=== PATIENT | female | born 1950 | race American Indian/Alaskan Native ===

== ENCOUNTER 2018-07-10 13:58 | Emergency (ER) | payer MEDICARE ==
[2018-07-10 14:24] VITALS: BP 185/97
[2018-07-10] MEDS ORDERED: COLCHICINE PO ONE ×3 (15:10→17:30)
[2018-07-10] MEDS ORDERED: NORCO 7.5/325 PO ONE (15:10)
[2018-07-10] MEDS ORDERED: MOTRIN PO ONE (15:10)
--- NOTE | 2018-07-10 15:21 | Emergency Department Report ---
ED Extremity Problem HPI - General Chief complaint: Extremity Injury, Lower Stated complaint: LEFT FOOT PAIN Source: patient Mode of arrival: Wheelchair Limitations: No Limitations - History of Present Illness Initial comments: Patient is a 68-year-old female who has a past history end- stage renal disease and hypertension who is presenting with left foot pain. Patient states the pain is 8 out of 10 in severity as aching and throbbing. Patient was diagnosed with gout last week and was started on allopurinol but was told not to take it until the flareup improved which it is not. Patient denies any fevers chills nausea vomiting diarrhea at this time. Associated Symptoms: denies: shortness of breath, fever, myalgias - Related Data Home Medications Medication Instructions Recorded Confirmed Last Taken Carvedilol [Coreg] 6.25 mg PO BID 05/27/15 02/22/17 1 Day Ago ~02/21/17 NIFEdipine XL [Procardia Xl] 60 mg PO Q12HR 05/27/15 02/22/17 1 Day Ago ~02/21/17 Insulin Detemir [Levemir Flextouch] 15 unit SQ QHS PRN 09/14/16 02/22/17 1 Day Ago ~02/21/17 Insulin Lispro [HumaLOG VIAL] 0 units SQ AC PRN 09/14/16 02/22/17 1 Day Ago ~02/21/17 cloNIDine [Catapres] 0.2 mg PO QHS 09/14/16 02/22/17 1 Day Ago ~02/21/17 Previous Rx's Medication Instructions Recorded Last Taken Type Ferrous Sulfate [Feosol 325 MG tab] 325 mg PO BID #60 tablet 05/30/15 1 Day Ago Rx ~02/21/17 Ondansetron [Zofran TAB] 4 mg PO Q8HR PRN #20 tablet 09/18/16 1 Day Ago Rx ~02/21/17 oxyCODONE /ACETAMINOPHEN [Percocet 1 tab PO Q4HR PRN #20 tab 09/18/16 1 Day Ago Rx 5/325 mg] ~02/21/17 diphenhydrAMINE [Benadryl CAP] 25 mg PO Q8H PRN #10 capsule 02/22/17 Unknown Rx Ibuprofen [Motrin] 600 mg PO Q8H PRN #20 tablet 10/04/18 Unknown Rx oxyCODONE /ACETAMINOPHEN [Percocet 1 tab PO Q6HR PRN #15 tablet 07/10/18 Unknown Rx 5/325] Allergies Allergy/AdvReac Type Severity Reaction Status Date / Time digoxin Allergy Hives Verified 11/23/15 11:21 lisinopril Allergy Swelling Verified 11/23/15 11:21 nitroglycerin AdvReac Rash, Verified 11/23/15 11:21 HEADACHES shellfish derived AdvReac Swelling Verified 11/23/15 11:21 ED Review of Systems ROS: Stated complaint: LEFT FOOT PAIN Other details as noted in HPI Comment: All other systems reviewed and negative ED Past Medical Hx - Past Medical History Previous Medical History?: Yes Hx Hypertension: Yes (FOR 10+ YRS, DR. 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) Hx Sickle Cell Disease: No Hx Arthritis: Yes (Gout) Hx Seizures: No Hx Asthma: Yes ( A CHILD) Hx HIV: No Additional medical history: Dilated cardiomyopathy / PERITONEAL DYALISIS - Surgical History Past Surgical History?: Yes Hx Pacemaker: No Hx Appendectomy: Yes (IN 1984) Additional Surgical History: tonsil removed - Social History Smoking Status: Never Smoker Substance Use Type: None - Medications Home Medications: Home Medications Medication Instructions Recorded Confirmed Last Taken Type Carvedilol [Coreg] 6.25 mg PO BID 05/27/15 02/22/17 1 Day Ago History ~02/21/17 NIFEdipine XL [Procardia Xl] 60 mg PO Q12HR 05/27/15 02/22/17 1 Day Ago History ~02/21/17 Ferrous Sulfate [Feosol 325 MG tab] 325 mg PO BID #60 tablet 05/30/15 02/22/17 1 Day Ago Rx ~02/21/17 Insulin Detemir [Levemir Flextouch] 15 unit SQ QHS PRN 09/14/16 02/22/17 1 Day Ago History ~02/21/17 Insulin Lispro [HumaLOG VIAL] 0 units SQ AC PRN 09/14/16 02/22/17 1 Day Ago History ~02/21/17 cloNIDine [Catapres] 0.2 mg PO QHS 09/14/16 02/22/17 1 Day Ago History ~02/21/17 Ondansetron [Zofran TAB] 4 mg PO Q8HR PRN #20 tablet 09/18/16 02/22/17 1 Day Ago Rx ~02/21/17 oxyCODONE /ACETAMINOPHEN [Percocet 1 tab PO Q4HR PRN #20 tab 09/18/16 02/22/17 1 Day Ago Rx 5/325 mg] ~02/21/17 diphenhydrAMINE [Benadryl CAP] 25 mg PO Q8H PRN #10 capsule 02/22/17 Unknown Rx Ibuprofen [Motrin] 600 mg PO Q8H PRN #20 tablet 07/10/18 Unknown Rx oxyCODONE /ACETAMINOPHEN [Percocet 1 tab PO Q6HR PRN #15 tablet 07/10/18 Unknown Rx 5/325] ED Physical Exam - General Limitations: No Limitations General appearance: alert, in no apparent distress - Head Head exam: Present: atraumatic, normocephalic - Eye Eye exam: Present: normal appearance - ENT ENT exam: Present: mucous membranes moist - Neck Neck exam: Present: normal inspection - Respiratory Respiratory exam: Present: normal lung sounds bilaterally. Absent: respiratory distress, wheezes, rales, rhonchi - Cardiovascular Cardiovascular Exam: Present: regular rate, normal rhythm. Absent: systolic murmur, diastolic murmur, rubs, gallop - GI/Abdominal GI/Abdominal exam: Present: soft, normal bowel sounds - Extremities Exam Extremities exam: Present: normal inspection, tenderness (patient has tenderness mild erythema and mild warmth to the dorsal left foot extending to the ankle) - Back Exam Back exam: Present: normal inspection - Neurological Exam Neurological exam: Present: alert, oriented X3 - Psychiatric Psychiatric exam: Present: normal affect, normal mood - Skin Skin exam: Present: warm, dry, intact, normal color. Absent: rash ED Course Vital Signs 07/10/18 07/10/18 14:17 14:23 Temperature 98.4 F Pulse Rate 103 H Respiratory 18 Rate Blood Pressure 190/92 Blood Pressure 185/97 [Right] O2 Sat by Pulse 98 Oximetry ED Medical Decision Making - Medical Decision Making She was started on colchicine and given meds for symptomatically relief and the patient will be discharged home. Critical care attestation.: If time is entered above; I have spent that time in minutes in the direct care of this critically ill patient, excluding procedure time. ED Disposition Clinical Impression: Gout attack Disposition: DC- TO HOME OR SELFCARE Is pt being admited?: No Does the pt Need Aspirin: No Condition: Stable Instructions: Acute Gouty Arthritis (ED) Referrals: PRIMARY CARE, [Primary Care Provider] - 3-5 Days Time of Disposition: 15:21
== END 2018-07-10 16:50 | disposition home or self-care (01) ==
LOC: ED 13:58
DX: M10.072 Idiopathic gout, left ankle and foot (principal); I13.2 Hypertensive heart and chronic kidney disease with heart failure and with stage 5 chronic kidney disease, or end stage renal disease; E11.22 Type 2 diabetes mellitus with diabetic chronic kidney disease; N18.6 End stage renal disease; I50.9 Heart failure, unspecified; M19.90 Unspecified osteoarthritis, unspecified site; Z79.4 Long term (current) use of insulin; Z88.8 Allergy status to other drugs, medicaments and biological substances; Z91.013 Allergy to seafood
CPT/HCPCS: 99282

== ENCOUNTER 2020-07-31 10:00 | Inpatient (IN) | payer MEDICARE, OTHER ==
--- NOTE | 2020-07-31 10:07 | Event Note ---
ED Screening Note Date of service: 07/31/20 Time: 10:05 ED Screening Note: The patient was evaluated in the emergency department for symptoms described in the history of present illness. He/she was evaluated in the context of the global COVID-19 pandemic, which necessitated consideration that the patient might be at risk for infection with the virus that causes COVID-19. Institutional protocols and algorithms that pertain to the evaluation of patients at risk for COVID-19 are in a state of rapid change based on information released by regulatory bodies including the CDC and federal and state organizations. These policies and algorithms were followed during the patient's care in the emergency department. Please note that these policies, procedures and recommendations changed on a rapid basis. 70-year-old -Martiniquais female with a present history of end-stage renal disease on dialysis, diabetes presents to the emergency room for shortness of breath and generalized itching and generalized feeling like glasses all over her. And reports that her fingertips feel like they are swollen and will have glue-like substance coming from the tips that would sometimes be red. Is brought in by her . This initial assessment/diagnostic orders/clinical plan/treatment(s) is/are subject to change based on patients health status, clinical progression and re- assessment by fellow clinical providers in the ED. Further treatment and workup at subsequent clinical providers discretion. Patient/guardian urged not to elope from the ED as their condition may be serious if not clinically assessed and managed. Initial orders include: Main CBC, CMP, urinalysis, fosters, magnesium, chest x-ray.
[2020-07-31 10:36] LABS: Bacteria,Urine 1+ /HPF (Negative); Bilirubin,Urine NEG (Negative); Blood,Urine NEG (Negative); Color,Urine Yellow (Yellow); Mucus,Urine FEW /HPF; Urobilinogen,Urine < 2.0 mg/dL (<2.0)
[2020-07-31 10:53] LABS: Basophils # (Auto) 0.2 K/mm3 (0.0-0.1); Basophils % (Auto) 1.9 % (0.0-1.8); Eosinophils # (Auto) 0.8 K/mm3 (0.0-0.4); Eosinophils % (Auto) 9.2 % (0.0-4.3); Hemoglobin 6.2 gm/dl (10.1-14.3); Lymphocytes # (Auto) 1.1 K/mm3 (1.2-5.4); Lymphocytes % (Auto) 11.9 % (13.4-35.0); Mean Corpuscular HGB Conc 32 % (30-34); Mean Corpuscular Volume 96 fl (79-97); Monocytes # (Auto) 0.8 K/mm3 (0.0-0.8); Monocytes % (Auto) 8.8 % (0.0-7.3); Platelet Count 322 K/mm3 (140-440); Red Blood Count 2.03 M/mm3 (3.65-5.03); Red Cell Distribution Width 19.9 % (13.2-15.2)
--- NOTE | 2020-07-31 10:54 | XRay Report ---
CHEST PA AND LATERAL VIEWS INDICATION: MAIN. COMPARISON: 02/21/2017 FINDINGS: Support devices: None Heart: Normal and unchanged Lungs/Pleura: No acute pulmonary or pleural findings. IMPRESSION: 1. No significant abnormality. Signer Name: Steven Medina MD Signed: 07/31/2020 10:50 AM Workstation Name: [id number]
[2020-07-31 10:55] LABS: Hematocrit 19.5 % (30.3-42.9)
[2020-07-31] MEDS ORDERED: SODIUM CHLORIDE 0.9% 500 ML 500 ML IV ONE (11:04)
--- NOTE | 2020-07-31 11:04 | Emergency Department Report ---
ED Shortness of Breath HPI - General Chief Complaint: Dyspnea/Respdistress Stated Complaint: JOCELINE/PAIN/SKIN PROBLEMS Time Seen by Provider: 07/31/20 11:00 Source: patient Mode of arrival: Ambulatory Limitations: No Limitations - History of Present Illness Initial Comments: This is a very pleasant 70-year-old female on PD. She states that she did not finish a complete treatment yesterday because she was hurting all over. She does not complain of abdominal pain now. She denies fever or chills. She states she has been short of breath for some time. Patient does appear to have a number of somatic delusions to include "blood coming out of my fingertips". "Foam coming out of my hands" and "pus coming out everywhere I have hair". Patient is however oriented, awake and alert. She is not in respiratory distress. She is not otherwise agitated or apparently delusional. She tells me she lives at home with her . She denies being on any medications which might be associated with any of the above symptoms. She states that she has had the symptoms for some time. She states she is in regular follow-up with [facility] nephrology. She tells me that she has not been in the hospital since her last admission here when she had pneum operitoneum related to air getting in via her PD catheter. Patient states she has never been a smoker nor does her . Per last nephrology note summary: Mrs. Catherine is a 66yo with ESRD on CCPD who presented to the ED with shoulder/neck pain followed by facial/neck swelling. She denies SOB, fever, sore throat, difficulty swallowing. She denies change in food/eating habits. S ymptoms continued to worsen which prompted her visit to the ED. Pain and swelling have both resolved according to patient. Past History Past Medical History: COPD, hypertension, renal failure, other (Dilated Cardiomyopathy). denies: diabetes Past Surgical History: appendectomy, Other (Peritoneal Dialysis Catherer) Social history: denies: smoking, alcohol abuse Family history: cancer (Father of Lung CA), hypertension (Mother has HTN) Medications and Allergies Allergies Allergy/AdvReac Type Severity Reaction Status Date / Time digoxin Allergy Hives Verified 11/23/15 11:21 lisinopril Allergy Swelling Verified 11/23/15 11:21 nitroglycerin AdvReac Rash, Verified 11/23/15 11:21 HEADACHES shellfish derived AdvReac Swelling Verified 11/23/15 11:21 Home Medications Medication Instructions Recorded Confirmed Last Taken Type Carvedilol [Coreg] 6.25 mg PO BID 05/27/15 02/22/17 1 Day Ago History NIFEdipine XL [Procardia Xl] 60 mg PO Q12HR 05/27/15 02/22/17 1 Day Ago History Ferrous Sulfate [Feosol 325 MG tab] 325 mg PO BID #60 tablet 05/30/15 02/22/17 1 Day Ago Rx Insulin Detemir [Levemir Flextouch] 15 unit SQ QHS PRN 09/14/16 02/22/17 1 Day Ago History Insulin Lispro [HumaLOG VIAL] 0 units SQ AC PRN 09/14/16 02/22/17 1 Day Ago History cloNIDine [Catapres] 0.2 mg PO QHS 09/14/16 02/22/17 1 Day Ago History Ondansetron [Zofran TAB] 4 mg PO Q8HR PRN #20 tablet 09/18/16 02/22/17 1 Day Ago Rx oxyCODONE /ACETAMINOPHEN [Percocet 1 tab PO Q4HR PRN #20 tab 09/18/1602/04 1 Day Ago Rx 5/325 mg] diphenhydrAMINE [Benadryl CAP] 25 mg PO Q8H PRN #10 capsule 02/22/17 Unknown Rx Active Meds: Active Medications Carvedilol (Coreg) 6.25 mg PO BID [facility] Last Admin: 02/22/17 11:21 Dose: 6.25 mg Clonidine HCl (Catapres) 0.2 mg PO QHS [facility] Diphenhydramine HCl (Benadryl) 25 mg PO Q8H PRN PRN Reason: Itching Last Admin: 02/22/17 11:22 Dose: 25 mg Ferrous Sulfate (Feosol) 325 mg PO BID [facility] Last Admin: 02/22/17 11:21 Dose: 325 mg Heparin Sodium (Porcine) (Heparin) 5,000 unit SUB-Q Q8HR [facility] Last Admin: 02/22/17 05:45 Dose: 5,000 unit Insulin Aspart (Novolog) 5 units SUB-Q AC [facility] Last Admin: 02/22/17 11:29 Dose: Not Given Insulin Detemir (Levemir) 15 units SUB-Q QHS [facility] Insulin Human Regular (Novolin R) 0 units SUB-Q ACHS [facility] PRN Reason: Protocol Morphine Sulfate (Morphine) 1 mg IV Q4H PRN PRN Reason: Pain , Severe (7-10) Last Admin: 02/22/17 11:24 Dose: 1 mg Nifedipine (Procardia Xl) 60 mg PO Q12HR [facility] Ondansetron HCl (Zofran) 4 mg PO Q8HR PRN PRN Reason: Nausea Oxycodone/Acetaminophen (Percocet 5/325) 1 tab PO Q4HR PRN PRN Reason: Pain Last Admin: 02/22/17 12:42 Dose: 1 tab Peritoneal Dialysis Solution (Dianeal Low Calcium W/2.5% Dextrose) 2,000 ml IP Q4H [facility] Last Admin: 02/22/17 12:26 Dose: 2,000 ml Complaint: shortness of breath -: Gradual, days(s) Known History Of: COPD, other Associated Symptoms: denies other symptoms Treatments Prior to Arrival: none - Related Data Home Oxygen Therapy: No Home Medications Medication Instructions Recorded Confirmed Last Taken NIFEdipine XL [Procardia Xl] 60 mg PO Q12HR 05/27/15 02/22/17 07/30/20 carvediloL [Coreg] 6.25 mg PO BID 05/27/15 02/22/17 07/30/20 Insulin Detemir (Nf) [Levemir 15 unit SQ QHS PRN 09/14/16 02/22/17 07/31/19 Flextouch (Nf)] Insulin Lispro [HumaLOG VIAL] 0 units SQ AC PRN 09/14/16 02/22/17 07/31/19 cloNIDine [Catapres] 0.2 mg PO QHS 09/14/16 02/22/17 07/30/20 Cholecalciferol (Vitamin D3) 3,000 unit PO DAILY 07/31/20 07/31/20 07/30/20 [Vitamin D3 3,000 unit] Cinacalcet HCl [Sensipar] 60 mg PO DAILY 07/31/20 07/31/20 Unknown Gentamicin 0.1% Top Oint(Nf) 1 applic TP TID 07/31/20 07/31/20 Unknown [Gentamicin 0.1% Top Oint (Nf)] Previous Rx's Medication Instructions Recorded Last Taken Type Ibuprofen [Motrin] 600 mg PO Q8H PRN #20 tablet 07/10/18 Unknown Rx Allergies Allergy/AdvReac Type Severity Reaction Status Date / Time digoxin Allergy Hives Verified 11/23/15 11:21 lisinopril Allergy Swelling Verified 11/23/15 11:21 nitroglycerin AdvReac Rash, Verified 11/23/15 11:21 HEADACHES shellfish derived AdvReac Swelling Verified 11/23/15 11:21 ED Review of Systems ROS: Stated complaint: JOCELINE/PAIN/SKIN PROBLEMS Other details as noted in HPI Constitutional: denies: chills, fever Eyes: denies: eye pain, eye discharge, vision change ENT: denies: ear pain, throat pain Respiratory: shortness of breath, SOB with exertion. denies: cough (Only occasional with no acute change), wheezing Cardiovascular: denies: chest pain, palpitations Endocrine: no symptoms reported Gastrointestinal: denies: abdominal pain, nausea, diarrhea Genitourinary: denies: urgency, dysuria, discharge Musculoskeletal: denies: back pain, joint swelling, arthralgia Skin: as per HPI (Quite a variety of symptoms likely somatic in nature.) Neurological: denies: headache, weakness, paresthesias Psychiatric: denies: anxiety, depression Hematological/Lymphatic: denies: easy bleeding, easy bruising ED Past Medical Hx - Past Medical History Previous Medical History?: Yes Hx Hypertension: Yes (FOR 10+ YRS, DR. 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) Hx Sickle Cell Disease: No Hx Arthritis: Yes (Gout) Hx Seizures: No Hx Asthma: Yes ( A CHILD) Hx HIV: No Additional medical history: Dilated cardiomyopathy / PERITONEAL DYALISIS - Surgical History Past Surgical History?: Yes Hx Pacemaker: No Hx Appendectomy: Yes ([place] 1984) Additional Surgical History: tonsil removed - Social History Smoking Status: Never Smoker Substance Use Type: None - Medications Home Medications: Home Medications Medication Instructions Recorded Confirmed Last Taken Type NIFEdipine XL [Procardia Xl] 60 mg PO Q12HR 05/27/15 02/22/17 07/30/20 History carvediloL [Coreg] 6.25 mg PO BID 05/27/15 02/22/17 07/30/20 History Insulin Detemir (Nf) [Levemir 15 unit SQ QHS PRN 09/14/16 02/22/17 07/31/19 History Flextouch (Nf)] Insulin Lispro [HumaLOG VIAL] 0 units SQ AC PRN 09/14/16 02/22/17 07/31/19 History cloNIDine [Catapres] 0.2 mg PO QHS 09/14/16 02/22/17 07/30/20 History Ibuprofen [Motrin] 600 mg PO Q8H PRN #20 tablet 07/10/18 Unknown Rx Cholecalciferol (Vitamin D3) 3,000 unit PO DAILY 07/31/20 07/31/20 07/30/20 History [Vitamin D3 3,000 unit] Cinacalcet HCl [Sensipar] 60 mg PO DAILY 07/31/20 07/31/20 Unknown History Gentamicin 0.1% Top Oint(Nf) 1 applic TP TID 07/31/20 07/31/20 Unknown History [Gentamicin 0.1% Top Oint (Nf)] ED Physical Exam - General Limitations: Physical Limitation General appearance: alert, in no apparent distress, other (Pale) - Head Head exam: Present: atraumatic, normocephalic - Eye Eye exam: Present: normal appearance. Absent: scleral icterus - ENT ENT exam: Present: mucous membranes moist - Neck Neck exam: Present: normal inspection. Absent: tenderness, meningismus - Respiratory Respiratory exam: Present: normal lung sounds bilaterally. Absent: respiratory distress - Cardiovascular Cardiovascular Exam: Present: regular rate, normal rhythm. Absent: systolic murmur, diastolic murmur, rubs, gallop - GI/Abdominal GI/Abdominal exam: Present: soft, normal bowel sounds, other (PD catheter dressed in situ. No obvious abnormal findings). Absent: distended, tenderness, guarding, rebound - Extremities Exam Extremities exam: Present: pedal edema (Mild pedal edema) - Back Exam Back exam: Present: normal inspection - Neurological Exam Neurological exam: Present: alert, oriented X3, CN II-XII intact. Absent: motor sensory deficit - Psychiatric Psychiatric exam: Present: normal affect, normal mood - Skin Skin exam: Present: warm, dry, intact, other (Patient skin is pale. She does have a number of pigmented areas to include the bottom of her feet. They appear to be quite chronic in nature.). Absent: rash ED Course Vital Signs 07/31/20 07/31/20 07/31/20 10:03 11:05 11:15 Temperature 97.7 F Pulse Rate 93 H 87 96 H Respiratory 13 16 Rate Blood Pressure 161/74 143/66 O2 Sat by Pulse 16 L 96 99 Oximetry 07/31/20 07/31/20 11:31 12:01 Temperature Pulse Rate 85 Respiratory 20 20 Rate Blood Pressure 147/71 O2 Sat by Pulse 98 98 Oximetry - Reevaluation(s) Reevaluation #1: Patient will require transfusion and admission to the hospital. Her chemistries are yet pending. 07/31/20 11:20 Reevaluation #2: Discussed with hospitalist. Will be admitted by Dr. Simon. Consult to nephrology. No acute renal issue found this time that requires emergency consultation. Unit of blood ordered. Hospitalist for further evaluation. 07/31/20 11:28 ED Medical Decision Making - Lab Data Result diagrams: 07/31/20 10:30 07/31/20 10:30 Laboratory Results - last 24 hr 07/31/20 07/31/20 07/31/20 10:21 10:30 10:30 WBC 9.1 RBC 2.03 L Hgb 6.2 L Hct 19.5 L* MCV 96 MCH 31 MCHC 32 RDW 19.9 H Plt Count 322 Lymph % (Auto) 11.9 L [place] % (Auto) 8.8 H Eos % (Auto) 9.2 H Baso % (Auto) 1.9 H Lymph # (Auto) 1.1 L [place] # (Auto) 0.8 Eos # (Auto) 0.8 H Baso # (Auto) 0.2 H Seg Neutrophils % 68.2 Seg Neutrophils # 6.2 Sodium 142 Potassium 5.0 Chloride 97.7 L Carbon Dioxide 25 Anion Gap 24 BUN 64 H Creatinine 13.8 H Estimated GFR 3 BUN/Creatinine Ratio 5 Glucose 98 POC Glucose 99 Calcium 10.3 H Phosphorus Magnesium Total Bilirubin 0.30 AST 9 ALT 6 L Alkaline Phosphatase 138 H Total Protein 7.6 Albumin 3.8 L Albumin/Globulin Ratio 1.0 Urine Color Urine Turbidity Urine pH Ur Specific [place] Urine Protein Urine Glucose (UA) Urine Ketones Urine Blood Urine Nitrite Urine Bilirubin Urine Urobilinogen Ur Leukocyte Esterase Urine WBC (Auto) Urine RBC (Auto) U Epithel Cells (Auto) Urine Bacteria (Auto) Urine Mucus 07/31/20 07/31/20 10:30 Unknown WBC RBC Hgb Hct MCV MCH MCHC RDW Plt Count Lymph % (Auto) [place] % (Auto) Eos % (Auto) Baso % (Auto) Lymph # (Auto) [place] # (Auto) Eos # (Auto) Baso # (Auto) Seg Neutrophils % Seg Neutrophils # Sodium Potassium Chloride Carbon Dioxide Anion Gap BUN Creatinine Estimated GFR BUN/Creatinine Ratio Glucose POC Glucose Calcium Phosphorus 7.60 H Magnesium 2.00 Total Bilirubin AST ALT Alkaline Phosphatase Total Protein Albumin Albumin/Globulin Ratio Urine Color Yellow Urine Turbidity Clear Urine pH 7.0 Ur Specific [place] 1.012 Urine Protein 100 mg/dl Urine Glucose (UA) Neg Urine Ketones Neg Urine Blood Neg Urine Nitrite Neg Urine Bilirubin Neg Urine Urobilinogen < 2.0 Ur Leukocyte Esterase Tr Urine WBC (Auto) 2.0 Urine RBC (Auto) 1.0 U Epithel Cells (Auto) 5.0 Urine Bacteria (Auto) 1+ Urine Mucus Few - EKG Data -: EKG Interpreted by Me EKG shows normal: sinus rhythm, axis, intervals, QRS complexes, ST-T waves Rate: normal - EKG Data Interpretation: no acute changes, nonspecific ST-T wave davey, other (P pulmonale noted) - Radiology Data Radiology results: image reviewed (Consistent with chronic lung, no acute finding) Critical care attestation.: If time is entered above; I have spent that time in minutes in the direct care of this critically ill patient, excluding procedure time. ED Disposition Clinical Impression: Symptomatic anemia, End-stage renal disease on peritoneal dialysis, Hypophosphatemia, Hallucinosis, Hyperphosphatemia, Dyspnea Disposition: OP ADMIT IP TO THIS HOSP Is pt being admited?: Yes Does the pt Need Aspirin: Yes Condition: Stable Time of Disposition: 11:29
[2020-07-31 11:10] LABS: Albumin 3.8 g/dL (3.9-5); Calcium 10.3 mg/dL (8.4-10.2)
[2020-07-31] MEDS ORDERED: ASPIRIN 81 MG TAB CHEW PO ONE (11:29)
[2020-07-31 11:41] LABS: INR 0.76 (0.87-1.13)
[2020-07-31 11:42] LABS: Partial Thromboplastin Time 26.4 Sec. (24.2-36.6)
[2020-07-31 12:01] LABS: Creatine Kinase MB 2.1 ng/mL (0.0-4.0)
[2020-07-31 12:14] LABS: Chol/HDL Ratio 3.6 %
[2020-07-31] MEDS ORDERED: ASPIRIN 81 MG TAB CHEW ONE (12:21)
[2020-07-31] MEDS ORDERED: ACETAMINOPHEN 325 MG TAB PO PRN ×2 (12:53→12:57)
[2020-07-31] MEDS ORDERED: ONDANSETRON 4 MG/2 ML INJ IV PRN ×2 (12:53→12:57)
[2020-07-31] MEDS ORDERED: INSULIN DETEMIR 15 UNIT SQ PRN (12:56)
[2020-07-31] MEDS ORDERED: DEXTROSE 50% IN WATER (25GM) 50 ML SYRINGE IV PRN (12:58)
[2020-07-31] MEDS ORDERED: NON-FORMULARY EACH (Cinacalcet Hcl [Sensipar] 60 MG) PO SCH (13:00)
--- NOTE | 2020-07-31 13:03 | History and Physical Report ---
History of Present Illness Date of examination: 07/31/20 Date of admission: 07/31/20 11:56 Chief complaint: sob fatigue anemia History of present illness: Patient is a 70-year-old female with a history of end-stage renal disease, COPD presents with shortness of breath dyspnea on exertion orthopnea which she described as trouble breathing when she lies down. Patient denies any chest pain denies nausea vomiting denies any sick contacts denies any recent travel. Patient states she has been doing fairly well until this time medically patient however will quickly return the history to some what appears to be visual hallucinations which she states blood and pus coming from her fingertips in her feet. There are obviously no lesions there that are consistent with this. Patient showed me on her phone picture of stretch mosley and then says this is pus running out of her skin when clearly that stretch mosley. Patient states she has itching on the bottom her feet. I did call her and he states that this was unusual behavior for the patient however he did not have much to add as far as her history. Was very difficult to get any information from him even if he knew what was going on. Apparently may be a ex-. Otherwise patient is comfortable no new concerns. She is not any pain denies pain no fever chills. The rest of her history and conversation is appropriate. Upon work-up patient found to be anemic with hematocrit of 15 and hemoglobin of 6. Patient was admitted for anemia transfusion end-stage renal disease she sees Dr. Khai johnson for nephrology. Past History Past Medical History: anemia, COPD, dialysis, ESRD, hypertension. denies: acute [place], atrial fib, arrhythmia, arthritis, cancer, diabetes, DVT, GERD, heart failure, hepatitis, HIV/AIDS, hyperthyroidism, hyperlipidemia, liver disease, pulmonary embolism, stroke, other Past Surgical History: Other (PD) Social history: , lives with family, full code. denies: smoking, alcohol abuse, prescription drug abuse Family history: hypertension Medications and Allergies Allergies Allergy/AdvReac Type Severity Reaction Status Date / Time digoxin Allergy Hives Verified 11/23/15 11:21 lisinopril Allergy Swelling Verified 11/23/15 11:21 nitroglycerin AdvReac Rash, Verified 11/23/15 11:21 HEADACHES shellfish derived AdvReac Swelling Verified 11/23/15 11:21 Home Medications Medication Instructions Recorded Confirmed Last Taken Type NIFEdipine XL [Procardia Xl] 60 mg PO Q12HR 05/27/15 07/31/20 07/30/20 History carvediloL [Coreg] 6.25 mg PO BID 05/27/15 07/31/20 07/30/20 History Insulin Detemir (Nf) [Levemir 15 unit SQ QHS PRN 09/14/16 07/31/20 07/31/19 History Flextouch (Nf)] Insulin Lispro [HumaLOG VIAL] 0 units SQ AC PRN 09/14/16 07/31/20 07/31/19 History cloNIDine [Catapres] 0.2 mg PO QHS 09/14/16 07/31/20 07/30/20 History Ibuprofen [Motrin] 600 mg PO Q8H PRN #20 tablet 07/10/18 07/31/20 Unknown Rx Cholecalciferol (Vitamin D3) 3,000 unit PO DAILY 07/31/20 07/31/20 07/30/20 History [Vitamin D3 3,000 unit] Cinacalcet HCl [Sensipar] 60 mg PO DAILY 07/31/20 07/31/20 Unknown History Gentamicin 0.1% Top Oint(Nf) 1 applic TP TID 07/31/20 07/31/20 Unknown History [Gentamicin 0.1% Top Oint (Nf)] Active Meds: Active Medications Acetaminophen (Tylenol) 650 mg PO Q4H PRN PRN Reason: Pain MILD(1-3)/Fever >100.5/POOLE Acetaminophen (Tylenol) 650 mg PO Q4H PRN PRN Reason: Pain MILD(1-3)/Fever >100.5/POOLE Carvedilol (Coreg) 6.25 mg PO BID [facility] Clonidine HCl (Catapres) 0.2 mg PO QHS [facility] Dextrose (D50w (25gm) Syringe) 50 ml IV Q30MIN PRN; Protocol PRN Reason: Hypoglycemia Insulin Human Lispro (Humalog) 0 unit SUB-Q Q6H [facility]; Protocol Miscellaneous Medication (Cinacalcet Hcl [Sensipar]) 60 mg PO DAILY [facility] Miscellaneous Medication (Cholecalciferol (Vitamin D3) [Vitamin D3 3,000 Unit]) 3,000 unit PO DAILY [facility] Miscellaneous Medication (Insulin Detemir (Nf)) 15 unit SQ QHS PRN PRN Reason: HIGH GLUCOSE Nifedipine (Procardia Xl) 60 mg PO Q12HR [facility] Ondansetron HCl (Zofran) 4 mg IV Q8H PRN PRN Reason: Nausea And Vomiting Ondansetron HCl (Zofran) 4 mg IV Q8H PRN PRN Reason: Nausea And Vomiting Oxycodone/Acetaminophen (Percocet 5/325) 1 tab PO Q6H PRN PRN Reason: Pain, Moderate (4-6) Sodium Chloride (Sodium Chloride Flush Syringe 10 Ml) 10 ml IV BID [facility] Sodium Chloride (Sodium Chloride Flush Syringe 10 Ml) 10 ml IV PRN PRN PRN Reason: LINE FLUSH Sodium Chloride (Sodium Chloride Flush Syringe 10 Ml) 10 ml IV BID [facility] Sodium Chloride (Sodium Chloride Flush Syringe 10 Ml) 10 ml IV PRN PRN PRN Reason: LINE FLUSH Review of Systems Constitutional: weakness, malaise, no weight loss, no weight gain, no fever, no chills, no sweats, no night sweats, no anorexia, no lethargy, no chronic headaches, no poor appetite, no daytime sleepiness, no chronic pain Ears, nose, mouth and throat: no deferred, no ear pain, no ear discharge, no tinnitis, no nasal congestion, no nasal discharge, no dental pain, no dysphagia, no post-nasal drip, no headache, no vertigo, no neck lump Cardiovascular: shortness of breath, dyspnea on exertion, paroxysmal nocturnal dyspnea, no chest pain, no orthopnea, no palpitations, no rapid/irregular heart beat, no edema, no syncope, no lightheadedness, no claudication, no phlebitis, no high blood pressure, no leg edema, no decreased exercise tolerance Respiratory: shortness of breath, dyspnea on exertion, no cough, no cough with sputum, no excessive sputum, no hemoptysis, no congestion, no wheezing, no pleurisy, no pain, no pain on inspiration, no respiratory infections Gastrointestinal: nausea, no abdominal pain, no vomiting, no diarrhea, no constipation, no change in bowel habits, no hematemesis, no coffee ground emesis, no melena, no hematochezia, no heartburn, no lactose intolerance Musculoskeletal: no neck stiffness, no neck pain, no shooting arm pain, no arm numbness/tingling, no low back pain, no shooting leg pain, no leg numbness/tingling, no redness of joints, no hot joints, no morning stiffness, no muscle cramps, no limitation of motion, no fractures Neurological: no transient paralysis, no paralysis, no numbness, no syncope, no tremors, no vertigo, no migraines, no convulsions, no change in mentation, no memory loss, no motor disturbance, no double vision, no hearing difficulties, no paralysis Psychiatric: anxiety, memory loss, sleep disturbances, no change in sleep habits, no insomnia, no hypersomnia, no change in libido, no suicidal ideation, no paranoia, no depression, no hopelessness, no sadness/tearfullness Endocrine: no cold intolerance, no excessive thirst, no nocturia, no weight change, no proptosis, no low blood sugars, no recent glucocorticoid use, no other Hematologic/Lymphatic: no thrombophilia Exam - Constitutional Vitals: Temp Pulse Resp BP Pulse Ox 97.7 F 85 20 147/71 98 07/31/20 10:03 07/31/20 11:31 07/31/20 12:01 07/31/20 11:31 07/31/20 12:01 General appearance: Present: no acute distress, well-nourished - EENT Eyes: Present: PERRL ENT: hearing intact, clear oral mucosa - Neck Neck: Present: supple, normal ROM - Respiratory Respiratory effort: normal Respiratory: bilateral: CTA - Cardiovascular Heart Sounds: Present: S1 & S2. Absent: rub, click - Extremities Extremities: pulses symmetrical, No edema Peripheral Pulses: within normal limits - Abdominal General gastrointestinal: Present: soft, non-tender, non-distended, normal bowel sounds Female genitourinary: Present: normal - Integumentary Integumentary: Present: clear, warm, dry - Musculoskeletal Musculoskeletal: gait normal, strength equal bilaterally - Psychiatric Psychiatric: appropriate mood/affect, intact judgment & insight - Neurologic Neurologic: CNII-XII intact, moves all extremities HEART Score - HEART Score Troponin: Troponin T 0.050 ng/mL (0.00-0.029) H 07/31/20 11:20 Results - Labs CBC & Chem 7: 07/31/20 10:30 07/31/20 10:30 Labs: Laboratory Last Values WBC 9.1 K/mm3 (4.5-11.0) 07/31/20 10: RBC 2.03 M/mm3 (3.65-5.03) L 07/31/20 10:30 Hgb 6.2 gm/dl (10.1-14.3) L 07/31/20 10: Hct 19.5 % (30.3-42.9) L* 07/31/20 10: MCV 96 fl (79-97) 07/31/20 10: MCH 31 pg (28-32) 07/31/20 10: MCHC 32 % (30-34) 07/31/20 10: RDW 19.9 % (13.2-15.2) H 07/31/20 10: Plt Count 322 K/mm3 (140-440) 07/31/20 10:30 Lymph % (Auto) 11.9 % (13.4-35.0) L 07/31/20 10:30 [place] % (Auto) 8.8 % (0.0-7.3) H 07/31/20 10:30 Eos % (Auto) 9.2 % (0.0-4.3) H 07/31/20 10:30 Baso % (Auto) 1.9 % (0.0-1.8) H 07/31/20 10:30 Lymph # (Auto) 1.1 K/mm3 (1.2-5.4) L 07/31/20 10: [place] # (Auto) 0.8 K/mm3 (0.0-0.8) 07/31/20 10:30 Eos # (Auto) 0.8 K/mm3 (0.0-0.4) H 07/31/20 10:30 Baso # (Auto) 0.2 K/mm3 (0.0-0.1) H 07/31/20 10: Seg Neutrophils % 68.2 % (40.0-70.0) 07/31/20 10: Seg Neutrophils # 6.2 K/mm3 (1.8-7.7) 07/31/20 10: PT 10.7 Sec. (12.2-14.9) L 07/31/20 11:20 INR 0.76 (0.87-1.13) L 07/31/20 11:20 APTT 26.4 Sec. (24.2-36.6) 07/31/20 11:20 Sodium 142 mmol/L (137-145) 07/31/20 10:30 Potassium 5.0 mmol/L (3.6-5.0) 07/31/20 10:30 Chloride 97.7 mmol/L (98-107) L 07/31/20 10:30 Carbon Dioxide 25 mmol/L (22-30) 07/31/20 10:30 Anion Gap 24 mmol/L 07/31/20 10:30 BUN 64 mg/dL (7-17) H 07/31/20 10:30 Creatinine 13.8 mg/dL (0.6-1.2) H 07/31/20 10:30 Estimated GFR 3 ml/min 07/31/20 10:30 BUN/Creatinine Ratio 5 % 07/31/20 10:30 Glucose 98 mg/dL (65-100) 07/31/20 10:30 POC Glucose 99 mg/dL (70-105) 07/31/20 10:21 Calcium 10.3 mg/dL (8.4-10.2) H 07/31/20 10:30 Phosphorus 7.60 mg/dL (2.5-4.5) H 07/31/20 10:30 Magnesium 2.00 mg/dL (1.7-2.3) 07/31/20 10:30 Total Bilirubin 0.30 mg/dL (0.1-1.2) 07/31/20 10:30 AST 9 units/L (5-40) 07/31/20 10:30 ALT 6 units/L (7-56) L 07/31/20 10:30 Alkaline Phosphatase 138 units/L (35-129) H 07/31/20 10:30 Total Creatine Kinase 65 units/L (30-135) 07/31/20 11:20 CK-MB (CK-2) 2.1 ng/mL (0.0-4.0) 07/31/20 11:20 CK-MB (CK-2) Rel Index 3.2 (0-4) 07/31/20 11:20 Troponin T 0.050 ng/mL (0.00-0.029) H 07/31/20 11:20 NT-Pro-B Natriuret Pep 8264 pg/mL (0-900) H 07/31/20 11:20 Total Protein 7.6 g/dL (6.3-8.2) 07/31/20 10: Albumin 3.8 g/dL (3.9-5) L 07/31/20 10: Albumin/Globulin Ratio 1.0 % 07/31/20 10:30 Triglycerides 134 mg/dL (2-149) 07/31/20 11:20 Cholesterol 119 mg/dL (50-199) 07/31/20 11:20 LDL Cholesterol Direct 61 mg/dL (50-130) 07/31/20 11:20 HDL Cholesterol 33 mg/dL (40-59) L 07/31/20 11:20 Cholesterol/HDL Ratio 3.60 % 07/31/20 11:20 Urine Color Yellow (Yellow) 07/31/20 Unknown Urine Turbidity Clear (Clear) 07/31/20 Unknown Urine pH 7.0 (5.0-7.0) 07/31/20 Unknown Ur Specific [place] 1.012 (1.003-1.030) 07/31/20 Unknown Urine Protein 100 mg/dl mg/dL (Negative) 07/31/20 Unknown Urine Glucose (UA) Neg mg/dL (Negative) 07/31/20 Unknown Urine Ketones Neg mg/dL (Negative) 07/31/20 Unknown Urine Blood Neg (Negative) 07/31/20 Unknown Urine Nitrite Neg (Negative) 07/31/20 Unknown Urine Bilirubin Neg (Negative) 07/31/20 Unknown Urine Urobilinogen < 2.0 mg/dL (<2.0) 07/31/20 Unknown Ur Leukocyte Esterase Tr (Negative) 07/31/20 Unknown Urine WBC (Auto) 2.0 /HPF (0.0-6.0) 07/31/20 Unknown Urine RBC (Auto) 1.0 /HPF (0.0-6.0) 07/31/20 Unknown U Epithel Cells (Auto) 5.0 /HPF (0-13.0) 07/31/20 Unknown Urine Bacteria (Auto) 1+ /HPF (Negative) 07/31/20 Unknown Urine Mucus Few /HPF 07/31/20 Unknown Blood Type B POSITIVE 07/31/20 11:50 Antibody Screen Negative 07/31/20 11:50 Crossmatch See Detail 07/31/20 11:50 - Imaging and Cardiology EKG: report reviewed, image reviewed Chest x-ray: report reviewed, image reviewed Hernández/IV: IV Catheter Type [Left INT / Saline Lock Antecubital] Assessment and Plan Advance Directives: Yes VTE prophylaxis?: Chemical Plan of care discussed with patient/family: Yes - Patient Problems (1) Dyspnea Current Visit: Yes Status: Acute Qualifiers: Dyspnea type: shortness of breath Qualified Code(s): R06.02 - Shortness of breath; R06.00 - Dyspnea, unspecified; R06.01 - Orthopnea Plan to address problem: Shortness of breath appears to be secondary to anemia. Radiograph normal. Exam on physical exam on lungs no crackles no wheezing. (2) End-stage renal disease on peritoneal dialysis Current Visit: Yes Status: Acute Plan to address problem: Missed hemodialysis most likely etiology for shortness of breath. Clinically I do not hear any evidence of volume overload. Seems to be more symptomatic anemia. Consult renal Dr. Coy. (3) Hallucinosis Current Visit: Yes Status: Acute Plan to address problem: I am not sure about hallucinations. Patient's is extremely well observant. Communicating well. Concerns are just bizarre as mentioned previously in HPI. Not appear to be metabolic in any way. Because her additional conversation she is alert with great cognition. So does not a cognitive encephalopathic problem. More mental health. Patient is observation this could clearly be followed up as outpatient. Patient does not have any suicide ideas any risk not depressed. States she has been to a gift shop assistant before and was told what it was and she does not remember. She does continue to follow dermatology. (4) Hyperphosphatemia Current Visit: Yes Status: Acute Plan to address problem: Could be etiology of itching. Will follow electrolytes. (5) Symptomatic anemia Current Visit: Yes Status: Acute Plan to address problem: Transfuse 1 unit packed red blood cells in anticipation for discharge.
[2020-07-31] MEDS ORDERED: INSULIN GLARGINE 100 UNITS/ML SUB-Q PRN (13:11)
[2020-07-31] MEDS ORDERED: SODIUM CHLORIDE 0.9% 500 ML 500 ML ONE (13:38)
[2020-07-31] MEDS: INSULIN LISPRO 100 UNIT/ML VIAL 3 mL SUB-Q SCH ×2 (14:37→23:23)
[2020-07-31] MEDS ORDERED: carvediloL 6.25 MG TAB ONE (14:38)
[2020-07-31] MEDS: carvediloL 6.25 MG TAB PO SCH ×2 (14:39→21:57)
[2020-07-31] MEDS ORDERED: diphenhydrAMINE 50 MG/ML VIAL IV ONE (14:41)
[2020-07-31] MEDS ORDERED: diphenhydrAMINE 50 MG/ML VIAL ONE (14:41)
--- NOTE | 2020-07-31 18:21 | Consultation ---
History of Present Illness - Reason for Consult Consult date: 07/31/20 end stage renal disease - History of Present Illness This is a 70-year-old woman with end-stage renal disease on peritoneal dialysis who per chart review presented for shortness of breath and paroxysmal nocturnal dyspnea but upon my interview with her stated that she presented with concerns of blood and pus oozing from her skin from head to toe. Workup in the emergency department was notable for hemoglobin less than 7 and she was subsequently admitted for symptomatic anemia. She denies hematemesis, melena and hematochezia but believes she has noted blood oozing from all over her skin. She is on a cycler for her peritoneal dialysis and dialyzes for 8 hours. She undergoes 4 cycles and uses 2.5% bags. Her fill volume is 2 L. She has last fill - 1.5 L Past History Past Medical History: anemia, COPD, dialysis, ESRD, hypertension. denies: acute [place], atrial fib, arrhythmia, arthritis, cancer, diabetes, DVT, GERD, heart failure, hepatitis, HIV/AIDS, hyperthyroidism, hyperlipidemia, liver disease, pulmonary embolism, stroke, other Past Surgical History: Other (PD) Social history: , lives with family, full code. denies: smoking, alcohol abuse, prescription drug abuse Family history: hypertension Medications and Allergies Allergies Allergy/AdvReac Type Severity Reaction Status Date / Time digoxin Allergy Hives Verified 11/23/15 11:21 lisinopril Allergy Swelling Verified 11/23/15 11:21 nitroglycerin AdvReac Rash, Verified 11/23/15 11:21 HEADACHES shellfish derived AdvReac Swelling Verified 11/23/15 11:21 Home Medications Medication Instructions Recorded Confirmed Last Taken Type NIFEdipine XL [Procardia Xl] 60 mg PO Q12HR 05/27/15 07/31/20 07/30/20 History carvediloL [Coreg] 6.25 mg PO BID 05/27/15 07/31/20 07/30/20 History Insulin Detemir (Nf) [Levemir 15 unit SQ QHS PRN 09/14/16 07/31/20 07/31/19 History Flextouch (Nf)] Insulin Lispro [HumaLOG VIAL] 0 units SQ AC PRN 09/14/16 07/31/20 07/31/19 History cloNIDine [Catapres] 0.2 mg PO QHS 09/14/16 07/31/20 07/30/20 History Ibuprofen [Motrin] 600 mg PO Q8H PRN #20 tablet 07/10/18 07/31/20 Unknown Rx Cholecalciferol (Vitamin D3) 3,000 unit PO DAILY 07/31/20 07/31/20 07/30/20 History [Vitamin D3 3,000 unit] Cinacalcet HCl [Sensipar] 60 mg PO DAILY 07/31/20 07/31/20 Unknown History Gentamicin 0.1% Top Oint(Nf) 1 applic TP TID 07/31/20 07/31/20 Unknown History [Gentamicin 0.1% Top Oint (Nf)] Active Meds: Active Medications Acetaminophen (Tylenol) 650 mg PO Q4H PRN PRN Reason: Pain MILD(1-3)/Fever >100.5/POOLE Carvedilol (Coreg) 6.25 mg PO BID [facility] Last Admin: 07/31/20 14:39 Dose: 6.25 mg Documented by: Cholecalciferol (Vitamin D3) 3,000 unit PO DAILY [facility] Cinacalcet (Sensipar) 60 mg PO QDAY [facility] Clonidine HCl (Catapres) 0.2 mg PO QHS [facility] Dextrose (D50w (25gm) Syringe) 50 ml IV Q30MIN PRN; Protocol PRN Reason: Hypoglycemia Insulin Glargine (Lantus) 22 units SUB-Q QHS PRN PRN Reason: HYPERGLYCEMIC Insulin Human Lispro (Humalog) 0 unit SUB-Q Q6H [facility]; Protocol Last Admin: 07/31/20 14:37 Dose: Not Given Documented by: Nifedipine (Procardia Xl) 60 mg PO Q12HR [facility] Ondansetron HCl (Zofran) 4 mg IV Q8H PRN PRN Reason: Nausea And Vomiting Oxycodone/Acetaminophen (Percocet 5/325) 1 tab PO Q6H PRN PRN Reason: Pain, Moderate (4-6) Sodium Chloride (Sodium Chloride Flush Syringe 10 Ml) 10 ml IV BID [facility] Sodium Chloride (Sodium Chloride Flush Syringe 10 Ml) 10 ml IV PRN PRN PRN Reason: LINE FLUSH Review of Systems Constitutional: other (no fever or chills) Eyes: bilateral: other (no itching or discharge) Ears, nose, mouth and throat: other (no pain or congestion) Cardiovascular: orthopnea, shortness of breath, paroxysmal nocturnal dyspnea, other (no leg edema) Respiratory: shortness of breath (cough), other (no nausea or vomiting) Gastrointestinal: other Genitourinary Female: other (no pelvic or flank pain) Musculoskeletal: other (no numbness or tingling) Integumentary: other (states she has oozing of blood and pus from all over her skin) Neurological: confusion, other Psychiatric: hallucinations, confusion Endocrine: other (no polydipsia or polyphagia) Allergic/Immunologic: other (no urticaria or wheezing) Exam - Vital Signs Vital signs: Vital Signs Temp Pulse BP Pulse Ox 97.7 F 93 H 161/74 16 L 07/31/20 10:03 07/31/20 10:03 07/31/20 10:03 07/31/20 10:03 Results - Lab Results 07/31/20 10:30 07/31/20 10:30 Most recent lab results Calcium 10.3 mg/dL (8.4-10.2) H 07/31/20 10:30 Phosphorus 7.60 mg/dL (2.5-4.5) H 07/31/20 10:30 Magnesium 2.00 mg/dL (1.7-2.3) 07/31/20 10:30 Assessment and Plan assessment * End-stage renal disease on peritoneal dialysis * Anemia. No obvious bleed on exam but hemoglobin is less than 7 * Shortness of breath, CXR negative for consolidation. Likely secondary to symptomatic anemia. No signs of fluid overload. * Essential hypertension * Hypercalcemia, mild - on 2.5 ca solution * Hyperphosphatemia * Confusion/hallucinations * hyperparathyroidism recommendations * Patient would like to continue using her cycler while inpatient. Can continue her home prescription inpatient once acute processes are ruled out. This includes 8.5 hours on cycler, 4 exchanges, 2.5% bags, 2 L fill volumes and a 1.5 L last fill * Although no focal deficits are present, recommend checking CT head to rule out temporal stroke * Recommend psych consult * Hold Epogen until acute process concerning CT head is ruled out * Transfuse for hemoglobin less than 7 * Hold home PhosLo binders * Start Renvela * Continue home antihypertensives * Renally dose medications * ESRD diet
[2020-07-31] MEDS: cloNIDine 0.2 MG TAB PO SCH (21:58)
[2020-07-31] MEDS: NIFEdipine XL 60 MG TAB PO SCH (21:58)
[2020-07-31] MEDS ORDERED: diphenhydrAMINE 25 MG CAP PO ONE (23:37)
[2020-08-01] MEDS: INSULIN LISPRO 100 UNIT/ML VIAL 3 mL SUB-Q SCH ×4 (03:03→21:35)
--- NOTE | 2020-08-01 07:43 | Progress Note ---
Assessment and Plan - Patient Problems (1) Dyspnea Current Visit: Yes Status: Acute Qualifiers: Dyspnea type: shortness of breath Qualified Code(s): R06.02 - Shortness of breath; R06.00 - Dyspnea, unspecified; R06.01 - Orthopnea (2) End-stage renal disease on peritoneal dialysis Current Visit: Yes Status: Acute (3) Hallucinosis Current Visit: Yes Status: Acute (4) Hyperphosphatemia Current Visit: Yes Status: Acute (5) Symptomatic anemia Current Visit: Yes Status: Acute Subjective Date of service: 08/01/20 Principal diagnosis: Symptomatic anemia Interval history: Status post transfusion patient alert oriented x3. Still has hallucinations. Appears more psychiatric because patients cognition is excellent. Rule out acute process CT scan head mental health pending. Most likely can be done as outpatient after repeat H&H. Objective - Constitutional Vitals: Vital Signs - 12hr 07/31/20 07/31/20 07/31/20 21:53 21:57 21:58 Temperature 98.3 F Pulse Rate 99 H 99 H 99 H Respiratory 20 Rate Blood Pressure 154/68 154/68 154/68 O2 Sat by Pulse 94 Oximetry 08/01/20 08/01/20 01:39 05:59 Temperature 97.0 F L Pulse Rate 82 Respiratory 20 16 Rate Blood Pressure 124/65 O2 Sat by Pulse 96 Oximetry - Labs CBC & Chem 7: 07/31/20 10:30 07/31/20 10:30 Labs: Abnormal lab results 07/31/20 07/31/20 07/31/20 Range/Units 10:30 10:30 10:30 RBC 2.03 L (3.65-5.03) M/mm3 Hgb 6.2 L (10.1-14.3) gm/dl Hct 19.5 L* (30.3-42.9) % RDW 19.9 H (13.2-15.2) % Lymph % (Auto) 11.9 L (13.4-35.0) % [place] % (Auto) 8.8 H (0.0-7.3) % Eos % (Auto) 9.2 H (0.0-4.3) % Baso % (Auto) 1.9 H (0.0-1.8) % Lymph # (Auto) 1.1 L (1.2-5.4) K/mm3 Eos # (Auto) 0.8 H (0.0-0.4) K/mm3 Baso # (Auto) 0.2 H (0.0-0.1) K/mm3 PT (12.2-14.9) Sec. INR (0.87-1.13) Chloride 97.7 L (98-107) mmol/L BUN 64 H (7-17) mg/dL Creatinine 13.8 H (0.6-1.2) mg/dL POC Glucose (70-105) mg/dL Calcium 10.3 H (8.4-10.2) mg/dL Phosphorus 7.60 H (2.5-4.5) mg/dL ALT 6 L (7-56) units/L Alkaline Phosphatase 138 H (35-129) units/L Troponin T (0.00-0.029) ng/mL NT-Pro-B Natriuret Pep (0-900) pg/mL Albumin 3.8 L (3.9-5) g/dL HDL Cholesterol (40-59) mg/dL Crossmatch 07/31/20 07/31/20 07/31/20 Range/Units 11:20 11:20 11:50 RBC (3.65-5.03) M/mm3 Hgb (10.1-14.3) gm/dl Hct (30.3-42.9) % RDW (13.2-15.2) % Lymph % (Auto) (13.4-35.0) % [place] % (Auto) (0.0-7.3) % Eos % (Auto) (0.0-4.3) % Baso % (Auto) (0.0-1.8) % Lymph # (Auto) (1.2-5.4) K/mm3 Eos # (Auto) (0.0-0.4) K/mm3 Baso # (Auto) (0.0-0.1) K/mm3 PT 10.7 L (12.2-14.9) Sec. INR 0.76 L (0.87-1.13) Chloride (98-107) mmol/L BUN (7-17) mg/dL Creatinine (0.6-1.2) mg/dL POC Glucose (70-105) mg/dL Calcium (8.4-10.2) mg/dL Phosphorus (2.5-4.5) mg/dL ALT (7-56) units/L Alkaline Phosphatase (35-129) units/L Troponin T 0.050 H (0.00-0.029) ng/mL NT-Pro-B Natriuret Pep 8264 H (0-900) pg/mL Albumin (3.9-5) g/dL HDL Cholesterol 33 L (40-59) mg/dL Crossmatch See Detail 07/31/20 Range/Units 22:56 RBC (3.65-5.03) M/mm3 Hgb (10.1-14.3) gm/dl Hct (30.3-42.9) % RDW (13.2-15.2) % Lymph % (Auto) (13.4-35.0) % [place] % (Auto) (0.0-7.3) % Eos % (Auto) (0.0-4.3) % Baso % (Auto) (0.0-1.8) % Lymph # (Auto) (1.2-5.4) K/mm3 Eos # (Auto) (0.0-0.4) K/mm3 Baso # (Auto) (0.0-0.1) K/mm3 PT (12.2-14.9) Sec. INR (0.87-1.13) Chloride (98-107) mmol/L BUN (7-17) mg/dL Creatinine (0.6-1.2) mg/dL POC Glucose 110 H (70-105) mg/dL Calcium (8.4-10.2) mg/dL Phosphorus (2.5-4.5) mg/dL ALT (7-56) units/L Alkaline Phosphatase (35-129) units/L Troponin T (0.00-0.029) ng/mL NT-Pro-B Natriuret Pep (0-900) pg/mL Albumin (3.9-5) g/dL HDL Cholesterol (40-59) mg/dL Crossmatch HEART Score - HEART Score Troponin: Troponin T 0.050 ng/mL (0.00-0.029) H 07/31/20 11:20
[2020-08-01 09:04] LABS: Basophils # (Auto) 0.1 K/mm3 (0.0-0.1); Basophils % (Auto) 1.3 % (0.0-1.8); Eosinophils # (Auto) 0.8 K/mm3 (0.0-0.4); Eosinophils % (Auto) 8.4 % (0.0-4.3); Hemoglobin 6.9 gm/dl (10.1-14.3); Lymphocytes % (Auto) 10.4 % (13.4-35.0); Mean Corpuscular HGB Conc 33 % (30-34); Mean Corpuscular Volume 95 fl (79-97); Monocytes # (Auto) 0.8 K/mm3 (0.0-0.8); Monocytes % (Auto) 8.1 % (0.0-7.3); Platelet Count 243 K/mm3 (140-440); Red Blood Count 2.22 M/mm3 (3.65-5.03); Red Cell Distribution Width 17.4 % (13.2-15.2)
[2020-08-01 09:33] LABS: Calcium 9.4 mg/dL (8.4-10.2)
--- NOTE | 2020-08-01 09:39 | Progress Note ---
Subjective Principal diagnosis: Symptomatic anemia Interval history: Patient was seen today for follow-up of multiple renal related issues No complaints of any chest pain pressure or shortness of breath her peritoneal dialysis has been going well Interdisciplinary notes that also reviewed she feels much better, patient has also seen Dr. Samuels in the pastAnd is willing to follow-up with her as well Her shortness of breath is in complete remission Events of 24 hours vitals labs intake output medications were reviewed Past medical history: Reviewed Family history: Reviewed Social history: Reviewed Allergies: Reviewed Physical examination: Vitals: Reviewed HEENT: No pallor or icterus oral mucosa moist Neck: Supple no JVD no thyromegaly Chest: Bilateral clear to auscultation anteriorly Heart: Regular rate and rhythm S1-S2 heard no S3-S4 Abdomen: Soft nontender no voluntary guarding rigidity rebound Extremity: Dry skin less than 1+ peripheral edema Psychiatric: No evidence of agitation and aggression noted Dermatology: No petechial rashes Labs and x-rays: Reviewed from today Assessment and plan ESRD currently on peritoneal dialysis, continue the cycler for now, she is currently followed at [facility] Anemia in end-stage renal disease, current hemoglobin 6.2 during this admission needs further workup and evaluation and follow-up with the hematology primary care physician as well as store host Mild hyperkalemia to monitor and follow Shortness of breath: Multifactorial chest x-ray did not show any evidence of congestive heart failure likely this could be resulting from anemia, would also recommend an echocardiogram Bone mineral disorder and secondary hyperparathyroidism we will continue to monitor and follow next Hypertension and volume will monitor and follow We'll continue to follow and make recommendation for renal standpoint Patient was adequately counseled and educated regarding all the renal related issues Laboratory studies, have been explained to the patient All questions were answered and simple [place] We'll continue to follow and make recommendation for renal standpoint Objective - Vital Signs Vital signs: Vital Signs - 12hr 07/31/20 07/31/20 07/31/20 21:53 21:57 21:58 Temperature 98.3 F Pulse Rate 99 H 99 H 99 H Respiratory 20 Rate Blood Pressure 154/68 154/68 154/68 O2 Sat by Pulse 94 Oximetry 08/01/20 08/01/20 01:39 05:59 Temperature 97.0 F L Pulse Rate 82 Respiratory 20 16 Rate Blood Pressure 124/65 O2 Sat by Pulse 96 Oximetry - Lab 08/01/20 07:01 08/01/20 07:01 Most recent lab results Calcium 9.4 mg/dL (8.4-10.2) 08/01/20 07:01 Phosphorus 7.60 mg/dL (2.5-4.5) H 07/31/20 10:30 Magnesium 2.00 mg/dL (1.7-2.3) 07/31/20 10:30 Medications & Allergies - Medications Allergies/Adverse Reactions: Allergies digoxin Allergy (Verified 11/23/15 11:21) Hives lisinopril Allergy (Verified 11/23/15 11:21) Swelling nitroglycerin Adverse Reaction (Verified 11/23/15 11:21) Rash, HEADACHES shellfish derived Adverse Reaction (Verified 11/23/15 11:21) Swelling Home Medications: Home Medications Medication Instructions Recorded Confirmed Last Taken Type RX: NIFEdipine XL [Procardia Xl] 60 mg PO Q12HR 05/27/15 07/31/20 07/30/20 History RX: carvediloL [Coreg] 6.25 mg PO BID 05/27/15 07/31/20 07/30/20 History RX: Insulin Detemir (Nf) [Levemir 15 unit SQ QHS PRN 09/14/16 07/31/20 07/31/19 History Flextouch (Nf)] RX: Insulin Lispro [HumaLOG VIAL] 0 units SQ AC PRN 09/14/16 07/31/20 07/31/19 History RX: cloNIDine [Catapres] 0.2 mg PO QHS 09/14/16 07/31/20 07/30/20 History RX: Ibuprofen [Motrin 600 MG tab] 600 mg PO Q8H PRN #20 tablet 07/10/18 07/31/20 Unknown Rx RX: Cholecalciferol (Vitamin D3) 3,000 unit PO DAILY 07/31/20 07/31/20 07/30/20 History [Vitamin D3 3,000 unit] RX: Cinacalcet HCl [Sensipar] 60 mg PO DAILY 07/31/20 07/31/20 Unknown History RX: Gentamicin 0.1% Top Oint(Nf) 1 applic TP TID 07/31/20 07/31/20 Unknown History [Gentamicin 0.1% Top Oint (Nf)] RX: Acetaminophen [Acetaminophen 650 mg PO Q4H PRN tablet 08/01/20 Unknown Rx TAB] RX: Cholecalciferol Vit D3 3,000 unit PO DAILY tablet 08/01/20 Unknown Rx [Vitamin D3 1,000 UNIT TAB] RX: Cinacalcet [Sensipar] 60 mg PO QDAY tablet 08/01/20 Unknown Rx RX: Insulin Glargine [Lantus VIAL] 22 units SUB-Q QHS PRN units 08/01/20 Unknown Rx RX: Insulin Lispro [Humalog] 0 unit SUB-Q Q6H vial 08/01/20 Unknown Rx RX: Sodium Chloride 0.9% Int 10 ml IV PRN PRN syringe 08/01/20 Unknown Rx [Sodium Chloride Flush Syringe 10 ml] RX: risperiDONE [RisperDAL] 0.25 mg PO BID #60 tab 08/01/20 Unknown Rx RX: risperiDONE [RisperDAL] 0.25 mg PO BID #60 tablet 08/01/20 Unknown Rx Active Medications: Generic Name Dose Route Start Last Admin Trade Name Freq PRN Reason Stop Dose Admin Acetaminophen 650 mg 07/31/20 12:57 Tylenol PO Q4H PRN Pain MILD(1-3)/Fever >100.5/POOLE Carvedilol 6.25 mg 07/31/20 13:00 07/31/20 21:57 Coreg PO 6.25 mg BID [facility] Administration Cholecalciferol 3,000 unit 08/01/20 10:00 Vitamin D3 PO DAILY [facility] Cinacalcet 60 mg 08/01/20 10:00 Sensipar PO QDAY [facility] Clonidine HCl 0.2 mg 07/31/20 22:00 07/31/20 21:58 Catapres PO 0.2 mg QHS [facility] Administration Dextrose 50 ml 07/31/20 12:58 D50w (25gm) Syringe IV Q30MIN PRN Hypoglycemia Protocol Insulin Glargine 22 units 07/31/20 13:11 Lantus SUB-Q QHS PRN HYPERGLYCEMIC Insulin Human Lispro 0 unit 07/31/20 13:00 08/01/20 07:26 Humalog SUB-Q Not Given Q6H [facility] Protocol Nifedipine 60 mg 07/31/20 22:00 07/31/20 21:58 Procardia Xl PO 60 mg Q12HR [facility] Administration Ondansetron HCl 4 mg 07/31/20 12:57 Zofran IV Q8H PRN Nausea And Vomiting Oxycodone/Acetaminophen 1 tab 07/31/20 12:53 Percocet 5/325 PO Q6H PRN Pain, Moderate (4-6) Sodium Chloride 10 ml 07/31/20 22:00 07/31/20 21:58 Sodium Chloride Flush Syringe 10 Ml IV 10 ml BID [facility] Administration Sodium Chloride 10 ml 07/31/20 12:57 Sodium Chloride Flush Syringe 10 Ml IV PRN PRN LINE FLUSH
[2020-08-01] MEDS ORDERED: CHOLECALCIFEROL 3000 UNIT PO SCH (10:00)
[2020-08-01] MEDS ORDERED: CINACALCET 30 MG TAB PO SCH (10:00)
[2020-08-01] MEDS ORDERED: CHOLECALCIFEROL (VIT D3) 1000 UNIT (25 mcg) TAB PO SCH (10:00)
[2020-08-01] MEDS: carvediloL 6.25 MG TAB PO SCH ×2 (10:11→21:39)
[2020-08-01] MEDS: NIFEdipine XL 60 MG TAB PO SCH ×2 (10:11→21:46)
[2020-08-01] MEDS: oxyCODONE /ACETAMINOPHEN 5-325MG TAB PO PRN ×2 (11:25→21:48)
--- NOTE | 2020-08-01 12:11 | Consultation ---
History of Present Illness - Reason for Consult Consult date: 08/01/20 Reason for consult: Hallucinations - History of Present Psychiatric Illness Viviana Catherine is a 70y/o female patient who presented to the ER for shortness of breath, itching and feeling like glass was over her. The patient is a dialysis patient. During my interview with the patient she is sitting on side of the bed. She is a/o x 3. She is calm and cooperative. She is pleasant and conversational. When asking the patient did she understand why psychiatry was consulted. She replied "no, I've never had any problems like that a day in my life." I informed the patient that it was stated that she was hallucinating. The patient states "who said that. I think people need to listen more around here." The patient states, "they are only saying that because I told them that my skin is itching real bad and it feels like stuff is coming out of my skin." She pulls out her phone to show me pictures she's taken of her feet and her skin. It appears to be severely dry and scaly skin the patient is referring to. She denies SI/HI, stating, "no, no I love me. Not gone hurt nobody else either." The patient also denies a past history of suicidal attempt. She states "I've never did anything like that in my life." She denies any fear or feelings of endangerment. She also denies any illicit drug use, alcohol or nicotine. The patient says,"I've never did drugs or even smoked a cigarette a day in my life. I don't even drink coffee." She denies any past psychiatric history; ever seeing a psychiatrist or being on any psychiatric medications. Called number listed [phone] to obtain collateral and history. Did not receive an answer. PAST PSYCHIATRIC HISTORY: Diagnoses: Denies Suicide attempts or Self-harm behavior: Denies Prior psychiatric hospitalizations: Denies Substance Abuse history: Denies Previous psychiatric medications tried: Denies Outpatient treatment: Denies PAST MEDICAL HISTORY: Renal failure, dialysis Family Psychiatric History: None reported or documented SOCIAL HISTORY Marital Status: Living Arrangements: with spouse Employment Status: Disabled Access to guns/weapons: Denies Education: History of Abuse: None reported Legal History: None reported REVIEW OF SYSTEMS Constitutional: Negative for weight loss ENT: Negative for stridor Respiratory: Negative for cough or hemoptysis All other systems reviewed and are negative MENTAL STATUS EXAMINATION General Appearance: Dressed appropriately Behavior: good eye contact, calm and cooperative, pleasant Cooperation: Participating/engaged Psychomotor Behavior: Psychomotor normal Mood: "good if I could get rid of this itching" Affect and affective range: congruent with mood Thought Process: goal oriented Thought Content: within reality Speech: Normal rate, volume and rhythm Suicidal Ideation: denies SI Homicidal Ideation: Denies HI Hallucinations: Denies Delusions: Yes, somatic Impulse Control: unimpaired Insight and Judgment: Limited insight and judgment Memory: Normal Attention: Normal Orientation: Alert, oriented Assessment and Plan Delusional Disorder TREATMENT Start Risperidone 0.25mg po BID Sitter: Defer to primary Medical: Per priamary Disposition: Do not recommend acute inpatient psychiatric treatment at this time. Although, the patient does have some somatic delusions, they do not appear to affect the patient's medical care, activities of daily living, or pose a thr eat to her safety or the safety of others in any way. The investment accountant to give the patient resources for outpatient psychiatry and cognitive behavior therapy The patient to follow up with outpatient psychiatry in 7 to 14 days upon discharge Will sign off. Thank you for this consult. Medications and Allergies Allergies Allergy/AdvReac Type Severity Reaction Status Date / Time digoxin Allergy Hives Verified 11/23/15 11:21 lisinopril Allergy Swelling Verified 11/23/15 11:21 nitroglycerin AdvReac Rash, Verified 11/23/15 11:21 HEADACHES shellfish derived AdvReac Swelling Verified 11/23/15 11:21 Home Medications Medication Instructions Recorded Confirmed Last Taken Type NIFEdipine XL [Procardia Xl] 60 mg PO Q12HR 05/27/15 07/31/20 07/30/20 History carvediloL [Coreg] 6.25 mg PO BID 05/27/15 07/31/20 07/30/20 History Insulin Detemir (Nf) [Levemir 15 unit SQ QHS PRN 09/14/16 07/31/20 07/31/19 History Flextouch (Nf)] Insulin Lispro [HumaLOG VIAL] 0 units SQ AC PRN 09/14/16 07/31/20 07/31/19 History cloNIDine [Catapres] 0.2 mg PO QHS 09/14/16 07/31/20 07/30/20 History Ibuprofen [Motrin] 600 mg PO Q8H PRN #20 tablet 07/10/18 07/31/20 Unknown Rx Cholecalciferol (Vitamin D3) 3,000 unit PO DAILY 07/31/20 07/31/20 07/30/20 History [Vitamin D3 3,000 unit] Cinacalcet HCl [Sensipar] 60 mg PO DAILY 07/31/20 07/31/20 Unknown History Gentamicin 0.1% Top Oint(Nf) 1 applic TP TID 07/31/20 07/31/20 Unknown History [Gentamicin 0.1% Top Oint (Nf)] risperiDONE [RisperDAL] 0.25 mg PO BID #60 tab 08/01/20 Unknown Rx Active Meds: Active Medications Acetaminophen (Tylenol) 650 mg PO Q4H PRN PRN Reason: Pain MILD(1-3)/Fever >100.5/POOLE Carvedilol (Coreg) 6.25 mg PO BID [facility] Last Admin: 08/01/20 10:11 Dose: 6.25 mg Documented by: Cholecalciferol (Vitamin D3) 3,000 unit PO DAILY [facility] Last Admin: 08/01/20 10:11 Dose: 3,000 unit Documented by: Cinacalcet (Sensipar) 60 mg PO QDAY [facility] Last Admin: 08/01/20 10:11 Dose: 60 mg Documented by: Clonidine HCl (Catapres) 0.2 mg PO QHS [facility] Last Admin: 07/31/20 21:58 Dose: 0.2 mg Documented by: Dextrose (D50w (25gm) Syringe) 50 ml IV Q30MIN PRN; Protocol PRN Reason: Hypoglycemia Insulin Glargine (Lantus) 22 units SUB-Q QHS PRN PRN Reason: HYPERGLYCEMIC Insulin Human Lispro (Humalog) 0 unit SUB-Q Q6H [facility]; Protocol Last Admin: 08/01/20 07:26 Dose: Not Given Documented by: Nifedipine (Procardia Xl) 60 mg PO Q12HR [facility] Last Admin: 08/01/20 10:11 Dose: 60 mg Documented by: Ondansetron HCl (Zofran) 4 mg IV Q8H PRN PRN Reason: Nausea And Vomiting Oxycodone/Acetaminophen (Percocet 5/325) 1 tab PO Q6H PRN PRN Reason: Pain, Moderate (4-6) Last Admin: 08/01/20 11:25 Dose: 1 tab Documented by: Sodium Chloride (Sodium Chloride Flush Syringe 10 Ml) 10 ml IV BID [facility] Last Admin: 08/01/20 10:12 Dose: 10 ml Documented by: Sodium Chloride (Sodium Chloride Flush Syringe 10 Ml) 10 ml IV PRN PRN PRN Reason: LINE FLUSH Mental Status Exam - Vital signs Last Vital Signs Temp 97.0 F L 08/01/20 05:59 Pulse 82 08/01/20 05:59 Resp 16 08/01/20 05:59 BP 124/65 08/01/20 05:59 Pulse Ox 96 08/01/20 10:00 Results Result Diagrams: 08/01/20 07:01 08/01/20 07:01 Abnormal lab results 07/31/20 07/31/20 07/31/20 Range/Units 11:20 11:50 22:56 RBC (3.65-5.03) M/mm3 Hgb (10.1-14.3) gm/dl Hct (30.3-42.9) % RDW (13.2-15.2) % Lymph % (Auto) (13.4-35.0) % [place] % (Auto) (0.0-7.3) % Eos % (Auto) (0.0-4.3) % Lymph # (Auto) (1.2-5.4) K/mm3 Eos # (Auto) (0.0-0.4) K/mm3 Seg Neutrophils % (40.0-70.0) % Potassium (3.6-5.0) mmol/L Chloride (98-107) mmol/L BUN (7-17) mg/dL Creatinine (0.6-1.2) mg/dL POC Glucose 110 H (70-105) mg/dL HDL Cholesterol 33 L (40-59) mg/dL Crossmatch See Detail 08/01/20 08/01/20 Range/Units 07:01 07:01 RBC 2.22 L (3.65-5.03) M/mm3 Hgb 6.9 L (10.1-14.3) gm/dl Hct 21.0 L (30.3-42.9) % RDW 17.4 H (13.2-15.2) % Lymph % (Auto) 10.4 L (13.4-35.0) % [place] % (Auto) 8.1 H (0.0-7.3) % Eos % (Auto) 8.4 H (0.0-4.3) % Lymph # (Auto) 1.0 L (1.2-5.4) K/mm3 Eos # (Auto) 0.8 H (0.0-0.4) K/mm3 Seg Neutrophils % 71.8 H (40.0-70.0) % Potassium 5.1 H (3.6-5.0) mmol/L Chloride 97.4 L (98-107) mmol/L BUN 73 H (7-17) mg/dL Creatinine 15.7 H (0.6-1.2) mg/dL POC Glucose (70-105) mg/dL HDL Cholesterol (40-59) mg/dL Crossmatch All other labs normal.
[2020-08-01] MEDS: risperiDONE 0.25 MG TAB PO SCH ×3 (13:16→21:39)
[2020-08-01 15:08] VITALS: BP 165/88
[2020-08-01] MEDS ORDERED: SODIUM CHLORIDE 0.9% 500 ML 500 ML IV NR (15:18)
--- NOTE | 2020-08-01 15:25 | Discharge Summary ---
Providers - Providers Date of Admission: 07/31/20 11:56 Date of discharge: 08/01/20 Attending physician: DESTINY ANDERS 07/31/20 12:59 Consult to Physician [CONS] Routine Comment: Consulting Provider: OTIS YEUNG Physician Instructions: Reason For Exam: esrd 08/01/20 07:36 Consult to Mental Health [CONS] Routine Reason For Exam: hallucinations 08/01/20 11:13 Consult to Wound/ET Nurse [CONS] Routine Reason For Exam: wound eval Primary care physician: DIABETES MANAGER Hospitalization Condition: Stable Hospital course: Patient presented with symptomatic anemia. Patient with history of end-stage renal disease treated with peritoneal dialysis. Patient did not finish last dialysis and presented with some malaise. Work-up in ED patient found to be anemic. Patient did have some somatic hallucinations. That seem to be consistent with possible metabolic etiology such as hypophosphatemia and uremia. Mental health consult was obtained. Patient was started on risperidone twice daily and to follow-up with psychiatry in 7 to 14 days. Disposition: TO HOME OR SELFCARE - Discharge Diagnoses (1) Dyspnea Status: Acute Qualifiers: Dyspnea type: shortness of breath Qualified Code(s): R06.02 - Shortness of breath; R06.00 - Dyspnea, unspecified; R06.01 - Orthopnea Comment: Dyspnea resolved upon hospitalization. Patient up talking at her baseline. (2) End-stage renal disease on peritoneal dialysis Status: Acute Comment: Renal consult was obtained patient maintain her home pe ritoneal dialysis regime. (3) Hallucinosis Status: Acute Comment: Disposition: Do not recommend acute inpatient psychiatric treatment at this time. Although, the patient does have some somatic delusions, they do not appear to affect the patient's medical care, activities of daily living, or pose a threat to her safety or the safety of others in any way. The social science analyst to give the patient resources for outpatient psychiatry and cognitive behavior therapy The patient to follow up with outpatient psychiatry in 7 to 14 days upon d ischarge . (4) Hyperphosphatemia Status: Acute Comment: Renvela started. PhosLo discontinued. (5) Symptomatic anemia Status: Acute Comment: Resolved with transfusion. Patient given additional unit transfusion because hemoglobin was 6. Core Measure Documentation - Palliative Care Palliative Care/ Comfort Measures: Not Applicable - Core Measures Any of the following diagnoses?: none Exam - Constitutional Vitals: Temp Pulse Resp BP Pulse Ox 98.4 F 80 16 165/88 100 08/01/20 12:02 08/01/20 12:02 08/01/20 12:02 08/01/20 12:02 08/01/20 12:02 General appearance: Present: no acute distress, well-nourished - EENT Eyes: Present: PERRL ENT: hearing intact, clear oral mucosa - Neck Neck: Present: supple, normal ROM - Respiratory Respiratory effort: normal Respiratory: bilateral: CTA - Cardiovascular Heart Sounds: Present: S1 & S2. Absent: rub, click - Extremities Extremities: pulses symmetrical, No edema Peripheral Pulses: within normal limits - Abdominal General gastrointestinal: Present: soft, non-tender, non-distended, normal bowel sounds Female genitourinary: Present: normal - Integumentary Integumentary: Present: clear, warm, dry - Musculoskeletal Musculoskeletal: gait normal, strength equal bilaterally - Psychiatric Psychiatric: appropriate mood/affect, intact judgment & insight - Neurologic Neurologic: CNII-XII intact, moves all extremities Plan Activity: no restrictions, fall precautions Weight Bearing Status: Full Weight Bearing Diet: renal Follow up with: PRIMARY CARE, [Primary Care Provider] - 3-5 Days Prescriptions: risperiDONE [RisperDAL] 0.25 mg PO BID #60 tab risperiDONE [RisperDAL] 0.25 mg PO BID #60 tablet
[2020-08-01] MEDS: cloNIDine 0.2 MG TAB PO SCH (21:40)
--- NOTE | 2020-08-02 21:06 | Progress Note ---
Subjective Principal diagnosis: Symptomatic anemia Interval history: Patient was seen today for follow-up of multiple renal related issues, around 9:30 in the morning, She is willing to make an appointment for follow-up with staff nuclear medicine technologist She is also going to see her dialysis nurse post discharge for a quick follow-up did not had any issues with her dialysis today Events of 24 hours vitals labs intake output medications were reviewed Past medical history: Reviewed Family history: Reviewed Social history: Reviewed Allergies: Reviewed Physical examination: Vitals: Reviewed HEENT: No pallor or icterus oral mucosa moist Neck: Supple no JVD no thyromegaly Chest: Bilateral clear to auscultation anteriorly Heart: Regular rate and rhythm S1-S2 heard no S3-S4 Abdomen: Soft nontender no voluntary guarding rigidity rebound Extremity: Dry skin less than 1+ peripheral edema Psychiatric: No evidence of agitation and aggression noted Dermatology: No petechial rashes Labs and x-rays: Reviewed from today Assessment and plan ESRD currently on peritoneal dialysis, continue the cycler for now, she is currently followed at [facility], She is going to go for follow-up Anemia in end-stage renal disease, current hemoglobin 6.2 during this admission he was advised to make an appointment for follow-up with hematology as well as, GI and primary physician Mild hyperkalemia to monitor and follow Shortness of breath: Multifactorial chest x-ray did not show any evidence of congestive heart failure likely this could be resulting from anemia, would also recommend an echocardiogram Bone mineral disorder and secondary hyperparathyroidism we will continue to monitor and follow next Hypertension and volume will monitor and follow She is being discharged today and will follow up at the dialysis facility We'll continue to follow and make recommendation for renal standpoint Objective - Lab 08/01/20 07:01 08/01/20 07:01 Most recent lab results Calcium 9.4 mg/dL (8.4-10.2) 08/01/20 07:01 Phosphorus 7.60 mg/dL (2.5-4.5) H 07/31/20 10:30 Magnesium 2.00 mg/dL (1.7-2.3) 07/31/20 10:30 Medications & Allergies - Medications Allergies/Adverse Reactions: Allergies digoxin Allergy (Verified 11/23/15 11:21) Hives lisinopril Allergy (Verified 11/23/15 11:21) Swelling nitroglycerin Adverse Reaction (Verified 11/23/15 11:21) Rash, HEADACHES shellfish derived Adverse Reaction (Verified 11/23/15 11:21) Swelling Home Medications: Home Medications Medication Instructions Recorded Confirmed Last Taken Type NIFEdipine XL [Procardia Xl] 60 mg PO Q12HR 05/27/15 07/31/20 07/30/20 History carvediloL [Coreg] 6.25 mg PO BID 05/27/15 07/31/20 07/30/20 History Insulin Detemir (Nf) [Levemir 15 unit SQ QHS PRN 09/14/16 07/31/20 07/31/19 History Flextouch (Nf)] Insulin Lispro [HumaLOG VIAL] 0 units SQ AC PRN 09/14/16 07/31/20 07/31/19 History cloNIDine [Catapres] 0.2 mg PO QHS 09/14/16 07/31/20 07/30/20 History Ibuprofen [Motrin 600 MG tab] 600 mg PO Q8H PRN #20 tablet 07/10/18 07/31/20 Unknown Rx Cholecalciferol (Vitamin D3) 3,000 unit PO DAILY 07/31/20 07/31/20 07/30/20 History [Vitamin D3 3,000 unit] Cinacalcet HCl [Sensipar] 60 mg PO DAILY 07/31/20 07/31/20 Unknown History Gentamicin 0.1% Top Oint(Nf) 1 applic TP TID 07/31/20 07/31/20 Unknown History [Gentamicin 0.1% Top Oint (Nf)] Acetaminophen [Acetaminophen TAB] 650 mg PO Q4H PRN tablet 08/01/20 Unknown Rx Cholecalciferol Vit D3 [Vitamin D3 3,000 unit PO DAILY tablet 08/01/20 Unknown Rx 1,000 UNIT TAB] Cinacalcet [Sensipar] 60 mg PO QDAY tablet 08/01/20 Unknown Rx Insulin Glargine [Lantus VIAL] 22 units SUB-Q QHS PRN units 08/01/20 Unknown Rx Insulin Lispro [Humalog] 0 unit SUB-Q Q6H vial 08/01/20 Unknown Rx Sodium Chloride 0.9% Int [Sodium 10 ml IV PRN PRN syringe 08/01/20 Unknown Rx Chloride Flush Syringe 10 ml] risperiDONE [RisperDAL] 0.25 mg PO BID #60 tab 08/01/20 Unknown Rx risperiDONE [RisperDAL] 0.25 mg PO BID #60 tablet 08/01/20 Unknown Rx
== END 2020-08-02 10:45 | disposition home or self-care (01) | DRG 291 ==
LOC: ED 10:00 → 3A 11:56
PROVIDERS: ADMIT Internal Medicine; ATTEND Internal Medicine
PROC: 30233N1 Transfusion of Nonautologous Red Blood Cells into Peripheral Vein, Percutaneous Approach (ICD-10-PCS; principal; 2020-07-31)
DX: I13.2 Hypertensive heart and chronic kidney disease with heart failure and with stage 5 chronic kidney disease, or end stage renal disease (principal); N18.6 End stage renal disease; R44.2 Other hallucinations; B20 Human immunodeficiency virus [HIV] disease; I42.0 Dilated cardiomyopathy; D63.1 Anemia in chronic kidney disease; E11.22 Type 2 diabetes mellitus with diabetic chronic kidney disease; I50.9 Heart failure, unspecified; M19.90 Unspecified osteoarthritis, unspecified site; M10.9 Gout, unspecified; E21.3 Hyperparathyroidism, unspecified; E87.5 Hyperkalemia; Z99.2 Dependence on renal dialysis; Z88.8 Allergy status to other drugs, medicaments and biological substances; Z91.013 Allergy to seafood; Z79.4 Long term (current) use of insulin; Z82.49 Family history of ischemic heart disease and other diseases of the circulatory system
CPT/HCPCS: 36415; 71046; 80048; 80053; 80061; 81001; 82550; 82553; 82962; 83735; 83880; 84100; 84484; 85025; 85610; 85730; 86850; 86900; 86901; 86920; 90471; 93005; G0378; J1200; J7040; P9016

== ENCOUNTER 2021-02-13 07:25 | Emergency (ER) | payer MEDICARE, OTHER ==
[2021-02-13 09:44] LABS: Basophils # (Auto) 0.1 K/mm3 (0.0-0.1); Basophils % (Auto) 0.5 % (0.0-1.8); Eosinophils # (Auto) 0.1 K/mm3 (0.0-0.4); Eosinophils % (Auto) 0.7 % (0.0-4.3); Hematocrit 37.3 % (30.3-42.9); Hemoglobin 11.7 gm/dl (10.1-14.3); Lymphocytes # (Auto) 0.7 K/mm3 (1.2-5.4); Lymphocytes % (Auto) 5.7 % (13.4-35.0); Mean Corpuscular HGB Conc 31 % (30-34); Mean Corpuscular Volume 95 fl (79-97); Monocytes # (Auto) 0.8 K/mm3 (0.0-0.8); Monocytes % (Auto) 6.7 % (0.0-7.3); Platelet Count 317 K/mm3 (140-440); Red Blood Count 3.92 M/mm3 (3.65-5.03)
[2021-02-13 10:01] LABS: Calcium 8.9 mg/dL (8.4-10.2)
--- NOTE | 2021-02-13 10:12 | Event Note ---
ED Screening Note Date of service: 02/13/21 Time: 10:11 ED Screening Note: Pt presents to ED with c/o abd pain, vomiting, and diarrhea since saturday; Bloody mucous stools today; fever of 101 yesterday PMHX include ESRD on peritoneal dialysis, HTN, and DM, This initial assessment/diagnostic orders/clinical plan/treatment(s) is/are subject to change based on patients health status, clinical progression and re- assessment by fellow clinical providers in the ED. Further treatment and workup at subsequent clinical providers discretion. Patient/guardian urged not to elope from the ED as their condition may be serious if not clinically assessed and managed. Initial orders include: Abd pain order set including CT abd pelvis
[2021-02-13] MEDS ORDERED: HYDROcodone/ACETAMINOPHEN 5-325 MG TAB PO ONE (11:56)
--- NOTE | 2021-02-13 12:34 | Emergency Department Report ---
HPI - General Chief Complaint: Nausea/Vomiting/Diarrhea Time Seen by Provider: 02/13/21 11:32 - HPI HPI: This is a 70-year-old -[place] female who presents to the emergency department with complaint of a 2-day history of some nausea with vomiting and generalized abdominal discomfort. She says it feels like a gas pain. This started after the patient ate [place] food with her daughter. She has a past medical history of nightly peritoneal dialysis, CHF, diabetes, hypertension, dilated cardiomyopathy. She denies any fever, diarrhea, dysuria, vaginal bleeding or discharge. The patient does say that she has some episodes of diarrhea and believes that she saw a small amount of blood in her stool that was red. She says "I think it is from hemorrhoids." She tried some Pepcid and Pepto-Bismol for her symptoms with transient relief. Her primary care physician is Dr. Dougherty and her landscape architecture teacher is Dr. Powell. No recent travel or sick co ntacts at home. No known aggravating or alleviating factors. ED Past Medical Hx - Past Medical History Previous Medical History?: Yes Hx Hypertension: Yes (FOR 10+ YRS, DR. JOHNSON- PCP) Hx Congestive Heart Failure: Yes (IN 2006) Hx Diabetes: Yes Hx Liver Disease: No Hx Renal Disease: Yes ([facility] STAGE 5, DR. POWELL- [employer]MENT) Hx Sickle Cell Disease: No Hx Arthritis: Yes (Gout) Hx Seizures: No Hx Asthma: Yes ( A CHILD) Hx HIV: No Additional medical history: Dilated cardiomyopathy / PERITONEAL DYALISIS - Surgical History Past Surgical History?: Yes Hx Pacemaker: No Hx Appendectomy: Yes (IN 1984) Additional Surgical History: tonsil removed - Social History Smoking Status: Never Smoker - Medications Home Medications: Home Medications Medication Instructions Recorded Confirmed Last Taken Type NIFEdipine XL [Procardia Xl] 60 mg PO Q12HR 05/27/15 07/31/20 07/30/20 History carvediloL [Coreg] 6.25 mg PO BID 05/27/15 07/31/20 07/30/20 History Insulin Detemir (Nf) [Levemir 15 unit SQ QHS PRN 09/14/16 07/31/20 07/31/19 History Flextouch (Nf)] Insulin Lispro [HumaLOG VIAL] 0 units SQ AC PRN 09/14/16 07/31/20 07/31/19 History cloNIDine [Catapres] 0.2 mg PO QHS 09/14/16 07/31/20 07/30/20 History Ibuprofen [Motrin 600 MG tab] 600 mg PO Q8H PRN #20 tablet 07/10/18 07/31/20 Unknown Rx Cholecalciferol (Vitamin D3) 3,000 unit PO DAILY 07/31/20 07/31/20 07/30/20 History [Vitamin D3 3,000 unit] Cinacalcet HCl [Sensipar] 60 mg PO DAILY 07/31/20 07/31/20 Unknown History Gentamicin 0.1% Top Oint(Nf) 1 applic TP TID 07/31/20 07/31/20 Unknown History [Gentamicin 0.1% Top Oint (Nf)] Acetaminophen [Acetaminophen TAB] 650 mg PO Q4H PRN tablet 08/01/20 Unknown Rx Cholecalciferol Vit D3 [Vitamin D3 3,000 unit PO DAILY tablet 08/01/20 Unknown Rx 1,000 UNIT TAB] Cinacalcet [Sensipar] 60 mg PO QDAY tablet 08/01/20 Unknown Rx Insulin Glargine [Lantus VIAL] 22 units SUB-Q QHS PRN units 08/01/20 Unknown Rx Insulin Lispro [Humalog] 0 unit SUB-Q Q6H vial 08/01/20 Unknown Rx Sodium Chloride 0.9% Int [Sodium 10 ml IV PRN PRN syringe 08/01/20 Unknown Rx Chloride Flush Syringe 10 ml] risperiDONE [RisperDAL] 0.25 mg PO BID #60 tab 08/01/20 Unknown Rx risperiDONE [RisperDAL] 0.25 mg PO BID #60 tablet 08/01/20 Unknown Rx ED Review of Systems ROS: Stated complaint: POSSIBLE FOOD POSIONING Other details as noted in HPI Comment: All other systems reviewed and negative Constitutional: denies: chills, fever Eyes: denies: eye pain, vision change ENT: denies: ear pain, throat pain Respiratory: denies: cough, shortness of breath Cardiovascular: denies: chest pain, palpitations Gastrointestinal: abdominal pain, nausea, vomiting, diarrhea Genitourinary: denies: dysuria, discharge Musculoskeletal: denies: back pain, arthralgia Skin: denies: rash, lesions Neurological: denies: headache, weakness Physical Exam - Physical Exam Vital Signs: Vital Signs 02/13/21 02/13/21 08:01 12:08 Temperature 99.1 F Pulse Rate 103 H Respiratory 16 18 Rate Blood Pressure 192/115 [Right] O2 Sat by Pulse 96 Oximetry Physical Exam: GENERAL: The patient is well-developed well-nourished. HENT: Normocephalic. Atraumatic. Patient has moist mucous membranes. EYES: Extraocular motions are intact. NECK: Supple. Trachea is midline. CHEST/LUNGS: Clear to auscultation. There is no respiratory distress noted. HEART/CARDIOVASCULAR: Regular. There is no tachycardia. There is no murmur. ABDOMEN: Abdomen is soft. Mild generalized abdominal tenderness to palpation. No guarding. No peritoneal signs with heel strike. Patient has normal bowel sounds. There is no abdominal distention. SKIN: Skin is warm and dry. NEURO: The patient is awake, alert, and oriented. The patient is cooperative. The patient has no focal neurologic deficits. Normal speech. MUSCULOSKELETAL: There is no tenderness or deformity. There is no limitation range of motion. BACK: No CVA tenderness to palpation. ED Course Vital Signs 02/13/21 02/13/21 08:01 12:08 Temperature 99.1 F Pulse Rate 103 H Respiratory 16 18 Rate Blood Pressure 192/115 [Right] O2 Sat by Pulse 96 Oximetry ED Medical Decision Making - Lab Data Result diagrams: 02/13/21 09:29 02/13/21 09:29 Lab Results 02/13/21 02/13/21 02/13/21 Range/Units 09:29 09:29 10:10 WBC 11.9 H (4.5-11.0) K/mm3 RBC 3.92 (3.65-5.03) M/mm3 Hgb 11.7 (10.1-14.3) gm/dl Hct 37.3 (30.3-42.9) % MCV 95 (79-97) fl MCH 30 (28-32) pg MCHC 31 (30-34) % RDW 18.0 H (13.2-15.2) % Plt Count 317 (140-440) K/mm3 Lymph % (Auto) 5.7 L (13.4-35.0) % [place] % (Auto) 6.7 (0.0-7.3) % Eos % (Auto) 0.7 (0.0-4.3) % Baso % (Auto) 0.5 (0.0-1.8) % Lymph # (Auto) 0.7 L (1.2-5.4) K/mm3 [place] # (Auto) 0.8 (0.0-0.8) K/mm3 Eos # (Auto) 0.1 (0.0-0.4) K/mm3 Baso # (Auto) 0.1 (0.0-0.1) K/mm3 Seg Neutrophils % 86.4 H (40.0-70.0) % Seg Neutrophils # 10.2 H (1.8-7.7) K/mm3 Sodium 142 (137-145) mmol/L Potassium 4.2 (3.6-5.0) mmol/L Chloride 90.2 L (98-107) mmol/L Carbon Dioxide 36 H (22-30) mmol/L Anion Gap 20 mmol/L BUN 52 H (7-17) mg/dL Creatinine 10.9 H (0.6-1.2) mg/dL Estimated GFR 4 ml/min BUN/Creatinine Ratio 5 % Glucose 94 (65-100) mg/dL Calcium 8.9 (8.4-10.2) mg/dL Magnesium 1.70 (1.7-2.3) mg/dL Total Bilirubin 0.50 (0.1-1.2) mg/dL AST 10 (5-40) units/L ALT 7 (7-56) units/L Alkaline Phosphatase 174 H (35-129) units/L Total Protein 8.6 H (6.3-8.2) g/dL Albumin 4.0 (3.9-5) g/dL Albumin/Globulin Ratio 0.9 % Lipase 22 (13-60) units/L - Radiology Data Radiology results: report reviewed CT ABDOMEN AND PELVIS WITHOUT CONTRAST INDICATION / CLINICAL INFORMATION: Abd pain. TECHNIQUE: Axial CT images were obtained through the abdomen and pelvis without IV contrast. All CT scans at this location are performed using CT dose reduction for ALARA by means of automated exposure control. COMPARISON: CT of the chest from 02/21/2017. FINDINGS: LOWER CHEST: Subpleural reticular scarring or early fibrosis. No acute findings. LIVER: No significant abnormality GALLBLADDER/BILIARY TREE: No significant abnormality PANCREAS: No significant abnormality SPLEEN: No significant abnormality ADRENALS: No significant abnormality KIDNEYS / URETER: Both kidneys are atrophic. There are bilateral renal cysts, to include peripherally calcified lower pole right renal cyst. This is unchanged in size from 2017 CT, measuring 1.7 cm. No urolithiasis or hydronephrosis. URINARY BLADDER: Bladder is decompressed, limiting further evaluation. REPRODUCTIVE ORGANS: No significant abnormality STOMACH / SMALL BOWEL: Stomach and small bowel are normal in caliber. No evidence of bowel inflammation. COLON: Postoperative changes of partial right hemicolectomy. Scattered colonic diverticula without CT evidence diverticulitis. LYMPH NODES: No significant adenopathy. VASCULATURE: Moderate atherosclerotic calcification without acute abnormality. OTHER: Peritoneal dialysis catheter with trace free fluid in the pelvis. No intraperitoneal free air. No organized collection is identified. SKELETAL SYSTEM: Mild diffuse bony sclerosis, most likely related to renal osteodystrophy. There is asymmetric resorption and pseudoenlargement of the right greater than left SI joints, most compatible with secondary hyperparathyroidism in the setting of renal osteodystrophy. IMPRESSION: 1. No acute abnormality of the abdomen or pelvis. 2. Bony resorption of the SI joints, greater on the right, most consistent with renal osteodystrophy/secondary hyperparathyroidism. 3. Other stable chronic and postoperative findings as above. - Medical Decision Making This patient presents with a 2-day history of abdominal pain that she says feels like gas pains, as well as some nausea with one episode of vomiting. The patient thinks it may be related to eating [place] food Saturday afternoon. There is some very mild generalized abdominal tenderness to palpation. However the abdomen is soft, nondistended and nontoxic in appearance. Labs have been mostly unremarkable including CBC, metabolic panel, lipase, except for renal insufficiency consistent with her end-stage renal disease on nightly peritoneal dialysis. The peritoneal dialysis catheter is seen and does not appear to have any signs of infection without any surrounding erythema or purulent discharge. CT scan of the abdomen and pelvis without contrast does not show any acute process in the abdomen or pelvis. Patient was given a dose of pain medication and upon reevaluation says that she is feeling greatly improved. There has been no vomiting while in the emergency department and the patient was able to pass an oral challenge. Patient has some hypertension, but otherwise her vital signs have been reassuring including being afebrile. She has good outpatient follow-up with primary care and nephrology. She has been instructed to continue with her nightly peritoneal dialysis. She will return to the emergency department with any worsening of her symptoms or with any acute distress. Critical Care Time: No Critical care attestation.: If time is entered above; I have spent that time in minutes in the direct care of this critically ill patient, excluding procedure time. ED Disposition Clinical Impression: End-stage renal disease on peritoneal dialysis Abdominal pain Qualifiers: Abdominal location: generalized Qualified Code(s): R10.84 - Generalized abdominal pain Nausea & vomiting Qualifiers: Vomiting type: unspecified Vomiting Intractability: non-intractable Qualified Code(s): R11.2 - Nausea with vomiting, unspecified Hypertension Qualifiers: Hypertension type: renovascular hypertension Qualified Code(s): I15.0 - Renovascular hypertension Disposition: TO HOME OR SELFCARE Is pt being admited?: No Condition: Stable Instructions: Abdominal Pain, Adult, Nausea and Vomiting, Adult, Hypertension, Adult, Hypertension (ED) Additional Instructions: Please follow-up with your primary care physician in the next few days. Continue with your peritoneal dialysis. Take all medications as prescribed. Try to stay away from foods that are high in salt and caffeinated products. Keep a blood pressure log. Return to the emergency department with any worsening of your symptoms, new or concerning symptoms not addressed during this current emergency department visi t, or with any acute distress. Referrals: KATEY JOHNSON MD [Primary Care Provider] - 2-3 Days MARICHUY POWELL MD [Staff Physician] - 2-3 Days Time of Disposition: 13:38
--- NOTE | 2021-02-13 13:28 | Cat Scan Report ---
CT ABDOMEN AND PELVIS WITHOUT CONTRAST INDICATION / CLINICAL INFORMATION: Abd pain. TECHNIQUE: Axial CT images were obtained through the abdomen and pelvis without IV contrast. All CT scans at this location are performed using CT dose reduction for ALARA by means of automated exposure control. COMPARISON: CT of the chest from 02/21/2017. FINDINGS: LOWER CHEST: Subpleural reticular scarring or early fibrosis. No acute findings. LIVER: No significant abnormality GALLBLADDER/BILIARY TREE: No significant abnormality PANCREAS: No significant abnormality SPLEEN: No significant abnormality ADRENALS: No significant abnormality KIDNEYS / URETER: Both kidneys are atrophic. There are bilateral renal cysts, to include peripherally calcified lower pole right renal cyst. This is unchanged in size from 2017 CT, measuring 1.7 cm. No urolithiasis or hydronephrosis. URINARY BLADDER: Bladder is decompressed, limiting further evaluation. REPRODUCTIVE ORGANS: No significant abnormality STOMACH / SMALL BOWEL: Stomach and small bowel are normal in caliber. No evidence of bowel inflammati on. COLON: Postoperative changes of partial right hemicolectomy. Scattered colonic diverticula without CT evidence diverticulitis. LYMPH NODES: No significant adenopathy. VASCULATURE: Moderate atherosclerotic calcification without acute abnormality. OTHER: Peritoneal dialysis catheter with trace free fluid in the pelvis. No intraperitoneal free air. No organized collection is identified. SKELETAL SYSTEM: Mild diffuse bony sclerosis, most likely related to renal osteodystrophy. There is a symmetric resorption and pseudoenlargement of the right greater than left SI joints, most compatible with secondary hyperparathyroidism in the setting of renal osteodystrophy. IMPRESSION: 1. No acute abnormality of the abdomen or pelvis. 2. Bony resorption of the SI joints, greater on the right, most consistent with renal osteodystrophy/ secondary hyperparathyroidism. 3. Other stable chronic and postoperative findings as above. Signer Name: Axel Liz MD Signed: 02/13/2021 1:24 PM Workstation Name: [id number]
[2021-02-13 13:40] VITALS: BP 180/100
== END 2021-02-13 14:00 | disposition home or self-care (01) ==
LOC: ED 07:25
DX: E11.22 Type 2 diabetes mellitus with diabetic chronic kidney disease (principal); I13.2 Hypertensive heart and chronic kidney disease with heart failure and with stage 5 chronic kidney disease, or end stage renal disease; N18.6 End stage renal disease; I50.9 Heart failure, unspecified; R10.84 Generalized abdominal pain; R11.2 Nausea with vomiting, unspecified; M19.91 Primary osteoarthritis, unspecified site; J45.909 Unspecified asthma, uncomplicated; Z98.890 Other specified postprocedural states; Z79.1 Long term (current) use of non-steroidal anti-inflammatories (NSAID); Z79.4 Long term (current) use of insulin; Z79.899 Other long term (current) drug therapy; Z99.2 Dependence on renal dialysis; Z91.013 Allergy to seafood; Z88.8 Allergy status to other drugs, medicaments and biological substances
CPT/HCPCS: 36415; 74176; 80053; 83690; 83735; 85025

== ENCOUNTER 2021-02-14 18:11 | Inpatient (IN) | payer MEDICARE, OTHER ==
--- NOTE | 2021-02-14 18:30 | Event Note ---
ED Screening Note Date of service: 02/14/21 Time: 18:28 ED Screening Note: 70-year-old female patient with history of congestive heart failure, end-stage renal disease (on peritoneal dialysis), and atrial fibrillation (not currently anticoagulated) presents to the emergency department with complaints of chest pain starting today. Patient was evaluated in the emergency department yesterday for abdominal pain. Work-up was unremarkable and she was discharged home. The abdominal pain has persisted however the chest pain started today, prompting her to return to the emergency department. Patient was diagnosed with atrial fibrillation several years ago but she is not currently on anticoagu lation. Tachycardic in triage. General: Awake, appropriately interactive. Appears uncomfortable. Neck: Supple. Full range of motion intact. Cardiovascular: Normal peripheral perfusion. Pulmonary: No respiratory distress. Patient is speaking normally without use of accessory muscles. Skin: No apparent rashes or lesions. Neurological: No facial asymmetry. Speech is clear. Follows commands. Patient is alert and oriented. Musculoskeletal: Moves all four extremities spontaneously with normal range of motion. Psych: Cooperative. Appropriate mood and affect. I have greeted and performed a focused rapid initial assessment of this patient. A comprehensive ED assessment and evaluation of the patient, analysis of all test results, and completion of the medical decision-making process will be conducted by additional ED providers. This initial assessment/diagnostic orders/clinical plan/treatment(s) is/are subject to change based on patients health status, clinical progression and re-assessment. Further treatment and workup at subsequent clinical provider's discretion. Patient/guardian urged not to elope from the ED as their condition may be serious if not clinically assessed and managed.
[2021-02-14 18:46] LABS: Basophils % (Auto) 0.5 % (0.0-1.8); Eosinophils # (Auto) 0.2 K/mm3 (0.0-0.4); Eosinophils % (Auto) 2.2 % (0.0-4.3); Hematocrit 32.9 % (30.3-42.9); Hemoglobin 10.7 gm/dl (10.1-14.3); Lymphocytes # (Auto) 0.8 K/mm3 (1.2-5.4); Lymphocytes % (Auto) 9.4 % (13.4-35.0); Mean Corpuscular HGB Conc 33 % (30-34); Mean Corpuscular Volume 94 fl (79-97); Monocytes # (Auto) 0.6 K/mm3 (0.0-0.8); Monocytes % (Auto) 6.7 % (0.0-7.3); Platelet Count 311 K/mm3 (140-440); Red Blood Count 3.48 M/mm3 (3.65-5.03); Red Cell Distribution Width 17.7 % (13.2-15.2)
--- NOTE | 2021-02-14 18:59 | XRay Report ---
CHEST PA AND LATERAL VIEWS INDICATION: chest pain. COMPARISON: 07/31/2020 FINDINGS: Support devices: None. Heart: Within normal limits. Lungs/Pleura: No acute pulmonary or pleural findings. IMPRESSION: 1. No acute findings. Signer Name: Gael Lee MD Signed: 02/14/2021 6:55 PM Workstation Name: [id number]
[2021-02-14 19:13] LABS: INR 1.05 (0.87-1.13); Partial Thromboplastin Time 27.8 Sec. (24.2-36.6)
[2021-02-14 19:24] LABS: Albumin 3.5 g/dL (3.9-5); Calcium 8.3 mg/dL (8.4-10.2)
[2021-02-14 20:05] LABS: Chol/HDL Ratio 2.68 %
[2021-02-14] MEDS ORDERED: MORPHINE 4 MG/1 ML INJ IV ONE (22:25)
--- NOTE | 2021-02-14 22:25 | Emergency Department Report ---
ED Chest Pain HPI - General Chief Complaint: Chest Pain Stated Complaint: CHEST PAIN Time Seen by Provider: 02/14/21 21:29 Source: patient Mode of arrival: Wheelchair Limitations: No Limitations - History of Present Illness Initial Comments: This is a 70-year-old -[place]aysian female who presents to the emergency department with complaint of abdominal pain and midsternal chest pain. I saw this patient here in this emergency department yesterday with the complaint of abdominal pain and nausea with one episode of vomiting that had been going on fo r 2 days since the patient ate some Swiss food on Saturday. Yesterday her labs were unremarkable except for the renal insufficiency consistent with her end-stage renal disease on peritoneal dialysis. Also, she had a negative CT scan of the abdomen and pelvis without contrast. Patient says that she had some improvement prior to discharge yesterday. However, the patient says that her abdominal pain came back earlier today and began radiating up into the chest. The patient did have her peritoneal dialysis last night but has not yet had it tonight. She follows with Dr. Fierro for nephrology. She has not taken anything for her chest pain prior to presentation. She says that it is a 7 out of 10 in intensity. No known aggravating or alleviating factors. No recent travel or sick contacts at home. On top of the end-stage renal disease, the patient also has a history of hypertension and CHF. Severity scale (0 -10): 7 - Related Data Home Medications Medication Instructions Recorded Confirmed Last Taken NIFEdipine XL [Procardia Xl] 60 mg PO Q12HR 05/27/15 07/31/20 07/30/20 carvediloL [Coreg] 6.25 mg PO BID 05/27/15 07/31/20 07/30/20 Insulin Detemir (Nf) [Levemir 15 unit SQ QHS PRN 09/14/16 07/31/20 07/31/19 Flextouch (Nf)] Insulin Lispro [HumaLOG VIAL] 0 units SQ AC PRN 09/14/16 07/31/20 07/31/19 cloNIDine [Catapres] 0.2 mg PO QHS 09/14/16 07/31/20 07/30/20 Cholecalciferol (Vitamin D3) 3,000 unit PO DAILY 07/31/20 07/31/20 07/30/20 [Vitamin D3 3,000 unit] Cinacalcet HCl [Sensipar] 60 mg PO DAILY 07/31/20 07/31/20 Unknown Gentamicin 0.1% Top Oint(Nf) 1 applic TP TID 07/31/20 07/31/20 Unknown [Gentamicin 0.1% Top Oint (Nf)] Previous Rx's Medication Instructions Recorded Last Taken Type Ibuprofen [Motrin 600 MG tab] 600 mg PO Q8H PRN #20 tablet 07/10/18 Unknown Rx Acetaminophen [Acetaminophen TAB] 650 mg PO Q4H PRN tablet 08/01/20 Unknown Rx Cholecalciferol Vit D3 [Vitamin D3 3,000 unit PO DAILY tablet 08/01/20 Unknown Rx 1,000 UNIT TAB] Cinacalcet [Sensipar] 60 mg PO QDAY tablet 08/01/20 Unknown Rx Insulin Glargine [Lantus VIAL] 22 units SUB-Q QHS PRN units 08/01/20 Unknown Rx Insulin Lispro [Humalog] 0 unit SUB-Q Q6H vial 08/01/20 Unknown Rx Sodium Chloride 0.9% Int [Sodium 10 ml IV PRN PRN syringe 08/01/20 Unknown Rx Chloride Flush Syringe 10 ml] risperiDONE [RisperDAL] 0.25 mg PO BID #60 tab 08/01/20 Unknown Rx risperiDONE [RisperDAL] 0.25 mg PO BID #60 tablet 08/01/20 Unknown Rx Allergies Allergy/AdvReac Type Severity Reaction Status Date / Time digoxin Allergy Hives Verified 02/14/21 18:22 lisinopril Allergy Swelling Verified 02/14/21 18:22 nitroglycerin AdvReac Rash, Verified 02/14/21 18:22 HEADACHES shellfish derived AdvReac Swelling Verified 02/14/21 18:22 Heart Score - HEART Score History: Slightly suspicious EKG: Normal Age: > 65 Risk factors: 1-2 risk factors Troponin: > 3x normal limit HEART Score: 5 - EKG Read Time Time EKG Completed: 18:13 EKG Read Time: 18:14 - Critical Actions Critical Actions: 4-6 pts:12-16.6% risk of adverse cardiac event. Should be admitted ED Review of Systems ROS: Stated complaint: CHEST PAIN Other details as noted in HPI Comment: All other systems reviewed and negative Constitutional: denies: chills, fever Eyes: denies: eye pain, vision change ENT: denies: ear pain, throat pain Respiratory: denies: cough, shortness of breath Cardiovascular: chest pain. denies: palpitations Gastrointestinal: abdominal pain, nausea. denies: vomiting Genitourinary: denies: dysuria, discharge Musculoskeletal: denies: back pain, arthralgia Skin: denies: rash, lesions Neurological: denies: headache, weakness ED Past Medical Hx - Past Medical History Hx Hypertension: Yes (FOR 10+ YRS, DR. JOHNSON- PCP) Hx Congestive Heart Failure: Yes (IN 2006) Hx Diabetes: Yes Hx Liver Disease: No Hx Renal Disease: Yes (CKD STAGE 5, DR. GOLDEN- [employer]) Hx Sickle Cell Disease: No Hx Arthritis: Yes (Gout) Hx Seizures: No Hx Asthma: Yes ( A CHILD) Hx HIV: No Additional medical history: Dilated cardiomyopathy / PERITONEAL DYALISIS - Surgical History Hx Pacemaker: No Hx Appendectomy: Yes (IN 1984) Additional Surgical History: tonsil removed - Social History Smoking Status: Never Smoker Substance Use Type: None - Medications Home Medications: Home Medications Medication Instructions Recorded Confirmed Last Taken Type NIFEdipine XL [Procardia Xl] 60 mg PO Q12HR 05/27/15 07/31/20 07/30/20 History carvediloL [Coreg] 6.25 mg PO BID 05/27/15 07/31/20 07/30/20 History Insulin Detemir (Nf) [Levemir 15 unit SQ QHS PRN 09/14/16 07/31/20 07/31/19 History Flextouch (Nf)] Insulin Lispro [HumaLOG VIAL] 0 units SQ AC PRN 09/14/16 07/31/20 07/31/19 History cloNIDine [Catapres] 0.2 mg PO QHS 09/14/16 07/31/20 07/30/20 History Ibuprofen [Motrin 600 MG tab] 600 mg PO Q8H PRN #20 tablet 07/10/18 07/31/20 Unknown Rx Cholecalciferol (Vitamin D3) 3,000 unit PO DAILY 07/31/20 07/31/20 07/30/20 History [Vitamin D3 3,000 unit] Cinacalcet HCl [Sensipar] 60 mg PO DAILY 07/31/20 07/31/20 Unknown History Gentamicin 0.1% Top Oint(Nf) 1 applic TP TID 07/31/20 07/31/20 Unknown History [Gentamicin 0.1% Top Oint (Nf)] Acetaminophen [Acetaminophen TAB] 650 mg PO Q4H PRN tablet 08/01/20 Unknown Rx Cholecalciferol Vit D3 [Vitamin D3 3,000 unit PO DAILY tablet 08/01/20 Unknown Rx 1,000 UNIT TAB] Cinacalcet [Sensipar] 60 mg PO QDAY tablet 08/01/20 Unknown Rx Insulin Glargine [Lantus VIAL] 22 units SUB-Q QHS PRN units 08/01/20 Unknown Rx Insulin Lispro [Humalog] 0 unit SUB-Q Q6H vial 08/01/20 Unknown Rx Sodium Chloride 0.9% Int [Sodium 10 ml IV PRN PRN syringe 08/01/20 Unknown Rx Chloride Flush Syringe 10 ml] risperiDONE [RisperDAL] 0.25 mg PO BID #60 tab 08/01/20 Unknown Rx risperiDONE [RisperDAL] 0.25 mg PO BID #60 tablet 08/01/20 Unknown Rx ED Physical Exam - General Limitations: No Limitations - Other Other exam information: GENERAL: The patient is well-developed well-nourished. HENT: Normocephalic. Atraumatic. Patient has moist mucous membranes. EYES: Extraocular motions are intact. NECK: Supple. Trachea is midline. CHEST/LUNGS: Clear to auscultation. There is no respiratory distress noted. HEART/CARDIOVASCULAR: Regular. There is mild tachycardia. There is no murmur. ABDOMEN: Abdomen is soft. Mild abdominal tenderness to palpation. No guarding. Peritoneal dialysis catheter in place. Patient has normal bowel sounds. SKIN: Skin is warm and dry. NEURO: The patient is awake, alert, and oriented. The patient is cooperative. The patient has no focal neurologic deficits. Normal speech. MUSCULOSKELETAL: There is no tenderness or deformity. There is no limitation range of motion. ED Course Vital Signs 02/14/21 02/14/21 02/14/21 18:20 21:20 21:30 Temperature 98.7 F Pulse Rate 104 H 110 H 113 H Respiratory 22 27 H 25 H Rate Blood Pressure 176/97 192/84 O2 Sat by Pulse 100 99 Oximetry 02/14/21 02/14/21 02/14/21 21:46 22:00 22:30 Temperature Pulse Rate 107 H 107 H Respiratory 19 24 Rate Blood Pressure 178/101 O2 Sat by Pulse 95 96 95 Oximetry 02/14/21 02/14/21 23:00 23:30 Temperature Pulse Rate 107 H 115 H Respiratory 25 H 27 H Rate Blood Pressure 180/86 160/80 O2 Sat by Pulse 95 90 Oximetry - Consultations Consultation #1: 02/14/21 22:[address] Silva to notify them of the patient's presentation to the emergency department and the plan for admission. The patient does not appear to require any emergent dialysis this evening so they will consult on this patient. JOSLYN score - Joslyn Score Age > 65: (1) Yes Aspirin use within the Past 7 Days: (0) No 3 or more CAD Risk Factors: (0) No 2 or more Angina events in past 24 hrs: (1) Yes Known CAD with more than 50% Stenosis: (0) No Elevated Cardiac Markers: (1) Yes ST Deviation Greater than 0.5mm: (0) No JOSLYN Score: 3 ED Medical Decision Making - Lab Data Result diagrams: 02/14/21 18:35 02/14/21 18:35 Lab Results 02/14/21 02/14/21 02/14/21 Range/Units 18:35 18:35 18:35 WBC 8.4 (4.5-11.0) K/mm3 RBC 3.48 L (3.65-5.03) M/mm3 Hgb 10.7 (10.1-14.3) gm/dl Hct 32.9 (30.3-42.9) % MCV 94 (79-97) fl MCH 31 (28-32) pg MCHC 33 (30-34) % RDW 17.7 H (13.2-15.2) % Plt Count 311 (140-440) K/mm3 Lymph % (Auto) 9.4 L (13.4-35.0) % [place] % (Auto) 6.7 (0.0-7.3) % Eos % (Auto) 2.2 (0.0-4.3) % Baso % (Auto) 0.5 (0.0-1.8) % Lymph # (Auto) 0.8 L (1.2-5.4) K/mm3 [place] # (Auto) 0.6 (0.0-0.8) K/mm3 Eos # (Auto) 0.2 (0.0-0.4) K/mm3 Baso # (Auto) 0.0 (0.0-0.1) K/mm3 Seg Neutrophils % 81.2 H (40.0-70.0) % Seg Neutrophils # 6.8 (1.8-7.7) K/mm3 PT 13.5 (12.2-14.9) Sec. INR 1.05 (0.87-1.13) APTT 27.8 (24.2-36.6) Sec. VBG pH (7.320-7.420) Sodium 141 (137-145) mmol/L Potassium 3.7 (3.6-5.0) mmol/L Chloride 87.0 L (98-107) mmol/L Carbon Dioxide 35 H (22-30) mmol/L Anion Gap 23 mmol/L BUN 54 H (7-17) mg/dL Creatinine 11.3 H (0.6-1.2) mg/dL Estimated GFR 4 ml/min BUN/Creatinine Ratio 5 % Glucose 111 H (65-100) mg/dL Lactic Acid (0.7-2.0) mmol/L Calcium 8.3 L (8.4-10.2) mg/dL Magnesium 1.40 L (1.7-2.3) mg/dL Total Bilirubin 0.40 (0.1-1.2) mg/dL AST 9 (5-40) units/L ALT 5 L (7-56) units/L Alkaline Phosphatase 148 H (35-129) units/L Troponin T 0.103 H* (0.00-0.029) ng/mL NT-Pro-B Natriuret Pep (0-900) pg/mL Total Protein 6.9 (6.3-8.2) g/dL Albumin 3.5 L (3.9-5) g/dL Albumin/Globulin Ratio 1.0 % Triglycerides 93 (2-149) mg/dL Cholesterol 121 (50-199) mg/dL LDL Cholesterol Direct 60 (50-130) mg/dL HDL Cholesterol 45 (40-59) mg/dL Cholesterol/HDL Ratio 2.68 % Lipase 26 (13-60) units/L 02/14/21 02/14/21 02/14/21 Range/Units 18:35 18:35 18:35 WBC (4.5-11.0) K/mm3 RBC (3.65-5.03) M/mm3 Hgb (10.1-14.3) gm/dl Hct (30.3-42.9) % MCV (79-97) fl MCH (28-32) pg MCHC (30-34) % RDW (13.2-15.2) % Plt Count (140-440) K/mm3 Lymph % (Auto) (13.4-35.0) % [place] % (Auto) (0.0-7.3) % Eos % (Auto) (0.0-4.3) % Baso % (Auto) (0.0-1.8) % Lymph # (Auto) (1.2-5.4) K/mm3 [place] # (Auto) (0.0-0.8) K/mm3 Eos # (Auto) (0.0-0.4) K/mm3 Baso # (Auto) (0.0-0.1) K/mm3 Seg Neutrophils % (40.0-70.0) % Seg Neutrophils # (1.8-7.7) K/mm3 PT (12.2-14.9) Sec. INR (0.87-1.13) APTT (24.2-36.6) Sec. VBG pH 7.502 H (7.320-7.420) Sodium (137-145) mmol/L Potassium (3.6-5.0) mmol/L Chloride (98-107) mmol/L Carbon Dioxide (22-30) mmol/L Anion Gap mmol/L BUN (7-17) mg/dL Creatinine (0.6-1.2) mg/dL Estimated GFR ml/min BUN/Creatinine Ratio % Glucose (65-100) mg/dL Lactic Acid 2.20 H* (0.7-2.0) mmol/L Calcium (8.4-10.2) mg/dL Magnesium (1.7-2.3) mg/dL Total Bilirubin (0.1-1.2) mg/dL AST (5-40) units/L ALT (7-56) units/L Alkaline Phosphatase (35-129) units/L Troponin T (0.00-0.029) ng/mL NT-Pro-B Natriuret Pep 5911 H (0-900) pg/mL Total Protein (6.3-8.2) g/dL Albumin (3.9-5) g/dL Albumin/Globulin Ratio % Triglycerides (2-149) mg/dL Cholesterol (50-199) mg/dL LDL Cholesterol Direct (50-130) mg/dL HDL Cholesterol (40-59) mg/dL Cholesterol/HDL Ratio % Lipase (13-60) units/L /08/27 Range/Units 20:58 WBC (4.5-11.0) K/mm3 RBC (3.65-5.03) M/mm3 Hgb (10.1-14.3) gm/dl Hct (30.3-42.9) % MCV (79-97) fl MCH (28-32) pg MCHC (30-34) % RDW (13.2-15.2) % Plt Count (140-440) K/mm3 Lymph % (Auto) (13.4-35.0) % [place] % (Auto) (0.0-7.3) % Eos % (Auto) (0.0-4.3) % Baso % (Auto) (0.0-1.8) % Lymph # (Auto) (1.2-5.4) K/mm3 [place] # (Auto) (0.0-0.8) K/mm3 Eos # (Auto) (0.0-0.4) K/mm3 Baso # (Auto) (0.0-0.1) K/mm3 Seg Neutrophils % (40.0-70.0) % Seg Neutrophils # (1.8-7.7) K/mm3 PT (12.2-14.9) Sec. INR (0.87-1.13) APTT (24.2-36.6) Sec. VBG pH (7.320-7.420) Sodium (137-145) mmol/L Potassium (3.6-5.0) mmol/L Chloride (98-107) mmol/L Carbon Dioxide (22-30) mmol/L Anion Gap mmol/L BUN (7-17) mg/dL Creatinine (0.6-1.2) mg/dL Estimated GFR ml/min BUN/Creatinine Ratio % Glucose (65-100) mg/dL Lactic Acid 2.00 (0.7-2.0) mmol/L Calcium (8.4-10.2) mg/dL Magnesium (1.7-2.3) mg/dL Total Bilirubin (0.1-1.2) mg/dL AST (5-40) units/L ALT (7-56) units/L Alkaline Phosphatase (35-129) units/L Troponin T (0.00-0.029) ng/mL NT-Pro-B Natriuret Pep (0-900) pg/mL Total Protein (6.3-8.2) g/dL Albumin (3.9-5) g/dL Albumin/Globulin Ratio % Triglycerides (2-149) mg/dL Cholesterol (50-199) mg/dL LDL Cholesterol Direct (50-130) mg/dL HDL Cholesterol (40-59) mg/dL Cholesterol/HDL Ratio % Lipase (13-60) units/L - EKG Data -: EKG Interpreted by Me EKG shows normal: sinus rhythm (PACs), axis, intervals, QRS complexes, ST-T waves Rate: normal - EKG Data When compared to previous EKG there are: no significant change Interpretation: unchanged when compared t (07/31/20) - Radiology Data Radiology results: image reviewed interpreted by me: Chest x-ray does not show any acute process. There are no pleural effusions, obvious pneumonia and there is no pneumothorax. No significant cardiomegaly. - Medical Decision Making This patient presents to the emergency department with a return or continuation of her abdominal pain, as well as the development of some midsternal chest pain since earlier in the day. EKG does not have any morphology consistent with ST elevation myocardial infarction. Chest x-ray does not show any pneumonia, pleural effusions, pneumothorax, or any other acute process. Patient's labs show renal insufficiency consistent with her end-stage renal disease on peritoneal dialysis. She also has an elevated troponin level of about 0.103. The troponin may be elevated secondary to the patient's history of end-stage renal disease. However, the patient does complain of some midsternal chest pain. For these reasons the patient will be admitted to the hospital for further evaluation and treatment and was accepted for admission by the hospitalist, Dr. Weiss. Critical Care Time: No Critical care attestation.: If time is entered above; I have spent that time in minutes in the direct care of this critically ill patient, excluding procedure time. ED Disposition Clinical Impression: Acute chest pain, End-stage renal disease on peritoneal dialysis, Elevated troponin Abdominal pain Qualifiers: Abdominal location: generalized Qualified Code(s): R10.84 - Generalized abdominal pain Hypertension Qualifiers: Hypertension type: essential hypertension Qualified Code(s): I10 - Essential (primary) hypertension Disposition: 09 OP ADMIT IP TO THIS HOSP Is pt being admited?: Yes Condition: Serious Time of Disposition: 22:26
[2021-02-14] MEDS ORDERED: NITROGLYCERIN 0.4 MG TAB SUBL SL PRN (23:52)
[2021-02-14] MEDS ORDERED: MAGNESIUM HYDROXIDE (MOM) ORAL LIQD UDC PO PRN (23:52)
[2021-02-14] MEDS ORDERED: DEXTROSE 50% IN WATER (25GM) 50 ML SYRINGE IV PRN (23:52)
[2021-02-14] MEDS ORDERED: ACETAMINOPHEN 325 MG TAB PO PRN ×2 (23:52)
[2021-02-15] MEDS ORDERED: HEPARIN 10,000 UNITS/10 ML VIAL IV PRN
[2021-02-15] MEDS ORDERED: HEPARIN 10,000 UNITS/10 ML VIAL IV ONE
--- NOTE | 2021-02-15 00:06 | History and Physical Report ---
History of Present Illness Date of examination: 02/15/21 Date of admission: 02/14/21 22:26 Chief complaint: Midsternal Chest Pain Abdominal Pain History of present illness: 70-year-old -[place] female with known history of diabetes mellitus, CHF, hypertension, end-stage renal disease on peritoneal dialysis presents to the emergency room today complaining of abdominal pain and midsternal chest pain. He presented with a similar episode about 24 to 48 hours ago in the emergency room. She had a negative CT scan of the abdomen and pelvis without contrast when evaluated yesterday but presents again today with worsening symptoms. Patient has been compliant with peritoneal dialysis but has not had it prior to reporting to the emergency room today. Patient denies any fever or chills but has had some occasional nausea and vomiting. On a scale of 10 pain was about 7/10 in severity. No known relieving or exacerbating factor. Patient denies any sick contacts and no recent travel. Denies any contact with anyone with COVID-19. Work-up in the emergency room today chest x-ray and EKG were unremarkable. Troponin was elevated at 0.103. Patient is being admitted for chest pain and abdominal pain evaluation. Past History Past Medical History: arthritis, diabetes, dialysis (Peritoneal dialysis), ESRD, heart failure, other (Asthma in childhood,Dilated cardiomyopathy) Past Surgical History: appendectomy (In 1984), Other (Tonsillectomy) Social history: no significant social history Family history: no significant family history Medications and Allergies Allergies Allergy/AdvReac Type Severity Reaction Status Date / Time digoxin Allergy Hives Verified 02/14/21 18:22 lisinopril Allergy Swelling Verified 02/14/21 18:22 nitroglycerin AdvReac Rash, Verified 02/14/21 18:22 HEADACHES shellfish derived AdvReac Swelling Verified 02/14/21 18:22 Home Medications Medication Instructions Recorded Confirmed Last Taken Type NIFEdipine XL [Procardia Xl] 60 mg PO Q12HR 05/27/15 07/31/20 07/30/20 History carvediloL [Coreg] 6.25 mg PO BID 05/27/15 07/31/20 07/30/20 History Insulin Detemir (Nf) [Levemir 15 unit SQ QHS PRN 09/14/16 07/31/20 07/31/19 History Flextouch (Nf)] Insulin Lispro [HumaLOG VIAL] 0 units SQ AC PRN 09/14/16 07/31/20 07/31/19 History cloNIDine [Catapres] 0.2 mg PO QHS 09/14/16 07/31/20 07/30/20 History Ibuprofen [Motrin 600 MG tab] 600 mg PO Q8H PRN #20 tablet 07/10/18 07/31/20 Unknown Rx Cholecalciferol (Vitamin D3) 3,000 unit PO DAILY 07/31/20 07/31/20 07/30/20 History [Vitamin D3 3,000 unit] Cinacalcet HCl [Sensipar] 60 mg PO DAILY 07/31/20 07/31/20 Unknown History Gentamicin 0.1% Top Oint(Nf) 1 applic TP TID 07/31/20 07/31/20 Unknown History [Gentamicin 0.1% Top Oint (Nf)] Acetaminophen [Acetaminophen TAB] 650 mg PO Q4H PRN tablet 08/01/20 Unknown Rx Cholecalciferol Vit D3 [Vitamin D3 3,000 unit PO DAILY tablet 08/01/20 Unknown Rx 1,000 UNIT TAB] Cinacalcet [Sensipar] 60 mg PO QDAY tablet 08/01/20 Unknown Rx Insulin Glargine [Lantus VIAL] 22 units SUB-Q QHS PRN units 08/01/20 Unknown Rx Insulin Lispro [Humalog] 0 unit SUB-Q Q6H vial 08/01/20 Unknown Rx Sodium Chloride 0.9% Int [Sodium 10 ml IV PRN PRN syringe 08/01/20 Unknown Rx Chloride Flush Syringe 10 ml] risperiDONE [RisperDAL] 0.25 mg PO BID #60 tab 08/01/20 Unknown Rx risperiDONE [RisperDAL] 0.25 mg PO BID #60 tablet 08/01/20 Unknown Rx Review of Systems Constitutional: no fever, no chills Ears, nose, mouth and throat: no nasal congestion, no sore throat Cardiovascular: chest pain, no palpitations Respiratory: no cough, no shortness of breath Gastrointestinal: abdominal pain, no nausea, no vomiting, no diarrhea Genitourinary Female: no pelvic pain, no flank pain, no dysuria, no hematuria Musculoskeletal: no neck pain, no low back pain Integumentary: no rash, no pruritis Neurological: no headaches, no confusion Psychiatric: no anxiety, no depression Endocrine: no polydipsia, no polyuria, no nocturia Exam - Constitutional Vitals: Temp Pulse Resp BP Pulse Ox 98.7 F 115 H 27 H 160/80 90 02/14/21 18:20 02/14/21 23:30 02/14/21 23:30 02/14/21 23:30 02/14/21 23:30 General appearance: Present: no acute distress, well-nourished - EENT Eyes: Present: PERRL, EOM intact. Absent: scleral icterus ENT: hearing intact, clear oral mucosa, dentition normal - Neck Neck: Present: supple, normal ROM - Respiratory Respiratory effort: normal Respiratory: bilateral: CTA - Cardiovascular Rhythm: regular Heart Sounds: Present: S1 & S2. Absent: gallop, systolic murmur, diastolic murmur, rub, click - Extremities Extremities: no ischemia, pulses intact, pulses symmetrical, No edema, normal temperature, normal color, Full ROM Peripheral Pulses: within normal limits - Abdominal General gastrointestinal: Present: soft, tender (Mild generalized tenderness.), normal bowel sounds. Absent: mass - Integumentary Integumentary: Present: clear, warm, dry. Absent: rash - Musculoskeletal Musculoskeletal: strength equal bilaterally - Psychiatric Psychiatric: appropriate mood/affect, intact judgment & insight, memory intact, cooperative - Neurologic Neurologic: CNII-XII intact, no focal deficits, moves all extremities HEART Score - HEART Score History: Slightly suspicious EKG: Normal Age: > 65 Risk factors: 1-2 risk factors Troponin: Troponin T 0.108 ng/mL (0.00-0.029) H* 02/14/21 22:45 Troponin: > 3x normal limit HEART Score: 5 - Critical Actions Critical Actions: 4-6 pts:12-16.6% risk of adverse cardiac event. Should be admitted Results - Labs CBC & Chem 7: 02/15/21 06:00 02/15/21 06:00 Labs: Abnormal lab results 02/14/21 02/14/21 02/14/21 Range/Units 18:35 18:35 18:35 RBC 3.48 L (3.65-5.03) M/mm3 RDW 17.7 H (13.2-15.2) % Lymph % (Auto) 9.4 L (13.4-35.0) % Lymph # (Auto) 0.8 L (1.2-5.4) K/mm3 Seg Neutrophils % 81.2 H (40.0-70.0) % VBG pH (7.320-7.420) Chloride 87.0 L (98-107) mmol/L Carbon Dioxide 35 H (22-30) mmol/L BUN 54 H (7-17) mg/dL Creatinine 11.3 H (0.6-1.2) mg/dL Glucose 111 H (65-100) mg/dL Lactic Acid 2.20 H* (0.7-2.0) mmol/L Calcium 8.3 L (8.4-10.2) mg/dL Magnesium 1.40 L (1.7-2.3) mg/dL ALT 5 L (7-56) units/L Alkaline Phosphatase 148 H (35-129) units/L Troponin T 0.103 H* (0.00-0.029) ng/mL NT-Pro-B Natriuret Pep (0-900) pg/mL Albumin 3.5 L (3.9-5) g/dL 02/14/21 02/14/21 02/14/21 Range/Units 18:35 18:35 22:45 RBC (3.65-5.03) M/mm3 RDW (13.2-15.2) % Lymph % (Auto) (13.4-35.0) % Lymph # (Auto) (1.2-5.4) K/mm3 Seg Neutrophils % (40.0-70.0) % VBG pH 7.502 H (7.320-7.420) Chloride (98-107) mmol/L Carbon Dioxide (22-30) mmol/L BUN (7-17) mg/dL Creatinine (0.6-1.2) mg/dL Glucose (65-100) mg/dL Lactic Acid (0.7-2.0) mmol/L Calcium (8.4-10.2) mg/dL Magnesium (1.7-2.3) mg/dL ALT (7-56) units/L Alkaline Phosphatase (35-129) units/L Troponin T 0.108 H* (0.00-0.029) ng/mL NT-Pro-B Natriuret Pep 5911 H (0-900) pg/mL Albumin (3.9-5) g/dL Assessment and Plan - Patient Problems (1) Acute chest pain Current Visit: Yes Status: Acute Plan to address problem: Patient placed on telemetry. We will check serial cardiac enzymes. Patient be placed on aspirin, sublingual nitroglycerin and IV morphine as needed for chest pain. Troponin has been elevated probably secondary to the end-stage renal disease however patient has been placed on heparin drip prior to cardiology evaluation and recommendation. (2) Abdominal pain Current Visit: Yes Status: Acute Qualifiers: Abdominal location: generalized Qualified Code(s): R10.84 - Generalized abdominal pain Plan to address problem: Etiology unclear. CT of the abdomen and pelvis has been negative. Will place on analgesic medications as needed. (3) End-stage renal disease on peritoneal dialysis Current Visit: Yes Status: Acute Plan to address problem: Patient on peritoneal dialysis. Consult placed to nephrology for evaluation. (4) Hypertension Current Visit: Yes Status: Acute Qualifiers: Hypertension type: essential hypertension Qualified Code(s): I10 - Essential (primary) hypertension Plan to address problem: We will resume routine home medications once reconciled and monitor vital signs closely. (5) DVT prophylaxis Current Visit: No Status: Acute Plan to address problem: Patient currently on anticoagulation. (6) Full code status Current Visit: Yes Status: Acute Plan to address problem: Patient is a full code.
[2021-02-15 00:54] LABS: Basophils # (Auto) 0.1 K/mm3 (0.0-0.1); Basophils % (Auto) 0.6 % (0.0-1.8); Eosinophils % (Auto) 0.1 % (0.0-4.3); Hematocrit 32.2 % (30.3-42.9); Hemoglobin 10.2 gm/dl (10.1-14.3); Lymphocytes # (Auto) 0.6 K/mm3 (1.2-5.4); Lymphocytes % (Auto) 3.4 % (13.4-35.0); Mean Corpuscular HGB Conc 32 % (30-34); Mean Corpuscular Volume 93 fl (79-97); Monocytes # (Auto) 1.3 K/mm3 (0.0-0.8); Monocytes % (Auto) 7.3 % (0.0-7.3); Platelet Count 287 K/mm3 (140-440); Red Blood Count 3.48 M/mm3 (3.65-5.03); Red Cell Distribution Width 17.7 % (13.2-15.2)
[2021-02-15 01:06] LABS: INR 1.09 (0.87-1.13); Partial Thromboplastin Time 28.1 Sec. (24.2-36.6)
[2021-02-15 01:13] LABS: Calcium 8.4 mg/dL (8.4-10.2)
[2021-02-15] MEDS: HEPARIN/ 0.45% NACL DRIP 25,000 UNIT/500 ML BAG IV SCH (01:35)
[2021-02-15 06:12] LABS: Basophils # (Auto) 0.1 K/mm3 (0.0-0.1); Basophils % (Auto) 0.3 % (0.0-1.8); Eosinophils % (Auto) 0.3 % (0.0-4.3); Hematocrit 29.6 % (30.3-42.9); Hemoglobin 9.3 gm/dl (10.1-14.3); Lymphocytes # (Auto) 0.8 K/mm3 (1.2-5.4); Lymphocytes % (Auto) 4.8 % (13.4-35.0); Mean Corpuscular HGB Conc 32 % (30-34); Mean Corpuscular Volume 93 fl (79-97); Monocytes # (Auto) 1.4 K/mm3 (0.0-0.8); Monocytes % (Auto) 8.3 % (0.0-7.3); Platelet Count 267 K/mm3 (140-440); Red Cell Distribution Width 17.2 % (13.2-15.2)
[2021-02-15 06:28] LABS: INR 1.17 (0.87-1.13)
[2021-02-15 06:32] LABS: Calcium 7.7 mg/dL (8.4-10.2)
[2021-02-15] MEDS: INSULIN LISPRO 100 UNIT/ML SUB-Q SCH ×4 (07:54→21:26)
[2021-02-15] MEDS ORDERED: INSULN SQ PRN (09:30)
[2021-02-15] MEDS ORDERED: INSULIN DETEMIR 100 UNIT/ML SQ PRN (09:30)
--- NOTE | 2021-02-15 10:41 | Consultation ---
History of Present Illness Consult date: 02/15/21 Consult reason: chest pain History of present illness: This is a 70-year old woman with a history of hypertension and end stage renal disease, on peritoneal dialysis. No prior cardiac history. In 2014, an echocardiogram showed normal left ventricular systolic function, ejection fraction 55-60%. She presents to this hospital with abdominal pain, nausea and vomiting followed with atypical chest pain. The patient denies chest pain on exertion and she has no shortness of breath. Serial troponin measurements are elevated, likely in the setting of renal disease. She has a of creatinine 12.9. Chest x-ray reports no acute abnormalities and her ECG is sinus rhythm. No acute ST or T wave changes. Patient was admitted by the hospitalist and ordered a cardiac consultation. Past History Past Medical History: arthritis, diabetes, dialysis (Peritoneal dialysis), ESRD, other (Asthma in childhood) Past Surgical History: appendectomy (In 1984), Other (Tonsillectomy) Social history: no significant social history Family history: no significant family history Medications and Allergies Allergies Allergy/AdvReac Type Severity Reaction Status Date / Time digoxin Allergy Hives Verified 02/14/21 18:22 lisinopril Allergy Swelling Verified 02/14/21 18:22 nitroglycerin AdvReac Rash, Verified 02/14/21 18:22 HEADACHES shellfish derived AdvReac Swelling Verified 02/14/21 18:22 Home Medications Medication Instructions Recorded Confirmed Last Taken Type NIFEdipine XL [Procardia Xl] 60 mg PO HS 05/27/15 07/31/20 07/30/20 History carvediloL [Coreg] 6.25 mg PO BID 05/27/15 07/31/20 07/30/20 History Insulin Detemir (Nf) [Levemir 15 unit SQ QHS PRN 09/14/16 07/31/20 07/31/19 History Flextouch (Nf)] cloNIDine [Catapres] 0.2 mg PO DAILY 09/14/16 07/31/20 07/30/20 History Gentamicin 0.1% Top Oint(Nf) 1 applic TP TID 07/31/20 07/31/20 Unknown History [Gentamicin 0.1% Top Oint (Nf)] Cholecalciferol Vit D3 [Vitamin D3 3,000 unit PO DAILY tablet 08/01/20 Unknown Rx 1,000 UNIT TAB] Cinacalcet [Sensipar] 90 mg PO QDAY 02/15/21 Unknown History Hydralazine HCl 50 mg PO TID 02/15/21 02/15/21 Unknown History Active Meds: Active Medications Acetaminophen (Acetaminophen 325 Mg Tab) 650 mg PO Q4H PRN PRN Reason: Pain MILD(1-3)/Fever >100.5/POOLE Aspirin (Aspirin Ec 325 Mg Tab) 325 mg PO QDAY [facility] Carvedilol (Carvedilol 6.25 Mg Tab) 6.25 mg PO BID [facility] Cholecalciferol (Cholecalciferol (Vit D3) 1000 Unit (25 Mcg) Tab) 3,000 unit PO DAILY [facility] Cinacalcet (Cinacalcet 30 Mg Tab) 90 mg PO QDAY [facility] Clonidine HCl (Clonidine 0.2 Mg Tab) 0.2 mg PO DAILY [facility] Dextrose (Dextrose 50% In Water (25gm) 50 Ml Syringe) 50 ml IV Q30MIN PRN; Protocol PRN Reason: Hypoglycemia Heparin Sodium (Porcine) (Heparin 10,000 Units/10 Ml Vial) 2,500 unit 40 unit/kg (2500 unit) IV Q6H PRN PRN Reason: Anti-Xa Assay < 0.1 units/ml Heparin Sodium/Sodium Chloride (Heparin/ 0.45% Nacl-25,000 Unit/500 Ml) 25,000 unit in 500 mls @ 18 mls/hr IV TITRATE [facility]; Protocol Last Titration: 02/15/21 07:07 Dose: 1,000 units/hr, 20 mls/hr Documented by: Sodium Chloride (Nacl 0.9%) 100 mls @ 999 mls/hr IV [facility] PRN PRN Reason: Hypotension Ceftriaxone Sodium (Rocephin/Ns 1 Gm/50 Ml) 1 gm in 50 mls @ 100 mls/hr IV Q12H [facility]; Protocol Insulin Human Lispro (Insulin Lispro 100 Unit/Ml) 0 unit SUB-Q ACHS [facility]; Protocol Last Admin: 02/15/21 07:54 Dose: Not Given Documented by: Magnesium Hydroxide (Magnesium Hydroxide (Mom) Oral Liqd Udc) 30 ml PO Q4H PRN PRN Reason: Constipation Miscellaneous Medication (Gentamicin 0.1% Top Oint) 1 applic TP TID [facility] Miscellaneous Medication (Hydralazine Hcl [Hydralazine Hcl]) 50 mg PO TID [facility] Miscellaneous Medication (Insulin Detemir (Nf)) 15 unit SQ QHS PRN PRN Reason: HIGH GLUCOSE Morphine Sulfate (Morphine 4 Mg/1 Ml Inj) 2 mg IV Q5MIN PRN PRN Reason: Chest Pain Nifedipine (Nifedipine Xl 60 Mg Tab) 60 mg PO HS [facility] Ondansetron HCl (Ondansetron 4 Mg/2 Ml Inj) 4 mg IV Q8H PRN PRN Reason: Nausea And Vomiting Peritoneal Dialysis Solution (Dialysate Lo Vega 1.5% Soln 2000 Ml) 2,500 ml IP Q6HR [facility] Sodium Chloride (Sodium Chloride 0.9% 10 Ml Flush Syringe) 10 ml IV BID [facility] Sodium Chloride (Sodium Chloride 0.9% 10 Ml Flush Syringe) 10 ml IV PRN PRN PRN Reason: LINE FLUSH Tramadol HCl (Tramadol 50 Mg Tab) 50 mg PO Q6H PRN PRN Reason: Pain, Moderate (4-6) Review of Systems Cardiovascular: chest pain, no palpitations, no syncope, no shortness of breath, no dyspnea on exertion Physical Examination Vital Signs Temp Pulse Resp BP Pulse Ox 98.7 F 104 H 22 176/97 100 02/14/21 18:20 02/14/21 18:20 02/14/21 18:20 02/14/21 18:20 02/14/21 18:20 General appearance: no acute distress HEENT: Positive: PERRL Neck: Positive: trachea midline Cardiac: Positive: Reg Rate and Rhythm Lungs: Positive: Normal Breath Sounds Extremities: Absent: edema Results 02/15/21 06:00 02/15/21 06:00 Cardiac Enzymes 02/14/21 Range/Units 18:35 AST 9 (5-40) units/L Coagulation 02/14/21 02/15/21 02/15/21 Range/Units 18:35 00:43 06:00 PT 13.5 13.9 14.7 (12.2-14.9) Sec. INR 1.05 1.09 1.17 H (0.87-1.13) APTT 27.8 28.1 (24.2-36.6) Sec. Lipids 02/14/21 Range/Units 18:35 Triglycerides 93 (2-149) mg/dL Cholesterol 121 (50-199) mg/dL HDL Cholesterol 45 (40-59) mg/dL Cholesterol/HDL Ratio 2.68 % CBC 02/14/21 02/15/21 02/15/21 Range/Units 18:35 00:43 00:43 WBC 8.4 17.4 H (4.5-11.0) K/mm3 RBC 3.48 L 3.48 L (3.65-5.03) M/mm3 Hgb 10.7 10.2 (10.1-14.3) gm/dl Hct 32.9 32.2 (30.3-42.9) % Plt Count 311 287 298 (140-440) K/mm3 Lymph # (Auto) 0.8 L 0.6 L (1.2-5.4) K/mm3 [place] # (Auto) 0.6 1.3 H (0.0-0.8) K/mm3 Eos # (Auto) 0.2 0.0 (0.0-0.4) K/mm3 Baso # (Auto) 0.0 0.1 (0.0-0.1) K/mm3 02/15/21 Range/Units 06:00 WBC 17.3 H (4.5-11.0) K/mm3 RBC 3.20 L (3.65-5.03) M/mm3 Hgb 9.3 L (10.1-14.3) gm/dl Hct 29.6 L (30.3-42.9) % Plt Count 267 (140-440) K/mm3 Lymph # (Auto) 0.8 L (1.2-5.4) K/mm3 [place] # (Auto) 1.4 H (0.0-0.8) K/mm3 Eos # (Auto) 0.0 (0.0-0.4) K/mm3 Baso # (Auto) 0.1 (0.0-0.1) K/mm3 Comprehensive Metabolic Panel 02/14/21 02/15/21 02/15/21 Range/Units 18:35 00:43 06:00 Sodium 141 146 H 144 (137-145) mmol/L Potassium 3.7 3.9 3.8 (3.6-5.0) mmol/L Chloride 87.0 L 88.1 L 89.8 L (98-107) mmol/L Carbon Dioxide 35 H 39 H 39 H (22-30) mmol/L BUN 54 H 54 H 59 H (7-17) mg/dL Creatinine 11.3 H 11.4 H 12.9 H (0.6-1.2) mg/dL Glucose 111 H 100 101 H (65-100) mg/dL Calcium 8.3 L 8.4 7.7 L (8.4-10.2) mg/dL AST 9 (5-40) units/L ALT 5 L (7-56) units/L Alkaline Phosphatase 148 H (35-129) units/L Total Protein 6.9 (6.3-8.2) g/dL Albumin 3.5 L (3.9-5) g/dL Assessment and Plan - Patient Problems (1) Elevated troponin Current Visit: Yes Status: Acute (2) Abdominal pain Current Visit: Yes Status: Acute Qualifiers: Qualified Code(s): R10.84 - Generalized abdominal pain (3) End-stage renal disease on peritoneal dialysis Current Visit: Yes Status: Acute (4) Hypertension Current Visit: Yes Status: Acute Qualifiers: Qualified Code(s): I10 - Essential (primary) hypertension
[2021-02-15] MEDS ORDERED: SODIUM CHLORIDE 0.9% 100 ML IV PRN (11:00)
[2021-02-15] MEDS ORDERED: cefTRIAXone/NS 1 GM/50 ML 1 GM/50 ML BAG IV SCH (11:00)
[2021-02-15] MEDS: carvediloL 6.25 MG TAB PO SCH ×2 (11:03→21:26)
[2021-02-15] MEDS: CHOLECALCIFEROL (VIT D3) 1000 UNIT (25 mcg) TAB PO SCH (11:03)
[2021-02-15] MEDS: CINACALCET 30 MG TAB PO SCH (11:03)
[2021-02-15] MEDS: ASPIRIN EC 325 MG TAB PO SCH (11:03)
[2021-02-15] MEDS: cloNIDine 0.2 MG TAB PO SCH (11:04)
[2021-02-15] MEDS: MORPHINE 4 MG/1 ML INJ IV PRN ×2 (11:05→15:38)
[2021-02-15] MEDS ORDERED: DIALYSATE LO CAL 1.5% SOLN 2000 ML IP SCH (12:00)
[2021-02-15] MEDS ORDERED: DIALYSATE LO CAL 1.5% SOLN 2000 ML IP ONE (13:00)
--- NOTE | 2021-02-15 13:08 | Progress Note ---
Assessment and Plan -- Acute chest pain, likely atypical Patient placed on telemetry. We will check serial cardiac enzymes. Patient be placed on aspirin, sublingual nitroglycerin and IV morphine as needed for chest pain. --NSTEMI type II Troponin has been elevated probably secondary to the end-stage renal disease however patient has been placed on heparin drip prior to cardiology evaluation and recommendation. -- Abdominal pain, likely from peritonitis Etiology unclear. CT of the abdomen and pelvis has been negative. Will place on analgesic medications as needed. cont iv abx for possible peritonitis will order for peritoneal fluid study -- End-stage renal disease on peritoneal dialysis Patient on peritoneal dialysis. Consult placed to nephrology for evaluation. -- Hypertension We will resume routine home medications once reconciled and monitor vital signs closely. -- DVT prophylaxis Patient currently on anticoagulation. -- Full code status Patient is a full code. Daily clinical course: 02/15/21: start on empiric abx for possible peritonitis. will follow peritoneal fluid cx report. Continue to trend troponin, continue heparin drip, follow cardiology recommendation. Subjective Date of service: 02/15/21 Interval history: Patient seen and examined. Medical records and medication list reviewed. No acute event overnight noted by the RN. Patient continued to complains of diffuse abdominal pain also noted to have elevated white count Pending peritoneal dialysis Discussed plan of care at bedside with patient. Objective - Exam Narrative Exam: GENERAL: well-developed -[place] female lying on bed appeared to be in no discomfort. HEENT: Normocephalic. Atraumatic. No conjunctival congestion or icterus. Patient has moist mucous membranes. NECK: Supple. Trachea midline. CHEST/LUNGS: Clear to auscultated bilaterally, breathing nonlabored. No wheezes crackles or rhonchi. HEART/CARDIOVASCULAR: Regular in rate and rhythm. S1 and S2 positive. ABDOMEN: Abdomen is soft but diffusely tender. Patient has normal bowel sounds. SKIN: There is no rash. Warm and dry. NEURO: No focal motor deficit. Follows command. MUSCULOSKELETAL: No joint effusion or tenderness. EXTRIMITY: No edema, no cyanosis or clubbing. PSYCH: Cooperative. - Constitutional Vitals: Vital Signs - 12hr 02/15/21 02/15/21 02/15/21 04:16 09:33 11:03 Temperature 98.9 F 99.6 F Pulse Rate 117 H 103 H 81 Respiratory 18 18 Rate Blood Pressure 165/100 181/89 161/74 Blood Pressure [Right] O2 Sat by Pulse 90 90 Oximetry 02/15/21 02/15/21 02/15/21 11:04 11:05 11:44 Temperature 98.4 F Pulse Rate 81 98 H Respiratory 17 17 Rate Blood Pressure 161/74 Blood Pressure 154/77 [Right] O2 Sat by Pulse 98 Oximetry 02/15/21 11:46 Temperature Pulse Rate Respiratory 17 Rate Blood Pressure Blood Pressure [Right] O2 Sat by Pulse 98 Oximetry - Labs CBC & Chem 7: 02/16/21 05:29 02/16/21 05:29 Labs: Abnormal lab results 02/14/21 02/14/21 02/14/21 Range/Units 18:35 18:35 18:35 WBC (4.5-11.0) K/mm3 RBC 3.48 L (3.65-5.03) M/mm3 Hgb (10.1-14.3) gm/dl Hct (30.3-42.9) % RDW 17.7 H (13.2-15.2) % Lymph % (Auto) 9.4 L (13.4-35.0) % Weston % (Auto) (0.0-7.3) % Lymph # (Auto) 0.8 L (1.2-5.4) K/mm3 [place]on # (Auto) (0.0-0.8) K/mm3 Seg Neutrophils % 81.2 H (40.0-70.0) % Seg Neutrophils # (1.8-7.7) K/mm3 INR (0.87-1.13) Heparin Anti-Xa Level (0.3-0.7) U.I./ml VBG pH (7.320-7.420) Sodium (137-145) mmol/L Chloride 87.0 L (98-107) mmol/L Carbon Dioxide 35 H (22-30) mmol/L BUN 54 H (7-17) mg/dL Creatinine 11.3 H (0.6-1.2) mg/dL Glucose 111 H (65-100) mg/dL Lactic Acid 2.20 H* (0.7-2.0) mmol/L Calcium 8.3 L (8.4-10.2) mg/dL Magnesium 1.40 L (1.7-2.3) mg/dL ALT 5 L (7-56) units/L Alkaline Phosphatase 148 H (35-129) units/L Troponin T 0.103 H* (0.00-0.029) ng/mL NT-Pro-B Natriuret Pep (0-900) pg/mL Albumin 3.5 L (3.9-5) g/dL 02/14/21 02/14/21 02/14/21 Range/Units 18:35 18:35 22:45 WBC (4.5-11.0) K/mm3 RBC (3.65-5.03) M/mm3 Hgb (10.1-14.3) gm/dl Hct (30.3-42.9) % RDW (13.2-15.2) % Lymph % (Auto) (13.4-35.0) % Weston % (Auto) (0.0-7.3) % Lymph # (Auto) (1.2-5.4) K/mm3 [place]on # (Auto) (0.0-0.8) K/mm3 Seg Neutrophils % (40.0-70.0) % Seg Neutrophils # (1.8-7.7) K/mm3 INR (0.87-1.13) Heparin Anti-Xa Level (0.3-0.7) U.I./ml VBG pH 7.502 H (7.320-7.420) Sodium (137-145) mmol/L Chloride (98-107) mmol/L Carbon Dioxide (22-30) mmol/L BUN (7-17) mg/dL Creatinine (0.6-1.2) mg/dL Glucose (65-100) mg/dL Lactic Acid (0.7-2.0) mmol/L Calcium (8.4-10.2) mg/dL Magnesium (1.7-2.3) mg/dL ALT (7-56) units/L Alkaline Phosphatase (35-129) units/L Troponin T 0.108 H* (0.00-0.029) ng/mL NT-Pro-B Natriuret Pep 5911 H (0-900) pg/mL Albumin (3.9-5) g/dL 02/15/21 02/15/21 02/15/21 Range/Units 00:43 00:43 06:00 WBC 17.4 H 17.3 H (4.5-11.0) K/mm3 RBC 3.48 L 3.20 L (3.65-5.03) M/mm3 Hgb 9.3 L (10.1-14.3) gm/dl Hct 29.6 L (30.3-42.9) % RDW 17.7 H 17.2 H (13.2-15.2) % Lymph % (Auto) 3.4 L 4.8 L (13.4-35.0) % Weston % (Auto) 8.3 H (0.0-7.3) % Lymph # (Auto) 0.6 L 0.8 L (1.2-5.4) K/mm3 [place]on # (Auto) 1.3 H 1.4 H (0.0-0.8) K/mm3 Seg Neutrophils % 88.6 H 86.3 H (40.0-70.0) % Seg Neutrophils # 15.4 H 14.9 H (1.8-7.7) K/mm3 INR (0.87-1.13) Heparin Anti-Xa Level (0.3-0.7) U.I./ml VBG pH (7.320-7.420) Sodium 146 H (137-145) mmol/L Chloride 88.1 L (98-107) mmol/L Carbon Dioxide 39 H (22-30) mmol/L BUN 54 H (7-17) mg/dL Creatinine 11.4 H (0.6-1.2) mg/dL Glucose (65-100) mg/dL Lactic Acid (0.7-2.0) mmol/L Calcium (8.4-10.2) mg/dL Magnesium (1.7-2.3) mg/dL ALT (7-56) units/L Alkaline Phosphatase (35-129) units/L Troponin T (0.00-0.029) ng/mL NT-Pro-B Natriuret Pep (0-900) pg/mL Albumin (3.9-5) g/dL 02/15/21 02/15/21 02/15/21 Range/Units 06:00 06:00 06:00 WBC (4.5-11.0) K/mm3 RBC (3.65-5.03) M/mm3 Hgb (10.1-14.3) gm/dl Hct (30.3-42.9) % RDW (13.2-15.2) % Lymph % (Auto) (13.4-35.0) % Weston % (Auto) (0.0-7.3) % Lymph # (Auto) (1.2-5.4) K/mm3 [place]on # (Auto) (0.0-0.8) K/mm3 Seg Neutrophils % (40.0-70.0) % Seg Neutrophils # (1.8-7.7) K/mm3 INR 1.17 H (0.87-1.13) Heparin Anti-Xa Level < 0.10 L (0.3-0.7) U.I./ml VBG pH (7.320-7.420) Sodium (137-145) mmol/L Chloride 89.8 L (98-107) mmol/L Carbon Dioxide 39 H (22-30) mmol/L BUN 59 H (7-17) mg/dL Creatinine 12.9 H (0.6-1.2) mg/dL Glucose 101 H (65-100) mg/dL Lactic Acid (0.7-2.0) mmol/L Calcium 7.7 L (8.4-10.2) mg/dL Magnesium (1.7-2.3) mg/dL ALT (7-56) units/L Alkaline Phosphatase (35-129) units/L Troponin T 0.102 H* (0.00-0.029) ng/mL NT-Pro-B Natriuret Pep (0-900) pg/mL Albumin (3.9-5) g/dL HEART Score - HEART Score EKG: Normal Age: > 65 Risk factors: 1-2 risk factors Troponin: Troponin T 0.102 ng/mL (0.00-0.029) H* 02/15/21 06:00 Troponin: > 3x normal limit - Critical Actions Critical Actions: 4-6 pts:12-16.6% risk of adverse cardiac event. Should be admitted
[2021-02-15] MEDS: hydrALAZINE 25 MG TAB PO SCH ×2 (13:32→21:25)
[2021-02-15] MEDS ORDERED: NON-FORMULARY EACH (Hydralazine Hcl [Hydralazine Hcl] 50 MG Tablet) PO SCH (14:00)
[2021-02-15] MEDS ORDERED: VANCOMYCIN 1,000 MG in SODIUM CHLORIDE 0.9% 500 ML 500 ML IV ONE (15:07)
--- NOTE | 2021-02-15 15:17 | Consultation ---
History of Present Illness - Reason for Consult Consult date: 02/15/21 end stage renal disease - History of Present Illness This is a 70-year-old -[place]kin[place] woman with end-stage renal disease on peritoneal dialysis, diabetes mellitus type 2, hypertension, congestive heart failure who presents with 2 day history of abdominal pain. She describes the pain as constant and present in the lower abdomen in both quadrants. She notes 7/10 intensity of pain. She notes intermittent nausea and vomiting. She denies constipation. She also notes substernal chest pain but denies diaphoresis, p resyncope and syncope. Nephrology was consulted for ESRD management. She denies history of peritonitis. Past History Past Medical History: arthritis, diabetes, dialysis (Peritoneal dialysis), ESRD, other (Asthma in childhood) Past Surgical History: appendectomy (In 1984), Other (Tonsillectomy) Social history: no significant social history Family history: no significant family history Medications and Allergies Allergies Allergy/AdvReac Type Severity Reaction Status Date / Time digoxin Allergy Hives Verified 02/14/21 18:22 lisinopril Allergy Swelling Verified 02/14/21 18:22 nitroglycerin AdvReac Rash, Verified 02/14/21 18:22 HEADACHES shellfish derived AdvReac Swelling Verified 02/14/21 18:22 Home Medications Medication Instructions Recorded Confirmed Last Taken Type NIFEdipine XL [Procardia Xl] 60 mg PO HS 05/27/15 02/15/21 07/30/20 History carvediloL [Coreg] 6.25 mg PO BID 05/27/15 02/15/21 07/30/20 History Insulin Detemir (Nf) [Levemir 15 unit SQ QHS PRN 09/14/16 02/15/21 07/31/19 History Flextouch (Nf)] cloNIDine [Catapres] 0.2 mg PO DAILY 09/14/16 02/15/21 07/30/20 History Gentamicin 0.1% Top Oint(Nf) 1 applic TP TID 07/31/20 02/15/21 Unknown History [Gentamicin 0.1% Top Oint (Nf)] Cholecalciferol Vit D3 [Vitamin D3 3,000 unit PO DAILY tablet 08/01/20 02/15/21 Unknown Rx 1,000 UNIT TAB] Cinacalcet [Sensipar] 90 mg PO QDAY 02/15/21 02/15/21 Unknown History Hydralazine HCl 50 mg PO TID 02/15/21 02/15/21 Unknown History Active Meds: Active Medications Acetaminophen (Acetaminophen 325 Mg Tab) 650 mg PO Q4H PRN PRN Reason: Pain MILD(1-3)/Fever >100.5/POOLE Aspirin (Aspirin Ec 325 Mg Tab) 325 mg PO QDAY [facility] Last Admin: 02/15/21 11:03 Dose: 325 mg Documented by: Carvedilol (Carvedilol 6.25 Mg Tab) 6.25 mg PO BID [facility] Last Admin: 02/15/21 11:03 Dose: 6.25 mg Documented by: Cholecalciferol (Cholecalciferol (Vit D3) 1000 Unit (25 Mcg) Tab) 3,000 unit PO DAILY [facility] Last Admin: 02/15/21 11:03 Dose: 3,000 unit Documented by: Cinacalcet (Cinacalcet 30 Mg Tab) 90 mg PO QDAY [facility] Last Admin: 02/15/21 11:03 Dose: 90 mg Documented by: Clonidine HCl (Clonidine 0.2 Mg Tab) 0.2 mg PO DAILY [facility] Last Admin: 02/15/21 11:04 Dose: 0.2 mg Documented by: Dextrose (Dextrose 50% In Water (25gm) 50 Ml Syringe) 50 ml IV Q30MIN PRN; Protocol PRN Reason: Hypoglycemia Heparin Sodium (Porcine) (Heparin 10,000 Units/10 Ml Vial) 2,500 unit 40 unit/kg (2500 unit) IV Q6H PRN PRN Reason: Anti-Xa Assay < 0.1 units/ml Hydralazine HCl (Hydralazine 25 Mg Tab) 50 mg PO Q8HR [facility] Last Admin: 02/15/21 13:32 Dose: 50 mg Documented by: Heparin Sodium/Sodium Chloride (Heparin/ 0.45% Nacl-25,000 Unit/500 Ml) 25,000 unit in 500 mls @ 18 mls/hr IV TITRATE [facility]; Protocol Last Titration: 02/15/21 07:07 Dose: 1,000 units/hr, 20 mls/hr Documented by: Sodium Chloride (Nacl 0.9%) 100 mls @ 999 mls/hr IV [facility] PRN PRN Reason: Hypotension Cefepime HCl (Cefepime/Ns 2 Gm/100 Ml) 2 gm in 100 mls @ 200 mls/hr IV Q24H [facility]; Protocol Vancomycin HCl 1,250 mg/ (Sodium Chloride) 525 mls @ 333 mls/hr IV ONCE ONE; Protocol Stop: 02/15/21 16:46 Insulin Human Lispro (Insulin Lispro 100 Unit/Ml) 0 unit SUB-Q ACHS [facility]; Protocol Last Admin: 02/15/21 11:42 Dose: Not Given Documented by: Magnesium Hydroxide (Magnesium Hydroxide (Mom) Oral Liqd Udc) 30 ml PO Q4H PRN PRN Reason: Constipation Miscellaneous Medication (Gentamicin 0.1% Top Oint) 1 applic TP TID [facility] Miscellaneous Medication (Insulin Detemir (Nf)) 15 unit SQ QHS PRN PRN Reason: HIGH GLUCOSE Morphine Sulfate (Morphine 4 Mg/1 Ml Inj) 2 mg IV Q5MIN PRN PRN Reason: Chest Pain Last Admin: 02/15/21 11:05 Dose: 2 mg Documented by: Nifedipine (Nifedipine Xl 60 Mg Tab) 60 mg PO HS [facility] Ondansetron HCl (Ondansetron 4 Mg/2 Ml Inj) 4 mg IV Q8H PRN PRN Reason: Nausea And Vomiting Peritoneal Dialysis Solution (Dialysate Lo Vega 1.5% Soln 2000 Ml) 2,000 ml IP Q6H [facility] Sodium Chloride (Sodium Chloride 0.9% 10 Ml Flush Syringe) 10 ml IV BID [facility] Last Admin: 02/15/21 11:03 Dose: 10 ml Documented by: Sodium Chloride (Sodium Chloride 0.9% 10 Ml Flush Syringe) 10 ml IV PRN PRN PRN Reason: LINE FLUSH Tramadol HCl (Tramadol 50 Mg Tab) 50 mg PO Q6H PRN PRN Reason: Pain, Moderate (4-6) Review of Systems Constitutional: no fever, no chills Ears, nose, mouth and throat: no nasal congestion, no nasal discharge Cardiovascular: chest pain, no syncope Respiratory: no cough, no shortness of breath Gastrointestinal: abdominal pain, nausea, vomiting Musculoskeletal: no muscle weakness, no muscle cramps Integumentary: no rash, no pruritis Neurological: no weakness, no parathesias Psychiatric: no anxiety, no paranoia Hematologic/Lymphatic: no easy bruising, no easy bleeding Allergic/Immunologic: no urticaria, no allergic rhinitis Exam - Vital Signs Vital signs: Vital Signs Temp Pulse Resp BP Pulse Ox 98.7 F 104 H 22 176/97 100 02/14/21 18:20 02/14/21 18:20 02/14/21 18:20 02/14/21 18:20 02/14/21 18:20 - Physical Exam Narrative exam: General appearance: No acute distress EENT: Anicteric sclera, hearing intact Neck: Supple Respiratory: Normal effort, CTA bilaterally Cardiovascular: RRR, no rub Extremities: No edema Abdominal: Soft, tender Integumentary: Dry, intact Musculoskeletal: No joint swelling or erythema Psychiatric: Appropriate mood/affect, judgment intact Neurologic: No focal deficits, moves all extremities PD catheter, site is clean with no erythema or purulent drainage Results - Lab Results 02/15/21 06:00 02/15/21 06:00 Most recent lab results Calcium 7.7 mg/dL (8.4-10.2) L 02/15/21 06:00 Magnesium 1.40 mg/dL (1.7-2.3) L 02/14/21 18:35 Assessment and Plan Assessment End-stage renal disease on PD Peritonitis? Anemia of ESRD Hyperparathyroidism Hyperphosphatemia Hypertension Recommendations Start manual PD, prescription ordered Start antibiotics ID consult Abdominal x-ray Continue calcitriol Continue binder Continue antihypertensives Epogen thrice weekly Renally dose medications Renal diet
[2021-02-15] MEDS ORDERED: EPOETIN ALFA-EPBX 10,000 UNIT/1 ML VIAL IV PRN (15:26)
[2021-02-15] MEDS: DIALYSATE LO CAL 1.5% SOLN 2000 ML IP SCH ×2 (15:33→23:08)
[2021-02-15] MEDS ORDERED: CEFEPIME/NS 2 GM/100 ML 2 GM/100 ML BAG IV SCH (16:00)
[2021-02-15] MEDS: ONDANSETRON 4 MG/2 ML INJ IV PRN (16:28)
--- NOTE | 2021-02-15 16:36 | XRay Report ---
ABDOMEN 2 VIEWS INDICATION / CLINICAL INFORMATION: Abdominal pain. COMPARISON: CT abdomen and pelvis without contrast from 02/13/2021. FINDINGS: TUBES / LINES: Unchanged peritoneal dialysis catheter. BOWEL GAS PATTERN: No significant abnormality. FREE AIR / EXTRALUMINAL GAS: None seen. ADDITIONAL FINDINGS: Generalized atherosclerosis along the pelvis is unchanged. CHEST: Visualized chest shows no significant abnormality. IMPRESSION: No acute abnormality of the abdomen. Signer Name: Lefty De Jesus MD Signed: 02/15/2021 4:31 PM Workstation Name: [id number]
[2021-02-15] MEDS: CALCITRIOL 0.5 MCG CAP PO SCH (17:20)
[2021-02-15] MEDS ORDERED: VANCOMYCIN 1,250 MG in SODIUM CHLORIDE 0.9% 250ML 250 ML IV ONE (18:00)
[2021-02-15] MEDS: CEFEPIME/NS 1 GM/100 ML 1 GM/100 ML BAG IV SCH (19:06)
[2021-02-15] MEDS: NIFEdipine XL 60 MG TAB PO SCH (21:25)
[2021-02-15] MEDS: CALCIUM ACETATE 667 MG CAP PO SCH (21:25)
[2021-02-15] MEDS: INSULIN GLARGINE 100 UNITS/ML SUB-Q SCH (21:26)
[2021-02-16] MEDS: HEPARIN/ 0.45% NACL DRIP 25,000 UNIT/500 ML BAG IV SCH (05:11)
[2021-02-16] MEDS: hydrALAZINE 25 MG TAB PO SCH ×3 (05:12→21:51)
[2021-02-16] MEDS: DIALYSATE LO CAL 1.5% SOLN 2000 ML IP SCH ×3 (05:16→16:10)
[2021-02-16] MEDS: MORPHINE 4 MG/1 ML INJ IV PRN ×2 (05:31→19:43)
[2021-02-16 06:31] LABS: Hematocrit 29.9 % (30.3-42.9); Hemoglobin 9.5 gm/dl (10.1-14.3); Mean Corpuscular HGB Conc 32 % (30-34); Mean Corpuscular Volume 95 fl (79-97); Platelet Count 276 K/mm3 (140-440); Red Blood Count 3.14 M/mm3 (3.65-5.03)
[2021-02-16 06:47] LABS: Calcium 7.8 mg/dL (8.4-10.2)
[2021-02-16 07:22] LABS: Total Cells Counted 100
[2021-02-16 07:24] LABS: Anisocytosis 1+; Large Platelets Few; Platelet Estimate Consistent w Auto
[2021-02-16] MEDS: INSULIN LISPRO 100 UNIT/ML SUB-Q SCH ×4 (09:14→21:51)
[2021-02-16] MEDS: ASPIRIN EC 325 MG TAB PO SCH (09:15)
[2021-02-16] MEDS: CHOLECALCIFEROL (VIT D3) 1000 UNIT (25 mcg) TAB PO SCH (09:15)
[2021-02-16] MEDS: CINACALCET 30 MG TAB PO SCH (09:15)
[2021-02-16] MEDS: CALCIUM ACETATE 667 MG CAP PO SCH ×3 (09:15→21:50)
[2021-02-16] MEDS: CALCITRIOL 0.5 MCG CAP PO SCH (09:15)
[2021-02-16] MEDS: carvediloL 6.25 MG TAB PO SCH ×2 (09:16→21:51)
[2021-02-16] MEDS: cloNIDine 0.2 MG TAB PO SCH (09:16)
--- NOTE | 2021-02-16 10:58 | Progress Note ---
Assessment and Plan Chest pain, atypical EKG showing normal sinus rhythm, normal ECG. Troponin levels were elevated at 0.1, in the setting of renal disease. Unchanged over 3 serial measurements. End-stage renal disease, on peritoneal dialysis. Nausea, vomiting, abdominal pain - chief complaint Leukocytosis Recommend: Further cardiac evaluation will depend on clinical course. We will consider a pre-discharge lexiscan thallium stress test, after patient's possible abdominal infection or sepsis is optimally treated. Subjective Date of service: 02/16/21 Interval history: Patient is resting in comfortably. No cardiac complaints reported. Objective Vital Signs Temp Pulse Resp BP BP Pulse Ox 02/16/21 09:16 111 H 128/67 02/16/21 08:04 112 H 66 L 02/16/21 08:02 98.5 F 111 H 18 128/67 59 L 02/16/21 05:12 112 H 110/62 02/16/21 04:00 98 02/16/21 03:25 99.2 F 110 H 18 110/62 67 L 02/16/21 00:30 99.8 F H 02/16/21 00:00 116 H 18 99 02/15/21 23:03 101.4 F H 120 H 16 125/58 60 L 02/15/21 21:26 105 H 165/93 02/15/21 21:25 105 H 165/93 02/15/21 19:13 98.9 F 101 H 16 165/93 71 L 02/15/21 16:08 14 02/15/21 16:00 99 H 02/15/21 15:38 16 02/15/21 15:00 97.8 F 82 17 123/73 97 02/15/21 13:32 88 145/76 02/15/21 11:46 17 98 02/15/21 11:44 98.4 F 98 H 17 154/77 98 02/15/21 11:35 16 02/15/21 11:05 17 02/15/21 11:04 81 161/74 02/15/21 11:03 81 161/74 - Physical Examination General: No Apparent Distress HEENT: Positive: PERRL Neck: Positive: trachea midline Cardiac: Positive: Reg Rate and Rhythm Lungs: Positive: Decreased Breath Sounds Extremities: Absent: edema - Labs and Meds CBC 02/16/21 Range/Units 05:29 WBC 22.9 H (4.5-11.0) K/mm3 RBC 3.14 L (3.65-5.03) M/mm3 Hgb 9.5 L (10.1-14.3) gm/dl Hct 29.9 L (30.3-42.9) % Plt Count 276 (140-440) K/mm3 Comprehensive Metabolic Panel 02/16/21 Range/Units 05:29 Sodium 142 (137-145) mmol/L Potassium 4.3 (3.6-5.0) mmol/L Chloride 87.1 L (98-107) mmol/L Carbon Dioxide 37 H (22-30) mmol/L BUN 61 H (7-17) mg/dL Creatinine 12.9 H (0.6-1.2) mg/dL Glucose 56 L (65-100) mg/dL Calcium 7.8 L (8.4-10.2) mg/dL
--- NOTE | 2021-02-16 11:51 | Electrocardiograph Report ---
[facility] Test Date: 2021-02-14 Test Time: 18:13:41 Pat Name: ADRIANA FINK Department: Room: A467 1 Gender: F Manager Search: TV : 1950 Requested By: ALBA GUPTA Order Number: [id number] Reading MD: Deanna Neri Measurements Intervals [place] Rate: 89 P: 91 MA: 120 QRS: 1 QRSD: 94 T: 35 QT: 402 QTc: 492 Interpretive Statements Sinus rhythm Atrial premature complex No previous ECG available for comparison Electronically Signed On 02-16-2021 11:51:38 EDT by Deanna Neri
[2021-02-16] MEDS ORDERED: cefTRIAXone/NS 1 GM/50 ML 1 GM/50 ML BAG IV SCH (12:00)
--- NOTE | 2021-02-16 12:02 | Electrocardiograph Report ---
[facility] Test Date: 2021-02-15 Test Time: 07:44:55 Pat Name: ADRIANA FINK Department: Room: A467 1 Gender: F Manager Financial: ASHLYN : 1950 Requested By: CARMEN JOSEPH Order Number: [id number] Reading MD: Deanna Neri Measurements Intervals [place] Rate: 99 P: 62 AK: 124 QRS: 0 QRSD: 84 T: 29 QT: 405 QTc: 519 Interpretive Statements Sinus rhythm Atrial premature complex Prolonged QT interval Compared to ECG 02/14/2021 18:13:41 Prolonged QT interval now present Electronically Signed On 02-16-2021 12:01:43 EDT by Deanna Neri
--- NOTE | 2021-02-16 12:05 | Electrocardiograph Report ---
[facility] Test Date: 2021-02-15 Test Time: 11:53:39 Pat Name: ADRIANA FINK Department: Room: A467 1 Gender: F Sas Statistical Programmer: ASHLYN : 1950 Requested By: CARMEN JOSEPH Order Number: [id number] Reading MD: Deanna Neri Measurements Intervals [place] Rate: 103 P: 50 AL: 118 QRS: 1 QRSD: 92 T: 61 QT: 395 QTc: 517 Interpretive Statements Sinus tachycardia Prolonged QT interval Compared to ECG 02/15/2021 07:44:55 Electronically Signed On 02-16-2021 12:04:51 EDT by Deanna Neri
--- NOTE | 2021-02-16 13:54 | Progress Note ---
Assessment and Plan Assessment End-stage renal disease on PD Peritonitis? Leukocytosis Anemia of ESRD Hyperparathyroidism Hyperphosphatemia Hypertension Recommendations Continue manual PD, can bring cycler from home for APD F/u PD fluid culture Continue antibiotics ID consult Bowel regimen to regulate BM Continue calcitriol Continue binder Continue antihypertensives Epogen thrice weekly Renally dose medications Renal diet Subjective Date of service: 02/16/21 Principal diagnosis: Abdominal pain Interval history: Afebrile. Pain slightly better this morning. Denies bowel movement. Undergoing manual PD. Objective - Exam Narrative Exam: General appearance: No acute distress EENT: Anicteric sclera, hearing intact Neck: Supple Respiratory: Normal effort, CTA bilaterally Cardiovascular: RRR, no rub Extremities: No edema Abdominal: Soft, tender Integumentary: Dry, intact Musculoskeletal: No joint swelling or erythema Psychiatric: Appropriate mood/affect, judgment intact Neurologic: No focal deficits, moves all extremities PD catheter, site is clean with no erythema or purulent drainage - Vital Signs Vital signs: Vital Signs - 12hr 02/16/21 02/16/21 02/16/21 03:25 04:00 05:12 Temperature 99.2 F Pulse Rate 110 H 112 H Respiratory 18 Rate Blood Pressure 110/62 110/62 O2 Sat by Pulse 67 L 98 Oximetry 02/16/21 02/16/21 02/16/21 08:02 08:04 09:16 Temperature 98.5 F Pulse Rate 111 H 112 H 111 H Respiratory 18 Rate Blood Pressure 128/67 128/67 O2 Sat by Pulse 59 L 66 L Oximetry - Lab 02/16/21 05:29 02/16/21 05:29 Most recent lab results Calcium 7.8 mg/dL (8.4-10.2) L 02/16/21 05:29 Magnesium 1.40 mg/dL (1.7-2.3) L 02/14/21 18:35 Medications & Allergies - Medications Allergies/Adverse Reactions: Allergies digoxin Allergy (Verified 02/14/21 18:22) Hives lisinopril Allergy (Verified 02/14/21 18:22) Swelling nitroglycerin Adverse Reaction (Verified 02/14/21 18:22) Rash, HEADACHES shellfish derived Adverse Reaction (Verified 02/14/21 18:22) Swelling Home Medications: Home Medications Medication Instructions Recorded Confirmed Last Taken Type NIFEdipine XL [Procardia Xl] 60 mg PO HS 05/27/15 02/15/21 07/30/20 History carvediloL [Coreg] 6.25 mg PO BID 05/27/15 02/15/21 07/30/20 History Insulin Detemir (Nf) [Levemir 15 unit SQ QHS PRN 09/14/16 02/15/21 07/31/19 History Flextouch (Nf)] cloNIDine [Catapres] 0.2 mg PO DAILY 09/14/16 02/15/21 07/30/20 History Gentamicin 0.1% Top Oint(Nf) 1 applic TP TID 07/31/20 02/15/21 Unknown History [Gentamicin 0.1% Top Oint (Nf)] Cholecalciferol Vit D3 [Vitamin D3 3,000 unit PO DAILY tablet 08/01/20 02/15/21 Unknown Rx 1,000 UNIT TAB] Cinacalcet [Sensipar] 90 mg PO QDAY 02/15/21 02/15/21 Unknown History Hydralazine HCl 50 mg PO TID 02/15/21 02/15/21 Unknown History Active Medications: Generic Name Dose Route Start Last Admin Trade Name Freq PRN Reason Stop Dose Admin Acetaminophen 650 mg 02/14/21 23:52 Acetaminophen 325 Mg Tab PO Q4H PRN Pain MILD(1-3)/Fever >100.5/POOLE Aspirin 325 mg 02/15/21 10:00 02/16/21 09:15 Aspirin Ec 325 Mg Tab PO 325 mg QDAY [facility] Administration Bisacodyl 10 mg 02/16/21 11:33 Bisacodyl 5 Mg Tab PO QDAY PRN Constipation Calcitriol 0.5 mcg 02/15/21 17:00 02/16/21 09:15 Calcitriol 0.5 Mcg Cap PO 0.5 mcg QDAY [facility] Administration Calcium Acetate 1,334 mg 02/15/21 20:00 02/16/21 09:15 Calcium Acetate 667 Mg Cap PO 1,334 mg TID [facility] Administration Carvedilol 6.25 mg 02/15/21 11:00 02/16/21 09:16 Carvedilol 6.25 Mg Tab PO 6.25 mg BID [facility] Administration Cholecalciferol 3,000 unit 02/15/21 11:00 02/16/21 09:15 Cholecalciferol (Vit D3) 1000 Unit (25 Mcg) Tab PO 3,000 unit DAILY [facility] Administration Cinacalcet 90 mg 02/15/21 11:00 02/16/21 09:15 Cinacalcet 30 Mg Tab PO 90 mg QDAY [facility] Administration Clonidine HCl 0.2 mg 02/15/21 11:00 02/16/21 09:16 Clonidine 0.2 Mg Tab PO 0.2 mg DAILY [facility] Administration Dextrose 50 ml 02/14/21 23:52 Dextrose 50% In Water (25gm) 50 Ml Syringe IV Q30MIN PRN Hypoglycemia Protocol Docusate Sodium 100 mg 02/16/21 12:00 Docusate Sodium 100 Mg Cap PO BID [facility] Heparin Sodium (Porcine) 2,500 unit 02/15/21 00:00 Heparin 10,000 Units/10 Ml Vial 40 unit/kg (2500 unit) IV Q6H PRN Anti-Xa Assay < 0.1 units/ml Hydralazine HCl 50 mg 02/15/21 14:00 02/16/21 05:12 Hydralazine 25 Mg Tab PO 50 mg Q8HR [facility] Administration Sodium Chloride 100 mls @ 999 mls/hr 02/15/21 11:00 Nacl 0.9% IV FOREST PRN Hypotension Cefepime HCl 1 gm in 100 mls @ 200 mls/hr 02/15/21 18:00 02/15/21 19:06 Cefepime/Ns 1 Gm/100 Ml IV 200 mls/hr Q24H [facility] Administration Protocol Insulin Glargine 15 units 02/15/21 22:00 02/15/21 21:26 Insulin Glargine 100 Units/Ml SUB-Q 15 units QHS [facility] Administration Insulin Human Lispro 0 unit 02/15/21 07:30 02/16/21 09:14 Insulin Lispro 100 Unit/Ml SUB-Q Not Given ACHS [facility] Protocol Magnesium Hydroxide 30 ml 02/14/21 23:52 Magnesium Hydroxide (Mom) Oral Liqd Udc PO Q4H PRN Constipation Morphine Sulfate 2 mg 02/14/21 23:52 02/16/21 05:31 Morphine 4 Mg/1 Ml Inj IV 2 mg Q5MIN PRN Administration Chest Pain Nifedipine 60 mg 02/15/21 22:00 02/15/21 21:25 Nifedipine Xl 60 Mg Tab PO 60 mg HS [facility] Administration Ondansetron HCl 4 mg 02/14/21 23:52 02/15/21 16:28 Ondansetron 4 Mg/2 Ml Inj IV 4 mg Q8H PRN Administration Nausea And Vomiting Peritoneal Dialysis Solution 2,000 ml 02/15/21 16:00 02/16/21 11:14 Dialysate Lo Vega 1.5% Soln 2000 Ml IP 2,000 ml Q6H [facility] Administration Polyethylene Glycol 17 gm 02/16/21 12:00 Polyethylene Glycol 3350 17 Gm Powder PO QDAY [facility] Sodium Chloride 10 ml 02/15/21 10:00 02/16/21 09:17 Sodium Chloride 0.9% 10 Ml Flush Syringe IV 10 ml BID [facility] Administration Sodium Chloride 10 ml 02/14/21 23:52 Sodium Chloride 0.9% 10 Ml Flush Syringe IV PRN PRN LINE FLUSH Tramadol HCl 50 mg 02/14/21 23:52 Tramadol 50 Mg Tab PO Q6H PRN Pain, Moderate (4-6)
[2021-02-16] MEDS: POLYETHYLENE GLYCOL 3350 17 GM POWDER PO SCH (13:58)
[2021-02-16] MEDS: DOCUSATE SODIUM 100 MG CAP PO SCH ×2 (13:58→21:51)
[2021-02-16] MEDS ORDERED: GENTAMICIN 0.3% OPHTH OINT 3.5 GM OD SCH (14:00)
--- NOTE | 2021-02-16 14:43 | Progress Note ---
Assessment and Plan -- Acute chest pain, likely atypical Patient placed on telemetry. Follow serial cardiac enzymes. Patient placed on aspirin, sublingual nitroglycerin and IV morphine as needed for chest pain. Medical management per cardiology --NSTEMI type II Troponin has been elevated probably secondary to the end-stage renal disease however patient had placed on heparin drip prior to cardiology evaluation and recommendation. Medical management per cardiology, follow 2D echocardiogram Stop heparin drip now -- Abdominal pain, likely from peritonitis Etiology unclear. CT of the abdomen and pelvis has been negative. Will place on analgesic medications as needed. cont iv abx for possible peritonitis Ordered for peritoneal fluid study -- End-stage renal disease on peritoneal dialysis Patient on peritoneal dialysis. Consult placed to nephrology for evaluation. -- Hypertension Continue routine home medications and monitor vital signs closely. -- DVT prophylaxis Patient currently on anticoagulation. -- Full code status Patient is a full code. Daily clinical course: 02/15/21: start on empiric abx for possible peritonitis. will follow peritoneal fluid cx report. Continue to trend troponin, continue heparin drip, follow cardiology recommendation. 02/16/21: Patient will fluid study pending, IV antibiotics changed to cefepime. ID has been consulted. Patient continued to complains of abdominal pain. Cardiology recommended medical management for elevated troponin - will DC heparin drip. Follow 2D echo result and pending peritoneal fluid study. Subjective Date of service: 02/16/21 Principal diagnosis: Abdominal pain Interval history: Patient seen and examined. Medical records and medication list reviewed. No acute event overnight noted by the RN. Patient continued to complains of diffuse abdominal pain with persistent elevated white count had peritoneal dialysis yesterday but could not complete due to abdominal pain Plan for repeat beta and dialysis today -peritoneal fluid culture study pending Discussed plan of care at bedside with patient. Objective - Exam Narrative Exam: GENERAL: well-developed -[place] female lying on bed appeared to be in no discomfort. HEENT: Normocephalic. Atraumatic. No conjunctival congestion or icterus. Patient has moist mucous membranes. NECK: Supple. Trachea midline. CHEST/LUNGS: Clear to auscultated bilaterally, breathing nonlabored. No wheezes crackles or rhonchi. HEART/CARDIOVASCULAR: Regular in rate and rhythm. S1 and S2 positive. ABDOMEN: Abdomen is soft but diffusely tender. Patient has normal bowel sounds. SKIN: There is no rash. Warm and dry. NEURO: No focal motor deficit. Follows command. MUSCULOSKELETAL: No joint effusion or tenderness. EXTRIMITY: No edema, no cyanosis or clubbing. PSYCH: Cooperative. - Constitutional Vitals: Vital Signs - 12hr 02/16/21 02/16/21 02/16/21 03:25 04:00 05:12 Temperature 99.2 F Pulse Rate 110 H 112 H Respiratory 18 Rate Blood Pressure 110/62 110/62 O2 Sat by Pulse 67 L 98 Oximetry 02/16/21 02/16/21 02/16/21 08:02 08:04 09:16 Temperature 98.5 F Pulse Rate 111 H 112 H 111 H Respiratory 18 Rate Blood Pressure 128/67 128/67 O2 Sat by Pulse 59 L 66 L Oximetry 02/16/21 14:02 Temperature Pulse Rate 78 Respiratory Rate Blood Pressure 110/75 O2 Sat by Pulse Oximetry - Labs CBC & Chem 7: 02/17/21 04:58 02/16/21 05:29 Labs: Abnormal lab results 02/15/21 02/15/21 02/15/21 Range/Units 14:00 16:25 20:43 WBC (4.5-11.0) K/mm3 RBC (3.65-5.03) M/mm3 Hgb (10.1-14.3) gm/dl Hct (30.3-42.9) % RDW (13.2-15.2) % Seg Neuts % (Manual) (40.0-70.0) % Lymphocytes % (Manual) (13.4-35.0) % Seg Neutrophils # Man (1.8-7.7) K/mm3 Lymphocytes # (Manual) (1.2-5.4) K/mm3 Basophils # (Manual) (0.0-0.1) K/mm3 Heparin Anti-Xa Level 0.14 L (0.3-0.7) U.I./ml Chloride (98-107) mmol/L Carbon Dioxide (22-30) mmol/L BUN (7-17) mg/dL Creatinine (0.6-1.2) mg/dL Glucose (65-100) mg/dL POC Glucose 167 H 116 H (70-105) mg/dL Calcium (8.4-10.2) mg/dL 02/16/21 02/16/21 02/16/21 Range/Units 05:29 05:29 11:39 WBC 22.9 H (4.5-11.0) K/mm3 RBC 3.14 L (3.65-5.03) M/mm3 Hgb 9.5 L (10.1-14.3) gm/dl Hct 29.9 L (30.3-42.9) % RDW 18.0 H (13.2-15.2) % Seg Neuts % (Manual) 94.0 H (40.0-70.0) % Lymphocytes % (Manual) 2.0 L (13.4-35.0) % Seg Neutrophils # Man 21.5 H (1.8-7.7) K/mm3 Lymphocytes # (Manual) 0.5 L (1.2-5.4) K/mm3 Basophils # (Manual) 0.2 H (0.0-0.1) K/mm3 Heparin Anti-Xa Level (0.3-0.7) U.I./ml Chloride 87.1 L (98-107) mmol/L Carbon Dioxide 37 H (22-30) mmol/L BUN 61 H (7-17) mg/dL Creatinine 12.9 H (0.6-1.2) mg/dL Glucose 56 L (65-100) mg/dL POC Glucose 124 H (70-105) mg/dL Calcium 7.8 L (8.4-10.2) mg/dL 02/16/21 Range/Units 13:32 WBC (4.5-11.0) K/mm3 RBC (3.65-5.03) M/mm3 Hgb (10.1-14.3) gm/dl Hct (30.3-42.9) % RDW (13.2-15.2) % Seg Neuts % (Manual) (40.0-70.0) % Lymphocytes % (Manual) (13.4-35.0) % Seg Neutrophils # Man (1.8-7.7) K/mm3 Lymphocytes # (Manual) (1.2-5.4) K/mm3 Basophils # (Manual) (0.0-0.1) K/mm3 Heparin Anti-Xa Level < 0.10 L (0.3-0.7) U.I./ml Chloride (98-107) mmol/L Carbon Dioxide (22-30) mmol/L BUN (7-17) mg/dL Creatinine (0.6-1.2) mg/dL Glucose (65-100) mg/dL POC Glucose (70-105) mg/dL Calcium (8.4-10.2) mg/dL HEART Score - HEART Score EKG: Normal Age: > 65 Risk factors: 1-2 risk factors Troponin: Troponin T 0.102 ng/mL (0.00-0.029) H* 02/15/21 06:00 Troponin: > 3x normal limit - Critical Actions Critical Actions: 4-6 pts:12-16.6% risk of adverse cardiac event. Should be admitted
[2021-02-16] MEDS: hydrOXYzine HCL 25 MG TAB PO PRN (14:50)
--- NOTE | 2021-02-16 15:23 | Consultation ---
History of Present Illness - Reason for Consult Consult date: 02/16/21 PD associated peritonitis Requesting physician: ASHUTOSH PFEIFFER - History of Present Illness 70-year-old female with history of diabetes mellitus, hypertension, CHF, ESRD on peritoneal dialysis, admitted on 02/14/2021 secondary to epigastric abdominal pain for 3 days. Patient initially came to the ED 2 days ago with similar complaints. Abdominal CT was negative. Abdominal pain is 7 out of 10. Patient had PD catheter placed 2 years ago, she has never had any PD catheter infection. Patient denies dialysate color changes. Additionally, patient reports nausea vomiting x3. As well as diarrhea 2-3 times a day. On arrival, temperature 98.7--> 101.4, HR 104, RR 22, O2 sat 100, BP 176/97, initial WBC 8.71-->22.9. Lactate 2.2. Troponin 0 0.103. Review of Systems: positive in bold print General: fever, chills, malaise Cutaneous: rash, pruritus Head: headaches or injury Eyes: changes in vision, eye pain, double vision Ears: ear pain, ear discharge, ringing or hearing loss Nose: nose bleeding, stuffiness Mouth & throat: bleeding gums, horseness, no dental problems, or swollen glands Neck: no pain, node enlargement/lumps, tyroid enlargement or tenderness Respiratory: SOB, cough, RODRIGUEZ, wheezing, sputum, hemoptysis, pleuritic chest pain Cardiovascular: chest pain, leg edema, cyanosis, RODRIGUEZ, orthopnea Musculoskeletal: edema, deformities, pain Gastrointestinal: nausea, vomiting, abdominal pain, constipation, melena, bright red blood in stools, fecal incontinence, jaundice Genitourinary/Reproductive: frequent urination, dysuria, hematuria, incontinence Neurogical: seizures, headaches, weakness, paresthesias, loss of speech or vision; memory loss, vertigo, tremors, numbness Psychiatric: stable mood; excessive anxiety, sadness or moodiness Past History Past Medical History: arthritis, diabetes, dialysis (Peritoneal dialysis), ESRD, other (Asthma in childhood) Past Surgical History: appendectomy (In 1984), Other (Tonsillectomy) Social history: no significant social history Family history: no significant family history Medications and Allergies Allergies Allergy/AdvReac Type Severity Reaction Status Date / Time digoxin Allergy Hives Verified 02/14/21 18:22 lisinopril Allergy Swelling Verified 02/14/21 18:22 nitroglycerin AdvReac Rash, Verified 02/14/21 18:22 HEADACHES shellfish derived AdvReac Swelling Verified 02/14/21 18:22 Home Medications Medication Instructions Recorded Confirmed Last Taken Type NIFEdipine XL [Procardia Xl] 60 mg PO HS 05/27/15 02/15/21 07/30/20 History carvediloL [Coreg] 6.25 mg PO BID 05/27/15 02/15/21 07/30/20 History Insulin Detemir (Nf) [Levemir 15 unit SQ QHS PRN 09/14/16 02/15/21 07/31/19 History Flextouch (Nf)] cloNIDine [Catapres] 0.2 mg PO DAILY 09/14/16 02/15/21 07/30/20 History Gentamicin 0.1% Top Oint(Nf) 1 applic TP TID 07/31/20 02/15/21 Unknown History [Gentamicin 0.1% Top Oint (Nf)] Cholecalciferol Vit D3 [Vitamin D3 3,000 unit PO DAILY tablet 08/01/20 02/15/21 Unknown Rx 1,000 UNIT TAB] Cinacalcet [Sensipar] 90 mg PO QDAY 02/15/21 02/15/21 Unknown History Hydralazine HCl 50 mg PO TID 02/15/21 02/15/21 Unknown History Active Meds: Active Medications Acetaminophen (Acetaminophen 325 Mg Tab) 650 mg PO Q4H PRN PRN Reason: Pain MILD(1-3)/Fever >100.5/POOLE Aspirin (Aspirin Ec 325 Mg Tab) 325 mg PO QDAY [facility] Last Admin: 02/16/21 09:15 Dose: 325 mg Documented by: Bisacodyl (Bisacodyl 5 Mg Tab) 10 mg PO QDAY PRN PRN Reason: Constipation Calcitriol (Calcitriol 0.5 Mcg Cap) 0.5 mcg PO QDAY [facility] Last Admin: 02/16/21 09:15 Dose: 0.5 mcg Documented by: Calcium Acetate (Calcium Acetate 667 Mg Cap) 1,334 mg PO TID [facility] Last Admin: 02/16/21 14:02 Dose: 1,334 mg Documented by: Carvedilol (Carvedilol 6.25 Mg Tab) 6.25 mg PO BID [facility] Last Admin: 02/16/21 09:16 Dose: 6.25 mg Documented by: Cholecalciferol (Cholecalciferol (Vit D3) 1000 Unit (25 Mcg) Tab) 3,000 unit PO DAILY [facility] Last Admin: 02/16/21 09:15 Dose: 3,000 unit Documented by: Cinacalcet (Cinacalcet 30 Mg Tab) 90 mg PO QDAY [facility] Last Admin: 02/16/21 09:15 Dose: 90 mg Documented by: Clonidine HCl (Clonidine 0.2 Mg Tab) 0.2 mg PO DAILY [facility] Last Admin: 02/16/21 09:16 Dose: 0.2 mg Documented by: Dextrose (Dextrose 50% In Water (25gm) 50 Ml Syringe) 50 ml IV Q30MIN PRN; Protocol PRN Reason: Hypoglycemia Docusate Sodium (Docusate Sodium 100 Mg Cap) 100 mg PO BID [facility] Last Admin: 02/16/21 13:58 Dose: 100 mg Documented by: Heparin Sodium (Porcine) (Heparin 10,000 Units/10 Ml Vial) 2,500 unit 40 unit/kg (2500 unit) IV Q6H PRN PRN Reason: Anti-Xa Assay < 0.1 units/ml Hydralazine HCl (Hydralazine 25 Mg Tab) 50 mg PO Q8HR [facility] Last Admin: 02/16/21 14:02 Dose: 50 mg Documented by: Hydroxyzine HCl (Hydroxyzine Hcl 25 Mg Tab) 25 mg PO Q6H PRN PRN Reason: Itching Last Admin: 02/16/21 14:50 Dose: 25 mg Documented by: Sodium Chloride (Nacl 0.9%) 100 mls @ 999 mls/hr IV FOREST PRN PRN Reason: Hypotension Cefepime HCl (Cefepime/Ns 1 Gm/100 Ml) 1 gm in 100 mls @ 200 mls/hr IV Q24H [facility]; Protocol Last Admin: 02/15/21 19:06 Dose: 200 mls/hr Documented by: Insulin Glargine (Insulin Glargine 100 Units/Ml) 15 units SUB-Q QHS [facility] Last Admin: 02/15/21 21:26 Dose: 15 units Documented by: Insulin Human Lispro (Insulin Lispro 100 Unit/Ml) 0 unit SUB-Q ACHS [facility]; Protocol Last Admin: 02/16/21 13:58 Dose: Not Given Documented by: Magnesium Hydroxide (Magnesium Hydroxide (Mom) Oral Liqd Udc) 30 ml PO Q4H PRN PRN Reason: Constipation Morphine Sulfate (Morphine 4 Mg/1 Ml Inj) 2 mg IV Q5MIN PRN PRN Reason: Chest Pain Last Admin: 02/16/21 05:31 Dose: 2 mg Documented by: Nifedipine (Nifedipine Xl 60 Mg Tab) 60 mg PO HS [facility] Last Admin: 02/15/21 21:25 Dose: 60 mg Documented by: Ondansetron HCl (Ondansetron 4 Mg/2 Ml Inj) 4 mg IV Q8H PRN PRN Reason: Nausea And Vomiting Last Admin: 02/15/21 16:28 Dose: 4 mg Documented by: Peritoneal Dialysis Solution (Dialysate Lo Vega 1.5% Soln 2000 Ml) 2,000 ml IP Q6H [facility] Last Admin: 02/16/21 11:14 Dose: 2,000 ml Documented by: Polyethylene Glycol (Polyethylene Glycol 3350 17 Gm Powder) 17 gm PO QDAY [facility] Last Admin: 02/16/21 13:58 Dose: 17 gm Documented by: Sodium Chloride (Sodium Chloride 0.9% 10 Ml Flush Syringe) 10 ml IV BID [facility] Last Admin: 02/16/21 09:17 Dose: 10 ml Documented by: Sodium Chloride (Sodium Chloride 0.9% 10 Ml Flush Syringe) 10 ml IV PRN PRN PRN Reason: LINE FLUSH Tramadol HCl (Tramadol 50 Mg Tab) 50 mg PO Q6H PRN PRN Reason: Pain, Moderate (4-6) Physical Examination - Physical Exam Narrative exam: General appearance: Alert in NAD pleasant Eyes: anicteric sclerae, moist conjunctivae; no lid-lag; PERRLA HENT: Normocephalic, Atraumatic; normal external ears, nares open, oropharynx clear Neck: supple, tracheal midline, no JVD Lungs: CTA CV: RRR no murmur Abdomen: Soft, diffuse tenderness, PD catheter exit site without erythema or drainage Extremities: no edema, no cyanosis Skin: No rash. Psych: no agitated Neuro: alert and oriented x 3. Moving all extermities - Constitutional Vitals: Vital Signs Temp Pulse Resp BP Pulse Ox 98.5 F 78 18 110/75 66 L 02/16/21 08:02 02/16/21 14:02 02/16/21 08:02 02/16/21 14:02 02/16/21 08:04 Temperature -Last 24 Hours Temperature 98.5 F Temperature 99.2 F Temperature 99.8 F Temperature 101.4 F Temperature 98.9 F Results - Labs CBC & Chem 7: 02/16/21 05:29 02/16/21 05:29 Labs: Abnormal lab results 02/15/21 02/15/21 02/16/21 Range/Units 16:25 20:43 05:29 WBC 22.9 H (4.5-11.0) K/mm3 RBC 3.14 L (3.65-5.03) M/mm3 Hgb 9.5 L (10.1-14.3) gm/dl Hct 29.9 L (30.3-42.9) % RDW 18.0 H (13.2-15.2) % Seg Neuts % (Manual) 94.0 H (40.0-70.0) % Lymphocytes % (Manual) 2.0 L (13.4-35.0) % Seg Neutrophils # Man 21.5 H (1.8-7.7) K/mm3 Lymphocytes # (Manual) 0.5 L (1.2-5.4) K/mm3 Basophils # (Manual) 0.2 H (0.0-0.1) K/mm3 Heparin Anti-Xa Level (0.3-0.7) U.I./ml Chloride (98-107) mmol/L Carbon Dioxide (22-30) mmol/L BUN (7-17) mg/dL Creatinine (0.6-1.2) mg/dL Glucose (65-100) mg/dL POC Glucose 167 H 116 H (70-105) mg/dL Calcium (8.4-10.2) mg/dL 02/16/21 02/16/21 02/16/21 Range/Units 05:29 11:39 13:32 WBC (4.5-11.0) K/mm3 RBC (3.65-5.03) M/mm3 Hgb (10.1-14.3) gm/dl Hct (30.3-42.9) % RDW (13.2-15.2) % Seg Neuts % (Manual) (40.0-70.0) % Lymphocytes % (Manual) (13.4-35.0) % Seg Neutrophils # Man (1.8-7.7) K/mm3 Lymphocytes # (Manual) (1.2-5.4) K/mm3 Basophils # (Manual) (0.0-0.1) K/mm3 Heparin Anti-Xa Level < 0.10 L (0.3-0.7) U.I./ml Chloride 87.1 L (98-107) mmol/L Carbon Dioxide 37 H (22-30) mmol/L BUN 61 H (7-17) mg/dL Creatinine 12.9 H (0.6-1.2) mg/dL Glucose 56 L (65-100) mg/dL POC Glucose 124 H (70-105) mg/dL Calcium 7.8 L (8.4-10.2) mg/dL Assessment and Plan Cultures: Blood cultures pending Assessment: 70-year-old female with history of diabetes mellitus, hypertension, CHF, ESRD on peritoneal dialysis, admitted on 02/14/2021 secondary to epigastric abdominal pain for 3 days: #SIRS rule out sepsis: present on admission with fever, tachycardia, elevated lactate; source unclear, possible PD associated peritonitis vs colitis. #ESRD on PD Recommendations: -Send stool for C. difficile -Send peritoneal fluid for cell count, differential, Gram stain and culture -Continue pulse IV vancomycin -Continue IV cefepime 1 g once a day renally adjusted -Add Flagyl IV for now -Follow-up blood cultures Will follow. Amita Warner MD Infectious Diseases Surveyor [employer] Helper [facility] M [phone] O [phone]
[2021-02-16] MEDS: metroNIDAZOLE/NS 500 MG/100 ML 500 MG/100 ML BAG IV SCH (16:10)
[2021-02-16] MEDS: ONDANSETRON 4 MG/2 ML INJ IV PRN (16:54)
[2021-02-16] MEDS: CEFEPIME/NS 1 GM/100 ML 1 GM/100 ML BAG IV SCH (17:24)
[2021-02-16] MEDS: INSULIN GLARGINE 100 UNITS/ML SUB-Q SCH (21:52)
[2021-02-16] MEDS: NIFEdipine XL 60 MG TAB PO SCH (21:52)
[2021-02-17 06:26] LABS: Hematocrit 29.1 % (30.3-42.9); Hemoglobin 8.9 gm/dl (10.1-14.3)
[2021-02-17] MEDS: DIALYSATE LO CAL 1.5% SOLN 2000 ML IP SCH ×3 (06:38→16:51)
[2021-02-17] MEDS: hydrALAZINE 25 MG TAB PO SCH ×3 (06:39→21:57)
[2021-02-17] MEDS: metroNIDAZOLE/NS 500 MG/100 ML 500 MG/100 ML BAG IV SCH ×2 (08:53)
[2021-02-17] MEDS: INSULIN LISPRO 100 UNIT/ML SUB-Q SCH ×4 (08:53→21:56)
[2021-02-17] MEDS: CALCIUM ACETATE 667 MG CAP PO SCH ×3 (08:54→17:01)
--- NOTE | 2021-02-17 08:55 | Progress Note ---
Assessment and Plan Chest pain, atypical EKG showing normal sinus rhythm, normal ECG. Troponin levels were elevated at 0.1, in the setting of renal disease. Unchanged over 3 serial measurements. Echo this presentations demonstrates normal LVEF. There is mild to moderate TR with at least moderate pulmonary HTN. End-stage renal disease, on peritoneal dialysis. Nausea, vomiting, abdominal pain - chief complaint Leukocytosis She is undergoing further evaluation for possible peritonitis. Anemia Conservative cardiac management. Subjective Date of service: 02/17/21 Principal diagnosis: Abdominal pain Interval history: Patient is resting in bed comfortable. No distress noted. She denies chest pain and denies unusual shortness of breath. She is undergoing further evaluation for possible peritonitis. Objective Vital Signs Temp Pulse Pulse Resp BP Pulse Ox 02/17/21 00:00 105 H 02/16/21 23:45 93 02/16/21 23:20 97.3 F L 103 H 16 122/74 76 L 02/16/21 21:51 102/48 02/16/21 19:46 98.5 F 94 H 16 102/48 77 L 02/16/21 16:37 97.8 F 93 H 19 112/63 74 L 02/16/21 16:00 101 H 02/16/21 14:02 78 110/75 02/16/21 12:00 101 H 17 96 02/16/21 09:16 111 H 128/67 - Physical Examination General: No Apparent Distress HEENT: Positive: PERRL Neck: Positive: trachea midline Cardiac: Positive: Reg Rate and Rhythm Lungs: Positive: Decreased Breath Sounds Neuro: Positive: Grossly Intact Extremities: Absent: edema - Labs and Meds CBC 02/17/21 Range/Units 04:58 Hgb 8.9 L (10.1-14.3) gm/dl Hct 29.1 L (30.3-42.9) % Plt Count 252 (140-440) K/mm3
[2021-02-17] MEDS: DOCUSATE SODIUM 100 MG CAP PO SCH ×2 (08:59→21:54)
[2021-02-17] MEDS: ASPIRIN EC 325 MG TAB PO SCH (08:59)
[2021-02-17] MEDS: cloNIDine 0.2 MG TAB PO SCH (08:59)
[2021-02-17] MEDS: POLYETHYLENE GLYCOL 3350 17 GM POWDER PO SCH (08:59)
[2021-02-17] MEDS: CALCITRIOL 0.5 MCG CAP PO SCH (08:59)
[2021-02-17] MEDS: CHOLECALCIFEROL (VIT D3) 1000 UNIT (25 mcg) TAB PO SCH (09:00)
[2021-02-17] MEDS: carvediloL 6.25 MG TAB PO SCH ×2 (09:00→21:57)
[2021-02-17] MEDS: CINACALCET 30 MG TAB PO SCH (09:03)
--- NOTE | 2021-02-17 12:17 | Progress Note ---
Assessment and Plan -- acute hypoxic respiratory failure Patient noted hypoxic this am with O2 sat 77% at RA repeat CXR, follow clinically she completed her COVID vaccine - so doubt COVID infection -- Acute chest pain, likely atypical Patient placed on telemetry. Follow serial cardiac enzymes. Patient placed on aspirin, sublingual nitroglycerin and IV morphine as needed for chest pain. Medical management per cardiology --NSTEMI type II Troponin has been elevated probably secondary to the end-stage renal disease however patient had placed on heparin drip prior to cardiology evaluation and recommendation. Medical management per cardiology, follow 2D echocardiogram Stop heparin drip now -- Abdominal pain, likely from peritonitis Etiology unclear. CT of the abdomen and pelvis has been negative. cont on analgesic medications as needed. cont iv abx for possible peritonitis Ordered for peritoneal fluid study -- End-stage renal disease on peritoneal dialysis Patient on peritoneal dialysis. Consult placed to nephrology for evaluation. -- Hypertension Continue routine home medications and monitor vital signs closely. -- DVT prophylaxis Patient currently on anticoagulation. -- Full code status Patient is a full code. Daily clinical course: 02/15/21: start on empiric abx for possible peritonitis. will follow peritoneal fluid cx report. Continue to trend troponin, continue heparin drip, follow cardiology recommendation. 02/16/21: Patient will fluid study pending, IV antibiotics changed to cefepime. ID has been consulted. Patient continued to complains of abdominal pain. Cardiology recommended medical management for elevated troponin - will DC heparin drip. Follow 2D echo result and pending peritoneal fluid study. 02/17: cont abx for peritonitis, patient still has diffuse abd pain. noted hypoxic this am, order repeat CXR. order nebs Subjective Date of service: 02/17/21 Principal diagnosis: Abdominal pain Interval history: Patient seen and examined. Medical records and medication list reviewed. No acute event overnight noted by the RN. Patient continued to complains of abdominal pain but states that slightly improved Patient noted to be severely hypoxic this morning O2 sat dropping to 77% on room air Discussed plan of care at bedside with patient. Objective - Exam Narrative Exam: GENERAL: well-developed -[place] female lying on bed appeared to be in no discomfort. HEENT: Normocephalic. Atraumatic. No conjunctival congestion or icterus. Patient has moist mucous membranes. NECK: Supple. Trachea midline. CHEST/LUNGS: Diminished breath sound auscultated bilaterally, patient on supplemental O2 HEART/CARDIOVASCULAR: Regular in rate and rhythm. S1 and S2 positive. ABDOMEN: Abdomen is soft but diffusely tender. Patient has normal bowel sounds. SKIN: There is no rash. Warm and dry. NEURO: No focal motor deficit. Follows command. MUSCULOSKELETAL: No joint effusion or tenderness. EXTRIMITY: No edema, no cyanosis or clubbing. PSYCH: Cooperative. - Constitutional Vitals: Vital Signs - 12hr 02/17/21 02/17/21 02/17/21 04:07 08:57 08:59 Temperature 98.2 F 98.3 F Pulse Rate 96 H 104 H 82 Respiratory 16 18 Rate Blood Pressure 119/53 135/72 135/72 O2 Sat by Pulse 77 L 95 Oximetry 02/17/21 09:00 Temperature Pulse Rate 82 Respiratory Rate Blood Pressure 135/72 O2 Sat by Pulse Oximetry - Labs CBC & Chem 7: 02/19/21 05:16 02/18/21 04:31 Labs: Abnormal lab results 02/16/21 02/16/21 02/16/21 Range/Units 13:32 16:43 20:55 Hgb (10.1-14.3) gm/dl Hct (30.3-42.9) % Heparin Anti-Xa Level < 0.10 L (0.3-0.7) U.I./ml POC Glucose 216 H 141 H (70-105) mg/dL 02/17/21 Range/Units 04:58 Hgb 8.9 L (10.1-14.3) gm/dl Hct 29.1 L (30.3-42.9) % Heparin Anti-Xa Level (0.3-0.7) U.I./ml POC Glucose (70-105) mg/dL HEART Score - HEART Score EKG: Normal Age: > 65 Risk factors: 1-2 risk factors Troponin: Troponin T 0.102 ng/mL (0.00-0.029) H* 02/15/21 06:00 Troponin: > 3x normal limit - Critical Actions Critical Actions: 4-6 pts:12-16.6% risk of adverse cardiac event. Should be admitted
[2021-02-17] MEDS ORDERED: ALBUTEROL 2.5 MG/3 ML NEBU IH PRN (12:24)
--- NOTE | 2021-02-17 13:13 | XRay Report ---
. XR chest 1V ap INDICATION / CLINICAL INFORMATION: SOB. COMPARISON: 02/14/2021 FINDINGS: SUPPORT DEVICES: None. HEART / MEDIASTINUM: Unchanged. LUNGS / PLEURA: Right costophrenic sulcal blunting. Right basilar atelectasis. No pneumothorax. ADDITIONAL FINDINGS: No significant additional findings. IMPRESSION: 1. Moderate right pleural effusion. Signer Name: Avni Wells MD Signed: 02/17/2021 1:09 PM Workstation Name: [id number]
[2021-02-17] MEDS ORDERED: VANCOMYCIN PHARMACY TO DOSE IV SCH (14:00)
--- NOTE | 2021-02-17 14:28 | Progress Note ---
Assessment and Plan Cultures: Blood cultures pending Assessment: 70-year-old female with history of diabetes mellitus, hypertension, CHF, ESRD on peritoneal dialysis, admitted on 02/14/2021 secondary to epigastric abdominal pain for 3 days: #SIRS rule out sepsis: Remains with leukocytosis; source unclear, possible PD associated peritonitis vs colitis. #Abdominal pain: Suspect PD associated peritonitis. Peritoneal fluid Gram stain with multiple WBCs no growth so far. Peritoneal fluid cell count and differential not done #Diarrhea: Resolved. #ESRD on PD Recommendations: -Cancel C. difficile diarrhea resolved -Send peritoneal fluid for cell count, differential, Gram stain and culture, ordered cell count and differential today -Continue pulse IV vancomycin -Continue IV cefepime 1 g once a day renally adjusted -Stop Flagyl -Follow-up blood cultures Will follow. Amita Warner MD Infectious Diseases Director Of [employer] [facility], [place], [facility]ated [facility] ([facility]) M [phone] O [phone] Subjective Date of service: 02/17/21 Principal diagnosis: Abdominal pain Interval history: Continues to complain of abdominal pain. No fever. Objective - Exam Narrative Exam: General appearance: Alert in NAD pleasant Eyes: anicteric sclerae, moist conjunctivae; no lid-lag; PERRLA HENT: Normocephalic, Atraumatic; normal external ears, nares open, oropharynx clear Neck: supple, tracheal midline, no JVD Lungs: CTA CV: RRR no murmur Abdomen: Soft, diffuse tenderness, PD catheter exit site without erythema or drainage Extremities: no edema, no cyanosis Skin: No rash. Psych: no agitated Neuro: alert and oriented x 3. Moving all extermities - Constitutional Vitals: Vital Signs Temp Pulse Resp BP Pulse Ox 98.3 F 82 18 135/72 95 02/17/21 08:57 02/17/21 09:00 02/17/21 08:57 02/17/21 09:00 02/17/21 08:57 Temperature -Last 24 Hours Temperature 98.3 F Temperature 98.2 F Temperature 97.3 F Temperature 98.5 F Temperature 97.8 F - Labs CBC & Chem 7: 02/17/21 04:58 02/16/21 05:29 Labs: Abnormal lab results 02/16/21 02/16/21 02/16/21 Range/Units 13:32 16:43 20:55 Hgb (10.1-14.3) gm/dl Hct (30.3-42.9) % Heparin Anti-Xa Level < 0.10 L (0.3-0.7) U.I./ml POC Glucose 216 H 141 H (70-105) mg/dL 02/17/21 Range/Units 04:58 Hgb 8.9 L (10.1-14.3) gm/dl Hct 29.1 L (30.3-42.9) % Heparin Anti-Xa Level (0.3-0.7) U.I./ml POC Glucose (70-105) mg/dL
[2021-02-17] MEDS: CEFEPIME/NS 1 GM/100 ML 1 GM/100 ML BAG IV SCH (17:01)
[2021-02-17] MEDS: MORPHINE 4 MG/1 ML INJ IV PRN ×2 (17:03→23:49)
[2021-02-17] MEDS: INSULIN GLARGINE 100 UNITS/ML SUB-Q SCH (21:55)
[2021-02-17] MEDS: NIFEdipine XL 60 MG TAB PO SCH (21:57)
[2021-02-17] MEDS ORDERED: VANCOMYCIN/NS 1 GM/250 ML 1 GM/250 ML BAG IV ONE (22:00)
--- NOTE | 2021-02-17 22:18 | Progress Note ---
Assessment and Plan Assessment End-stage renal disease on PD Peritonitis? Leukocytosis Anemia of ESRD Hyperparathyroidism Hyperphosphatemia Hypertension Recommendations Continue APD F/u PD fluid culture, cell count Continue antibiotics ID note reviewed Bowel regimen to regulate BM Continue calcitriol Continue binder Continue antihypertensives Epogen thrice weekly Renally dose medications Renal diet Subjective Date of service: 02/17/21 Principal diagnosis: Abdominal pain Interval history: Undergoing PD on cycler. Continues to experience abdominal pain. Objective - Exam Narrative Exam: General appearance: No acute distress EENT: Anicteric sclera, hearing intact Neck: Supple Respiratory: Normal effort, CTA bilaterally Cardiovascular: RRR, no rub Extremities: No edema Abdominal: Soft, tender Integumentary: Dry, intact Musculoskeletal: No joint swelling or erythema Psychiatric: Appropriate mood/affect, judgment intact Neurologic: No focal deficits, moves all extremities PD catheter, site is clean with no erythema or purulent drainage - Vital Signs Vital signs: Vital Signs - 12hr 02/17/21 02/17/21 02/17/21 12:00 16:40 16:52 Temperature Pulse Rate 82 76 Respiratory 18 Rate Blood Pressure 92/47 O2 Sat by Pulse 95 Oximetry 02/17/21 20:24 Temperature 98.2 F Pulse Rate 95 H Respiratory 18 Rate Blood Pressure 116/75 O2 Sat by Pulse 94 Oximetry - Lab 02/17/21 04:58 02/17/21 13:46 Most recent lab results Calcium 7.0 mg/dL (8.4-10.2) L 02/17/21 13:46 Magnesium 1.40 mg/dL (1.7-2.3) L 02/14/21 18:35 Medications & Allergies - Medications Allergies/Adverse Reactions: Allergies digoxin Allergy (Verified 02/14/21 18:22) Hives lisinopril Allergy (Verified 02/14/21 18:22) Swelling nitroglycerin Adverse Reaction (Verified 02/14/21 18:22) Rash, HEADACHES shellfish derived Adverse Reaction (Verified 02/14/21 18:22) Swelling Home Medications: Home Medications Medication Instructions Recorded Confirmed Last Taken Type NIFEdipine XL [Procardia Xl] 60 mg PO HS 05/27/15 02/15/21 07/30/20 History carvediloL [Coreg] 6.25 mg PO BID 05/27/15 02/15/21 07/30/20 History Insulin Detemir (Nf) [Levemir 15 unit SQ QHS PRN 09/14/16 02/15/21 07/31/19 History Flextouch (Nf)] cloNIDine [Catapres] 0.2 mg PO DAILY 09/14/16 02/15/21 07/30/20 History Gentamicin 0.1% Top Oint(Nf) 1 applic TP TID 07/31/20 02/15/21 Unknown History [Gentamicin 0.1% Top Oint (Nf)] Cholecalciferol Vit D3 [Vitamin D3 3,000 unit PO DAILY tablet 08/01/20 02/15/21 Unknown Rx 1,000 UNIT TAB] Cinacalcet [Sensipar] 90 mg PO QDAY 02/15/21 02/15/21 Unknown History Hydralazine HCl 50 mg PO TID 02/15/21 02/15/21 Unknown History Active Medications: Generic Name Dose Route Start Last Admin Trade Name Freq PRN Reason Stop Dose Admin Acetaminophen 650 mg 02/14/21 23:52 Acetaminophen 325 Mg Tab PO Q4H PRN Pain MILD(1-3)/Fever >100.5/POOLE Albuterol 2.5 mg 02/17/21 12:24 Albuterol 2.5 Mg/3 Ml Nebu IH Q4HRT PRN Shortness Of Breath Aspirin 325 mg 02/15/21 10:00 02/17/21 08:59 Aspirin Ec 325 Mg Tab PO 325 mg QDAY [facility] Administration Bisacodyl 10 mg 02/16/21 11:33 02/17/21 22:08 Bisacodyl 5 Mg Tab PO 10 mg QDAY PRN Administration Constipation Calcitriol 0.5 mcg 02/15/21 17:00 02/17/21 08:59 Calcitriol 0.5 Mcg Cap PO 0.5 mcg QDAY [facility] Administration Calcium Acetate 1,334 mg 02/17/21 17:00 02/17/21 17:01 Calcium Acetate 667 Mg Cap PO 1,334 mg TIDWM B[facility] Administration Carvedilol 6.25 mg 02/15/21 11:00 02/17/21 21:57 Carvedilol 6.25 Mg Tab PO Not Given BID [facility] Cholecalciferol 3,000 unit 02/15/21 11:00 02/17/21 09:00 Cholecalciferol (Vit D3) 1000 Unit (25 Mcg) Tab PO 3,000 unit DAILY B[facility] Administration Cinacalcet 90 mg 02/15/21 11:00 02/17/21 09:03 Cinacalcet 30 Mg Tab PO 90 mg QDAY [facility] Administration Clonidine HCl 0.2 mg 02/15/21 11:00 02/17/21 08:59 Clonidine 0.2 Mg Tab PO 0.2 mg DAILY [facility] Administration Dextrose 50 ml 02/14/21 23:52 Dextrose 50% In Water (25gm) 50 Ml Syringe IV Q30MIN PRN Hypoglycemia Protocol Docusate Sodium 100 mg 02/16/21 12:00 02/17/21 21:54 Docusate Sodium 100 Mg Cap PO 100 mg BID B[facility] Administration Hydralazine HCl 50 mg 02/15/21 14:00 02/17/21 21:57 Hydralazine 25 Mg Tab PO Not Given Q8HR [facility] Hydroxyzine HCl 25 mg 02/16/21 14:05 02/17/21 00:00 Hydroxyzine Hcl 25 Mg Tab PO 25 mg Q6H PRN Administration Itching Sodium Chloride 100 mls @ 999 mls/hr 02/15/21 11:00 Nacl 0.9% IV FOREST PRN Hypotension Cefepime HCl 1 gm in 100 mls @ 200 mls/hr 02/15/21 18:00 02/17/21 17:01 Cefepime/Ns 1 Gm/100 Ml IV 200 mls/hr Q24H [facility] Administration Protocol Vancomycin HCl 1 gm in 250 mls @ 167.007 mls/hr 02/17/21 22:00 02/17/21 21:54 Vancomycin/Ns 1 Gm/250 Ml IV 02/17/21 23:29 167.007 mls/hr ONCE ONE Administration Insulin Glargine 15 units 02/15/21 22:00 02/17/21 21:55 Insulin Glargine 100 Units/Ml SUB-Q 15 units QHS B[facility] Administration Insulin Human Lispro 0 unit 02/15/21 07:30 02/17/21 21:56 Insulin Lispro 100 Unit/Ml SUB-Q 3 unit ACHS B[facility] Administration Protocol Magnesium Hydroxide 30 ml 02/14/21 23:52 Magnesium Hydroxide (Mom) Oral Liqd Udc PO Q4H PRN Constipation Morphine Sulfate 2 mg 02/14/21 23:52 02/17/21 17:03 Morphine 4 Mg/1 Ml Inj IV 2 mg Q5MIN PRN Administration Chest Pain Nifedipine 60 mg 02/15/21 22:00 02/17/21 21:57 Nifedipine Xl 60 Mg Tab PO Not Given HS [facility] Ondansetron HCl 4 mg 02/14/21 23:52 02/16/21 16:54 Ondansetron 4 Mg/2 Ml Inj IV 4 mg Q8H PRN Administration Nausea And Vomiting Peritoneal Dialysis Solution 2,000 ml 02/15/21 16:00 02/17/21 16:51 Dialysate [place] 1.5% Soln 2000 Ml IP Not Given Q6H [facility] Polyethylene Glycol 17 gm 02/16/21 12:00 02/17/21 08:59 Polyethylene Glycol 3350 17 Gm Powder PO 17 gm QDAY [facility] Administration Sodium Chloride 10 ml 02/15/21 10:00 02/17/21 21:57 Sodium Chloride 0.9% 10 Ml Flush Syringe IV 10 ml BID [facility] Administration Sodium Chloride 10 ml 02/14/21 23:52 Sodium Chloride 0.9% 10 Ml Flush Syringe IV PRN PRN LINE FLUSH Tramadol HCl 50 mg 02/14/21 23:52 Tramadol 50 Mg Tab PO Q6H PRN Pain, Moderate (4-6)
[2021-02-17] MEDS: hydrOXYzine HCL 25 MG TAB PO PRN ×2 (23:28)
[2021-02-18] MEDS: DIALYSATE LO CAL 1.5% SOLN 2000 ML IP SCH ×5 (02:42→21:27)
[2021-02-18 06:07] LABS: Basophils % (Auto) 0.3 % (0.0-1.8); Eosinophils # (Auto) 0.6 K/mm3 (0.0-0.4); Hematocrit 26.7 % (30.3-42.9); Hemoglobin 8.3 gm/dl (10.1-14.3); Lymphocytes # (Auto) 0.7 K/mm3 (1.2-5.4); Lymphocytes % (Auto) 4.7 % (13.4-35.0); Mean Corpuscular HGB Conc 31 % (30-34); Mean Corpuscular Volume 95 fl (79-97); Monocytes # (Auto) 1.1 K/mm3 (0.0-0.8); Monocytes % (Auto) 7.6 % (0.0-7.3); Platelet Count 254 K/mm3 (140-440); Red Blood Count 2.82 M/mm3 (3.65-5.03); Red Cell Distribution Width 17.5 % (13.2-15.2)
[2021-02-18 06:25] LABS: Calcium 6.7 mg/dL (8.4-10.2)
[2021-02-18] MEDS: hydrALAZINE 25 MG TAB PO SCH ×3 (08:05→21:26)
[2021-02-18] MEDS: INSULIN LISPRO 100 UNIT/ML SUB-Q SCH ×4 (08:43→21:33)
[2021-02-18] MEDS: CALCIUM ACETATE 667 MG CAP PO SCH ×3 (08:59→17:22)
[2021-02-18] MEDS: ASPIRIN EC 325 MG TAB PO SCH (09:00)
[2021-02-18] MEDS: carvediloL 6.25 MG TAB PO SCH ×2 (09:00→21:26)
[2021-02-18] MEDS: CALCITRIOL 0.5 MCG CAP PO SCH (09:00)
[2021-02-18] MEDS: CINACALCET 30 MG TAB PO SCH (09:00)
[2021-02-18] MEDS: DOCUSATE SODIUM 100 MG CAP PO SCH ×2 (09:00→21:26)
[2021-02-18] MEDS: CHOLECALCIFEROL (VIT D3) 1000 UNIT (25 mcg) TAB PO SCH (09:00)
[2021-02-18] MEDS: POLYETHYLENE GLYCOL 3350 17 GM POWDER PO SCH (09:01)
[2021-02-18] MEDS: cloNIDine 0.2 MG TAB PO SCH (09:01)
--- NOTE | 2021-02-18 10:03 | Progress Note ---
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 / TENDER,,,NO SOB Objective Vital Signs Temp Pulse Resp BP BP Pulse Ox 02/18/21 09:05 98 F 96 H 18 137/65 94 02/18/21 09:01 95 H 137/65 02/18/21 09:00 96 H 137/65 02/18/21 08:32 18 95 02/18/21 04:53 98.0 F 99 H 18 136/77 85 02/18/21 04:00 97 02/18/21 00:00 89 02/17/21 23:58 97.4 F L 60 18 120/61 94 02/17/21 20:24 98.2 F 95 H 18 116/75 94 02/17/21 16:52 76 92/47 02/17/21 16:40 82 02/17/21 12:00 18 95 - Physical Examination General: No Apparent Distress HEENT: Positive: PERRL Neck: Positive: trachea midline Cardiac: Positive: Reg Rate and Rhythm Lungs: Positive: Decreased Breath Sounds Neuro: Positive: Grossly Intact Abdomen: Positive: Soft Extremities: Present: normal. Absent: edema - Labs and Meds CBC 02/18/21 Range/Units 04:31 WBC 14.2 H (4.5-11.0) K/mm3 RBC 2.82 L (3.65-5.03) M/mm3 Hgb 8.3 L (10.1-14.3) gm/dl Hct 26.7 L (30.3-42.9) % Plt Count 254 (140-440) K/mm3 Lymph # (Auto) 0.7 L (1.2-5.4) K/mm3 [place] # (Auto) 1.1 H (0.0-0.8) K/mm3 Eos # (Auto) 0.6 H (0.0-0.4) K/mm3 Baso # (Auto) 0.0 (0.0-0.1) K/mm3 Comprehensive Metabolic Panel 02/17/21 02/18/21 Range/Units 13:46 04:31 Sodium 139 138 (137-145) mmol/L Potassium 3.6 3.3 L (3.6-5.0) mmol/L Chloride 90.4 L 90.2 L (98-107) mmol/L Carbon Dioxide 34 H 34 H (22-30) mmol/L BUN 52 H 45 H (7-17) mg/dL Creatinine 11.4 H 9.9 H (0.6-1.2) mg/dL Glucose 82 62 L (65-100) mg/dL Calcium 7.0 L 6.7 L (8.4-10.2) mg/dL
--- NOTE | 2021-02-18 14:16 | Progress Note ---
Assessment and Plan -- acute hypoxic respiratory failure Patient noted hypoxic with O2 sat 77% at RA repeat CXR showed moderate pleural effusion, follow clinically she completed her COVID vaccine - so doubt COVID infection --Right-sided pleural effusion, need thoracentesis, will order -- Acute chest pain, likely atypical Patient placed on telemetry. Follow serial cardiac enzymes. Patient placed on aspirin, sublingual nitroglycerin and IV morphine as needed for chest pain. Medical management per cardiology --NSTEMI type II Troponin has been elevated probably secondary to the end-stage renal disease however patient had placed on heparin drip prior to cardiology evaluation and recommendation. Medical management per cardiology, follow 2D echocardiogram Stop heparin drip now -- Abdominal pain, likely from peritonitis Etiology unclear. CT of the abdomen and pelvis has been negative. Will place on analgesic medications as needed. cont iv abx for possible peritonitis Ordered for peritoneal fluid study -- End-stage renal disease on peritoneal dialysis Patient on peritoneal dialysis. Consult placed to nephrology for evaluation. -- Hypertension Continue routine home medications and monitor vital signs closely. -- DVT prophylaxis Patient currently on anticoagulation. -- Full code status Patient is a full code. Daily clinical course: 02/15/21: start on empiric abx for possible peritonitis. will follow peritoneal fluid cx report. Continue to trend troponin, continue heparin drip, follow cardiology recommendation. 02/16/21: Patient peritoneal fluid study pending, IV antibiotics changed to cefepime. ID has been consulted. Patient continued to complains of abdominal pain. Cardiology recommended medical management for elevated troponin - will DC heparin drip. Follow 2D echo result and pending peritoneal fluid study. 02/17: cont abx for peritonitis, patient still has diffuse abd pain. noted hypoxic this am, order repeat CXR. order nebs 02/18: Peritoneal/ascitic fluid study for cell count still pending, so far no growth in culture. Discussed with ID and will resent peritoneal fluid for cell count. Repeat chest x-ray suggestive of right-sided moderate pleural effusion which will need thoracentesis. Continue to follow the patient clinically. Subjective Date of service: 02/18/21 Principal diagnosis: Abdominal pain Interval history: Patient seen and examined. Medical records and medication list reviewed. No acute event overnight noted by the RN. Patient continued to complains of abdominal pain and states that she has poor appetite Patient remains on supplemental O2 Peritoneal fluid study pending Chest x-ray results stable right-sided moderate pleural effusion Discussed plan of care at bedside with patient. Objective - Exam Narrative Exam: GENERAL: well-developed -Japanese female lying on bed appeared to be in no discomfort. HEENT: Normocephalic. Atraumatic. No conjunctival congestion or icterus. Patient has moist mucous membranes. NECK: Supple. Trachea midline. CHEST/LUNGS: Diminished breath sound auscultated bilaterally, patient on supplemental O2 HEART/CARDIOVASCULAR: Regular in rate and rhythm. S1 and S2 positive. ABDOMEN: Abdomen is soft but diffusely tender. Patient has normal bowel sounds. SKIN: There is no rash. Warm and dry. NEURO: No focal motor deficit. Follows command. MUSCULOSKELETAL: No joint effusion or tenderness. EXTRIMITY: No edema, no cyanosis or clubbing. PSYCH: Cooperative. - Constitutional Vitals: Vital Signs - 12hr 02/18/21 02/18/21 02/18/21 04:00 04:53 07:05 Temperature 98.0 F Pulse Rate 99 H 92 H Respiratory 18 Rate Blood Pressure 136/77 Blood Pressure [Right] O2 Sat by Pulse 97 85 Oximetry 02/18/21 02/18/21 02/18/21 08:32 09:00 09:01 Temperature Pulse Rate 96 H 95 H Respiratory 18 Rate Blood Pressure 137/65 137/65 Blood Pressure [Right] O2 Sat by Pulse 95 Oximetry 02/18/21 02/18/21 02/18/21 09:05 13:17 13:21 Temperature 98 F Pulse Rate 96 H 80 80 Respiratory 18 Rate Blood Pressure 129/83 Blood Pressure 137/65 129/83 [Right] O2 Sat by Pulse 94 Oximetry - Labs CBC & Chem 7: 02/19/21 05:16 02/18/21 04:31 Labs: Abnormal lab results 02/17/21 02/17/21 02/17/21 Range/Units 11:10 13:46 16:34 WBC (4.5-11.0) K/mm3 RBC (3.65-5.03) M/mm3 Hgb (10.1-14.3) gm/dl Hct (30.3-42.9) % RDW (13.2-15.2) % Lymph % (Auto) (13.4-35.0) % [place] % (Auto) (0.0-7.3) % Lymph # (Auto) (1.2-5.4) K/mm3 [place] # (Auto) (0.0-0.8) K/mm3 Eos # (Auto) (0.0-0.4) K/mm3 Seg Neutrophils % (40.0-70.0) % Seg Neutrophils # (1.8-7.7) K/mm3 Potassium (3.6-5.0) mmol/L Chloride 90.4 L (98-107) mmol/L Carbon Dioxide 34 H (22-30) mmol/L BUN 52 H (7-17) mg/dL Creatinine 11.4 H (0.6-1.2) mg/dL Glucose (65-100) mg/dL POC Glucose 123 H 134 H (70-105) mg/dL Calcium 7.0 L (8.4-10.2) mg/dL 02/17/21 02/18/21 02/18/21 Range/Units 21:30 04:31 04:31 WBC 14.2 H (4.5-11.0) K/mm3 RBC 2.82 L (3.65-5.03) M/mm3 Hgb 8.3 L (10.1-14.3) gm/dl Hct 26.7 L (30.3-42.9) % RDW 17.5 H (13.2-15.2) % Lymph % (Auto) 4.7 L (13.4-35.0) % [place] % (Auto) 7.6 H (0.0-7.3) % Lymph # (Auto) 0.7 L (1.2-5.4) K/mm3 [place] # (Auto) 1.1 H (0.0-0.8) K/mm3 Eos # (Auto) 0.6 H (0.0-0.4) K/mm3 Seg Neutrophils % 83.4 H (40.0-70.0) % Seg Neutrophils # 11.8 H (1.8-7.7) K/mm3 Potassium 3.3 L (3.6-5.0) mmol/L Chloride 90.2 L (98-107) mmol/L Carbon Dioxide 34 H (22-30) mmol/L BUN 45 H (7-17) mg/dL Creatinine 9.9 H (0.6-1.2) mg/dL Glucose 62 L (65-100) mg/dL POC Glucose 211 H (70-105) mg/dL Calcium 6.7 L (8.4-10.2) mg/dL 02/18/21 Range/Units 08:04 WBC (4.5-11.0) K/mm3 RBC (3.65-5.03) M/mm3 Hgb (10.1-14.3) gm/dl Hct (30.3-42.9) % RDW (13.2-15.2) % Lymph % (Auto) (13.4-35.0) % [place] % (Auto) (0.0-7.3) % Lymph # (Auto) (1.2-5.4) K/mm3 [place] # (Auto) (0.0-0.8) K/mm3 Eos # (Auto) (0.0-0.4) K/mm3 Seg Neutrophils % (40.0-70.0) % Seg Neutrophils # (1.8-7.7) K/mm3 Potassium (3.6-5.0) mmol/L Chloride (98-107) mmol/L Carbon Dioxide (22-30) mmol/L BUN (7-17) mg/dL Creatinine (0.6-1.2) mg/dL Glucose (65-100) mg/dL POC Glucose 68 L (70-105) mg/dL Calcium (8.4-10.2) mg/dL HEART Score - HEART Score EKG: Normal Age: > 65 Risk factors: 1-2 risk factors Troponin: Troponin T 0.102 ng/mL (0.00-0.029) H* 02/15/21 06:00 Troponin: > 3x normal limit - Critical Actions Critical Actions: 4-6 pts:12-16.6% risk of adverse cardiac event. Should be admitted
[2021-02-18] MEDS: CEFEPIME/NS 1 GM/100 ML 1 GM/100 ML BAG IV SCH (17:22)
--- NOTE | 2021-02-18 19:20 | Progress Note ---
Assessment and Plan Assessment End-stage renal disease on PD Peritonitis? Leukocytosis Anemia of ESRD Hyperparathyroidism Hyperphosphatemia Hypertension Recommendations Continue APD Continue antibiotics ID note reviewed Bowel regimen to regulate BM Continue calcitriol Continue binder Continue antihypertensives Epogen thrice weekly Renally dose medications Renal diet Subjective Date of service: 02/18/21 Principal diagnosis: Abdominal pain Interval history: Undergoing PD on cycler. Abdominal pain improved. Objective - Exam Narrative Exam: General appearance: No acute distress EENT: Anicteric sclera, hearing intact Neck: Supple Respiratory: Normal effort, CTA bilaterally Cardiovascular: RRR, no rub Extremities: No edema Abdominal: Soft, tender Integumentary: Dry, intact Musculoskeletal: No joint swelling or erythema Psychiatric: Appropriate mood/affect, judgment intact Neurologic: No focal deficits, moves all extremities PD catheter, site is clean with no erythema or purulent drainage - Vital Signs Vital signs: Vital Signs - 12hr 02/18/21 02/18/21 02/18/21 08:32 09:00 09:01 Temperature Pulse Rate 96 H 95 H Respiratory 18 Rate Blood Pressure 137/65 137/65 Blood Pressure [Right] O2 Sat by Pulse 95 Oximetry 02/18/21 02/18/21 02/18/21 09:05 13:17 13:21 Temperature 98 F Pulse Rate 96 H 80 80 Respiratory 18 Rate Blood Pressure 129/83 Blood Pressure 137/65 129/83 [Right] O2 Sat by Pulse 94 Oximetry - Lab 02/18/21 04:31 02/18/21 04:31 Most recent lab results Calcium 6.7 mg/dL (8.4-10.2) L 02/18/21 04:31 Magnesium 1.40 mg/dL (1.7-2.3) L 02/14/21 18:35 Medications & Allergies - Medications Allergies/Adverse Reactions: Allergies digoxin Allergy (Verified 02/14/21 18:22) Hives lisinopril Allergy (Verified 02/14/21 18:22) Swelling nitroglycerin Adverse Reaction (Verified 02/14/21 18:22) Rash, HEADACHES shellfish derived Adverse Reaction (Verified 02/14/21 18:22) Swelling Home Medications: Home Medications Medication Instructions Recorded Confirmed Last Taken Type NIFEdipine XL [Procardia Xl] 60 mg PO HS 05/27/15 02/15/21 07/30/20 History carvediloL [Coreg] 6.25 mg PO BID 05/27/15 02/15/21 07/30/20 History Insulin Detemir (Nf) [Levemir 15 unit SQ QHS PRN 09/14/16 02/15/21 07/31/19 History Flextouch (Nf)] cloNIDine [Catapres] 0.2 mg PO DAILY 09/14/16 02/15/21 07/30/20 History Gentamicin 0.1% Top Oint(Nf) 1 applic TP TID 07/31/20 02/15/21 Unknown History [Gentamicin 0.1% Top Oint (Nf)] Cholecalciferol Vit D3 [Vitamin D3 3,000 unit PO DAILY tablet 08/01/20 02/15/21 Unknown Rx 1,000 UNIT TAB] Cinacalcet [Sensipar] 90 mg PO QDAY 02/15/21 02/15/21 Unknown History Hydralazine HCl 50 mg PO TID 02/15/21 02/15/21 Unknown History Active Medications: Generic Name Dose Route Start Last Admin Trade Name Danielq PRN Reason Stop Dose Admin Acetaminophen 650 mg 02/14/21 23:52 Acetaminophen 325 Mg Tab PO Q4H PRN Pain MILD(1-3)/Fever >100.5/POOLE Albuterol 2.5 mg 02/17/21 12:24 Albuterol 2.5 Mg/3 Ml Nebu IH Q4HRT PRN Shortness Of Breath Aspirin 325 mg 02/15/21 10:00 02/18/21 09:00 Aspirin Ec 325 Mg Tab PO 325 mg QDAY [facility] Administration Bisacodyl 10 mg 02/16/21 11:33 02/17/21 22:08 Bisacodyl 5 Mg Tab PO 10 mg QDAY PRN Administration Constipation Calcitriol 0.5 mcg 02/15/21 17:00 02/18/21 09:00 Calcitriol 0.5 Mcg Cap PO 0.5 mcg QDAY [facility] Administration Calcium Acetate 1,334 mg 02/17/21 17:00 02/18/21 17:22 Calcium Acetate 667 Mg Cap PO 1,334 mg TIDWM [facility] Administration Carvedilol 6.25 mg 02/15/21 11:00 02/18/21 09:00 Carvedilol 6.25 Mg Tab PO 6.25 mg BID [facility] Administration Cholecalciferol 3,000 unit 02/15/21 11:00 02/18/21 09:00 Cholecalciferol (Vit D3) 1000 Unit (25 Mcg) Tab PO 3,000 unit DAILY [facility] Administration Cinacalcet 90 mg 02/15/21 11:00 02/18/21 09:00 Cinacalcet 30 Mg Tab PO 90 mg QDAY [facility] Administration Clonidine HCl 0.2 mg 02/15/21 11:00 02/18/21 09:01 Clonidine 0.2 Mg Tab PO 0.2 mg DAILY [facility] Administration Dextrose 50 ml 02/14/21 23:52 Dextrose 50% In Water (25gm) 50 Ml Syringe IV Q30MIN PRN Hypoglycemia Protocol Docusate Sodium 100 mg 02/16/21 12:00 02/18/21 09:00 Docusate Sodium 100 Mg Cap PO Not Given BID [facility] Hydralazine HCl 50 mg 02/15/21 14:00 02/18/21 13:21 Hydralazine 25 Mg Tab PO 50 mg Q8HR [facility] Administration Hydroxyzine HCl 25 mg 02/16/21 14:05 02/17/21 23:28 Hydroxyzine Hcl 25 Mg Tab PO 25 mg Q6H PRN Administration Itching Sodium Chloride 100 mls @ 999 mls/hr 02/15/21 11:00 Nacl 0.9% IV FOREST PRN Hypotension Cefepime HCl 1 gm in 100 mls @ 200 mls/hr 02/15/21 18:00 02/18/21 17:22 Cefepime/Ns 1 Gm/100 Ml IV 200 mls/hr Q24H [facility] Administration Protocol Insulin Glargine 15 units 02/15/21 22:00 02/17/21 21:55 Insulin Glargine 100 Units/Ml SUB-Q 15 units QHS [facility] Administration Insulin Human Lispro 0 unit 02/15/21 07:30 02/18/21 17:22 Insulin Lispro 100 Unit/Ml SUB-Q Not Given ACHS [facility] Protocol Magnesium Hydroxide 30 ml 02/14/21 23:52 Magnesium Hydroxide (Mom) Oral Liqd Udc PO Q4H PRN Constipation Morphine Sulfate 2 mg 02/14/21 23:52 02/17/21 23:49 Morphine 4 Mg/1 Ml Inj IV 2 mg Q5MIN PRN Administration Chest Pain Nifedipine 60 mg 02/15/21 22:00 02/17/21 21:57 Nifedipine Xl 60 Mg Tab PO Not Given HS [facility] Ondansetron HCl 4 mg 02/14/21 23:52 02/16/21 16:54 Ondansetron 4 Mg/2 Ml Inj IV 4 mg Q8H PRN Administration Nausea And Vomiting Peritoneal Dialysis Solution 2,000 ml 02/15/21 16:00 02/18/21 17:22 Dialysate Lo Vega 1.5% Soln 2000 Ml IP Not Given Q6H [facility] Polyethylene Glycol 17 gm 02/16/21 12:00 02/18/21 09:01 Polyethylene Glycol 3350 17 Gm Powder PO Not Given QDAY [facility] Sodium Chloride 10 ml 02/15/21 10:00 02/18/21 09:01 Sodium Chloride 0.9% 10 Ml Flush Syringe IV 10 ml BID [facility] Administration Sodium Chloride 10 ml 02/14/21 23:52 Sodium Chloride 0.9% 10 Ml Flush Syringe IV PRN PRN LINE FLUSH Tramadol HCl 50 mg 02/14/21 23:52 Tramadol 50 Mg Tab PO Q6H PRN Pain, Moderate (4-6)
[2021-02-18] MEDS: NIFEdipine XL 60 MG TAB PO SCH (21:26)
[2021-02-18] MEDS: INSULIN GLARGINE 100 UNITS/ML SUB-Q SCH (21:27)
[2021-02-19] MEDS: DIALYSATE LO CAL 1.5% SOLN 2000 ML IP SCH ×4 (03:56→22:00)
[2021-02-19] MEDS: hydrOXYzine HCL 25 MG TAB PO PRN ×2 (04:07→18:24)
[2021-02-19] MEDS: hydrALAZINE 25 MG TAB PO SCH ×3 (05:53→21:32)
[2021-02-19 06:27] LABS: Hematocrit 26.1 % (30.3-42.9); Hemoglobin 8.3 gm/dl (10.1-14.3)
[2021-02-19] MEDS: INSULIN LISPRO 100 UNIT/ML SUB-Q SCH ×4 (09:00→21:34)
[2021-02-19] MEDS: CALCIUM ACETATE 667 MG CAP PO SCH ×3 (09:04→17:01)
[2021-02-19] MEDS: POLYETHYLENE GLYCOL 3350 17 GM POWDER PO SCH (10:04)
[2021-02-19] MEDS: ASPIRIN EC 325 MG TAB PO SCH (10:04)
[2021-02-19] MEDS: CINACALCET 30 MG TAB PO SCH (10:04)
[2021-02-19] MEDS: CHOLECALCIFEROL (VIT D3) 1000 UNIT (25 mcg) TAB PO SCH (10:04)
[2021-02-19] MEDS: CALCITRIOL 0.5 MCG CAP PO SCH (10:04)
[2021-02-19] MEDS: DOCUSATE SODIUM 100 MG CAP PO SCH ×2 (10:04→21:33)
[2021-02-19] MEDS: cloNIDine 0.2 MG TAB PO SCH (10:05)
[2021-02-19] MEDS: carvediloL 6.25 MG TAB PO SCH ×2 (10:05→21:33)
[2021-02-19] MEDS: PANTOPRAZOLE 40 MG INJ IV SCH ×2 (10:09→21:32)
--- NOTE | 2021-02-19 12:22 | Progress Note ---
Assessment and Plan - Patient Problems (1) Acute chest pain Current Visit: Yes Status: Acute (2) End-stage renal disease on peritoneal dialysis Current Visit: Yes Status: Acute Subjective Date of service: 02/19/21 Principal diagnosis: Abdominal pain Interval history: CP HAS RESOLVED,,,,,FEELS BETTER Objective Vital Signs Temp Pulse Pulse Pulse Resp BP BP 02/19/21 11:53 98.0 F 97 H 16 138/67 02/19/21 10:58 89 89 17 02/19/21 10:09 98.1 F 89 16 143/74 02/19/21 10:05 89 143/74 02/19/21 05:53 81 139/72 02/19/21 03:49 98.3 F 81 18 139/72 02/18/21 23:51 97.7 F 79 18 144/79 02/18/21 23:00 74 02/18/21 21:26 80 129/83 02/18/21 13:21 80 129/83 02/18/21 13:17 80 129/83 Pulse Ox 02/19/21 11:53 95 02/19/21 10:58 02/19/21 10:09 96 02/19/21 10:05 02/19/21 05:53 02/19/21 03:49 88 02/18/21 23:51 95 02/18/21 23:00 02/18/21 21:26 02/18/21 13:21 02/18/21 13:17 - Physical Examination General: No Apparent Distress HEENT: Positive: PERRL Neck: Positive: trachea midline Cardiac: Positive: Reg Rate and Rhythm Lungs: Positive: Decreased Breath Sounds (R.,,,IMPROVED) Neuro: Positive: Grossly Intact Abdomen: Positive: Soft Extremities: Present: normal. Absent: edema - Labs and Meds CBC 02/19/21 Range/Units 05:16 Hgb 8.3 L (10.1-14.3) gm/dl Hct 26.1 L (30.3-42.9) % Plt Count 266 (140-440) K/mm3
--- NOTE | 2021-02-19 12:33 | Progress Note ---
Assessment and Plan -- acute hypoxic respiratory failure Patient noted hypoxic with O2 sat 77% at RA repeat CXR showed moderate pleural effusion, follow clinically she completed her COVID vaccine - so doubt COVID infection --Right-sided pleural effusion, need thoracentesis, will order -- Acute chest pain, likely atypical Patient placed on telemetry. Follow serial cardiac enzymes. Patient placed on aspirin, sublingual nitroglycerin and IV morphine as needed for chest pain. Medical management per cardiology --NSTEMI type II Troponin has been elevated probably secondary to the end-stage renal disease however patient had placed on heparin drip prior to cardiology evaluation and recommendation. Medical management per cardiology, follow 2D echocardiogram Stop heparin drip now -- Abdominal pain, likely from peritonitis Etiology unclear. CT of the abdomen and pelvis has been negative. Will place on analgesic medications as needed. cont iv abx for possible peritonitis Ordered for peritoneal fluid study --Leukocytosis with sepsis, POA Likely from underlying acute peritonitis Continue empiric antibiotics, follow clinically --Diabetes mellitus type 2 with frequent hypoglycemia Will hold long-acting insulin, monitor blood glucose QA [facility] and continue SSI Consistent carb diet -- End-stage renal disease on peritoneal dialysis Patient on peritoneal dialysis. Consult placed to nephrology for evaluation. -- Hypertension Continue routine home medications and monitor vital signs closely. -- DVT prophylaxis Patient currently on anticoagulation. -- Full code status Patient is a full code. Daily clinical course: 02/15/21: start on empiric abx for possible peritonitis. will follow peritoneal fluid cx report. Continue to trend troponin, continue heparin drip, follow cardiology recommendation. 02/16/21: Patient peritoneal fluid study pending, IV antibiotics changed to cefepime. ID has been consulted. Patient continued to complains of abdominal pain. Cardiology recommended medical management for elevated troponin - will DC heparin drip. Follow 2D echo result and pending peritoneal fluid study. 02/17: cont abx for peritonitis, patient still has diffuse abd pain. noted hypoxic this am, order repeat CXR. order nebs 02/18: Peritoneal/ascitic fluid study for cell count still pending, so far no growth in culture. Discussed with ID and will resent peritoneal fluid for cell count. Repeat chest x-ray suggestive of right-sided moderate pleural effusion which will need thoracentesis. Continue to follow the patient clinically. 02/19: Patient becoming hypoglycemic -blood glucose was at 50s this morning, will stop Lantus for now, manage blood glucose with SSI only. Wait for peripheral fluid cell count study and right chest thoracentesis. Subjective Date of service: 02/19/21 Principal diagnosis: Abdominal pain Interval history: Patient seen and examined. Medical records and medication list reviewed. No acute event overnight noted by the RN. Peritoneal fluid study pending Chest x-ray results stable right-sided moderate pleural effusion - need thoracentesis Discussed plan of care at bedside with patient. Objective - Exam Narrative Exam: GENERAL: well-developed -[place] female lying on bed appeared to be in no discomfort. HEENT: Normocephalic. Atraumatic. No conjunctival congestion or icterus. Patient has moist mucous membranes. NECK: Supple. Trachea midline. CHEST/LUNGS: Diminished breath sound auscultated bilaterally, patient on supplemental O2 HEART/CARDIOVASCULAR: Regular in rate and rhythm. S1 and S2 positive. ABDOMEN: Abdomen is soft but diffusely tender. Patient has normal bowel sounds. SKIN: There is no rash. Warm and dry. NEURO: No focal motor deficit. Follows command. MUSCULOSKELETAL: No joint effusion or tenderness. EXTRIMITY: No edema, no cyanosis or clubbing. PSYCH: Cooperative. - Constitutional Vitals: Vital Signs - 12hr 02/19/21 02/19/21 02/19/21 03:49 05:53 10:05 Temperature 98.3 F Pulse Rate 81 81 89 Pulse Rate [ Apical] Pulse Rate [ From Monitor] Respiratory 18 Rate Blood Pressure 139/72 139/72 143/74 Blood Pressure [Right] O2 Sat by Pulse 88 Oximetry 02/19/21 02/19/21 02/19/21 10:09 10:58 11:53 Temperature 98.1 F 98.0 F Pulse Rate 89 97 H Pulse Rate [ 89 Apical] Pulse Rate [ 89 From Monitor] Respiratory 16 17 16 Rate Blood Pressure Blood Pressure 143/74 138/67 [Right] O2 Sat by Pulse 96 95 Oximetry - Labs CBC & Chem 7: 02/20/21 05:47 02/20/21 05:47 Labs: Abnormal lab results 02/18/21 02/18/21 02/19/21 Range/Units 12:19 21:32 01:26 Hgb (10.1-14.3) gm/dl Hct (30.3-42.9) % POC Glucose 62 L 144 H 138 H (70-105) mg/dL 02/19/21 02/19/21 Range/Units 05:16 08:06 Hgb 8.3 L (10.1-14.3) gm/dl Hct 26.1 L (30.3-42.9) % POC Glucose 54 L (70-105) mg/dL HEART Score - HEART Score EKG: Normal Age: > 65 Risk factors: 1-2 risk factors Troponin: Troponin T 0.102 ng/mL (0.00-0.029) H* 02/15/21 06:00 Troponin: > 3x normal limit - Critical Actions Critical Actions: 4-6 pts:12-16.6% risk of adverse cardiac event. Should be admitted
[2021-02-19 13:59] LABS: Total Cells Counted 100 /mm3
--- NOTE | 2021-02-19 14:26 | Progress Note ---
Assessment and Plan Cultures: Blood cultures no growth today Peritoneal culture no growth today Assessment: 70-year-old female with history of diabetes mellitus, hypertension, CHF, ESRD on peritoneal dialysis, admitted on 02/14/2021 secondary to epigastric abdominal pain for 3 days: #SIRS rule out sepsis: Remains with leukocytosis; source unclear, possible PD associated peritonitis vs colitis. #Abdominal pain: Not better. Suspect PD associated peritonitis. Peritoneal fluid Gram stain with multiple WBCs no growth so far. Peritoneal fluid cell count and differential not done #Diarrhea: Resolved. #ESRD on PD Recommendations: -Re-send peritoneal fluid for cell count, differential, Gram stain and culture -Continue pulse IV vancomycin -Continue IV cefepime 1 g once a day renally adjusted -Follow-up blood cultures -Not ready to be d/c due to persistent abdominal pain and leukocytosis Will follow. Amita Warner MD Infectious Diseases [employer] [facility] ([facility]) M [phone] O [phone] Subjective Date of service: 02/19/21 Principal diagnosis: Abdominal pain Interval history: Continues to complain of abdominal pain 6 of 10. No fever. Objective - Exam Narrative Exam: General appearance: Alert in NAD pleasant Eyes: anicteric sclerae, moist conjunctivae; no lid-lag; PERRLA HENT: Normocephalic, Atraumatic; normal external ears, nares open, oropharynx clear Neck: supple, tracheal midline, no JVD Lungs: CTA CV: RRR no murmur Abdomen: Soft, diffuse tenderness, PD catheter exit site without erythema or drainage Extremities: no edema, no cyanosis Skin: No rash. Psych: no agitated Neuro: alert and oriented x 3. Moving all extermities - Constitutional Vitals: Vital Signs Temp Pulse Resp BP Pulse Ox 98.0 F 66 16 123/59 95 02/19/21 11:53 02/19/21 14:12 02/19/21 11:53 02/19/21 14:12 02/19/21 11:53 Temperature -Last 24 Hours Temperature 98.0 F Temperature 98.1 F Temperature 98.3 F Temperature 97.7 F - Labs CBC & Chem 7: 02/19/21 05:16 02/18/21 04:31 Labs: Abnormal lab results 02/18/21 02/18/21 02/19/21 Range/Units 12:19 21:32 01:26 Hgb (10.1-14.3) gm/dl Hct (30.3-42.9) % POC Glucose 62 L 144 H 138 H (70-105) mg/dL 02/19/21 02/19/21 02/19/21 Range/Units 05:16 08:06 09:58 Hgb 8.3 L (10.1-14.3) gm/dl Hct 26.1 L (30.3-42.9) % POC Glucose 54 L 60 L (70-105) mg/dL
[2021-02-19] MEDS: CEFEPIME/NS 1 GM/100 ML 1 GM/100 ML BAG IV SCH (17:01)
--- NOTE | 2021-02-19 19:50 | Progress Note ---
Assessment and Plan Assessment End-stage renal disease on PD Peritonitis? SIRS Leukocytosis Anemia of ESRD Hyperparathyroidism Hyperphosphatemia Hypertension Recommendations Continue APD Continue antibiotics ID note reviewed - plans for resending studies noted Bowel regimen to regulate BM Continue calcitriol Continue binder Continue antihypertensives Epogen thrice weekly Renally dose medications Renal diet Subjective Date of service: 02/19/21 Principal diagnosis: Abdominal pain Interval history: Undergoing PD on cycler. Notes abdominal pain this morning. Last BM yesterday. Objective - Exam Narrative Exam: General appearance: No acute distress EENT: Anicteric sclera, hearing intact Neck: Supple Respiratory: Normal effort, CTA bilaterally Cardiovascular: RRR, no rub Extremities: No edema Abdominal: Soft, tender to touch in lower quadrants Integumentary: Dry, intact Musculoskeletal: No joint swelling or erythema Psychiatric: Appropriate mood/affect, judgment intact Neurologic: No focal deficits, moves all extremities PD catheter, site is clean with no erythema or purulent drainage - Vital Signs Vital signs: Vital Signs - 12hr 02/19/21 02/19/21 02/19/21 10:05 10:09 10:58 Temperature 98.1 F Pulse Rate 89 89 Pulse Rate [ 89 Apical] Pulse Rate [ 89 From Monitor] Respiratory 16 17 Rate Blood Pressure 143/74 Blood Pressure 143/74 [Right] O2 Sat by Pulse 96 Oximetry 02/19/21 02/19/21 02/19/21 11:53 14:12 15:00 Temperature 98.0 F Pulse Rate 97 H 66 101 H Pulse Rate [ Apical] Pulse Rate [ From Monitor] Respiratory 16 Rate Blood Pressure 123/59 Blood Pressure 138/67 [Right] O2 Sat by Pulse 95 Oximetry 02/19/21 02/19/21 17:15 19:03 Temperature 97.8 F 98.3 F Pulse Rate 81 86 Pulse Rate [ Apical] Pulse Rate [ From Monitor] Respiratory 17 18 Rate Blood Pressure 138/76 Blood Pressure 128/67 [Right] O2 Sat by Pulse 96 98 Oximetry - Lab 02/19/21 05:16 02/18/21 04:31 Most recent lab results Calcium 6.7 mg/dL (8.4-10.2) L 02/18/21 04:31 Magnesium 1.40 mg/dL (1.7-2.3) L 02/14/21 18:35 Medications & Allergies - Medications Allergies/Adverse Reactions: Allergies digoxin Allergy (Verified 02/14/21 18:22) Hives lisinopril Allergy (Verified 02/14/21 18:22) Swelling nitroglycerin Adverse Reaction (Verified 02/14/21 18:22) Rash, HEADACHES shellfish derived Adverse Reaction (Verified 02/14/21 18:22) Swelling Home Medications: Home Medications Medication Instructions Recorded Confirmed Last Taken Type NIFEdipine XL [Procardia Xl] 60 mg PO HS 05/27/15 02/15/21 07/30/20 History carvediloL [Coreg] 6.25 mg PO BID 05/27/15 02/15/21 07/30/20 History Insulin Detemir (Nf) [Levemir 15 unit SQ QHS PRN 09/14/16 02/15/21 07/31/19 History Flextouch (Nf)] cloNIDine [Catapres] 0.2 mg PO DAILY 09/14/16 02/15/21 07/30/20 History Gentamicin 0.1% Top Oint(Nf) 1 applic TP TID 07/31/20 02/15/21 Unknown History [Gentamicin 0.1% Top Oint (Nf)] Cholecalciferol Vit D3 [Vitamin D3 3,000 unit PO DAILY tablet 08/01/20 02/15/21 Unknown Rx 1,000 UNIT TAB] Cinacalcet [Sensipar] 90 mg PO QDAY 02/15/21 02/15/21 Unknown History Hydralazine HCl 50 mg PO TID 02/15/21 02/15/21 Unknown History Active Medications: Generic Name Dose Route Start Last Admin Trade Name Freq PRN Reason Stop Dose Admin Acetaminophen 650 mg 02/14/21 23:52 Acetaminophen 325 Mg Tab PO Q4H PRN Pain MILD(1-3)/Fever >100.5/POOLE Albuterol 2.5 mg 02/17/21 12:24 Albuterol 2.5 Mg/3 Ml Nebu IH Q4HRT PRN Shortness Of Breath Aspirin 325 mg 02/15/21 10:00 02/19/21 10:04 Aspirin Ec 325 Mg Tab PO 325 mg QDAY [facility] Administration Bisacodyl 10 mg 02/16/21 11:33 02/17/21 22:08 Bisacodyl 5 Mg Tab PO 10 mg QDAY PRN Administration Constipation Calcitriol 0.5 mcg 02/15/21 17:00 02/19/21 10:04 Calcitriol 0.5 Mcg Cap PO 0.5 mcg QDAY [facility] Administration Calcium Acetate 1,334 mg 02/17/21 17:00 02/19/21 17:01 Calcium Acetate 667 Mg Cap PO 1,334 mg TIDWM [facility] Administration Carvedilol 6.25 mg 02/15/21 11:00 02/19/21 10:05 Carvedilol 6.25 Mg Tab PO 6.25 mg BID B[facility] Administration Cholecalciferol 3,000 unit 02/15/21 11:00 02/19/21 10:04 Cholecalciferol (Vit D3) 1000 Unit (25 Mcg) Tab PO 3,000 unit DAILY [facility] Administration Cinacalcet 90 mg 02/15/21 11:00 02/19/21 10:04 Cinacalcet 30 Mg Tab PO 90 mg QDAY B[facility] Administration Clonidine HCl 0.2 mg 02/15/21 11:00 02/19/21 10:05 Clonidine 0.2 Mg Tab PO 0.2 mg DAILY [facility] Administration Dextrose 50 ml 02/14/21 23:52 Dextrose 50% In Water (25gm) 50 Ml Syringe IV Q30MIN PRN Hypoglycemia Protocol Docusate Sodium 100 mg 02/16/21 12:00 02/19/21 10:04 Docusate Sodium 100 Mg Cap PO 100 mg BID B[facility] Administration Hydralazine HCl 50 mg 02/15/21 14:00 02/19/21 14:12 Hydralazine 25 Mg Tab PO 50 mg Q8HR [facility] Administration Hydroxyzine HCl 25 mg 02/16/21 14:05 02/19/21 18:24 Hydroxyzine Hcl 25 Mg Tab PO 25 mg Q6H PRN Administration Itching Sodium Chloride 100 mls @ 999 mls/hr 02/15/21 11:00 Nacl 0.9% IV FOREST PRN Hypotension Cefepime HCl 1 gm in 100 mls @ 200 mls/hr 02/15/21 18:00 02/19/21 17:01 Cefepime/Ns 1 Gm/100 Ml IV 200 mls/hr Q24H B[facility] Administration Protocol Insulin Human Lispro 0 unit 02/15/21 07:30 02/19/21 16:59 Insulin Lispro 100 Unit/Ml SUB-Q Not Given ACHS [facility] Protocol Magnesium Hydroxide 30 ml 02/14/21 23:52 Magnesium Hydroxide (Mom) Oral Liqd Udc PO Q4H PRN Constipation Morphine Sulfate 2 mg 02/14/21 23:52 02/17/21 23:49 Morphine 4 Mg/1 Ml Inj IV 2 mg Q5MIN PRN Administration Chest Pain Nifedipine 60 mg 02/15/21 22:00 02/18/21 21:26 Nifedipine Xl 60 Mg Tab PO 60 mg HS [facility] Administration Ondansetron HCl 4 mg 02/14/21 23:52 02/16/21 16:54 Ondansetron 4 Mg/2 Ml Inj IV 4 mg Q8H PRN Administration Nausea And Vomiting Pantoprazole Sodium 40 mg 02/19/21 10:00 02/19/21 10:09 Pantoprazole 40 Mg Inj IV 40 mg BID B[facility]XTON Administration Peritoneal Dialysis Solution 2,000 ml 02/15/21 16:00 02/19/21 16:58 Dialysate Lo Vega 1.5% Soln 2000 Ml IP Not Given Q6H [facility] Polyethylene Glycol 17 gm 02/16/21 12:00 02/19/21 10:04 Polyethylene Glycol 3350 17 Gm Powder PO 17 gm QDAY [facility] Administration Sodium Biphosphate/Sodium Phosphate 133 ml 02/19/21 21:00 Fleet Enema SD 02/19/21 21:01 ONCE ONE Sodium Chloride 10 ml 02/15/21 10:00 02/19/21 10:05 Sodium Chloride 0.9% 10 Ml Flush Syringe IV 10 ml BID [facility] Administration Sodium Chloride 10 ml 02/14/21 23:52 Sodium Chloride 0.9% 10 Ml Flush Syringe IV PRN PRN LINE FLUSH Tramadol HCl 50 mg 02/14/21 23:52 Tramadol 50 Mg Tab PO Q6H PRN Pain, Moderate (4-6)
[2021-02-19] MEDS ORDERED: FLEET ENEMA PR ONE (21:00)
[2021-02-19] MEDS: NIFEdipine XL 60 MG TAB PO SCH (21:33)
[2021-02-20] MEDS: hydrALAZINE 25 MG TAB PO SCH ×3 (05:32→21:42)
[2021-02-20] MEDS: DIALYSATE LO CAL 1.5% SOLN 2000 ML IP SCH ×4 (05:36→21:43)
[2021-02-20 06:20] LABS: Hematocrit 26.6 % (30.3-42.9); Hemoglobin 8.3 gm/dl (10.1-14.3); Mean Corpuscular HGB Conc 31 % (30-34); Mean Corpuscular Volume 95 fl (79-97); Platelet Count 287 K/mm3 (140-440); Red Cell Distribution Width 17.7 % (13.2-15.2)
[2021-02-20 06:38] LABS: Calcium 7.2 mg/dL (8.4-10.2)
[2021-02-20] MEDS ORDERED: POTASSIUM CHLORIDE ER 10 MEQ TAB PO SCH (08:00)
[2021-02-20 08:04] LABS: Anisocytosis Few; Hypochromasia 1+; Macrocytosis Few; Myelocytes # (Manual) 0.1 K/mm3; Total Cells Counted 100
[2021-02-20 08:05] LABS: Platelet Estimate Consistent w Auto
--- NOTE | 2021-02-20 09:04 | Progress Note ---
Assessment and Plan Assessment * End-stage renal disease on PD * Cathter associated peritonitis, culture negative * SIRS * Leukocytosis * Anemia of ESRD * Secondary hyperparathyroidism * Hypertension Recommendations * Continue CAPD * Continue antibiotics * Lactulose x 2 doses ordered * ID note reviewed - plans for resending studies noted * Continue calcitriol * Continue binder * Continue antihypertensives * Epogen TIW * Dose medications for renal function * Renal diet Subjective Date of service: 02/20/21 Principal diagnosis: Abdominal pain Interval history: Patient complains of constipation. Denies abdominal pain. Reports PD fluid is clear. Objective - Vital Signs Vital signs: Vital Signs - 12hr 02/19/21 02/19/21 02/19/21 21:32 21:33 23:00 Temperature Pulse Rate 88 88 69 Pulse Rate [ From Monitor] Respiratory Rate Blood Pressure 138/76 138/76 O2 Sat by Pulse Oximetry 02/19/21 02/20/21 02/20/21 23:10 02:00 03:22 Temperature 98.4 F 98.1 F Pulse Rate 77 57 L Pulse Rate [ 80 From Monitor] Respiratory 12 20 16 Rate Blood Pressure 121/58 130/57 O2 Sat by Pulse 92 98 Oximetry 02/20/21 02/20/21 05:32 06:00 Temperature Pulse Rate 68 58 L Pulse Rate [ From Monitor] Respiratory Rate Blood Pressure 130/57 O2 Sat by Pulse Oximetry - General Appearance General appearance: well-developed, well-nourished EENT: ATNC Respiratory: Present: Clear to Ascultation Cardiology: regular, S1S2 Gastrointestinal: normal, no tenderness, no distended Integumentary: no rash, warm and dry Neurologic: no focal deficit, alert and oriented x3 - Lab 02/21/21 04:39 02/20/21 14:15 Most recent lab results Calcium 7.2 mg/dL (8.4-10.2) L 02/20/21 05:47 Magnesium 1.40 mg/dL (1.7-2.3) L 02/14/21 18:35 Medications & Allergies - Medications Allergies/Adverse Reactions: Allergies digoxin Allergy (Verified 02/14/21 18:22) Hives lisinopril Allergy (Verified 02/14/21 18:22) Swelling nitroglycerin Adverse Reaction (Verified 02/14/21 18:22) Rash, HEADACHES shellfish derived Adverse Reaction (Verified 02/14/21 18:22) Swelling Home Medications: Home Medications Medication Instructions Recorded Confirmed Last Taken Type NIFEdipine XL [Procardia Xl] 60 mg PO HS 05/27/15 02/15/21 07/30/20 History carvediloL [Coreg] 6.25 mg PO BID 05/27/15 02/15/21 07/30/20 History Insulin Detemir (Nf) [Levemir 15 unit SQ QHS PRN 09/14/16 02/15/21 07/31/19 Hi story Flextouch (Nf)] cloNIDine [Catapres] 0.2 mg PO DAILY 09/14/16 02/15/21 07/30/20 History Gentamicin 0.1% Top Oint(Nf) 1 applic TP TID 07/31/20 02/15/21 Unknown History [Gentamicin 0.1% Top Oint (Nf)] Cholecalciferol Vit D3 [Vitamin D3 3,000 unit PO DAILY tablet 08/01/20 02/15/21 Unknown Rx 1,000 UNIT TAB] Cinacalcet [Sensipar] 90 mg PO QDAY 02/15/21 02/15/21 Unknown History Hydralazine HCl 50 mg PO TID 02/15/21 02/15/21 Unknown History Active Medications: Generic Name Dose Route Start Last Admin Trade Name Freq PRN Reason Stop Dose Admin Acetaminophen 650 mg 02/14/21 23:52 Acetaminophen 325 Mg Tab PO Q4H PRN Pain MILD(1-3)/Fever >100.5/POOLE Albuterol 2.5 mg 02/17/21 12:24 Albuterol 2.5 Mg/3 Ml Nebu IH Q4HRT PRN Shortness Of Breath Aspirin 325 mg 02/15/21 10:00 02/19/21 10:04 Aspirin Ec 325 Mg Tab PO 325 mg QDAY BRAXTON Administration Bisacodyl 10 mg 02/16/21 11:33 02/17/21 22:08 Bisacodyl 5 Mg Tab PO 10 mg QDAY PRN Administration Constipation Calcitriol 0.5 mcg 02/15/21 17:00 02/19/21 10:04 Calcitriol 0.5 Mcg Cap PO 0.5 mcg QDAY BRAXTON Administration Calcium Acetate 1,334 mg 02/17/21 17:00 02/19/21 17:01 Calcium Acetate 667 Mg Cap PO 1,334 mg TIDWM BRAXTON Administration Carvedilol 6.25 mg 02/15/21 11:00 02/19/21 21:33 Carvedilol 6.25 Mg Tab PO 6.25 mg BID BRAXTON Administration Cholecalciferol 3,000 unit 02/15/21 11:00 02/19/21 10:04 Cholecalciferol (Vit D3) 1000 Unit (25 Mcg) Tab PO 3,000 unit DAILY BRAXTON Administration Cinacalcet 90 mg 02/15/21 11:00 02/19/21 10:04 Cinacalcet 30 Mg Tab PO 90 mg QDAY BRAXTON Administration Clonidine HCl 0.2 mg 02/15/21 11:00 02/19/21 10:05 Clonidine 0.2 Mg Tab PO 0.2 mg DAILY BRAXTON Administration Dextrose 50 ml 02/14/21 23:52 Dextrose 50% In Water (25gm) 50 Ml Syringe IV Q30MIN PRN Hypoglycemia Protocol Docusate Sodium 100 mg 02/16/21 12:00 02/19/21 21:33 Docusate Sodium 100 Mg Cap PO 100 mg BID BRAXTON Administration Hydralazine HCl 50 mg 02/15/21 14:00 02/20/21 05:32 Hydralazine 25 Mg Tab PO 50 mg Q8HR BRAXTON Administration Hydroxyzine HCl 25 mg 02/16/21 14:05 02/19/21 18:24 Hydroxyzine Hcl 25 Mg Tab PO 25 mg Q6H PRN Administration Itching Sodium Chloride 100 mls @ 999 mls/hr 02/15/21 11:00 Nacl 0.9% IV FOREST PRN Hypotension Cefepime HCl 1 gm in 100 mls @ 200 mls/hr 02/15/21 18:00 02/19/21 17:01 Cefepime/Ns 1 Gm/100 Ml IV 200 mls/hr Q24H BRAXTON Administration Protocol Insulin Human Lispro 0 unit 02/15/21 07:30 02/19/21 21:34 Insulin Lispro 100 Unit/Ml SUB-Q Not Given ACHS [facility] Protocol Magnesium Hydroxide 30 ml 02/14/21 23:52 Magnesium Hydroxide (Mom) Oral Liqd Udc PO Q4H PRN Constipation Morphine Sulfate 2 mg 02/14/21 23:52 02/17/21 23:49 Morphine 4 Mg/1 Ml Inj IV 2 mg Q5MIN PRN Administration Chest Pain Nifedipine 60 mg 02/15/21 22:00 02/19/21 21:33 Nifedipine Xl 60 Mg Tab PO 60 mg HS BRAXTON Administration Ondansetron HCl 4 mg 02/14/21 23:52 02/16/21 16:54 Ondansetron 4 Mg/2 Ml Inj IV 4 mg Q8H PRN Administration Nausea And Vomiting Pantoprazole Sodium 40 mg 02/19/21 10:00 02/19/21 21:32 Pantoprazole 40 Mg Inj IV 40 mg BID BRAXTON Administration Peritoneal Dialysis Solution 2,000 ml 02/15/21 16:00 02/20/21 05:36 Dialysate [place] 1.5% Soln 2000 Ml IP Not Given Q6H BRAXTON Polyethylene Glycol 17 gm 02/16/21 12:00 02/19/21 10:04 Polyethylene Glycol 3350 17 Gm Powder PO 17 gm QDAY BRAXTON Administration Potassium Chloride 30 meq 02/20/21 08:00 Potassium Chloride Er 10 Meq Tab PO 02/20/21 13:00 ONCE BRAXTON Sodium Chloride 10 ml 02/15/21 10:00 02/19/21 21:33 Sodium Chloride 0.9% 10 Ml Flush Syringe IV 10 ml BID BRAXTON Administration Sodium Chloride 10 ml 02/14/21 23:52 Sodium Chloride 0.9% 10 Ml Flush Syringe IV PRN PRN LINE FLUSH Tramadol HCl 50 mg 02/14/21 23:52 Tramadol 50 Mg Tab PO Q6H PRN Pain, Moderate (4-6)
[2021-02-20] MEDS: INSULIN LISPRO 100 UNIT/ML SUB-Q SCH ×4 (09:24→21:43)
[2021-02-20] MEDS: CALCIUM ACETATE 667 MG CAP PO SCH ×3 (09:25→17:37)
[2021-02-20] MEDS: CINACALCET 30 MG TAB PO SCH (10:13)
[2021-02-20] MEDS: cloNIDine 0.2 MG TAB PO SCH (10:13)
[2021-02-20] MEDS: carvediloL 6.25 MG TAB PO SCH ×2 (10:14→21:42)
[2021-02-20] MEDS: PANTOPRAZOLE 40 MG INJ IV SCH ×2 (10:14→21:42)
[2021-02-20] MEDS: CHOLECALCIFEROL (VIT D3) 1000 UNIT (25 mcg) TAB PO SCH (10:14)
[2021-02-20] MEDS: POLYETHYLENE GLYCOL 3350 17 GM POWDER PO SCH (10:14)
[2021-02-20] MEDS: DOCUSATE SODIUM 100 MG CAP PO SCH ×2 (10:14→21:42)
[2021-02-20] MEDS: CALCITRIOL 0.5 MCG CAP PO SCH (10:17)
--- NOTE | 2021-02-20 11:46 | Progress Note ---
Assessment and Plan - Patient Problems (1) Acute chest pain Current Visit: Yes Status: Acute (2) End-stage renal disease on peritoneal dialysis Current Visit: Yes Status: Acute Subjective Date of service: 02/20/21 Principal diagnosis: Abdominal pain Interval history: NO CV C/O Objective Vital Signs Temp Pulse Pulse Pulse Resp BP BP 02/20/21 10:14 77 154/78 02/20/21 10:13 77 154/78 02/20/21 09:48 72 72 16 02/20/21 09:10 98.0 F 88 18 156/90 02/20/21 06:00 58 L 02/20/21 05:32 68 130/57 02/20/21 03:22 98.1 F 57 L 16 130/57 02/20/21 02:00 80 20 02/19/21 23:10 98.4 F 77 12 121/58 02/19/21 23:00 69 02/19/21 21:33 88 138/76 02/19/21 21:32 88 138/76 02/19/21 19:03 98.3 F 86 18 138/76 02/19/21 17:15 97.8 F 81 17 128/67 02/19/21 15:00 101 H 02/19/21 14:12 66 123/59 02/19/21 11:53 98.0 F 97 H 16 138/67 Pulse Ox 02/20/21 10:14 02/20/21 10:13 02/20/21 09:48 96 02/20/21 09:10 94 02/20/21 06:00 02/20/21 05:32 02/20/21 03:22 98 02/20/21 02:00 02/19/21 23:10 92 02/19/21 23:00 02/19/21 21:33 02/19/21 21:32 02/19/21 19:03 98 02/19/21 17:15 96 02/19/21 15:00 02/19/21 14:12 02/19/21 11:53 95 - Physical Examination General: No Apparent Distress HEENT: Positive: PERRL Neck: Positive: trachea midline Cardiac: Positive: Reg Rate and Rhythm Lungs: Positive: Decreased Breath Sounds (R.) Neuro: Positive: Grossly Intact Abdomen: Positive: Soft, Other (PD CATH.) Extremities: Present: normal. Absent: edema - Labs and Meds CBC 02/20/21 Range/Units 05:47 WBC 9.1 (4.5-11.0) K/mm3 RBC 2.80 L (3.65-5.03) M/mm3 Hgb 8.3 L (10.1-14.3) gm/dl Hct 26.6 L (30.3-42.9) % Plt Count 287 (140-440) K/mm3 Comprehensive Metabolic Panel 02/20/21 Range/Units 05:47 Sodium 136 L (137-145) mmol/L Potassium 2.9 L* (3.6-5.0) mmol/L Chloride 89.4 L (98-107) mmol/L Carbon Dioxide 33 H (22-30) mmol/L BUN 35 H (7-17) mg/dL Creatinine 8.9 H (0.6-1.2) mg/dL Glucose 150 H (65-100) mg/dL Calcium 7.2 L (8.4-10.2) mg/dL
--- NOTE | 2021-02-20 12:14 | Progress Note ---
Assessment and Plan Cultures: Blood cultures no growth today Peritoneal culture no growth today Assessment: 70-year-old female with history of diabetes mellitus, hypertension, CHF, ESRD on peritoneal dialysis, admitted on 02/14/2021 secondary to epigastric abdominal pain for 3 days: #SIRS rule out sepsis: Remains with leukocytosis; source unclear, possible PD associated peritonitis vs colitis. #Abdominal pain: Not better. Suspect PD associated peritonitis. Peritoneal fluid Gram stain with multiple WBCs no growth so far. Peritoneal fluid cell count and differential not done. Repeat PD fluid analysis with 467 WBC. #Diarrhea: Resolved. #ESRD on PD Recommendations: -Pending repeat PD cultures. -Continue pulse IV vancomycin -Continue IV cefepime 1 g once a day renally adjusted -Follow-up blood cultures -White count improving. When abdominal pain improved would send with PD antib iotics (vancomycin and either cefepime or ceftazidime) for 10 more days Will follow. Pa Barron MD [facility] ([facility]) O: [phone] F: [phone] Subjective Date of service: 02/20/21 Principal diagnosis: Abdominal pain Interval history: Afebrile, normal white count. Objective - Exam Narrative Exam: General appearance: Alert in NAD pleasant Eyes: anicteric sclerae, moist conjunctivae; no lid-lad HENT: Normocephalic, Atraumatic; normal external ears, nares open, oropharynx clear Neck: supple, tracheal midline, no JVD Lungs: CTA CV: RRR no murmur Abdomen: Soft, diffuse tenderness, PD catheter exit site without erythema or drainage Extremities: no edema, no cyanosis Skin: No rash. Psych: not agitated Neuro: alert and oriented x 3. Moving all extremities - Constitutional Vitals: Vital Signs Temp Pulse Resp BP Pulse Ox 97.8 F 100 H 18 146/71 94 02/20/21 10:56 02/20/21 10:56 02/20/21 10:56 02/20/21 10:56 02/20/21 10:56 Temperature -Last 24 Hours Temperature 97.8 F Temperature 98.0 F Temperature 98.1 F Temperature 98.4 F Temperature 98.3 F Temperature 97.8 F - Labs CBC & Chem 7: 02/20/21 05:47 02/20/21 05:47 Labs: Abnormal lab results 02/19/21 02/20/21 02/20/21 Range/Units 09:58 05:47 05:47 RBC 2.80 L (3.65-5.03) M/mm3 Hgb 8.3 L (10.1-14.3) gm/dl Hct 26.6 L (30.3-42.9) % RDW 17.7 H (13.2-15.2) % Seg Neuts % (Manual) 79.0 H (40.0-70.0) % Lymphocytes % (Manual) 10.0 L (13.4-35.0) % Basophils % (Manual) 2.0 H (0.0-1.8) % Lymphocytes # (Manual) 0.9 L (1.2-5.4) K/mm3 Basophils # (Manual) 0.2 H (0.0-0.1) K/mm3 Sodium 136 L (137-145) mmol/L Potassium 2.9 L* (3.6-5.0) mmol/L Chloride 89.4 L (98-107) mmol/L Carbon Dioxide 33 H (22-30) mmol/L BUN 35 H (7-17) mg/dL Creatinine 8.9 H (0.6-1.2) mg/dL Glucose 150 H (65-100) mg/dL POC Glucose 60 L (70-105) mg/dL Calcium 7.2 L (8.4-10.2) mg/dL 02/20/21 Range/Units 08:29 RBC (3.65-5.03) M/mm3 Hgb (10.1-14.3) gm/dl Hct (30.3-42.9) % RDW (13.2-15.2) % Seg Neuts % (Manual) (40.0-70.0) % Lymphocytes % (Manual) (13.4-35.0) % Basophils % (Manual) (0.0-1.8) % Lymphocytes # (Manual) (1.2-5.4) K/mm3 Basophils # (Manual) (0.0-0.1) K/mm3 Sodium (137-145) mmol/L Potassium (3.6-5.0) mmol/L Chloride (98-107) mmol/L Carbon Dioxide (22-30) mmol/L BUN (7-17) mg/dL Creatinine (0.6-1.2) mg/dL Glucose (65-100) mg/dL POC Glucose 129 H (70-105) mg/dL Calcium (8.4-10.2) mg/dL
[2021-02-20] MEDS: LACTULOSE 20 GM/30 ML ORAL LIQD PO SCH ×2 (13:19→17:37)
[2021-02-20] MEDS: ASPIRIN EC 325 MG TAB PO SCH (13:20)
--- NOTE | 2021-02-20 13:43 | Progress Note ---
Assessment and Plan -- acute hypoxic respiratory failure -resolved Patient noted hypoxic with O2 sat 77% at RA recorded supplemental O2 repeat CXR showed moderate pleural effusion which is now improved she completed her COVID vaccine - so doubt COVID infection --Right-sided pleural effusion, improved with PD -- Acute chest pain, likely atypical Patient placed on telemetry. Follow serial cardiac enzymes. Patient placed on aspirin, sublingual nitroglycerin and IV morphine as needed for chest pain. Medical management per cardiology --NSTEMI type II Troponin has been elevated probably secondary to the end-stage renal disease however patient had placed on heparin drip prior to cardiology evaluation and recommendation. Medical management per cardiology, follow 2D echocardiogram Stop heparin drip now -- Abdominal pain, due to acute Peritonitis Etiology unclear. CT of the abdomen and pelvis has been negative. Will place on analgesic medications as needed. cont iv abx per ID Ordered for peritoneal fluid study, ID recommended IV antibiotic therapy on discharge --Leukocytosis with sepsis, POA Likely from underlying acute peritonitis Continue empiric antibiotics, follow clinically --Diabetes mellitus type 2 with frequent hypoglycemia Will hold long-acting insulin, monitor blood glucose QA [facility] and continue SSI Consistent carb diet -- End-stage renal disease on peritoneal dialysis Patient on peritoneal dialysis. Consult placed to nephrology for evaluation. -- Hypertension Continue routine home medications and monitor vital signs closely. --hypokalemia, replete -- DVT prophylaxis Patient currently on anticoagulation. -- Full code status Patient is a full code. Daily clinical course: 02/15/21: start on empiric abx for possible peritonitis. will follow peritoneal fluid cx report. Continue to trend troponin, continue heparin drip, follow cardiology recommendation. 02/16/21: Patient peritoneal fluid study pending, IV antibiotics changed to cefepime. ID has been consulted. Patient continued to complains of abdominal pain. Cardiology recommended medical management for elevated troponin - will DC heparin drip. Follow 2D echo result and pending peritoneal fluid study. 02/17: cont abx for peritonitis, patient still has diffuse abd pain. noted hypoxic this am, order repeat CXR. order nebs 02/18: Peritoneal/ascitic fluid study for cell count still pending, so far no growth in culture. Discussed with ID and will resent peritoneal fluid for cell count. Repeat chest x-ray suggestive of right-sided moderate pleural effusion which will need thoracentesis. Continue to follow the patient clinically. 02/19: Patient becoming hypoglycemic -blood glucose was at 50s this morning, will stop Lantus for now, manage blood glucose with SSI only. Wait for peripheral fluid cell count study and right chest thoracentesis. 02/20: patient need iv abx to go home for peritonitis. s/p chest US today showed improvement of rt pleural effusion, wait for CM and nephrology to set up iv abx for discharge. patient has no home needs per PT. patient currently resting on room air Subjective Date of service: 02/20/21 Principal diagnosis: Abdominal pain Interval history: Patient seen and examined. Medical records and medication list reviewed. No acute event overnight noted by the RN. Patient clinically improved, white count trending down ID recommended IV antibiotic therapy on discharge Discussed plan of care at bedside with patient. Objective - Exam Narrative Exam: GENERAL: well-developed -[place] female lying on bed appeared to be in no discomfort. HEENT: Normocephalic. Atraumatic. No conjunctival congestion or icterus. Pat ient has moist mucous membranes. NECK: Supple. Trachea midline. CHEST/LUNGS: Diminished breath sound auscultated bilaterally, HEART/CARDIOVASCULAR: Regular in rate and rhythm. S1 and S2 positive. ABDOMEN: Abdomen is soft but diffusely tender. Patient has normal bowel sounds. SKIN: There is no rash. Warm and dry. NEURO: No focal motor deficit. Follows command. MUSCULOSKELETAL: No joint effusion or tenderness. EXTRIMITY: No edema, no cyanosis or clubbing. PSYCH: Cooperative. - Constitutional Vitals: Vital Signs - 12hr 02/20/21 02/20/21 02/20/21 02:00 03:22 05:32 Temperature 98.1 F Pulse Rate 57 L 68 Pulse Rate [ Apical] Pulse Rate [ 80 From Monitor] Respiratory 20 16 Rate Blood Pressure 130/57 130/57 Blood Pressure [Right] O2 Sat by Pulse 98 Oximetry 02/20/21 02/20/21 02/20/21 06:00 09:10 09:48 Temperature 98.0 F Pulse Rate 58 L 88 Pulse Rate [ 72 Apical] Pulse Rate [ 72 From Monitor] Respiratory 18 16 Rate Blood Pressure Blood Pressure 156/90 [Right] O2 Sat by Pulse 94 96 Oximetry 02/20/21 02/20/21 02/20/21 10:13 10:14 10:56 Temperature 97.8 F Pulse Rate 77 77 100 H Pulse Rate [ Apical] Pulse Rate [ From Monitor] Respiratory 18 Rate Blood Pressure 154/78 154/78 146/71 Blood Pressure [Right] O2 Sat by Pulse 94 Oximetry 02/20/21 13:19 Temperature Pulse Rate 81 Pulse Rate [ Apical] Pulse Rate [ From Monitor] Respiratory Rate Blood Pressure 144/76 Blood Pressure [Right] O2 Sat by Pulse Oximetry - Labs CBC & Chem 7: 02/21/21 04:39 02/20/21 14:15 Labs: Abnormal lab results 02/20/21 02/20/21 02/20/21 Range/Units 05:47 05:47 08:29 RBC 2.80 L (3.65-5.03) M/mm3 Hgb 8.3 L (10.1-14.3) gm/dl Hct 26.6 L (30.3-42.9) % RDW 17.7 H (13.2-15.2) % Seg Neuts % (Manual) 79.0 H (40.0-70.0) % Lymphocytes % (Manual) 10.0 L (13.4-35.0) % Basophils % (Manual) 2.0 H (0.0-1.8) % Lymphocytes # (Manual) 0.9 L (1.2-5.4) K/mm3 Basophils # (Manual) 0.2 H (0.0-0.1) K/mm3 Sodium 136 L (137-145) mmol/L Potassium 2.9 L* (3.6-5.0) mmol/L Chloride 89.4 L (98-107) mmol/L Carbon Dioxide 33 H (22-30) mmol/L BUN 35 H (7-17) mg/dL Creatinine 8.9 H (0.6-1.2) mg/dL Glucose 150 H (65-100) mg/dL POC Glucose 129 H (70-105) mg/dL Calcium 7.2 L (8.4-10.2) mg/dL HEART Score - HEART Score EKG: Normal Age: > 65 Risk factors: 1-2 risk factors Troponin: Troponin T 0.102 ng/mL (0.00-0.029) H* 02/15/21 06:00 Troponin: > 3x normal limit - Critical Actions Critical Actions: 4-6 pts:12-16.6% risk of adverse cardiac event. Should be admitted
--- NOTE | 2021-02-20 14:48 | Ultrasound Report ---
ULTRASOUND CHEST HISTORY: Right pleural effusion TECHNIQUE: Grayscale ultrasound. FINDINGS: This examination was scheduled as an ultrasound guided right thoracentesis. Initial scans o f the right side of the chest demonstrates only trace right pleural fluid. No pocket of fluid large e nough for ultrasound-guided thoracentesis was identified. Ultrasound-guided thoracentesis was not per formed. IMPRESSION: Trace right pleural effusion too small for thoracentesis. Signer Name: Joshua Anguiano Jr, MD Signed: 02/20/2021 2:43 PM Workstation Name: [id number]
[2021-02-20] MEDS: CEFEPIME/NS 1 GM/100 ML 1 GM/100 ML BAG IV SCH (17:37)
[2021-02-20] MEDS: NIFEdipine XL 60 MG TAB PO SCH (21:42)
[2021-02-21] MEDS: traMADol 50 MG TAB PO PRN ×2 (04:26→17:19)
[2021-02-21] MEDS: hydrALAZINE 25 MG TAB PO SCH ×3 (05:07→21:31)
[2021-02-21 05:55] LABS: Hematocrit 25.1 % (30.3-42.9); Hemoglobin 8.1 gm/dl (10.1-14.3)
[2021-02-21] MEDS: INSULIN LISPRO 100 UNIT/ML SUB-Q SCH ×4 (07:30→22:20)
--- NOTE | 2021-02-21 09:05 | Progress Note ---
Assessment and Plan Assessment * End-stage renal disease on PD * Cathter associated peritonitis, culture negative * SIRS * Leukocytosis * Anemia of ESRD * Secondary hyperparathyroidism * Hypertension * Hypokalemia Recommendations * Continue CAPD * Lactulose and Simethicone x 1 dose today * Continue antibiotics - (will plan for IP Vanco/Fortaz after discharge) * ID note reviewed * Continue calcitriol * Continue binder * Continue antihypertensives * Epogen TIW * Dose medications for renal function * Renal diet * AM labs Subjective Date of service: 02/21/21 Principal diagnosis: Abdominal pain Interval history: Reports stool yesterday following Lactulose. Reports gas. Remains constipated but feels improved. Objective - Vital Signs Vital signs: Vital Signs - 12hr 02/21/21 02/21/21 02/21/21 00:00 00:05 04:17 Temperature 98.5 F 98.3 F Pulse Rate 66 80 85 Respiratory 18 18 Rate Blood Pressure 140/59 124/63 O2 Sat by Pulse 95 98 Oximetry 02/21/21 08:15 Temperature 98.3 F Pulse Rate 97 H Respiratory 18 Rate Blood Pressure 156/83 O2 Sat by Pulse 94 Oximetry - General Appearance General appearance: well-developed, well-nourished EENT: ATNC Respiratory: Present: Clear to Ascultation Cardiology: regular, S1S2 Gastrointestinal: normal, no tenderness, no distended Integumentary: no rash, warm and dry Neurologic: no focal deficit, alert and oriented x3 - Lab 02/21/21 04:39 02/20/21 14:15 Most recent lab results Calcium 7.2 mg/dL (8.4-10.2) L 02/20/21 05:47 Magnesium 1.40 mg/dL (1.7-2.3) L 02/14/21 18:35 Medications & Allergies - Medications Allergies/Adverse Reactions: Allergies digoxin Allergy (Verified 02/14/21 18:22) Hives lisinopril Allergy (Verified 02/14/21 18:22) Swelling nitroglycerin Adverse Reaction (Verified 02/14/21 18:22) Rash, HEADACHES shellfish derived Adverse Reaction (Verified 02/14/21 18:22) Swelling Home Medications: Home Medications Medication Instructions Recorded Confirmed Last Taken Type NIFEdipine XL [Procardia Xl] 60 mg PO HS 05/27/15 02/15/21 07/30/20 History carvediloL [Coreg] 6.25 mg PO BID 05/27/15 02/15/21 07/30/20 History Insulin Detemir (Nf) [Levemir 15 unit SQ QHS PRN 09/14/16 02/15/21 07/31/19 History Flextouch (Nf)] cloNIDine [Catapres] 0.2 mg PO DAILY 09/14/16 02/15/21 07/30/20 History Gentamicin 0.1% Top Oint(Nf) 1 applic TP TID 07/31/20 02/15/21 Unknown History [Gentamicin 0.1% Top Oint (Nf)] Cholecalciferol Vit D3 [Vitamin D3 3,000 unit PO DAILY tablet 08/01/20 02/15/21 Unknown Rx 1,000 UNIT TAB] Cinacalcet [Sensipar] 90 mg PO QDAY 02/15/21 02/15/21 Unknown History Hydralazine HCl 50 mg PO TID 02/15/21 02/15/21 Unknown History Active Medications: Generic Name Dose Route Start Last Admin Trade Name Freq PRN Reason Stop Dose Admin Acetaminophen 650 mg 02/14/21 23:52 Acetaminophen 325 Mg Tab PO Q4H PRN Pain MILD(1-3)/Fever >100.5/POOLE Albuterol 2.5 mg 02/17/21 12:24 Albuterol 2.5 Mg/3 Ml Nebu IH Q4HRT PRN Shortness Of Breath Aspirin 325 mg 02/15/21 10:00 02/20/21 13:20 Aspirin Ec 325 Mg Tab PO Not Given QDAY BRAXTON Bisacodyl 10 mg 02/16/21 11:33 02/17/21 22:08 Bisacodyl 5 Mg Tab PO 10 mg QDAY PRN Administration Constipation Calcitriol 0.5 mcg 02/15/21 17:00 02/20/21 10:17 Calcitriol 0.5 Mcg Cap PO 0.5 mcg QDAY BRAXTON Administration Calcium Acetate 1,334 mg 02/17/21 17:00 02/20/21 17:37 Calcium Acetate 667 Mg Cap PO 1,334 mg TIDWM BRAXTON Administration Carvedilol 6.25 mg 02/15/21 11:00 02/20/21 21:42 Carvedilol 6.25 Mg Tab PO 6.25 mg BID BRAXTON Administration Cholecalciferol 3,000 unit 02/15/21 11:00 02/20/21 10:14 Cholecalciferol (Vit D3) 1000 Unit (25 Mcg) Tab PO 3,000 unit DAILY BRAXTON Administration Cinacalcet 90 mg 02/15/21 11:00 02/20/21 10:13 Cinacalcet 30 Mg Tab PO 90 mg QDAY BRAXTON Administration Clonidine HCl 0.2 mg 02/15/21 11:00 02/20/21 10:13 Clonidine 0.2 Mg Tab PO 0.2 mg DAILY BRAXTON Administration Dextrose 50 ml 02/14/21 23:52 Dextrose 50% In Water (25gm) 50 Ml Syringe IV Q30MIN PRN Hypoglycemia Protocol Docusate Sodium 100 mg 02/16/21 12:00 02/20/21 21:42 Docusate Sodium 100 Mg Cap PO 100 mg BID BRAXTON Administration Hydralazine HCl 50 mg 02/15/21 14:00 02/21/21 05:07 Hydralazine 25 Mg Tab PO 50 mg Q8HR BRAXTON Administration Hydroxyzine HCl 25 mg 02/16/21 14:05 02/19/21 18:24 Hydroxyzine Hcl 25 Mg Tab PO 25 mg Q6H PRN Administration Itching Sodium Chloride 100 mls @ 999 mls/hr 02/15/21 11:00 Nacl 0.9% IV FOREST PRN Hypotension Cefepime HCl 1 gm in 100 mls @ 200 mls/hr 02/15/21 18:00 02/20/21 17:37 Cefepime/Ns 1 Gm/100 Ml IV 03/02/21 18:29 200 mls/hr Q24H BRAXTON Administration Protocol Insulin Human Lispro 0 unit 02/15/21 07:30 02/20/21 21:43 Insulin Lispro 100 Unit/Ml SUB-Q Not Given ACHS BRAXTON Protocol Magnesium Hydroxide 30 ml 02/14/21 23:52 Magnesium Hydroxide (Mom) Oral Liqd Udc PO Q4H PRN Constipation Morphine Sulfate 2 mg 02/14/21 23:52 02/17/21 23:49 Morphine 4 Mg/1 Ml Inj IV 2 mg Q5MIN PRN Administration Chest Pain Nifedipine 60 mg 02/15/21 22:00 02/20/21 21:42 Nifedipine Xl 60 Mg Tab PO 60 mg HS BRAXTON Administration Ondansetron HCl 4 mg 02/14/21 23:52 02/16/21 16:54 Ondansetron 4 Mg/2 Ml Inj IV 4 mg Q8H PRN Administration Nausea And Vomiting Pantoprazole Sodium 40 mg 02/19/21 10:00 02/20/21 21:42 Pantoprazole 40 Mg Inj IV 40 mg BID BRAXTON Administration Peritoneal Dialysis Solution 2,000 ml 02/15/21 16:00 02/20/21 21:43 Dialysate [place]ega 1.5% Soln 2000 Ml IP Not Given Q6H BRAXTON Polyethylene Glycol 17 gm 02/16/21 12:00 02/20/21 10:14 Polyethylene Glycol 3350 17 Gm Powder PO 17 gm QDAY BRAXTON Administration Sodium Chloride 10 ml 02/15/21 10:00 02/20/21 21:43 Sodium Chloride 0.9% 10 Ml Flush Syringe IV 10 ml BID BRAXTON Administration Sodium Chloride 10 ml 02/14/21 23:52 Sodium Chloride 0.9% 10 Ml Flush Syringe IV PRN PRN LINE FLUSH Tramadol HCl 50 mg 02/14/21 23:52 02/21/21 04:26 Tramadol 50 Mg Tab PO 50 mg Q6H PRN Administration Pain, Moderate (4-6)
[2021-02-21] MEDS ORDERED: SIMETHICONE 80 MG CHEW TAB PO NR (09:59)
[2021-02-21] MEDS: CINACALCET 30 MG TAB PO SCH (10:41)
[2021-02-21] MEDS: CALCIUM ACETATE 667 MG CAP PO SCH ×3 (10:45→17:19)
[2021-02-21] MEDS: CHOLECALCIFEROL (VIT D3) 1000 UNIT (25 mcg) TAB PO SCH (10:45)
[2021-02-21] MEDS: POLYETHYLENE GLYCOL 3350 17 GM POWDER PO SCH (10:46)
[2021-02-21] MEDS: DOCUSATE SODIUM 100 MG CAP PO SCH ×2 (10:46→22:24)
[2021-02-21] MEDS: carvediloL 6.25 MG TAB PO SCH ×2 (10:46→21:31)
[2021-02-21] MEDS: CALCITRIOL 0.5 MCG CAP PO SCH (10:46)
[2021-02-21] MEDS: cloNIDine 0.2 MG TAB PO SCH (10:47)
[2021-02-21] MEDS: ASPIRIN EC 325 MG TAB PO SCH (10:47)
[2021-02-21] MEDS: PANTOPRAZOLE 40 MG INJ IV SCH ×2 (10:47→21:32)
[2021-02-21] MEDS ORDERED: LACTULOSE 20 GM/30 ML ORAL LIQD PO NR (11:00)
--- NOTE | 2021-02-21 11:28 | Progress Note ---
Assessment and Plan Chest pain, atypical EKG showing normal sinus rhythm, normal ECG. Troponin levels were elevated at 0.1, in the setting of renal disease. Unchanged over 3 serial measurements. Echo this presentations demonstrates normal LVEF. There is mild to moderate TR with at least moderate pulmonary HTN. End-stage renal disease, on peritoneal dialysis. Nausea, vomiting, abdominal pain - chief complaint Leukocytosis undergoing evaluation and treatment for possible peritonitis. Anemia Conservative cardiac management. Subjective Date of service: 02/21/21 Principal diagnosis: Abdominal pain Interval history: Patient is resting in bed comfortable. No distress noted. Objective Vital Signs Temp Pulse Resp BP Pulse Ox 02/21/21 10:46 97 H 156/83 02/21/21 08:15 98.3 F 97 H 18 156/83 94 02/21/21 04:17 98.3 F 85 18 124/63 98 02/21/21 00:05 98.5 F 80 18 140/59 95 02/21/21 00:00 66 02/20/21 19:21 98.1 F 78 20 148/71 96 02/20/21 16:50 98.3 F 92 H 18 159/72 93 02/20/21 15:00 62 02/20/21 13:19 81 144/76 - Physical Examination General: No Apparent Distress HEENT: Positive: PERRL Neck: Positive: trachea midline Neuro: Positive: Grossly Intact Abdomen: Positive: Soft, Other (PD CATH.) Extremities: Present: normal. Absent: edema - Labs and Meds CBC 02/21/21 Range/Units 04:39 Hgb 8.1 L (10.1-14.3) gm/dl Hct 25.1 L (30.3-42.9) % Plt Count 267 (140-440) K/mm3 Comprehensive Metabolic Panel 02/20/21 Range/Units 14:15 Potassium 3.1 L (3.6-5.0) mmol/L
[2021-02-21] MEDS: DIALYSATE LO CAL 1.5% SOLN 2000 ML IP SCH ×2 (13:11→22:24)
--- NOTE | 2021-02-21 14:53 | Progress Note ---
Assessment and Plan Cultures: Blood cultures no growth today Peritoneal culture Negative Assessment: 70-year-old female with history of diabetes mellitus, hypertension, CHF, ESRD on peritoneal dialysis, admitted on 02/14/2021 secondary to epigastric abdominal pain for 3 days: #SIRS rule out sepsis: Remains with leukocytosis; source unclear, possible PD associated peritonitis vs colitis. #Abdominal pain: Not better. Suspect PD associated peritonitis. Peritoneal fluid Gram stain with multiple WBCs no growth so far. Peritoneal fluid cell count and differential not done. Repeat PD fluid analysis with 467 WBC. #Diarrhea: Resolved. #ESRD on PD Recommendations: -Pending repeat PD cultures. -Continue pulse IV vancomycin -Continue IV cefepime 1 g once a day renally adjusted -Follow-up blood cultures -When abdominal pain improved would send with PD antibiotics (vancomycin and either cefepime or ceftazidime) for 10 more days. Appreciate nephrology's assistance. Will follow. Pa Barron MD [facility], [place] [facility] ([facility]) O: [phone] F: [phone] Subjective Date of service: 02/21/21 Principal diagnosis: Abdominal pain Interval history: Afebrile, normal white count. PD cultures are final negative. Objective - Exam Narrative Exam: General appearance: Alert in NAD pleasant Eyes: anicteric sclerae, moist conjunctivae; no lid-lad HENT: Normocephalic, Atraumatic; normal external ears, nares open, oropharynx clear Neck: supple, tracheal midline, no JVD Lungs: CTA CV: RRR no murmur Abdomen: Soft, diffuse tenderness, PD catheter exit site without erythema or drainage Extremities: no edema, no cyanosis Skin: No rash. Psych: not agitated Neuro: alert and oriented x 3. Moving all extremities - Constitutional Vitals: Vital Signs Temp Pulse Resp BP Pulse Ox 97.5 F L 97 H 18 144/74 94 02/21/21 11:10 02/21/21 11:10 02/21/21 11:10 02/21/21 11:10 02/21/21 11:10 Temperature -Last 24 Hours Temperature 97.5 F Temperature 98.3 F Temperature 98.3 F Temperature 98.5 F Temperature 98.1 F Temperature 98.3 F - Labs CBC & Chem 7: 02/21/21 04:39 02/20/21 14:15 Labs: Abnormal lab results 02/20/21 02/20/21 02/21/21 Range/Units 14:15 20:56 04:39 Hgb 8.1 L (10.1-14.3) gm/dl Hct 25.1 L (30.3-42.9) % Potassium 3.1 L (3.6-5.0) mmol/L POC Glucose 142 H (70-105) mg/dL 02/21/21 02/21/21 Range/Units 08:17 11:12 Hgb (10.1-14.3) gm/dl Hct (30.3-42.9) % Potassium (3.6-5.0) mmol/L POC Glucose 121 H 122 H (70-105) mg/dL
[2021-02-21 14:54] LABS: Calcium 6.7 mg/dL (8.4-10.2)
--- NOTE | 2021-02-21 14:59 | Progress Note ---
Assessment and Plan -- acute hypoxic respiratory failure -resolved Patient noted hypoxic with O2 sat 77% at RA recorded supplemental O2 repeat CXR showed moderate pleural effusion which is now improved she completed her COVID vaccine - so doubt COVID infection --Right-sided pleural effusion, improved with PD -- Acute chest pain, likely atypical Patient placed on telemetry. Follow serial cardiac enzymes. Patient placed on aspirin, sublingual nitroglycerin and IV morphine as needed for chest pain. Medical management per cardiology --NSTEMI type II Troponin has been elevated probably secondary to the end-stage renal disease however patient had placed on heparin drip prior to cardiology evaluation and recommendation. Medical management per cardiology, follow 2D echocardiogram Stop heparin drip now -- Abdominal pain, due to acute Peritonitis Etiology unclear. CT of the abdomen and pelvis has been negative. Will place on analgesic medications as needed. cont iv abx per ID Ordered for peritoneal fluid study, ID recommended IV antibiotic therapy on discharge --Leukocytosis with sepsis, POA Likely from underlying acute peritonitis Continue empiric antibiotics, follow clinically --Diabetes mellitus type 2 with frequent hypoglycemia Will hold long-acting insulin, monitor blood glucose [facility] and continue SSI Consistent carb diet -- End-stage renal disease on peritoneal dialysis Patient on peritoneal dialysis. Consult placed to nephrology for evaluation. -- Hypertension Continue routine home medications and monitor vital signs closely. --hypokalemia, replete -- DVT prophylaxis Patient currently on anticoagulation. -- Full code status Patient is a full code. Daily clinical course: 02/15/21: start on empiric abx for possible peritonitis. will follow peritoneal fluid cx report. Continue to trend troponin, continue heparin drip, follow cardiology recommendation. 02/16/21: Patient peritoneal fluid study pending, IV antibiotics changed to cefepime. ID has been consulted. Patient continued to complains of abdominal pain. Cardiology recommended medical management for elevated troponin - will DC heparin drip. Follow 2D echo result and pending peritoneal fluid study. 02/17: cont abx for peritonitis, patient still has diffuse abd pain. noted hypoxic this am, order repeat CXR. order nebs 02/18: Peritoneal/ascitic fluid study for cell count still pending, so far no growth in culture. Discussed with ID and will resent peritoneal fluid for cell count. Repeat chest x-ray suggestive of right-sided moderate pleural effusion which will need thoracentesis. Continue to follow the patient clinically. 02/19: Patient becoming hypoglycemic -blood glucose was at 50s this morning, will stop Lantus for now, manage blood glucose with SSI only. Wait for peripheral fluid cell count study and right chest thoracentesis. 02/20: patient need iv abx to go home for peritonitis. s/p chest US today showed improvement of rt pleural effusion and did not require thoracentesis., wait for CM and nephrology to set up iv abx for discharge. patient has no home needs per PT. patient currently resting on room air Subjective Date of service: 02/21/21 Principal diagnosis: Abdominal pain Interval history: Patient seen and examined. Medical records and medication list reviewed. No acute event overnight noted by the RN. Patient clinically improved, white count trending down ID recommended IV antibiotic therapy on discharge Discussed plan of care at bedside with patient. Objective - Exam Narrative Exam: GENERAL: well-developed -Citizen [place] female lying on bed appeared to be in no discomfort. HEENT: Normocephalic. Atraumatic. No conjunctival congestion or icterus. Patient has moist mucous membranes. NECK: Supple. Trachea midline. CHEST/LUNGS: Diminished breath sound auscultated bilaterally, HEART/CARDIOVASCULAR: Regular in rate and rhythm. S1 and S2 positive. ABDOMEN: Abdomen is soft but diffusely tender. Patient has normal bowel sounds. SKIN: There is no rash. Warm and dry. NEURO: No focal motor deficit. Follows command. MUSCULOSKELETAL: No joint effusion or tenderness. EXTRIMITY: No edema, no cyanosis or clubbing. PSYCH: Cooperative. - Constitutional Vitals: Vital Signs - 12hr 02/21/21 02/21/21 02/21/21 04:17 08:15 10:46 Temperature 98.3 F 98.3 F Pulse Rate 85 97 H 97 H Respiratory 18 18 Rate Blood Pressure 124/63 156/83 156/83 O2 Sat by Pulse 98 94 Oximetry 02/21/21 11:10 Temperature 97.5 F L Pulse Rate 97 H Respiratory 18 Rate Blood Pressure 144/74 O2 Sat by Pulse 94 Oximetry - Labs CBC & Chem 7: 02/22/21 05:28 02/22/21 05:28 Labs: Abnormal lab results 02/20/21 02/20/21 02/21/21 Range/Units 14:15 20:56 04:39 Hgb 8.1 L (10.1-14.3) gm/dl Hct 25.1 L (30.3-42.9) % Potassium 3.1 L (3.6-5.0) mmol/L Chloride (98-107) mmol/L Carbon Dioxide (22-30) mmol/L BUN (7-17) mg/dL Creatinine (0.6-1.2) mg/dL Glucose (65-100) mg/dL POC Glucose 142 H (70-105) mg/dL Calcium (8.4-10.2) mg/dL 02/21/21 02/21/21 02/21/21 Range/Units 08:17 11:12 13:59 Hgb (10.1-14.3) gm/dl Hct (30.3-42.9) % Potassium 3.5 L (3.6-5.0) mmol/L Chloride 93.3 L (98-107) mmol/L Carbon Dioxide 32 H (22-30) mmol/L BUN 29 H (7-17) mg/dL Creatinine 9.1 H (0.6-1.2) mg/dL Glucose 101 H (65-100) mg/dL POC Glucose 121 H 122 H (70-105) mg/dL Calcium 6.7 L (8.4-10.2) mg/dL HEART Score - HEART Score EKG: Normal Age: > 65 Risk factors: 1-2 risk factors Troponin: Troponin T 0.102 ng/mL (0.00-0.029) H* 02/15/21 06:00 Troponin: > 3x normal limit - Critical Actions Critical Actions: 4-6 pts:12-16.6% risk of adverse cardiac event. Should be admitted
[2021-02-21] MEDS: CEFEPIME/NS 1 GM/100 ML 1 GM/100 ML BAG IV SCH (17:18)
[2021-02-21] MEDS: hydrOXYzine HCL 25 MG TAB PO PRN (17:19)
[2021-02-21] MEDS: NIFEdipine XL 60 MG TAB PO SCH (21:31)
[2021-02-22] MEDS: hydrOXYzine HCL 25 MG TAB PO PRN (01:33)
[2021-02-22] MEDS: traMADol 50 MG TAB PO PRN (03:54)
[2021-02-22 06:31] LABS: Hemoglobin 8.1 gm/dl (10.1-14.3); Mean Corpuscular HGB Conc 32 % (30-34); Mean Corpuscular Volume 94 fl (79-97); Platelet Count 268 K/mm3 (140-440); Red Blood Count 2.66 M/mm3 (3.65-5.03); Red Cell Distribution Width 17.7 % (13.2-15.2)
[2021-02-22 06:39] LABS: Calcium 7.3 mg/dL (8.4-10.2)
[2021-02-22] MEDS: DIALYSATE LO CAL 1.5% SOLN 2000 ML IP SCH ×5 (06:48→22:06)
[2021-02-22] MEDS: hydrALAZINE 25 MG TAB PO SCH ×3 (06:49→21:18)
[2021-02-22] MEDS: CALCIUM ACETATE 667 MG CAP PO SCH ×3 (08:00→17:14)
--- NOTE | 2021-02-22 09:19 | Progress Note ---
Assessment and Plan Assessment * End-stage renal disease on PD * Cathter associated peritonitis, culture negative * SIRS * Leukocytosis * Anemia of ESRD * Secondary hyperparathyroidism * Hypertension * Hypokalemia Recommendations * Continue CAPD * Replete KCl 40meq x 2 doses * Continue antibiotics - (will plan for IP Vanco/Fortaz after discharge) * ID note reviewed * Continue calcitriol * Continue binder * Continue antihypertensives * Epogen TIW * Dose medications for renal function * Renal diet * AM labs Subjective Date of service: 02/22/21 Principal diagnosis: Abdominal pain Interval history: Patient reports she feels "100% better". Reports constipation has resolved. Complains of gas Objective - Vital Signs Vital signs: Vital Signs - 12hr 02/21/21 02/22/21 02/22/21 21:31 00:07 04:43 Temperature 98.9 F 98.0 F Pulse Rate 94 H 87 91 H Respiratory 18 18 Rate Blood Pressure 169/84 180/76 143/64 O2 Sat by Pulse 96 94 Oximetry 02/22/21 02/22/21 06:49 08:06 Temperature 98.3 F Pulse Rate 99 H Respiratory 18 Rate Blood Pressure 143/64 161/53 O2 Sat by Pulse 98 Oximetry - General Appearance General appearance: well-developed, well-nourished EENT: ATNC Respiratory: Present: Clear to Ascultation Cardiology: regular, S1S2 Gastrointestinal: normal, no tenderness, no distended Neurologic: no focal deficit, alert and oriented x3 Psychiatric: cooperative - Lab 02/22/21 05:28 02/22/21 05:28 Most recent lab results Calcium 7.3 mg/dL (8.4-10.2) L 02/22/21 05:28 Magnesium 1.40 mg/dL (1.7-2.3) L 02/14/21 18:35 Medications & Allergies - Medications Allergies/Adverse Reactions: Allergies digoxin Allergy (Verified 02/14/21 18:22) Hives lisinopril Allergy (Verified 02/14/21 18:22) Swelling nitroglycerin Adverse Reaction (Verified 02/14/21 18:22) Rash, HEADACHES shellfish derived Adverse Reaction (Verified 02/14/21 18:22) Swelling Home Medications: Home Medications Medication Instructions Recorded Confirmed Last Taken Type NIFEdipine XL [Procardia Xl] 60 mg PO HS 05/27/15 02/15/21 07/30/20 History carvediloL [Coreg] 6.25 mg PO BID 05/27/15 02/15/21 07/30/20 History Insulin Detemir (Nf) [Levemir 15 unit SQ QHS PRN 09/14/16 02/15/21 07/31/19 History Flextouch (Nf)] cloNIDine [Catapres] 0.2 mg PO DAILY 09/14/16 02/15/21 07/30/20 History Gentamicin 0.1% Top Oint(Nf) 1 applic TP TID 07/31/20 02/15/21 Unknown History [Gentamicin 0.1% Top Oint (Nf)] Cholecalciferol Vit D3 [Vitamin D3 3,000 unit PO DAILY tablet 08/01/20 02/15/21 Unknown Rx 1,000 UNIT TAB] Cinacalcet [Sensipar] 90 mg PO QDAY 02/15/21 02/15/21 Unknown History Hydralazine HCl 50 mg PO TID 02/15/21 02/15/21 Unknown History Active Medications: Generic Name Dose Route Start Last Admin Trade Name Freq PRN Reason Stop Dose Admin Acetaminophen 650 mg 02/14/21 23:52 Acetaminophen 325 Mg Tab PO Q4H PRN Pain MILD(1-3)/Fever >100.5/POOLE Albuterol 2.5 mg 02/17/21 12:24 Albuterol 2.5 Mg/3 Ml Nebu IH Q4HRT PRN Shortness Of Breath Aspirin 325 mg 02/15/21 10:00 02/21/21 10:47 Aspirin Ec 325 Mg Tab PO 325 mg QDAY BRAXTON Administration Bisacodyl 10 mg 02/16/21 11:33 02/17/21 22:08 Bisacodyl 5 Mg Tab PO 10 mg QDAY PRN Administration Constipation Calcitriol 0.5 mcg 02/15/21 17:00 02/21/21 10:46 Calcitriol 0.5 Mcg Cap PO 0.5 mcg QDAY BRAXTON Administration Calcium Acetate 1,334 mg 02/17/21 17:00 02/22/21 08:00 Calcium Acetate 667 Mg Cap PO 1,334 mg TIDWM BRAXTON Administration Carvedilol 6.25 mg 02/15/21 11:00 02/21/21 21:31 Carvedilol 6.25 Mg Tab PO 6.25 mg BID BRAXTON Administration Cholecalciferol 3,000 unit 02/15/21 11:00 02/21/21 10:45 Cholecalciferol (Vit D3) 1000 Unit (25 Mcg) Tab PO 3,000 unit DAILY BRAXTON Administration Cinacalcet 90 mg 02/15/21 11:00 02/21/21 10:41 Cinacalcet 30 Mg Tab PO 90 mg QDAY BRAXTON Administration Clonidine HCl 0.2 mg 02/15/21 11:00 02/21/21 10:47 Clonidine 0.2 Mg Tab PO 0.2 mg DAILY BRAXTON Administration Dextrose 50 ml 02/14/21 23:52 Dextrose 50% In Water (25gm) 50 Ml Syringe IV Q30MIN PRN Hypoglycemia Protocol Docusate Sodium 100 mg 02/16/21 12:00 02/21/21 22:24 Docusate Sodium 100 Mg Cap PO Not Given BID BRAXOTN Hydralazine HCl 50 mg 02/15/21 14:00 02/22/21 06:49 Hydralazine 25 Mg Tab PO 50 mg Q8HR BRAXTON Administration Hydroxyzine HCl 25 mg 02/16/21 14:05 02/22/21 01:33 Hydroxyzine Hcl 25 Mg Tab PO 25 mg Q6H PRN Administration Itching Sodium Chloride 100 mls @ 999 mls/hr 02/15/21 11:00 Nacl 0.9% IV FOREST PRN Hypotension Cefepime HCl 1 gm in 100 mls @ 200 mls/hr 02/15/21 18:00 02/21/21 17:18 Cefepime/Ns 1 Gm/100 Ml IV 03/02/21 18:29 200 mls/hr Q24H BRAXTON Administration Protocol Insulin Human Lispro 0 unit 02/15/21 07:30 02/21/21 22:20 Insulin Lispro 100 Unit/Ml SUB-Q Not Given ACHS [facility] Protocol Magnesium Hydroxide 30 ml 02/14/21 23:52 Magnesium Hydroxide (Mom) Oral Liqd Udc PO Q4H PRN Constipation Morphine Sulfate 2 mg 02/14/21 23:52 02/17/21 23:49 Morphine 4 Mg/1 Ml Inj IV 2 mg Q5MIN PRN Administration Chest Pain Nifedipine 60 mg 02/15/21 22:00 02/21/21 21:31 Nifedipine Xl 60 Mg Tab PO 60 mg HS BRAXTON Administration Ondansetron HCl 4 mg 02/14/21 23:52 02/16/21 16:54 Ondansetron 4 Mg/2 Ml Inj IV 4 mg Q8H PRN Administration Nausea And Vomiting Pantoprazole Sodium 40 mg 02/19/21 10:00 02/21/21 21:32 Pantoprazole 40 Mg Inj IV 40 mg BID BRAXTON Administration Peritoneal Dialysis Solution 2,000 ml 02/15/21 16:00 02/22/21 07:55 Dialysate Lo Vega 1.5% Soln 2000 Ml IP Not Given Q6H BRAXTON Polyethylene Glycol 17 gm 02/16/21 12:00 02/21/21 10:46 Polyethylene Glycol 3350 17 Gm Powder PO 17 gm QDAY BRAXTON Administration Potassium Chloride 40 meq 02/22/21 10:00 Potassium Chloride Er 20 Meq Tab PO 02/22/21 12:01 Q2H BRAXTON Sodium Chloride 10 ml 02/15/21 10:00 02/21/21 21:33 Sodium Chloride 0.9% 10 Ml Flush Syringe IV 10 ml BID BRAXTON Administration Sodium Chloride 10 ml 02/14/21 23:52 02/21/21 17:18 Sodium Chloride 0.9% 10 Ml Flush Syringe IV 10 ml PRN PRN Administration LINE FLUSH Tramadol HCl 50 mg 02/14/21 23:52 02/22/21 03:54 Tramadol 50 Mg Tab PO 50 mg Q6H PRN Administration Pain, Moderate (4-6)
[2021-02-22] MEDS ORDERED: SIMETHICONE 80 MG CHEW TAB PO NR (10:00)
[2021-02-22] MEDS: cloNIDine 0.2 MG TAB PO SCH (10:29)
[2021-02-22] MEDS: CALCITRIOL 0.5 MCG CAP PO SCH (10:29)
[2021-02-22] MEDS: DOCUSATE SODIUM 100 MG CAP PO SCH ×2 (10:29→21:18)
[2021-02-22] MEDS: CHOLECALCIFEROL (VIT D3) 1000 UNIT (25 mcg) TAB PO SCH (10:29)
[2021-02-22] MEDS: POTASSIUM CHLORIDE ER 20 MEQ TAB PO SCH ×2 (10:29→11:32)
[2021-02-22] MEDS: carvediloL 6.25 MG TAB PO SCH ×2 (10:29→21:18)
[2021-02-22] MEDS: PANTOPRAZOLE 40 MG INJ IV SCH ×2 (10:29→10:33)
[2021-02-22] MEDS: POLYETHYLENE GLYCOL 3350 17 GM POWDER PO SCH (10:30)
[2021-02-22] MEDS: ASPIRIN EC 325 MG TAB PO SCH (10:30)
[2021-02-22] MEDS: CINACALCET 30 MG TAB PO SCH (10:30)
[2021-02-22] MEDS: INSULIN LISPRO 100 UNIT/ML SUB-Q SCH ×4 (10:31→21:16)
--- NOTE | 2021-02-22 11:09 | Progress Note ---
Assessment and Plan Chest pain, atypical EKG showing normal sinus rhythm, normal ECG. Troponin levels were elevated at 0.1, in the setting of renal disease. Unchanged over 3 serial measurements. Echo this presentations demonstrates normal LVEF. There is mild to moderate TR with at least moderate pulmonary HTN. End-stage renal disease, on peritoneal dialysis. Nausea, vomiting, abdominal pain - chief complaint Leukocytosis undergoing evaluation and treatment for suspected peritonitis. Anemia Conservative cardiac management. Subjective Date of service: 02/22/21 Principal diagnosis: Abdominal pain Interval history: Patient is resting in bed comfortable. Reports she is feeling better. Denies chest pain and denies SOB. Objective Vital Signs Temp Pulse Pulse Pulse Resp BP Pulse Ox 02/22/21 08:06 98.3 F 99 H 18 161/53 98 02/22/21 06:49 143/64 02/22/21 04:43 98.0 F 91 H 18 143/64 94 02/22/21 00:07 98.9 F 87 18 180/76 96 02/21/21 21:31 94 H 169/84 02/21/21 19:54 98.6 F 94 H 18 169/84 95 02/21/21 16:30 97.9 F 89 18 154/82 95 02/21/21 14:00 78 78 02/21/21 11:10 97.5 F L 97 H 18 144/74 94 - Physical Examination General: No Apparent Distress HEENT: Positive: PERRL Neck: Positive: trachea midline Cardiac: Positive: Reg Rate and Rhythm Lungs: Positive: Decreased Breath Sounds Neuro: Positive: Grossly Intact Abdomen: Positive: Soft, Other (PD CATH.) Extremities: Absent: edema - Labs and Meds CBC 02/22/21 Range/Units 05:28 WBC 10.8 (4.5-11.0) K/mm3 RBC 2.66 L (3.65-5.03) M/mm3 Hgb 8.1 L (10.1-14.3) gm/dl Hct 25.0 L (30.3-42.9) % Plt Count 268 (140-440) K/mm3 Comprehensive Metabolic Panel 02/21/21 02/22/21 Range/Units 13:59 05:28 Sodium 137 137 (137-145) mmol/L Potassium 3.5 L 2.7 L* D (3.6-5.0) mmol/L Chloride 93.3 L 94.9 L (98-107) mmol/L Carbon Dioxide 32 H 31 H (22-30) mmol/L BUN 29 H 29 H (7-17) mg/dL Creatinine 9.1 H 8.7 H (0.6-1.2) mg/dL Glucose 101 H 93 (65-100) mg/dL Calcium 6.7 L 7.3 L (8.4-10.2) mg/dL
--- NOTE | 2021-02-22 12:02 | Progress Note ---
Assessment and Plan -- acute hypoxic respiratory failure -resolved Patient noted hypoxic with O2 sat 77% at RA recorded supplemental O2 repeat CXR showed moderate pleural effusion which is now improved she completed her COVID vaccine - so doubt COVID infection --Right-sided pleural effusion, improved with PD -- Acute chest pain, likely atypical Patient placed on telemetry. Follow serial cardiac enzymes. Patient placed on aspirin, sublingual nitroglycerin and IV morphine as needed for chest pain. Medical management per cardiology --NSTEMI type II Troponin has been elevated probably secondary to the end-stage renal disease however patient had placed on heparin drip prior to cardiology evaluation and recommendation. Medical management per cardiology, follow 2D echocardiogram Stop heparin drip now -- Abdominal pain, due to acute Peritonitis Etiology unclear. CT of the abdomen and pelvis has been negative. Will place on analgesic medications as needed. cont iv abx per ID Ordered for peritoneal fluid study, ID recommended IV antibiotic therapy on discharge --Leukocytosis with sepsis, POA Likely from underlying acute peritonitis Continue empiric antibiotics, follow clinically --Diabetes mellitus type 2 with frequent hypoglycemia Will hold long-acting insulin, monitor blood glucose QA [facility] and continue SSI Consistent carb diet -- End-stage renal disease on peritoneal dialysis Patient on peritoneal dialysis. Consult placed to nephrology for evaluation. -- Hypertension Continue routine home medications and monitor vital signs closely. --hypokalemia, replete -- DVT prophylaxis Patient currently on anticoagulation. -- Full code status Patient is a full code. Daily clinical course: 02/15/21: start on empiric abx for possible peritonitis. will follow peritoneal fluid cx report. Continue to trend troponin, continue heparin drip, follow cardiology recommendation. 02/16/21: Patient peritoneal fluid study pending, IV antibiotics changed to cefepime. ID has been consulted. Patient continued to complains of abdominal pain. Cardiology recommended medical management for elevated troponin - will DC heparin drip. Follow 2D echo result and pending peritoneal fluid study. 02/17: cont abx for peritonitis, patient still has diffuse abd pain. noted hypoxic this am, order repeat CXR. order nebs 02/18: Peritoneal/ascitic fluid study for cell count still pending, so far no growth in culture. Discussed with ID and will resent peritoneal fluid for cell count. Repeat chest x-ray suggestive of right-sided moderate pleural effusion which will need thoracentesis. Continue to follow the patient clinically. 02/19: Patient becoming hypoglycemic -blood glucose was at 50s this morning, will stop Lantus for now, manage blood glucose with SSI only. Wait for peripheral fluid cell count study and right chest thoracentesis. 02/20: patient need iv abx to go home for PERITONITIS. s/p chest US showed impr ovement of rt pleural effusion and did not require thoracentesis., wait for CM and nephrology to set up iv abx for discharge. patient has no home needs per PT. patient currently resting on room air 02/21: Patient complains of difficulty swallowing and very poor appetite. Also complains of abdominal distention pain. We will continue PPI and will consult GI for further recommendation. Pending IV antibiotics set up for peritonitis. 02/22: Patient states that her appetite significantly improved. Had a good BM this morning. Resting on room air. Waiting on IV antibiotics set up on discharge. Subjective Date of service: 02/22/21 Principal diagnosis: Abdominal pain Interval history: Patient seen and examined. Medical records and medication list reviewed. No acute event overnight noted by the RN. Patient clinically improved, white count trending down ID recommended IV antibiotic therapy on discharge Patient states that she had a bowel movement today and she is tolerating diet better Discussed plan of care at bedside with patient. Objective - Exam Narrative Exam: GENERAL: well-developed -[place] female lying on bed appeared to be in no discomfort. HEENT: Normocephalic. Atraumatic. No conjunctival congestion or icterus. Patient has moist mucous membranes. NECK: Supple. Trachea midline. CHEST/LUNGS: Diminished breath sound auscultated bilaterally, HEART/CARDIOVASCULAR: Regular in rate and rhythm. S1 and S2 positive. ABDOMEN: Abdomen is soft but diffusely tender. Patient has normal bowel sounds. SKIN: There is no rash. Warm and dry. NEURO: No focal motor deficit. Follows command. MUSCULOSKELETAL: No joint effusion or tenderness. EXTRIMITY: No edema, no cyanosis or clubbing. PSYCH: Cooperative. - Constitutional Vitals: Vital Signs - 12hr 02/22/21 02/22/21 02/22/21 00:07 04:43 06:49 Temperature 98.9 F 98.0 F Pulse Rate 87 91 H Respiratory 18 18 Rate Blood Pressure 180/76 143/64 143/64 O2 Sat by Pulse 96 94 Oximetry 02/22/21 02/22/21 08:06 11:07 Temperature 98.3 F Pulse Rate 99 H 88 Respiratory 18 Rate Blood Pressure 161/53 O2 Sat by Pulse 98 Oximetry - Labs CBC & Chem 7: 02/23/21 04:31 02/23/21 04:31 Labs: Abnormal lab results 02/21/21 02/21/21 02/22/21 Range/Units 13:59 16:32 05:28 RBC 2.66 L (3.65-5.03) M/mm3 Hgb 8.1 L (10.1-14.3) gm/dl Hct 25.0 L (30.3-42.9) % RDW 17.7 H (13.2-15.2) % Potassium 3.5 L (3.6-5.0) mmol/L Chloride 93.3 L (98-107) mmol/L Carbon Dioxide 32 H (22-30) mmol/L BUN 29 H (7-17) mg/dL Creatinine 9.1 H (0.6-1.2) mg/dL Glucose 101 H (65-100) mg/dL POC Glucose 107 H (70-105) mg/dL Calcium 6.7 L (8.4-10.2) mg/dL 02/22/21 Range/Units 05:28 RBC (3.65-5.03) M/mm3 Hgb (10.1-14.3) gm/dl Hct (30.3-42.9) % RDW (13.2-15.2) % Potassium 2.7 L* D (3.6-5.0) mmol/L Chloride 94.9 L (98-107) mmol/L Carbon Dioxide 31 H (22-30) mmol/L BUN 29 H (7-17) mg/dL Creatinine 8.7 H (0.6-1.2) mg/dL Glucose (65-100) mg/dL POC Glucose (70-105) mg/dL Calcium 7.3 L (8.4-10.2) mg/dL HEART Score - HEART Score EKG: Normal Age: > 65 Risk factors: 1-2 risk factors Troponin: Troponin T 0.102 ng/mL (0.00-0.029) H* 02/15/21 06:00 Troponin: > 3x normal limit - Critical Actions Critical Actions: 4-6 pts:12-16.6% risk of adverse cardiac event. Should be admitted
--- NOTE | 2021-02-22 15:28 | Progress Note ---
Assessment and Plan Cultures: Blood cultures no growth today Peritoneal culture Negative Assessment: 70-year-old female with history of diabetes mellitus, hypertension, CHF, ESRD on peritoneal dialysis, admitted on 02/14/2021 secondary to epigastric abdominal pain for 3 days: #SIRS rule out sepsis: Remains with leukocytosis; source unclear, possible PD associated peritonitis vs colitis. #Abdominal pain: Not better. Suspect PD associated peritonitis. Peritoneal fluid Gram stain with multiple WBCs no growth so far. Peritoneal fluid cell count and differential not done. Repeat PD fluid analysis with 467 WBC. #Diarrhea: Resolved. #ESRD on PD Recommendations: -Pending repeat PD cultures. -Continue pulse IV vancomycin -Continue IV cefepime 1 g once a day renally adjusted -Follow-up blood cultures -When abdominal pain improved would send with PD antibiotics (vancomycin and either cefepime or ceftazidime) for 10 more days. Appreciate nephrology's assistance. Will follow. Pa Barron MD [facility] ([facility]) O: [phone] F: [phone] Subjective Date of service: 02/22/21 Principal diagnosis: Abdominal pain Interval history: Afebrile with a normal white count. No acute change. Objective - Exam Narrative Exam: General appearance: Alert in NAD pleasant Eyes: anicteric sclerae, moist conjunctivae; no lid-lad HENT: Normocephalic, Atraumatic; normal external ears, nares open, oropharynx clear Neck: supple, tracheal midline, no JVD Lungs: CTA CV: RRR no murmur Abdomen: Soft, diffuse tenderness, PD catheter exit site without erythema or drainage Extremities: no edema, no cyanosis Skin: No rash. Psych: not agitated Neuro: alert and oriented x 3. Moving all extremities - Constitutional Vitals: Vital Signs Temp Pulse Resp BP Pulse Ox 98.3 F 88 18 161/53 98 02/22/21 08:06 02/22/21 11:07 02/22/21 08:06 02/22/21 08:06 02/22/21 08:06 Temperature -Last 24 Hours Temperature 98.3 F Temperature 98.0 F Temperature 98.9 F Temperature 98.6 F Temperature 97.9 F - Labs CBC & Chem 7: 02/22/21 05:28 02/22/21 12:54 Labs: Abnormal lab results 02/21/21 02/22/21 02/22/21 Range/Units 16:32 05:28 05:28 RBC 2.66 L (3.65-5.03) M/mm3 Hgb 8.1 L (10.1-14.3) gm/dl Hct 25.0 L (30.3-42.9) % RDW 17.7 H (13.2-15.2) % Potassium 2.7 L* D (3.6-5.0) mmol/L Chloride 94.9 L (98-107) mmol/L Carbon Dioxide 31 H (22-30) mmol/L BUN 29 H (7-17) mg/dL Creatinine 8.7 H (0.6-1.2) mg/dL POC Glucose 107 H (70-105) mg/dL Calcium 7.3 L (8.4-10.2) mg/dL
[2021-02-22] MEDS: CEFEPIME/NS 1 GM/100 ML 1 GM/100 ML BAG IV SCH (17:14)
[2021-02-22] MEDS: PANTOPRAZOLE 40 MG TAB PO SCH (17:14)
[2021-02-22] MEDS: NIFEdipine XL 60 MG TAB PO SCH (21:18)
--- NOTE | 2021-02-22 22:34 | Event Note ---
Date: 02/22/21 Full consult dictated - asked to see pt for abdominal pain and gerd - all GI symptoms resolved - see no need for further GI input at this time - call if needed
[2021-02-23] MEDS: SIMETHICONE 80 MG CHEW TAB PO PRN ×2 (00:06→06:22)
[2021-02-23] MEDS: traMADol 50 MG TAB PO PRN ×2 (01:48→09:55)
--- NOTE | 2021-02-23 02:45 | Consultation ---
DATE OF CONSULTATION: 02/22/2021 REFERRING PHYSICIAN: Dr. Nicki Butterfield INDICATIONS: 1. GERD. 2. Abdominal pain. HISTORY OF PRESENT ILLNESS: The patient is a 70-year-old black female with history of diabetes, hypertension, CHF, end-stage renal disease, on dialysis, presented with abdominal pain. The patient reports abdominal and midsternal chest pain. She reports symptoms have been ongoing for 48 hours. The patient presented to the ED, had a negative CT scan, subsequently was admitted and GI consulted. She denies any nausea or vomiting. She does report some reflux, which is now improving. She denies lower GI symptoms including diarrhea, constipation or rectal bleeding. PAST MEDICAL HISTORY: 1. Diabetes. 2. End-stage renal disease, on dialysis. 3. Heart failure. 4. Asthma. MEDICATIONS: Reviewed and updated in chart. ALLERGIES: DIGOXIN, LISINOPRIL, NITROGLYCERIN. SOCIAL HISTORY: Denies alcohol, tobacco or drug abuse. FAMILY HISTORY: Negative for colon cancer, IBD, or liver disease. REVIEW OF SYSTEMS: GENERAL: Positive weakness. HEENT: Negative. PULMONARY: Denies shortness of breath and chest pain. GASTROINTESTINAL: Reports abdominal pain and reflux, now improved. PHYSICAL EXAMINATION: VITAL SIGNS: Temperature of 98.2, pulse 84, respiratory rate 18, blood pressure 135/75. GENERAL: Fairly nourished, in no acute distress. HEENT: Pupils are round and reactive. PULMONARY: Clear to auscultation bilaterally. CARDIOVASCULAR: Regular rhythm, normal S1, S2. ABDOMEN: Soft. SKIN: No obvious rashes. LABORATORY DATA: Pertinent for white count of 10, hemoglobin and hematocrit of 8.1 and 25.0, platelet count of 268. Chem-7; sodium of 137, potassium 2.7, chloride 95, CO2 31, BUN and creatinine of 29 and 8.7. ASSESSMENT AND PLAN: A 70-year-old female with past medical history as noted above who was seen by GI for abdominal pain and reflux. The patient reports that she had been constipated and since having bowel movement, her abdominal pain has resolved. She reports her reflux is now stable. She reports all GI symptoms are stable at this time. PLAN: 1. MiraLax 17 grams p.o. daily. 2. PPI daily. 3. Avoid NSAIDs and aspirin. 4. No GI complaints at this time and there is no need for endoscopy or other intervention. 5. Given stable, no need for GI input at this time. We will sign off, call if needed. TID: [id number] RECEIPT: [id number] MEL/COLETTE
[2021-02-23 06:12] LABS: Hematocrit 23.7 % (30.3-42.9); Hemoglobin 7.6 gm/dl (10.1-14.3); Mean Corpuscular HGB Conc 32 % (30-34); Mean Corpuscular Volume 94 fl (79-97); Platelet Count 289 K/mm3 (140-440); Red Blood Count 2.51 M/mm3 (3.65-5.03); Red Cell Distribution Width 17.7 % (13.2-15.2)
[2021-02-23 06:43] LABS: Calcium 7.5 mg/dL (8.4-10.2)
[2021-02-23] MEDS: INSULIN LISPRO 100 UNIT/ML SUB-Q SCH ×3 (08:02→17:47)
[2021-02-23] MEDS: hydrALAZINE 25 MG TAB PO SCH ×2 (08:26→13:19)
[2021-02-23] MEDS: DIALYSATE LO CAL 1.5% SOLN 2000 ML IP SCH ×3 (08:26→17:47)
--- NOTE | 2021-02-23 09:17 | Progress Note ---
Assessment and Plan Assessment * End-stage renal disease on PD * Catheter associated peritonitis, culture negative --PD effluent WBC 467 (February 19); culture negative (February 16) * SIRS * Leukocytosis * Anemia of ESRD * Secondary hyperparathyroidism * Hypertension * Hypokalemia Recommendations * Continue CAPD * Continue antibiotics - (have arranged for IP Vanco/Fortaz after discharge) * Will give Epogen 20k today * Continue calcitriol * Binders with meal * Continue antihypertensives * Dose medications for renal function * Renal diet * AM labs Subjective Date of service: 02/23/21 Principal diagnosis: Abdominal pain Interval history: Patient on bedside commode at time of visit. Objective - Exam Narrative Exam: Deferred - Vital Signs Vital signs: Vital Signs - 12hr 02/22/21 02/23/21 02/23/21 23:30 03:32 06:52 Temperature 98.5 F 98.0 F Pulse Rate 87 96 H 99 H Respiratory 20 20 Rate Blood Pressure 155/67 85/59 Blood Pressure 147/75 [Right] O2 Sat by Pulse 96 95 Oximetry 02/23/21 07:24 Temperature 98.4 F Pulse Rate 99 H Respiratory 18 Rate Blood Pressure 139/72 Blood Pressure [Right] O2 Sat by Pulse 96 Oximetry - Lab 02/23/21 04:31 02/23/21 04:31 Most recent lab results Calcium 7.5 mg/dL (8.4-10.2) L 02/23/21 04:31 Magnesium 1.40 mg/dL (1.7-2.3) L 02/14/21 18:35 Medications & Allergies - Medications Allergies/Adverse Reactions: Allergies digoxin Allergy (Verified 02/14/21 18:22) Hives lisinopril Allergy (Verified 02/14/21 18:22) Swelling nitroglycerin Adverse Reaction (Verified 02/14/21 18:22) Rash, HEADACHES shellfish derived Adverse Reaction (Verified 02/14/21 18:22) Swelling Home Medications: Home Medications Medication Instructions Recorded Confirmed Last Taken Type NIFEdipine XL [Procardia Xl] 60 mg PO HS 05/27/15 02/15/21 07/30/20 History carvediloL [Coreg] 6.25 mg PO BID 05/27/15 02/15/21 07/30/20 History Insulin Detemir (Nf) [Levemir 15 unit SQ QHS PRN 1202/15/21 07/31/19 History Flextouch (Nf)] cloNIDine [Catapres] 0.2 mg PO DAILY 09/14/16 02/15/21 07/30/20 History Gentamicin 0.1% Top Oint(Nf) 1 applic TP TID 07/31/20 02/15/21 Unknown History [Gentamicin 0.1% Top Oint (Nf)] Cholecalciferol Vit D3 [Vitamin D3 3,000 unit PO DAILY tablet 08/01/20 02/15/21 Unknown Rx 1,000 UNIT TAB] Cinacalcet [Sensipar] 90 mg PO QDAY 02/15/21 02/15/21 Unknown History Hydralazine HCl 50 mg PO TID 02/15/21 02/15/21 Unknown History Active Medications: Generic Name Dose Route Start Last Admin Trade Name Freq PRN Reason Stop Dose Admin Acetaminophen 650 mg 02/14/21 23:52 Acetaminophen 325 Mg Tab PO Q4H PRN Pain MILD(1-3)/Fever >100.5/POOLE Albuterol 2.5 mg 02/17/21 12:24 Albuterol 2.5 Mg/3 Ml Nebu IH Q4HRT PRN Shortness Of Breath Aspirin 325 mg 02/15/21 10:00 02/22/21 10:30 Aspirin Ec 325 Mg Tab PO 325 mg QDAY BRAXTON Administration Bisacodyl 10 mg 02/16/21 11:33 02/23/21 06:22 Bisacodyl 5 Mg Tab PO 10 mg QDAY PRN Administration Constipation Calcitriol 0.5 mcg 02/15/21 17:00 02/22/21 10:29 Calcitriol 0.5 Mcg Cap PO 0.5 mcg QDAY BRAXTON Administration Calcium Acetate 1,334 mg 02/17/21 17:00 02/22/21 17:14 Calcium Acetate 667 Mg Cap PO 1,334 mg TIDWM BRAXTON Administration Carvedilol 6.25 mg 02/15/21 11:00 02/22/21 21:18 Carvedilol 6.25 Mg Tab PO 6.25 mg BID BRAXTON Administration Cholecalciferol 3,000 unit 02/15/21 11:00 02/22/21 10:29 Cholecalciferol (Vit D3) 1000 Unit (25 Mcg) Tab PO 3,000 unit DAILY BRAXTON Administration Cinacalcet 90 mg 02/15/21 11:00 02/22/21 10:30 Cinacalcet 30 Mg Tab PO 90 mg QDAY BRAXTON Administration Clonidine HCl 0.2 mg 02/15/21 11:00 02/22/21 10:29 Clonidine 0.2 Mg Tab PO 0.2 mg DAILY BRAXTON Administration Dextrose 50 ml 02/14/21 23:52 Dextrose 50% In Water (25gm) 50 Ml Syringe IV Q30MIN PRN Hypoglycemia Protocol Docusate Sodium 100 mg 02/16/21 12:00 02/22/21 21:18 Docusate Sodium 100 Mg Cap PO 100 mg BID BRAXTON Administration Hydralazine HCl 50 mg 02/15/21 14:00 02/23/21 08:26 Hydralazine 25 Mg Tab PO Not Given Q8HR [facility] Hydroxyzine HCl 25 mg 02/16/21 14:05 02/22/21 01:33 Hydroxyzine Hcl 25 Mg Tab PO 25 mg Q6H PRN Administration Itching Sodium Chloride 100 mls @ 999 mls/hr 02/15/21 11:00 Nacl 0.9% IV FOREST PRN Hypotension Cefepime HCl 1 gm in 100 mls @ 200 mls/hr 02/15/21 18:00 02/22/21 17:14 Cefepime/Ns 1 Gm/100 Ml IV 03/02/21 18:29 200 mls/hr Q24H BRAXTON Administration Protocol Vancomycin HCl 1 gm in 250 mls @ 167.007 mls/hr 02/23/21 10:00 Vancomycin/Ns 1 Gm/250 Ml IV 02/23/21 11:29 ONCE ONE Insulin Human Lispro 0 unit 02/15/21 07:30 02/23/21 08:02 Insulin Lispro 100 Unit/Ml SUB-Q Not Given ACHS [facility] Protocol Magnesium Hydroxide 30 ml 02/14/21 23:52 Magnesium Hydroxide (Mom) Oral Liqd Udc PO Q4H PRN Constipation Morphine Sulfate 2 mg 02/14/21 23:52 02/17/21 23:49 Morphine 4 Mg/1 Ml Inj IV 2 mg Q5MIN PRN Administration Chest Pain Nifedipine 60 mg 02/15/21 22:00 02/22/21 21:18 Nifedipine Xl 60 Mg Tab PO 60 mg HS BRAXTON Administration Ondansetron HCl 4 mg 02/14/21 23:52 02/16/21 16:54 Ondansetron 4 Mg/2 Ml Inj IV 4 mg Q8H PRN Administration Nausea And Vomiting Pantoprazole Sodium 40 mg 02/22/21 16:30 02/22/21 17:14 Pantoprazole 40 Mg Tab PO 40 mg BIDAC BRAXTON Administration Peritoneal Dialysis Solution 2,000 ml 02/15/21 16:00 02/23/21 08:26 Dialysate [place] 1.5% Soln 2000 Ml IP Not Given Q6H BRAXTON Polyethylene Glycol 17 gm 02/16/21 12:00 02/22/21 10:30 Polyethylene Glycol 3350 17 Gm Powder PO 17 gm QDAY BRAXTON Administration Simethicone 80 mg 02/22/21 23:51 02/23/21 06:22 Simethicone 80 Mg Chew Tab PO 80 mg Q6H PRN Administration Gas pain Sodium Chloride 10 ml 02/15/21 10:00 02/22/21 21:18 Sodium Chloride 0.9% 10 Ml Flush Syringe IV 10 ml BID BRAXTON Administration Sodium Chloride 10 ml 02/14/21 23:52 02/21/21 17:18 Sodium Chloride 0.9% 10 Ml Flush Syringe IV 10 ml PRN PRN Administration LINE FLUSH Tramadol HCl 50 mg 02/14/21 23:52 02/23/21 01:48 Tramadol 50 Mg Tab PO 50 mg Q6H PRN Administration Pain, Moderate (4-6)
[2021-02-23] MEDS: DOCUSATE SODIUM 100 MG CAP PO SCH (09:53)
[2021-02-23] MEDS: CINACALCET 30 MG TAB PO SCH (09:53)
[2021-02-23] MEDS: CHOLECALCIFEROL (VIT D3) 1000 UNIT (25 mcg) TAB PO SCH (09:53)
[2021-02-23] MEDS: CALCITRIOL 0.5 MCG CAP PO SCH (09:53)
[2021-02-23] MEDS: POLYETHYLENE GLYCOL 3350 17 GM POWDER PO SCH (09:53)
[2021-02-23] MEDS: ASPIRIN EC 325 MG TAB PO SCH (09:53)
[2021-02-23] MEDS: CALCIUM ACETATE 667 MG CAP PO SCH ×3 (09:53→17:48)
[2021-02-23] MEDS: carvediloL 6.25 MG TAB PO SCH (09:54)
[2021-02-23] MEDS: cloNIDine 0.2 MG TAB PO SCH (09:54)
[2021-02-23] MEDS ORDERED: EPOETIN ALFA 2,000 UNIT/1 ML VIAL SUB-Q ONE (09:55)
[2021-02-23] MEDS ORDERED: EPOETIN ALFA-EPBX 20,000 UNIT/1 ML VIAL SUB-Q ONE (10:00)
[2021-02-23] MEDS ORDERED: VANCOMYCIN/NS 1 GM/250 ML 1 GM/250 ML BAG IV ONE (10:00)
[2021-02-23] MEDS: PANTOPRAZOLE 40 MG TAB PO SCH ×2 (10:05→17:48)
--- NOTE | 2021-02-23 11:09 | Progress Note ---
Assessment and Plan Chest pain, atypical EKG showing normal sinus rhythm, normal ECG. Troponin levels were elevated at 0.1, in the setting of renal disease. Unchanged over 3 serial measurements. Echo this presentations demonstrates normal LVEF. There is mild to moderate TR with at least moderate pulmonary HTN. End-stage renal disease, on peritoneal dialysis. Nausea, vomiting, abdominal pain - chief complaint Leukocytosis undergoing evaluation and treatment for suspected peritonitis. Anemia Conservative cardiac management. Subjective Date of service: 02/23/21 Principal diagnosis: Abdominal pain Interval history: Denies chest pain and denies SOB. Objective Vital Signs Temp Pulse Resp BP BP Pulse Ox 02/23/21 09:54 139/72 02/23/21 07:24 98.4 F 99 H 18 139/72 96 02/23/21 06:52 99 H 147/75 02/23/21 03:32 98.0 F 96 H 20 85/59 95 02/22/21 23:30 98.5 F 87 20 155/67 96 02/22/21 19:44 98.2 F 84 16 155/76 98 02/22/21 16:00 85 20 138/59 97 02/22/21 11:07 88 - Physical Examination General: No Apparent Distress HEENT: Positive: PERRL Neck: Positive: trachea midline Cardiac: Positive: Reg Rate and Rhythm Lungs: Positive: Decreased Breath Sounds Neuro: Positive: Grossly Intact Extremities: Absent: edema - Labs and Meds CBC 02/23/21 Range/Units 04:31 WBC 10.6 (4.5-11.0) K/mm3 RBC 2.51 L (3.65-5.03) M/mm3 Hgb 7.6 L (10.1-14.3) gm/dl Hct 23.7 L (30.3-42.9) % Plt Count 289 (140-440) K/mm3 Comprehensive Metabolic Panel 02/22/21 02/23/21 Range/Units 12:54 04:31 Sodium 139 (137-145) mmol/L Potassium 3.7 D 3.7 (3.6-5.0) mmol/L Chloride 97.9 L (98-107) mmol/L Carbon Dioxide 31 H (22-30) mmol/L BUN 30 H (7-17) mg/dL Creatinine 8.9 H (0.6-1.2) mg/dL Glucose 97 (65-100) mg/dL Calcium 7.5 L (8.4-10.2) mg/dL
--- NOTE | 2021-02-23 13:22 | Discharge Summary ---
Providers - Providers Date of Admission: 02/15/21 12:28 Date of discharge: 02/23/21 Attending physician: MANUELA QUIROGA 02/14/21 Consult to Cardiac Rehabilitation [CONS] Routine Reason For Exam: Phase I 02/14/21 22:04 Consult to Physician [CONS] Routine Comment: Dr. Garrett spoke with Dr. Yeung @ [id number] Consulting Provider: OTIS YEUNG Physician Instructions: Reason For Exam: ESRD on nightly peritoneal dialysis 02/14/21 23:54 Consult to Cardiology [CONS] Routine Consulting Provider: GLORIA SHANNON Reason For Exam: Chest Pain Consult to Dietitian/Nutrition [CONS] Routine Physician Instructions: Reason For Exam: Reason for Consult: Diet education 02/15/21 15:03 Consult to Physician [CONS] Routine Comment: Consulting Provider: SUE GARCIA Physician Instructions: Reason For Exam: Peritonitis? 02/17/21 12:17 Physical Therapy Evaluation and Treat [CONS] Routine Comment: Reason For Exam: Debility 02/21/21 17:52 Consult to Physician [CONS] Routine Comment: Consulting Provider: DAKSHA CUTLER Physician Instructions: Reason For Exam: Indigestion Primary care physician: KATEY JOHNSON Hospitalization Condition: Good Pertinent studies: Chest x-ray, abdomen x-ray, chest ultrasound Hospital course: 70-year-old -[place]ian female with known history of diabetes mellitus, CHF, hypertension, end-stage renal disease on peritoneal dialysis presented to the emergency room on 02/14/21 complaining of abdominal pain and midsternal chest pain. Work-up in the emergency room: chest x-ray and EKG were unremarkable. She had a negative CT scan of the abdomen and pelvis without contrast a day prior to this presentation. Troponin was elevated at 0.103. Patient was admitted for chest pain and abdominal pain evaluation. Daily clinical course: 02/15/21: start on empiric abx for possible peritonitis. will follow peritoneal fluid cx report. Continue to trend troponin, continue heparin drip, follow cardiology recommendation. 02/16/21: Patient peritoneal fluid study pending, IV antibiotics changed to cefepime. ID has been consulted. Patient continued to complains of abdominal pain. Cardiology recommended medical management for elevated troponin - will DC heparin drip. Follow 2D echo result and pending peritoneal fluid study. 02/17: cont abx for peritonitis, patient still has diffuse abd pain. noted hypoxic this am, order repeat CXR. order nebs 02/18: Peritoneal/ascitic fluid study for cell count still pending, so far no growth in culture. Discussed with ID and will resent peritoneal fluid for cell count. Repeat chest x-ray suggestive of right-sided moderate pleural effusion which will need thoracentesis. Continue to follow the patient clinically. 02/19: Patient becoming hypoglycemic -blood glucose was at 50s this morning, will stop Lantus for now, manage blood glucose with SSI only. Wait for peripheral fluid cell count study and right chest thoracentesis. 02/20: patient need iv abx to go home for PERITONITIS. s/p chest US showed improvement of rt pleural effusion and did not require thoracentesis., wait for CM and nephrology to set up iv abx for discharge. patient has no home needs per PT. patient currently resting on room air 02/21: Patient complains of difficulty swallowing and very poor appetite. Also complains of abdominal distention pain. We will continue PPI and will consult GI for further recommendation. Pending IV antibiotics set up for peritonitis. 02/22: Patient states that her appetite significantly improved. Had a good BM this morning. Resting on room air. Waiting on IV antibiotics set up on discharge. Assessment and plan -- Acute hypoxic respiratory failure -resolved Likely due to volume overload from pleural effusion Patient noted hypoxic with O2 sat 77% at RA recorded supplemental O2 CXR showed moderate pleural effusion which is now improved on repeat imaging study she completed her COVID vaccine - so doubt COVID infection --Right-sided pleural effusion, improved with PD -- Acute chest pain, likely atypical Patient placed on telemetry. Follow serial cardiac enzymes. Patient placed on aspirin, sublingual nitroglycerin and IV morphine as needed for chest pain. Medical management per cardiology --NSTEMI type II Troponin has been elevated probably secondary to the end-stage renal disease however patient had placed on heparin drip prior to cardiology evaluation and recommendation. Medical management per cardiology, follow 2D echocardiogram Stop heparin drip now -- Abdominal pain, due to acute Peritonitis Etiology unclear. CT of the abdomen and pelvis has been negative. Will place on analgesic medications as needed. cont iv abx per ID Ordered for peritoneal fluid study, ID recommended IV antibiotic therapy on discharge --Leukocytosis with sepsis, POA Likely from underlying acute peritonitis Continue empiric antibiotics, follow clinically --Diabetes mellitus type 2 with frequent hypoglycemia Will hold long-acting insulin, monitor blood glucose QA [facility] and continue SSI Consistent carb diet -- End-stage renal disease on peritoneal dialysis Patient on peritoneal dialysis. Consult placed to nephrology for evaluation. -- Hypertension Continue routine home medications and monitor vital signs closely. --hypokalemia, replete -- DVT prophylaxis Patient currently on anticoagulation. -- Full code status Patient is a full code. Disposition: - TO HOME OR SELFCARE Final Discharge Diagnosis (Prints w/discharge instructions): --Acute hypoxic respiratory failure, resolved. --Right-sided pleural effusion, improved with PD. --Acute chest pain, atypical due to right-sided pleural effusion. --NSTEMI type II due to end-stage renal disease. --Acute peritonitis,POA. --Abdominal pain due to acute peritonitis. --Leukocytosis with sepsis due to peritonitis. --Diabetes mellitus type 2 with frequent hypoglycemia. --Scanlon renal disease on PD. --Hypertension. --Hypokalemia, repleted Time spent for discharge: 38 minutes Core Measure Documentation - Palliative Care Palliative Care/ Comfort Measures: Not Applicable - Core Measures Any of the following diagnoses?: none Exam - Physical Exam Narrative exam: GENERAL: well-developed -[place] female lying on bed appeared to be in no discomfort. HEENT: Normocephalic. Atraumatic. No conjunctival congestion or icterus. Patient has moist mucous membranes. NECK: Supple. Trachea midline. CHEST/LUNGS: Diminished breath sound auscultated bilaterally, HEART/CARDIOVASCULAR: Regular in rate and rhythm. S1 and S2 positive. ABDOMEN: Abdomen is soft. Patient has normal bowel sounds. SKIN: There is no rash. Warm and dry. NEURO: No focal motor deficit. Follows command. MUSCULOSKELETAL: No joint effusion or tenderness. EXTRIMITY: No edema, no cyanosis or clubbing. PSYCH: Cooperative. - Constitutional Vitals: Temp Pulse Resp BP Pulse Ox 98.5 F 79 18 145/74 98 02/23/21 11:41 02/23/21 11:41 02/23/21 12:54 02/23/21 11:41 02/23/21 12:54 Plan Activity: advance as tolerated Weight Bearing Status: Weight Bear as Tolerated Diet: renal Special Instructions: other (Continue peritoneal dialysis) Additional Instructions: continue PD antibiotics (vancomycin and either cefepime or ceftazidime) for 10 more days following discharge Follow up with: KATEY JOHNSON MD [Primary Care Provider] - 3-5 Days Prescriptions: hydrOXYzine HCL [Atarax] 25 mg PO Q6H PRN #20 tablet PRN Reason: Itching Sucralfate [Carafate] 1 gm PO ACHS #30 tablet Aspirin EC [Halfprin EC] 81 mg PO QDAY #30 tablet. polyethylene glycoL 3350 [Miralax 3350] 17 gm PO QDAY #20 powd.pack Pantoprazole [Protonix TAB] 40 mg PO BIDAC #60 tablet
--- NOTE | 2021-02-23 15:00 | Progress Note ---
Assessment and Plan Cultures: Blood cultures no growth today Peritoneal culture Negative Assessment: 70-year-old female with history of diabetes mellitus, hypertension, CHF, ESRD on peritoneal dialysis, admitted on 02/14/2021 secondary to epigastric abdominal pain for 3 days: #SIRS rule out sepsis: Remains with leukocytosis; source unclear, possible PD associated peritonitis vs colitis. #Abdominal pain: Not better. Suspect PD associated peritonitis. Peritoneal fluid Gram stain with multiple WBCs no growth so far. Peritoneal fluid cell count and differential not done. Repeat PD fluid analysis with 467 WBC. #Diarrhea: Resolved. #ESRD on PD Recommendations: -Pending repeat PD cultures. -Continue pulse IV vancomycin -Continue IV cefepime 1 g once a day renally adjusted -When abdominal pain improved would send with PD antibiotics (vancomycin and either cefepime or ceftazidime) for 10 more days. Appreciate nephrology's assistance. Will follow. Pa Barron MD [facility] ([facility]) O: [phone] F: [phone] Subjective Date of service: 02/23/21 Principal diagnosis: Abdominal pain Interval history: Afebrile, normal white count. Cultures are negative. No acute change. Objective - Exam Narrative Exam: General appearance: Alert in NAD pleasant Eyes: anicteric sclerae, moist conjunctivae; no lid-lad HENT: Normocephalic, Atraumatic; normal external ears, nares open, oropharynx clear Neck: supple, tracheal midline, no JVD Lungs: CTA CV: RRR no murmur Abdomen: Soft, diffuse tenderness, PD catheter exit site without erythema or drainage Extremities: no edema, no cyanosis Skin: No rash. Psych: not agitated Neuro: alert and oriented x 3. Moving all extremities - Constitutional Vitals: Vital Signs Temp Pulse Resp BP Pulse Ox 98.5 F 74 18 145/74 98 02/23/21 11:41 02/23/21 12:52 02/23/21 12:54 02/23/21 11:41 02/23/21 12:54 Temperature -Last 24 Hours Temperature 98.5 F Temperature 98.4 F Temperature 98.0 F Temperature 98.5 F Temperature 98.2 F - Labs CBC & Chem 7: 02/23/21 04:31 02/23/21 04:31 Labs: Abnormal lab results 02/22/21 02/23/21 02/23/21 Range/Units 11:23 04:31 04:31 RBC 2.51 L (3.65-5.03) M/mm3 Hgb 7.6 L (10.1-14.3) gm/dl Hct 23.7 L (30.3-42.9) % RDW 17.7 H (13.2-15.2) % Chloride 97.9 L (98-107) mmol/L Carbon Dioxide 31 H (22-30) mmol/L BUN 30 H (7-17) mg/dL Creatinine 8.9 H (0.6-1.2) mg/dL POC Glucose 107 H (70-105) mg/dL Calcium 7.5 L (8.4-10.2) mg/dL
[2021-02-23 17:16] VITALS: BP 148/67
== END 2021-02-23 18:12 | disposition home or self-care (01) | DRG 871 ==
LOC: ED 18:11 → 4A 22:26 → OBSVTOIN 02-15 12:28
PROVIDERS: ADMIT Internal Medicine Geriatric Medicine; ATTEND Internal Medicine
DX: A41.9 Sepsis, unspecified organism (principal); N18.6 End stage renal disease; I21.A1 Myocardial infarction type 2; K65.9 Peritonitis, unspecified; J96.01 Acute respiratory failure with hypoxia; I13.2 Hypertensive heart and chronic kidney disease with heart failure and with stage 5 chronic kidney disease, or end stage renal disease; I42.0 Dilated cardiomyopathy; J91.8 Pleural effusion in other conditions classified elsewhere; T82.7XXA Infection and inflammatory reaction due to other cardiac and vascular devices, implants and grafts, initial encounter; N25.81 Secondary hyperparathyroidism of renal origin; E83.39 Other disorders of phosphorus metabolism; I50.9 Heart failure, unspecified; E11.22 Type 2 diabetes mellitus with diabetic chronic kidney disease; M19.90 Unspecified osteoarthritis, unspecified site; M10.9 Gout, unspecified; D63.1 Anemia in chronic kidney disease; E87.6 Hypokalemia; E11.649 Type 2 diabetes mellitus with hypoglycemia without coma; Z88.8 Allergy status to other drugs, medicaments and biological substances; Z91.013 Allergy to seafood; Z79.4 Long term (current) use of insulin; Z79.899 Other long term (current) drug therapy; Z99.2 Dependence on renal dialysis; Z90.49 Acquired absence of other specified parts of digestive tract; Y84.1 Kidney dialysis as the cause of abnormal reaction of the patient, or of later complication, without mention of misadventure at the time of the procedure
CPT/HCPCS: 36415; 71045; 71046; 74019; 74176; 76604; 80048; 80053; 80061; 80202; 82140; 82330; 82805; 82962; 83690; 83735; 83880; 84132; 84484; 85007; 85014; 85018; 85025; 85027; 85049; 85520; 85610; 85730; 87040; 87116; 89051; 93005; 93306; G0378; C9113; J0692; J0696; J0885; J1644; J1815; J2270; J2405; J3370; J7050

== ENCOUNTER 2021-04-23 13:36 | Inpatient (IN) | payer MEDICARE, OTHER ==
[2021-04-23 14:26] LABS: Hematocrit 34.9 % (30.3-42.9); Hemoglobin 11.2 gm/dl (10.1-14.3); Mean Corpuscular HGB Conc 32 % (30-34); Mean Corpuscular Volume 97 fl (79-97); Platelet Count 279 K/mm3 (140-440); Red Blood Count 3.59 M/mm3 (3.65-5.03); Red Cell Distribution Width 19.5 % (13.2-15.2)
--- NOTE | 2021-04-23 14:29 | Emergency Department Report ---
Blank Doc - Documentation Documentation: 71-year-old female that presents with shortness of breath, abdominal pain, queta sea vomiting with blood seen in vomit. 1- This is a initial triage assessment/medical screening only. Full assessment and work-up will be completed once the patient is in proper hospital gown, ED bed and in a private room setting. This initial assessment/diagnostic orders/clinical plan/ treatment(s) is/are subject to change based on pt's health status, clinical progression and re-assessment by fellow clinical providers in the ED. Further treatment and workup at subsequent clinical providers discretion. Patient/guardians urged not to elope from ED as their condition may be serious if not clinically assessed and managed. 2-charge nurse notified of patient to be brought back KATIE 3-labs and EKG with imaging studies ordered
[2021-04-23 14:38] LABS: INR 0.96 (0.87-1.13)
[2021-04-23 14:52] LABS: Albumin 3.7 g/dL (3.9-5)
[2021-04-23 15:06] LABS: Total Cells Counted 100
[2021-04-23 15:10] LABS: RBC Morphology Normal
[2021-04-23 15:11] LABS: Platelet Estimate Consistent w Auto
--- NOTE | 2021-04-23 15:51 | XRay Report ---
Abdominal series with frontal chest 4 views INDICATION: Chest and abdominal pain IMPRESSION: Chest demonstrates mild bibasilar opacity in a linear distribution. Peritoneal dialysis c atheter noted within the pelvis. Several surgical clips project within the left upper abdomen. Nonobs tructive bowel gas pattern. Signer Name: Parrish Santos MD Signed: 04/23/2021 3:47 PM Workstation Name: [id number]
[2021-04-23] MEDS ORDERED: MORPHINE 2 MG/1 ML INJ IV ONE (16:43)
[2021-04-23] MEDS ORDERED: ONDANSETRON 4 MG/2 ML INJ IV ONE (16:43)
--- NOTE | 2021-04-23 16:48 | Emergency Department Report ---
ED N/V/D HPI - General Chief complaint: GI Bleed Stated complaint: STOMACH/VOMITING BLOOD/HARD TO BREATH Time Seen by Provider: 04/23/21 13:59 Source: patient Mode of arrival: Ambulatory Limitations: No Limitations - History of Present Illness Initial comments: 71-year-old female, history of hypertension, CHF, diabetes, ESRD on peritoneal dialysis, peritonitis, presents to ED with complaint of vomiting and diarrhea. Patient states her symptoms began last night. She believes symptoms are due to something that she ate. Patient states her niece made barbecue, baked beans, and coleslaw. Patient states after she finished eating she began having abd ominal pain, vomiting and diarrhea. Patient states she does not normally eat beans nor mayonnaise, and believes this is what has caused her symptoms. Patient reports abdominal pain located in the periumbilical region. She states the last couple episodes of emesis were streaked with blood and mucus. Patient denies any sick contacts. MD complaint: nausea, vomiting, diarrhea, abdominal pain -: Last night Description of Vomiting: food contents, blood-streaked Description of Diarrhea: water Associated Abdominal Pain: Yes Location: periumbillcal Radiation: none Severity: moderate Quality: cramping Consistency: constant Improves with: none Worsens with: none Context: possible food poisoning Associated Symptoms: fever/chills, nausea/vomiting - Related Data Home Medications Medication Instructions Recorded Confirmed Last Taken NIFEdipine XL [Procardia Xl] 60 mg PO HS 05/27/15 02/15/21 07/30/20 carvediloL [Coreg] 6.25 mg PO BID 05/27/15 02/15/21 07/30/20 cloNIDine [Catapres] 0.2 mg PO DAILY 09/14/16 02/15/21 07/30/20 Gentamicin 0.1% Top Oint(Nf) 1 applic TP TID 07/31/20 02/15/21 Unknown [Gentamicin 0.1% Top Oint (Nf)] Cinacalcet [Sensipar] 90 mg PO QDAY 02/15/21 02/15/21 Unknown Hydralazine HCl 50 mg PO TID 02/15/21 02/15/21 Unknown Previous Rx's Medication Instructions Recorded Last Taken Type Cholecalciferol Vit D3 [Vitamin D3 3,000 unit PO DAILY tablet 08/01/20 Unknown Rx 1,000 UNIT TAB] Aspirin EC [Halfprin EC] 81 mg PO QDAY #30 tablet. 02/23/21 Unknown Rx Lispro Insulin [HumaLOG] 0 unit SUB-Q ACHS units 02/23/21 Unknown Rx Pantoprazole [Protonix TAB] 40 mg PO BIDAC #60 tablet 02/23/21 Unknown Rx Sucralfate [Carafate] 1 gm PO ACHS #30 tablet 02/23/21 Unknown Rx hydrOXYzine HCL [Atarax] 25 mg PO Q6H PRN #20 tablet 02/23/21 Unknown Rx polyethylene glycoL 3350 [Miralax 17 gm PO QDAY #20 powd.pack 02/23/21 Unknown Rx 3350] Allergies Allergy/AdvReac Type Severity Reaction Status Date / Time digoxin Allergy Hives Verified 04/23/21 17:56 lisinopril Allergy Swelling Verified 04/23/21 17:57 nitroglycerin AdvReac Rash, Verified 04/23/21 17:57 HEADACHES shellfish derived AdvReac Swelling Verified 04/23/21 17:57 ED Review of Systems ROS: Stated complaint: STOMACH/VOMITING BLOOD/HARD TO BREATH Other details as noted in HPI Comment: All other systems reviewed and negative Constitutional: fever Gastrointestinal: abdominal pain, nausea, vomiting, diarrhea. denies: melena, hematochezia ED Past Medical Hx - Past Medical History Previous Medical History?: Yes Hx Hypertension: Yes (FOR 10+ YRS, DR. JOHNSON- PCP) Hx Congestive Heart Failure: Yes (IN 2006) Hx Diabetes: Yes Hx Liver Disease: No Hx Renal Disease: Yes (CKD STAGE 5, DR. GOLDEN- [facility] FISHER) Hx Sickle Cell Disease: No Hx Arthritis: Yes (Gout) Hx Seizures: No Hx Asthma: Yes ( A CHILD) Hx HIV: No Additional medical history: Dilated cardiomyopathy / PERITONEAL DYALISIS - Surgical History Past Surgical History?: Yes Hx Pacemaker: No Hx Appendectomy: Yes (IN 1984) Additional Surgical History: tonsil removed - Social History Smoking Status: Never Smoker Substance Use Type: None - Medications Home Medications: Home Medications Medication Instructions Recorded Confirmed Last Taken Type NIFEdipine XL [Procardia Xl] 60 mg PO HS 05/27/15 02/15/21 07/30/20 History carvediloL [Coreg] 6.25 mg PO BID 05/27/15 02/15/21/24/20 History cloNIDine [Catapres] 0.2 mg PO DAILY 09/14/16 02/15/21 07/30/20 History Gentamicin 0.1% Top Oint(Nf) 1 applic TP TID 07/31/20 02/15/21 Unknown History [Gentamicin 0.1% Top Oint (Nf)] Cholecalciferol Vit D3 [Vitamin D3 3,000 unit PO DAILY tablet 08/01/20 02/15/21 Unknown Rx 1,000 UNIT TAB] Cinacalcet [Sensipar] 90 mg PO QDAY 02/15/21 02/15/21 Unknown History Hydralazine HCl 50 mg PO TID 02/15/21 02/15/21 Unknown History Aspirin EC [Halfprin EC] 81 mg PO QDAY #30 tablet.dr 02/23/21 Unknown Rx Lispro Insulin [HumaLOG] 0 unit SUB-Q ACHS units 02/23/21 Unknown Rx Pantoprazole [Protonix TAB] 40 mg PO BIDAC #60 tablet 02/23/21 Unknown Rx Sucralfate [Carafate] 1 gm PO ACHS #30 tablet 02/23/21 Unknown Rx hydrOXYzine HCL [Atarax] 25 mg PO Q6H PRN #20 tablet 02/23/21 Unknown Rx polyethylene glycoL 3350 [Miralax 17 gm PO QDAY #20 powd.pack 02/23/21 Unknown Rx 3350] ED Physical Exam - General Limitations: No Limitations General appearance: alert, in no apparent distress - Head Head exam: Present: atraumatic, normocephalic - Eye Eye exam: Present: normal appearance, EOMI - ENT ENT exam: Present: mucous membranes moist - Neck Neck exam: Present: normal inspection - Respiratory Respiratory exam: Present: normal lung sounds bilaterally. Absent: respiratory distress - Cardiovascular Cardiovascular Exam: Present: regular rate, normal rhythm - GI/Abdominal GI/Abdominal exam: Present: soft, tenderness (tenderness just to the right of the umbilicus). Absent: distended - Extremities Exam Extremities exam: Present: normal inspection - Neurological Exam Neurological exam: Present: alert, oriented X3 - Psychiatric Psychiatric exam: Present: normal affect, normal mood - Skin Skin exam: Present: warm, dry, intact, normal color ED Course Vital Signs 04/23/21 04/23/21 04/23/21 14:02 16:46 17:00 Temperature 99.6 F Pulse Rate 113 H 98 H 92 H Respiratory 20 21 25 H Rate Blood Pressure 220/135 O2 Sat by Pulse 100 100 97 Oximetry 04/23/21 04/23/21 04/23/21 17:16 17:36 17:38 Temperature 98.1 F Pulse Rate 88 95 H Respiratory 25 H 16 Rate Blood Pressure 201/98 O2 Sat by Pulse 98 Oximetry 04/23/21 04/23/21 04/23/21 17:46 18:00 18:16 Temperature Pulse Rate 85 81 85 Respiratory 21 19 19 Rate Blood Pressure 201/98 201/98 201/98 O2 Sat by Pulse 100 99 98 Oximetry 04/23/21 04/23/21 04/23/21 18:22 18:30 18:46 Temperature Pulse Rate 96 H 101 H 110 H Respiratory 21 27 H Rate Blood Pressure 202/83 192/99 192/99 O2 Sat by Pulse 98 Oximetry 04/23/21 04/23/21 04/23/21 19:00 19:16 19:30 Temperature Pulse Rate 109 H 105 H 110 H Respiratory 25 H 23 23 Rate Blood Pressure 186/96 186/96 179/78 O2 Sat by Pulse 99 98 95 Oximetry 04/23/21 04/23/21 04/23/21 19:46 20:00 20:16 Temperature Pulse Rate 106 H 102 H 100 H Respiratory 22 23 22 Rate Blood Pressure 179/78 158/63 158/63 O2 Sat by Pulse 99 100 Oximetry 04/23/21 04/23/21 04/23/21 20:30 20:46 21:00 Temperature Pulse Rate 105 H 106 H 110 H Respiratory 24 23 23 Rate Blood Pressure 153/63 153/63 184/80 O2 Sat by Pulse 100 99 98 Oximetry 04/23/21 04/23/21 21:16 21:30 Temperature Pulse Rate 108 H 113 H Respiratory 23 23 Rate Blood Pressure 153/63 176/71 O2 Sat by Pulse 98 98 Oximetry - Central Line Placement Right Femoral Consent Obtained: written consent Time Out Performed: Yes Patient Placed on Monitor/Pulse Ox: Yes Prep: mask, gown, gloves Central Line Prep: Chlorhexidine scrub Local Anesthesia Used: Lidocaine 1% Amount of Anesthesia Used (mls): 3 Ultrasound Used for Placement: Yes Central Line Lumen Inserted: triple Reason for Insertion: Emergency Venous Access Bloods Obtained for Lab: No Central Line Position: good blood return, all ports aspirated, flus, sutured in place with nyl Dressing Applied: Tegaderm Patient Tolerated Procedure: well ED Medical Decision Making - Lab Data Result diagrams: 04/23/21 14:09 04/23/21 14:09 - Radiology Data Radiology results: report reviewed, image reviewed - Medical Decision Making 71-year-old female, history of ESRD with peritoneal dialysis presents to ED with abdominal pain, vomiting, diarrhea since last night. Patient believes symptoms secondary to something that she ate. Patient initially tachycardic, has WBCs of 21. Patient has some periumbilical tenderness on exam. CT abdomen pelvis negative for any acute findings. During previous admission 2 months ago, patient was diagnosed with peritonitis. Peritoneal fluid cell count and culture ordered. Patient covered with antibiotics. Central line placed secondary to IVs infiltrating. Patient is a hard stick. Patient will be admitted by hospitalist, Dr. Arevalo, for further management. - Differential Diagnosis Gastroenteritis, peritonitis Critical care attestation.: If time is entered above; I have spent that time in minutes in the direct care of this critically ill patient, excluding procedure time. ED Disposition Clinical Impression: Abdominal pain, Vomiting and diarrhea, Uncontrolled hypertension Disposition: OP ADMIT IP TO THIS HOSP Is pt being admited?: Yes Condition: Stable Time of Disposition: 18:57
[2021-04-23] MEDS ORDERED: LOPERAMIDE 2 MG CAP PO ONE (16:51)
[2021-04-23] MEDS ORDERED: CEFEPIME/NS 1 GM/100 ML 1 GM/100 ML BAG IV ONE (17:02)
[2021-04-23] MEDS ORDERED: hydrALAZINE 20 MG/1 ML INJ IV ONE (18:10)
--- NOTE | 2021-04-23 18:11 | Cat Scan Report ---
CT abdomen pelvis wo con INDICATION / CLINICAL INFORMATION: abd pain, vomiting, diarrhea. TECHNIQUE: Routine CT abdomen pelvis without contrast All CT scans at this location are performed using CT dose reduction for ALARA by means of automated exposure control. COMPARISON: 02/13/2021. FINDINGS: Abdomen and pelvis: The lower lungs are grossly clear aside from mild bibasilar atelectasis. Extensiv e coronary artery calcification present. Large volume ascites is developed from the prior exam. It is unclear if this related to peritoneal di alysis. The liver, gallbladder, spleen, pancreas adrenal glands are unchanged. Both kidneys appear at rophic. There are multiple complex cysts arising within both kidneys. These cysts appear unchanged. S evere atherosclerotic calcification throughout the abdominal aorta. The uterus is atrophic. Urinary bladder is partially fluid distended. Review of bone windows demonstr ates severe degenerative and erosive changes involving the SI joints likely secondary to renal osteod ystrophy/hyperparathyroidism IMPRESSION: Significant increase in intra-abdominal ascites since 02/13/2021 which may be at least partially relat ed to peritoneal dialysis. There is no convincing evidence of obstructive bowel disease within the li mits of the noncontrast technique. Intra-abdominal organs appear similar to the prior exam. Signer Name: Parrish Santos MD Signed: 04/23/2021 6:06 PM Workstation Name: [id number]
[2021-04-23 21:47] LABS: Bacteria,Urine 4+ /HPF (Negative); Bilirubin,Urine NEG (Negative); Blood,Urine NEG (Negative); Color,Urine Yellow (Yellow); Mucus,Urine FEW /HPF; Urobilinogen,Urine < 2.0 mg/dL (<2.0)
[2021-04-23] MEDS ORDERED: ACETAMINOPHEN 325 MG TAB PO PRN (21:58)
[2021-04-23] MEDS ORDERED: ONDANSETRON 4 MG/2 ML INJ IV PRN (21:58)
--- NOTE | 2021-04-23 21:58 | History and Physical Report ---
History of Present Illness Date of examination: 04/23/21 Date of admission: 04/23/21 18:57 Chief complaint: Diffuse abdominal pain for 3 days History of present illness: 71-year-old -[place] female with history of CHF, insulin-dependent diabetes, end-stage renal disease on hemodialysis comes in for diffuse abdominal pain for the last 3 days. Patient is on hemodialysis for end-stage renal disease. Patient also has some nausea and vomiting after eating a barbecue since yesterday. Vomiting has gotten better. Now her main problem is abdominal pain which is diffuse. Patient is on peritoneal dialysis. Abdominal pain is about 5 on a scale of 1-10. No acute precipitating or relieving factors. - Past Medical History --Hypertension: Yes (FOR 10+ YRS, DR. 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) --Arthritis: Yes (Gout) --Asthma: Yes ( A CHILD) --Additional medical history: Dilated cardiomyopathy / PERITONEAL DYALISIS - Surgical History --Appendectomy: Yes (IN 1984) --Additional Surgical History: tonsil removed - Social History Smoking Status: Never Smoker Substance Use Type: None - Medications Home Medications: Home Medications Medication Instructions Recorded Confirmed Last Taken Type NIFEdipine XL [Procardia Xl] 60 mg PO HS 05/27/15 02/15/21 07/30/20 History carvediloL [Coreg] 6.25 mg PO BID 05/27/15 02/15/21 07/30/20 History cloNIDine [Catapres] 0.2 mg PO DAILY 09/14/16 02/15/21 07/30/20 History Gentamicin 0.1% Top Oint(Nf) 1 applic TP TID 07/31/20 02/15/21 Unknown History [Gentamicin 0.1% Top Oint (Nf)] Cholecalciferol Vit D3 [Vitamin D3 3,000 unit PO DAILY tablet 08/01/20 02/15/21 Unknown Rx 1,000 UNIT TAB] Cinacalcet [Sensipar] 90 mg PO QDAY 02/15/21 02/15/21 Unknown History Hydralazine HCl 50 mg PO TID 02/15/21 02/15/21 Unknown History Aspirin EC [Halfprin EC] 81 mg PO QDAY #30 tablet.dr 02/23/21 Unknown Rx Lispro Insulin [HumaLOG] 0 unit SUB-Q ACHS units 02/23/21 Unknown Rx Pantoprazole [Protonix TAB] 40 mg PO BIDAC #60 tablet 02/23/21 Unknown Rx Sucralfate [Carafate] 1 gm PO ACHS #30 tablet 02/23/21 Unknown Rx hydrOXYzine HCL [Atarax] 25 mg PO Q6H PRN #20 tablet 02/23/21 Unknown Rx polyethylene glycoL 3350 [Miralax 17 gm PO QDAY #20 powd.pack 02/23/21 Unknown Rx 3350] Review of Systems ROS: Stated complaint: STOMACH/VOMITING BLOOD/HARD TO BREATH Constitutional nausea vomiting and diarrhea HEENT no sore throat no post nasal drip no diplopia Neck no neck stiffness no lymph gland enlargement Chest and lungs no shortness of breath cough or wheezing CVS no chest pain no diaphoresis no palpitations GI diffuse abdominal pain especially periumbilical Genitourinary system no dysuria no flank pain Musculoskeletal system no muscle pains no joint pains [employer] no syncope no seizures Skin no rash no itching Psychiatric no depression no homicidal or suicidal tendencies Hematologic no lymphedema or bruising Endocrine no polydipsia no polyuria no cold intolerance no heat intolerance Medications and Allergies Allergies Allergy/AdvReac Type Severity Reaction Status Date / Time digoxin Allergy Hives Verified 04/23/21 17:56 lisinopril Allergy Swelling Verified 04/23/21 17:57 nitroglycerin AdvReac Rash, Verified 04/23/21 17:57 HEADACHES shellfish derived AdvReac Swelling Verified 04/23/21 17:57 Home Medications Medication Instructions Recorded Confirmed Last Taken Type NIFEdipine XL [Procardia Xl] 60 mg PO HS 05/27/15 02/15/21 07/30/20 History carvediloL [Coreg] 6.25 mg PO BID 05/27/15 02/15/21 07/30/20 History cloNIDine [Catapres] 0.2 mg PO DAILY 09/14/16 02/15/21 07/30/20 History Gentamicin 0.1% Top Oint(Nf) 1 applic TP TID 07/31/20 02/15/21 Unknown History [Gentamicin 0.1% Top Oint (Nf)] Cholecalciferol Vit D3 [Vitamin D3 3,000 unit PO DAILY tablet 08/01/20 02/15/21 Unknown Rx 1,000 UNIT TAB] Cinacalcet [Sensipar] 90 mg PO QDAY 02/15/21 02/15/21 Unknown History Hydralazine HCl 50 mg PO TID 02/15/21 02/15/21 Unknown History Aspirin EC [Halfprin EC] 81 mg PO QDAY #30 tablet. 02/23/21 Unknown Rx Lispro Insulin [HumaLOG] 0 unit SUB-Q ACHS units 02/23/21 Unknown Rx Pantoprazole [Protonix TAB] 40 mg PO BIDAC #60 tablet 02/23/21 Unknown Rx Sucralfate [Carafate] 1 gm PO ACHS #30 tablet 02/23/21 Unknown Rx hydrOXYzine HCL [Atarax] 25 mg PO Q6H PRN #20 tablet 02/23/21 Unknown Rx polyethylene glycoL 3350 [Miralax 17 gm PO QDAY #20 powd.pack 02/23/21 Unknown Rx 3350] Exam - Constitutional Vitals: Temp Pulse Resp BP Pulse Ox 98.1 F 113 H 23 176/71 98 04/23/21 17:38 04/23/21 21:30 04/23/21 21:30 04/23/21 21:30 04/23/21 21:30 General appearance: Present: no acute distress, well-nourished - EENT Eyes: Present: PERRL ENT: hearing intact, clear oral mucosa - Neck Neck: Present: supple, normal ROM - Respiratory Respiratory effort: normal Respiratory: bilateral: CTA - Cardiovascular Heart rate: 78 Rhythm: regular Heart Sounds: Present: S1 & S2. Absent: rub, click - Extremities Extremities: pulses symmetrical, No edema Peripheral Pulses: within normal limits - Abdominal General gastrointestinal: Present: soft, non-tender, non-distended, normal bowel sounds Female genitourinary: Present: normal - Rectal Rectal Exam: deferred - Integumentary Integumentary: Present: clear, warm, dry - Musculoskeletal Musculoskeletal: gait normal, strength equal bilaterally - Psychiatric Psychiatric: appropriate mood/affect, intact judgment & insight - Neurologic Neurologic: CNII-XII intact, moves all extremities - Allied Health Allied health notes reviewed: nursing, case management HEART Score - HEART Score Troponin: Troponin T 0.092 ng/mL (0.00-0.029) H 04/23/21 14:09 Results - Labs CBC & Chem 7: 04/24/21 03:57 04/24/21 03:57 Labs: Laboratory Last Values WBC 21.0 K/mm3 (4.5-11.0) H 04/23/21 14:09 RBC 3.59 M/mm3 (3.65-5.03) L 04/23/21 14:09 Hgb 11.2 gm/dl (10.1-14.3) 04/23/21 14:09 Hct 34.9 % (30.3-42.9) 04/23/21 14:09 MCV 97 fl (79-97) 04/23/21 14:09 MCH 31 pg (28-32) 04/23/21 14:09 MCHC 32 % (30-34) 04/23/21 14:09 RDW 19.5 % (13.2-15.2) H 04/23/21 14:09 Plt Count 279 K/mm3 (140-440) 04/23/21 14:09 Add Manual Diff Complete 04/23/21 14:09 Total Counted 100 04/23/21 14:09 Seg Neutrophils % Casting Sorter 04/23/21 14:09 Seg Neuts % (Manual) 92.0 % (40.0-70.0) H 04/23/21 14:09 Lymphocytes % (Manual) 6.0 % (13.4-35.0) L 04/23/21 14:09 Monocytes % (Manual) 2.0 % (0.0-7.3) 04/23/21 14:09 Nucleated RBC % Not Reportable 04/23/21 14:09 Seg Neutrophils # Man 19.3 K/mm3 (1.8-7.7) H 04/23/21 14:09 Band Neutrophils # 0.0 K/mm3 04/23/21 14:09 Lymphocytes # (Manual) 1.3 K/mm3 (1.2-5.4) 04/23/21 14:09 Abs React Lymphs (Man) 0.0 K/mm3 04/23/21 14:09 Monocytes # (Manual) 0.4 K/mm3 (0.0-0.8) 04/23/21 14:09 Eosinophils # (Manual) 0.0 K/mm3 (0.0-0.4) 04/23/21 14:09 Basophils # (Manual) 0.0 K/mm3 (0.0-0.1) 04/23/21 14:09 Metamyelocytes # 0.0 K/mm3 04/23/21 14:09 Myelocytes # 0.0 K/mm3 04/23/21 14:09 Promyelocytes # 0.0 K/mm3 04/23/21 14:09 Blast Cells # 0.0 K/mm3 04/23/21 14:09 WBC Morphology Not Reportable 04/23/21 14:09 Hypersegmented Neuts Not Reportable 04/23/21 14:09 Hyposegmented Neuts Not Reportable 04/23/21 14:09 Hypogranular Neuts Not Reportable 04/23/21 14:09 Smudge Cells Not Reportable 04/23/21 14:09 Toxic Granulation Not Reportable 04/23/21 14:09 Toxic Vacuolation Not Reportable 04/23/21 14:09 Dohle Bodies Not Reportable 04/23/21 14:09 Pelger-Huet Anomaly Not Reportable 04/23/21 14:09 Myrtle Rods Not Reportable 04/23/21 14:09 Platelet Estimate Consistent w auto 04/23/21 14:09 Clumped Platelets Not Reportable 04/23/21 14:09 Plt Clumps, EDTA Not Reportable 04/23/21 14:09 Large Platelets Not Reportable 04/23/21 14:09 Giant Platelets Not Reportable 04/23/21 14:09 Platelet Satelliting Not Reportable 04/23/21 14:09 Plt Morphology Comment Not Reportable 04/23/21 14:09 RBC Morphology Normal 04/23/21 14:09 Dimorphic RBCs Not Reportable 04/23/21 14:09 Polychromasia Not Reportable 04/23/21 14:09 Hypochromasia Not Reportable 04/23/21 14:09 Poikilocytosis Not Reportable 04/23/21 14:09 Anisocytosis Not Reportable 04/23/21 14:09 Microcytosis Not Reportable 04/23/21 14:09 Macrocytosis Not Reportable 04/23/21 14:09 Spherocytes Not Reportable 04/23/21 14:09 Pappenheimer Bodies Not Reportable 04/23/21 14:09 Sickle Cells Not Reportable 04/23/21 14:09 Target Cells Not Reportable 04/23/21 14:09 Tear Drop Cells Not Reportable 04/23/21 14:09 Ovalocytes Not Reportable 04/23/21 14:09 Helmet Cells Not Reportable 04/23/21 14:09 Blanca-Paulding Bodies Not Reportable 04/23/21 14:09 Fontana Rings Not Reportable 04/23/21 14:09 Ashburn Cells Not Reportable 04/23/21 14:09 Bite Cells Not Reportable 04/23/21 14:09 Crenated Cell Not Reportable 04/23/21 14:09 Elliptocytes Not Reportable 04/23/21 14:09 Acanthocytes (Spur) Not Reportable 04/23/21 14:09 Rouleaux Not Reportable 04/23/21 14:09 Hemoglobin C Crystals Not Reportable 04/23/21 14:09 Schistocytes Not Reportable 04/23/21 14:09 Malaria parasites Not Reportable 04/23/21 14:09 Jose Bodies Not Reportable 04/23/21 14:09 Hem Pathologist Commnt No 04/23/21 14:09 PT 13.3 Sec. (12.2-14.9) 04/23/21 14:09 INR 0.96 (0.87-1.13) 04/23/21 14:09 APTT 29.0 Sec. (24.2-36.6) 04/23/21 14:09 Sodium 141 mmol/L (137-145) 04/23/21 14:09 Potassium 4.7 mmol/L (3.6-5.0) 04/23/21 14:09 Chloride 95.0 mmol/L (98-107) L 04/23/21 14:09 Carbon Dioxide 32 mmol/L (22-30) H 04/23/21 14:09 Anion Gap 19 mmol/L 04/23/21 14:09 BUN 51 mg/dL (7-17) H 04/23/21 14:09 Creatinine 10.3 mg/dL (0.6-1.2) H 04/23/21 14:09 Estimated GFR 4 ml/min 04/23/21 14:09 BUN/Creatinine Ratio 5 % 04/23/21 14:09 Glucose 106 mg/dL (65-100) H 04/23/21 14:09 Lactic Acid 2.00 mmol/L (0.7-2.0) 04/23/21 17:11 Calcium 9.0 mg/dL (8.4-10.2) 04/23/21 14:09 Magnesium 1.60 mg/dL (1.7-2.3) L 04/23/21 14:09 Total Bilirubin 0.50 mg/dL (0.1-1.2) 04/23/21 14:09 AST 22 units/L (5-40) 04/23/21 14:09 ALT 16 units/L (7-56) 04/23/21 14:09 Alkaline Phosphatase 145 units/L (35-129) H 04/23/21 14:09 Troponin T 0.092 ng/mL (0.00-0.029) H 04/23/21 14:09 Total Protein 7.2 g/dL (6.3-8.2) 04/23/21 14:09 Albumin 3.7 g/dL (3.9-5) L 04/23/21 14:09 Albumin/Globulin Ratio 1.1 % 04/23/21 14:09 Lipase 9 units/L (13-60) L 04/23/21 14:09 Urine Bilirubin Neg (Negative) 04/23/21 21:14 Urine RBC (Auto) 3.0 /HPF (0.0-6.0) 04/23/21 21:14 U Epithel Cells (Auto) 41.0 /HPF (0-13.0) H 04/23/21 21:14 Short CBC 04/23/21 04/24/21 Range/Units 14:09 03:57 WBC 21.0 H 17.7 H (4.5-11.0) K/mm3 Hgb 11.2 9.1 L (10.1-14.3) gm/dl Hct 34.9 29.0 L (30.3-42.9) % Plt Count 279 217 (140-440) K/mm3 BMP 04/23/21 04/24/21 14:09 03:57 Sodium 141 143 Potassium 4.7 5.0 Chloride 95.0 L 99.1 Carbon Dioxide 32 H 30 BUN 51 H 57 H Creatinine 10.3 H 11.2 H Glucose 106 H 70 Calcium 9.0 8.2 L Cardiac Enzymes 04/23/21 Range/Units 14:09 Troponin T 0.092 H (0.00-0.029) ng/mL Liver Function 04/23/21 04/24/21 Range/Units 14:09 03:57 Total Bilirubin 0.50 0.50 (0.1-1.2) mg/dL AST 22 13 (5-40) units/L ALT 16 10 (7-56) units/L Alkaline Phosphatase 145 H 113 (35-129) units/L Albumin 3.7 L 2.9 L (3.9-5) g/dL Urine 04/23/21 Range/Units 21:14 Urine Color Yellow (Yellow) Urine pH 8.0 H (5.0-7.0) Ur Specific [place] 1.012 (1.003-1.030) Urine Protein 100 mg/dl (Negative) mg/dL Urine Glucose (UA) Neg (Negative) mg/dL - Imaging and Cardiology EKG: report reviewed Chest x-ray: report reviewed Abdominal x-ray: report reviewed Imaging and Cardiology: Chest/abdominal x-ray Chest x-ray demonstrates mild bibasilar opacity in a linear distribution Peritoneal dialysis catheter noted within the pelvis Several surgical clips project within the left upper abdomen Nonobstructive bowel gas pattern Abdominal CAT scan Significant increase in intra-abdominal ascites since 02/13/2021 which may be at least partially related to peritoneal dialysis. There is no convincing evidence of obstructive bowel disease within the lining of the noncontrast technique. Limits of noncontrast technique. Intra-abdominal organs appear similar to prior exam. Assessment and Plan Advance Directives: Yes (Full code) VTE prophylaxis?: Chemical Plan of care discussed with patient/family: Yes - Patient Problems (1) Sepsis Current Visit: Yes Status: Acute Qualifiers: Sepsis type: sepsis due to unspecified organism Sepsis acute organ dysfunction status: without acute organ dysfunction Qualified Code(s): A41.9 - Sepsis, unspecified organism Plan to address problem: Patient has a high white count of 21,000 Diffuse abdominal pain Patient is a peritoneal dialysis patient Possibly secondary to peritonitis (2) Peritonitis Current Visit: Yes Status: Acute Plan to address problem: Patient has peritoneal dialysis catheter Patient gets regular peritoneal dialysis Diffuse abdominal pain and tenderness present. High white count. Consistent with sepsis and peritonitis. Patient initiated on IV cefepime and vancomycin ID consult also requested (3) End stage renal disease Current Visit: Yes Status: Chronic Plan to address problem: Nephrology consult requested Patient may need hemodialysis for now Patient is a peritoneal dialysis candidate (4) Hypertension Current Visit: Yes Status: Chronic Qualifiers: Hypertension type: primary hypertension Qualified Code(s): I10 - Essential (primary) hypertension Plan to address problem: Continue antihypertensives (5) IDDM (insulin dependent diabetes mellitus) Current Visit: Yes Status: Chronic Plan to address problem: Check hemoglobin A1c and coverage for now (6) Elevated troponin Current Visit: Yes Status: Chronic Plan to address problem: Secondary to troponin leak (7) DVT prophylaxis Current Visit: Yes Status: Acute Plan to address problem: On heparin and GI prophylaxis
[2021-04-23] MEDS ORDERED: HYDROmorphone 1 MG/1 ML INJ IV PRN (22:04)
[2021-04-23] MEDS ORDERED: oxyCODONE /ACETAMINOPHEN 5-325MG TAB PO PRN (22:04)
[2021-04-23] MEDS: HEPARIN 5,000 UNIT/1 ML VIAL SUB-Q SCH (22:40)
[2021-04-23 22:54] LABS: Total Cells Counted 100 /mm3
[2021-04-23 22:59] LABS: Monocytes Body Fluid 0 %
[2021-04-23] MEDS ORDERED: CEFEPIME/NS 1 GM/100 ML 1 GM/100 ML BAG IV SCH (23:00)
[2021-04-23] MEDS ORDERED: VANCOMYCIN PHARMACY TO DOSE IV SCH (23:00)
[2021-04-23] MEDS ORDERED: VANCOMYCIN 1,250 MG in SODIUM CHLORIDE 0.9% 250ML 250 ML IV ONE (23:00)
[2021-04-24] MEDS: FAMOTIDINE 20 MG/2 ML INJ IV SCH ×3 (01:00→21:56)
[2021-04-24 04:25] LABS: Basophils % (Auto) 0.2 % (0.0-1.8); Eosinophils % (Auto) 0.3 % (0.0-4.3); Hemoglobin 9.1 gm/dl (10.1-14.3); Lymphocytes # (Auto) 0.6 K/mm3 (1.2-5.4); Lymphocytes % (Auto) 3.6 % (13.4-35.0); Mean Corpuscular HGB Conc 32 % (30-34); Mean Corpuscular Volume 98 fl (79-97); Monocytes # (Auto) 1.2 K/mm3 (0.0-0.8); Monocytes % (Auto) 6.6 % (0.0-7.3); Platelet Count 217 K/mm3 (140-440); Red Blood Count 2.94 M/mm3 (3.65-5.03); Red Cell Distribution Width 19.6 % (13.2-15.2)
[2021-04-24 05:04] LABS: Albumin 2.9 g/dL (3.9-5); Calcium 8.2 mg/dL (8.4-10.2)
[2021-04-24] MEDS: HEPARIN 5,000 UNIT/1 ML VIAL SUB-Q SCH ×2 (09:16→21:56)
[2021-04-24] MEDS: [UNRECOGNIZED DRUG - OTHER] IP SCH ×2 (12:54→17:37)
--- NOTE | 2021-04-24 13:54 | Consultation ---
History of Present Illness - Reason for Consult Consult date: 04/24/21 Sepsis, peritonitis Requesting physician: SHAE MOORE - History of Present Illness 71-year-old female with history of ESRD on peritoneal dialysis, diabetes mellitus, CHF, hypertension, admitted on 04/24/2021 secondary to 3-day history of acute abdominal pain, diffuse, 5 out of 10 in intensity. Patient also developed some nausea vomiting and diarrhea, she ate barbecue, ice cream and baked beans the day before admission. Her PD catheter was placed 2 years and a half ago. She denies any changes in the color of the peritoneal fluid. She denies any previous PD peritonitis. On arrival, temperature 99.6, HR 113, RR 20, BP 120/135. Temperature up to 100.2. Initial WBC 21,000. Peritoneal fluid cell count WBC 3982, segs 99%. Blood culture 04/24/2021 no growth today. PD culture 04/23/2021 with many polymorphonuclears and no organisms. CT of the abdomen shows increased ascites. Review of Systems: positive in bold print General: fever, chills, malaise Cutaneous: rash, pruritus Head: headaches or injury Eyes: changes in vision, eye pain, double vision Ears: ear pain, ear discharge, ringing or hearing loss Nose: nose bleeding, stuffiness Mouth & throat: bleeding gums, horseness, no dental problems, or swollen glands Neck: no pain, node enlargement/lumps, tyroid enlargement or tenderness Respiratory: SOB, cough, RODRIGUEZ, wheezing, sputum, hemoptysis, pleuritic chest pain Cardiovascular: chest pain, leg edema, cyanosis, RODRIGUEZ, orthopnea Musculoskeletal: edema, deformities, pain Gastrointestinal: nausea, vomiting, diarrhea, constipation, melena, bright red blood in stools, fecal incontinence, jaundice Genitourinary/Reproductive: frequent urination, dysuria, hematuria, incontinence Neurogical: seizures, headaches, weakness, paresthesias, loss of speech or vision; memory loss, vertigo, tremors, numbness Psychiatric: stable mood; excessive anxiety, sadness or moodiness Medications and Allergies Allergies Allergy/AdvReac Type Severity Reaction Status Date / Time digoxin Allergy Hives Verified 04/23/21 17:56 lisinopril Allergy Swelling Verified 04/23/21 17:57 nitroglycerin AdvReac Rash, Verified 04/23/21 17:57 HEADACHES shellfish derived AdvReac Swelling Verified 04/23/21 17:57 Home Medications Medication Instructions Recorded Confirmed Last Taken Type NIFEdipine XL [Procardia Xl] 60 mg PO HS 05/27/15 02/15/21 07/30/20 History carvediloL [Coreg] 6.25 mg PO BID 05/27/15 02/15/21 07/30/20 History cloNIDine [Catapres] 0.2 mg PO DAILY 09/14/16 02/15/21 07/30/20 History Gentamicin 0.1% Top Oint(Nf) 1 applic TP TID 07/31/20 02/15/21 Unknown History [Gentamicin 0.1% Top Oint (Nf)] Cholecalciferol Vit D3 [Vitamin D3 3,000 unit PO DAILY tablet 08/01/20 02/15/21 Unknown Rx 1,000 UNIT TAB] Cinacalcet [Sensipar] 90 mg PO QDAY 02/15/21 02/15/21 Unknown History Hydralazine HCl 50 mg PO TID 02/15/21 02/15/21 Unknown History Aspirin EC [Halfprin EC] 81 mg PO QDAY #30 tablet. 02/23/21 Unknown Rx Lispro Insulin [HumaLOG] 0 unit SUB-Q ACHS units 02/23/21 Unknown Rx Pantoprazole [Protonix TAB] 40 mg PO BIDAC #60 tablet 02/23/21 Unknown Rx Sucralfate [Carafate] 1 gm PO ACHS #30 tablet 02/23/21 Unknown Rx hydrOXYzine HCL [Atarax] 25 mg PO Q6H PRN #20 tablet 02/23/21 Unknown Rx polyethylene glycoL 3350 [Miralax 17 gm PO QDAY #20 powd.pack 02/23/21 Unknown Rx 3350] Active Meds: Active Medications Acetaminophen (Acetaminophen 325 Mg Tab) 650 mg PO Q4H PRN PRN Reason: Pain MILD(1-3)/Fever >100.5/POOLE Last Admin: 04/24/21 00:51 Dose: 650 mg Documented by: Famotidine (Famotidine 20 Mg/2 Ml Inj) 10 mg IV BID [place] Last Admin: 04/24/21 09:16 Dose: 10 mg Documented by: Heparin Sodium (Porcine) (Heparin 5,000 Unit/1 Ml Vial) 5,000 unit SUB-Q Q12HR [facility] Last Admin: 04/24/21 09:16 Dose: 5,000 unit Documented by: Hydromorphone HCl (Hydromorphone 1 Mg/1 Ml Inj) 0.5 mg IV Q3H PRN PRN Reason: Pain , Severe (7-10) Cefepime HCl (Cefepime/Ns 1 Gm/100 Ml) 1 gm in 100 mls @ 200 mls/hr IV Q24H [facility]; Protocol Ondansetron HCl (Ondansetron 4 Mg/2 Ml Inj) 4 mg IV Q8H PRN PRN Reason: Nausea And Vomiting Oxycodone/Acetaminophen (Oxycodone /Acetaminophen 5-325mg Tab) 1 tab PO Q6H PRN PRN Reason: Pain, Moderate (4-6) Last Admin: 04/24/21 01:22 Dose: 1 tab Documented by: Peritoneal Dialysis Solution (Dialysate Pd2 2.5% Soln 2000 Ml) 2,000 ml IP Q6HR [facility] Last Admin: 04/24/21 12:54 Dose: 2,000 ml Documented by: Sodium Chloride (Sodium Chloride 0.9% 10 Ml Flush Syringe) 10 ml IV BID [facility] Last Admin: 04/24/21 09:16 Dose: 10 ml Documented by: Sodium Chloride (Sodium Chloride 0.9% 10 Ml Flush Syringe) 10 ml IV PRN PRN PRN Reason: LINE FLUSH Physical Examination - Physical Exam Narrative exam: General appearance: Alert in NAD pleasant Eyes: anicteric sclerae, moist conjunctivae; no lid-lag; PERRLA HENT: Normocephalic, Atraumatic; normal external ears, nares open, oropharynx clear with moist mucous membranes and no oral thrush; normal hard and soft palate. Neck: supple, tracheal midline, no JVD Lungs: CTA, with normal respiratory effort and no intercostal retractions CV: RRR no murmur Abdomen: Soft, obese, nontender, PD catheter no erythema no drainage Extremities: no edema, no cyanosis Skin: No rash. Psych: no agitated Neuro: alert and oriented x 3. Moving all extermities - Constitutional Vitals: Vital Signs Temp Pulse Resp BP Pulse Ox 98.5 F 106 H 19 170/87 91 04/24/21 11:59 04/24/21 11:59 04/24/21 11:59 04/24/21 11:59 04/24/21 11:59 Temperature -Last 24 Hours Temperature 98.5 F Temperature 97.9 F Temperature 98.8 F Temperature 100.2 F Temperature 98.1 F Temperature 99.6 F Results - Labs CBC & Chem 7: 04/24/21 03:57 04/24/21 03:57 Labs: Abnormal lab results 04/23/21 04/23/21 04/23/21 Range/Units 14:09 14:09 21:14 WBC 21.0 H (4.5-11.0) K/mm3 RBC 3.59 L (3.65-5.03) M/mm3 Hgb (10.1-14.3) gm/dl Hct (30.3-42.9) % MCV (79-97) fl RDW 19.5 H (13.2-15.2) % Lymph % (Auto) (13.4-35.0) % Lymph # (Auto) (1.2-5.4) K/mm3 [place] # (Auto) (0.0-0.8) K/mm3 Seg Neutrophils % (40.0-70.0) % Seg Neuts % (Manual) 92.0 H (40.0-70.0) % Lymphocytes % (Manual) 6.0 L (13.4-35.0) % Seg Neutrophils # (1.8-7.7) K/mm3 Seg Neutrophils # Man 19.3 H (1.8-7.7) K/mm3 Chloride 95.0 L (98-107) mmol/L Carbon Dioxide 32 H (22-30) mmol/L BUN 51 H (7-17) mg/dL Creatinine 10.3 H (0.6-1.2) mg/dL Glucose 106 H (65-100) mg/dL Calcium (8.4-10.2) mg/dL Magnesium 1.60 L (1.7-2.3) mg/dL Alkaline Phosphatase 145 H (35-129) units/L Troponin T 0.092 H (0.00-0.029) ng/mL Total Protein (6.3-8.2) g/dL Albumin 3.7 L (3.9-5) g/dL Lipase 9 L (13-60) units/L Urine pH 8.0 H (5.0-7.0) U Epithel Cells (Auto) 41.0 H (0-13.0) /HPF 04/24/21 04/24/21 Range/Units 03:57 03:57 WBC 17.7 H (4.5-11.0) K/mm3 RBC 2.94 L (3.65-5.03) M/mm3 Hgb 9.1 L (10.1-14.3) gm/dl Hct 29.0 L (30.3-42.9) % MCV 98 H (79-97) fl RDW 19.6 H (13.2-15.2) % Lymph % (Auto) 3.6 L (13.4-35.0) % Lymph # (Auto) 0.6 L (1.2-5.4) K/mm3 [place] # (Auto) 1.2 H (0.0-0.8) K/mm3 Seg Neutrophils % 89.3 H (40.0-70.0) % Seg Neuts % (Manual) (40.0-70.0) % Lymphocytes % (Manual) (13.4-35.0) % Seg Neutrophils # 15.9 H (1.8-7.7) K/mm3 Seg Neutrophils # Man (1.8-7.7) K/mm3 Chloride (98-107) mmol/L Carbon Dioxide (22-30) mmol/L BUN 57 H (7-17) mg/dL Creatinine 11.2 H (0.6-1.2) mg/dL Glucose (65-100) mg/dL Calcium 8.2 L (8.4-10.2) mg/dL Magnesium (1.7-2.3) mg/dL Alkaline Phosphatase (35-129) units/L Troponin T (0.00-0.029) ng/mL Total Protein 5.9 L (6.3-8.2) g/dL Albumin 2.9 L (3.9-5) g/dL Lipase (13-60) units/L Urine pH (5.0-7.0) U Epithel Cells (Auto) (0-13.0) /HPF Assessment and Plan Cultures: Blood culture 04/24/2021 no growth today. PD culture 04/23/2021 with many polymorphonuclears and no organisms. Assessment: 71-year-old female with history of ESRD on peritoneal dialysis, diabetes mellitus, CHF, hypertension, admitted on 04/24/2021 secondary to 3-day history of acute abdominal pain, diffuse, 5 out of 10 in intensity associated with nausea vomiting and diarrhea after eating barbecue, ice cream and baked b eans the day before admission: #Sepsis: Present with fever, tachycardia, leukocytosis. Secondary to peritonitis. #PD catheter associated peritonitis versus secondary peritonitis (gastroenteritis): No evidence of exit site or tunnel infection. Peritoneal effluent is clear. Her PD catheter was placed 2 years and a half ago. She denies any changes in the color of the peritoneal fluid. She denies any previous PD peritonitis. #End-stage renal disease: PD Recommendations: -Follow-up dialysate culture -Repeat dialysate cell count and diff in 3-5 days -Continue cefepime 1 g IV once a day renally adjusted -Continue pulse vancomycin for now -f/u leukocytosis -remove femoral TLC as feasible Will follow. Amita Warner MD Infectious Diseases Telegrapher Agent [facility] ([facility] M [phone]
--- NOTE | 2021-04-24 15:41 | Progress Note ---
Assessment and Plan Assessment and plan: (1) Sepsis Plan to address problem: Patient has a high white count of 21,000, now downtrending Diffuse abdominal pain, diarrhea however no discharge noted. Now resolved Patient is a peritoneal dialysis patient Possibly secondary to peritonitis versus bowel obstruction Peritoneal fluid culture pending Trend WBC on CBC Antibiotic therapy with IV cefepime and vancomycin (2) Peritonitis Current Visit: Yes Status: Acute Plan to address problem: Patient has peritoneal dialysis catheter Patient gets regular peritoneal dialysis Diffuse abdominal pain and tenderness present. High white count., Now downtrending Consistent with sepsis and peritonitis. However bowel obstruction on differential Patient initiated on IV cefepime and vancomycin ID consult also requested (2) abdominal pain Current Visit: Yes Status: Acute Plan to address problem: Diffuse abdominal pain, diarrhea, and tenderness present on admission Differential includes peritonitis versus gastroenteritis CTAP: Significant increase in intra-abdominal ascites since February 2021 exam. Obstructive bowel disease unlikely. Official read per radiology report (3) End stage renal disease Plan to address problem: Nephrology consult requested Patient may need hemodialysis for now Nephrology consulted: Patient will receive manual PD per nephrology, no indica tion for TLC at this time Renally adjust medications Renal diet (4) Hypertension Plan to address problem: Continue antihypertensives Will add as needed labetalol IV (5) IDDM (insulin dependent diabetes mellitus) Plan to address problem: Check hemoglobin A1c and coverage for now (6) Anemia Plan to address problem: Epogen q. weekly once BP controlled. (6) Elevated troponin Plan to address problem: Secondary to troponin leak (7) DVT prophylaxis Plan to address problem: On heparin and GI prophylaxis Dispo: pending clinical improvement, pending completion of PD. Possible d/c tomorrow. Full code Renal diet History Interval history: Patient doing well on encounter. She states that she believes she ate something that "did not agree with my stomach" and subsequently that is why she felt the severe abdominal pain. He states that she feels much better today. Yesterday she states that she was feeling tenderness and had experienced symptoms of diarrhea. The diarrhea is now resolved according patient. She denied any type of complications from her peritoneal dialysis catheter. She denied any discharge or drainage from her PD catheter insertion site. Remainder of ROS negative except for stated above Hospitalist Physical - Physical exam Narrative exam: Physical Exam: GENERAL APPEARANCE: Well developed, well nourished, alert and cooperative, and appears to be in no acute distress. HEAD: normocephalic. EYES: PERRL, EOMI. Vision is grossly intact. EARS: No gross deformities NOSE: No nasal discharge. THROAT: Oral cavity and pharynx normal. No inflammation, swelling, exudate, or lesions. Teeth and gingiva in good general condition. NECK: Neck supple, non-tender without lymphadenopathy, masses or thyromegaly. CARDIAC: Normal S1 and S2. No S3, S4 or murmurs. Rhythm is regular. There is no peripheral edema, cyanosis or pallor. Extremities are warm and well perfused. Capillary refill is less than 2 seconds. No carotid bruits. LUNGS: Clear to auscultation and percussion without rales, rhonchi, wheezing or diminished breath sounds. ABDOMEN: PD catheter protruding from central abdomen. Mild distention, soft positive bowel sounds, nontender. No guarding or rebound. No masses. MUSKULOSKELETAL: Adequately aligned spine. ROM intact spine and extremities. No joint erythema or tenderness. Normal muscular development. Normal gait. BACK: Examination of the spine reveals normal gait and posture EXTREMITIES: No significant deformity or joint abnormality. No edema. Peripheral pulses intact. No varicosities. NEUROLOGICAL: CN II-XII intact. Strength and sensation symmetric and intact throughout. Reflexes 2+ throughout. PSYCHIATRIC: The mental examination revealed the patient was oriented to person, place, and time. - Constitutional Vitals: Temp Pulse Resp BP Pulse Ox 98.5 F 106 H 19 170/87 91 04/24/21 11:59 04/24/21 11:59 04/24/21 11:59 04/24/21 11:59 04/24/21 11:59 General appearance: Present: no acute distress, well-nourished HEART Score - HEART Score Troponin: Troponin T 0.092 ng/mL (0.00-0.029) H 04/23/21 14:09 Results - Labs CBC & Chem 7: 04/24/21 03:57 04/24/21 03:57 Labs: Laboratory Last Values WBC 17.7 K/mm3 (4.5-11.0) H 04/24/21 03:57 RBC 2.94 M/mm3 (3.65-5.03) L 04/24/21 03:57 Hgb 9.1 gm/dl (10.1-14.3) L 04/24/21 03:57 Hct 29.0 % (30.3-42.9) L 04/24/21 03:57 MCV 98 fl (79-97) H 04/24/21 03:57 MCH 31 pg (28-32) 04/24/21 03:57 MCHC 32 % (30-34) 04/24/21 03:57 RDW 19.6 % (13.2-15.2) H 04/24/21 03:57 Plt Count 217 K/mm3 (140-440) 04/24/21 03:57 Lymph % (Auto) 3.6 % (13.4-35.0) L 04/24/21 03:57 [place] % (Auto) 6.6 % (0.0-7.3) 04/24/21 03:57 Eos % (Auto) 0.3 % (0.0-4.3) 04/24/21 03:57 Baso % (Auto) 0.2 % (0.0-1.8) 04/24/21 03:57 Lymph # (Auto) 0.6 K/mm3 (1.2-5.4) L 04/24/21 03:57 [place] # (Auto) 1.2 K/mm3 (0.0-0.8) H 04/24/21 03:57 Eos # (Auto) 0.0 K/mm3 (0.0-0.4) 04/24/21 03:57 Baso # (Auto) 0.0 K/mm3 (0.0-0.1) 04/24/21 03:57 Add Manual Diff Complete 04/23/21 14:09 Total Counted 100 04/23/21 14:09 Seg Neutrophils % 89.3 % (40.0-70.0) H 04/24/21 03:57 Seg Neuts % (Manual) 92.0 % (40.0-70.0) H 04/23/21 14:09 Lymphocytes % (Manual) 6.0 % (13.4-35.0) L 04/23/21 14:09 Monocytes % (Manual) 2.0 % (0.0-7.3) 04/23/21 14:09 Nucleated RBC % Not Reportable 04/23/21 14:09 Seg Neutrophils # 15.9 K/mm3 (1.8-7.7) H 04/24/21 03:57 Seg Neutrophils # Man 19.3 K/mm3 (1.8-7.7) H 04/23/21 14:09 Band Neutrophils # 0.0 K/mm3 04/23/21 14:09 Lymphocytes # (Manual) 1.3 K/mm3 (1.2-5.4) 04/23/21 14:09 Abs React Lymphs (Man) 0.0 K/mm3 04/23/21 14:09 Monocytes # (Manual) 0.4 K/mm3 (0.0-0.8) 04/23/21 14:09 Eosinophils # (Manual) 0.0 K/mm3 (0.0-0.4) 04/23/21 14:09 Basophils # (Manual) 0.0 K/mm3 (0.0-0.1) 04/23/21 14:09 Metamyelocytes # 0.0 K/mm3 04/23/21 14:09 Myelocytes # 0.0 K/mm3 04/23/21 14:09 Promyelocytes # 0.0 K/mm3 04/23/21 14:09 Blast Cells # 0.0 K/mm3 04/23/21 14:09 WBC Morphology Not Reportable 04/23/21 14:09 Hypersegmented Neuts Not Reportable 04/23/21 14:09 Hyposegmented Neuts Not Reportable 04/23/21 14:09 Hypogranular Neuts Not Reportable 04/23/21 14:09 Smudge Cells Not Reportable 04/23/21 14:09 Toxic Granulation Not Reportable 04/23/21 14:09 Toxic Vacuolation Not Reportable 04/23/21 14:09 Dohle Bodies Not Reportable 04/23/21 14:09 Pelger-Huet Anomaly Not Reportable 04/23/21 14:09 Myrtle Rods Not Reportable 04/23/21 14:09 Platelet Estimate Consistent w auto 04/23/21 14:09 Clumped Platelets Not Reportable 04/23/21 14:09 Plt Clumps, EDTA Not Reportable 04/23/21 14:09 Large Platelets Not Reportable 04/23/21 14:09 Giant Platelets Not Reportable 04/23/21 14:09 Platelet Satelliting Not Reportable 04/23/21 14:09 Plt Morphology Comment Not Reportable 04/23/21 14:09 RBC Morphology Normal 04/23/21 14:09 Dimorphic RBCs Not Reportable 04/23/21 14:09 Polychromasia Not Reportable 04/23/21 14:09 Hypochromasia Not Reportable 04/23/21 14:09 Poikilocytosis Not Reportable 04/23/21 14:09 Anisocytosis Not Reportable 04/23/21 14:09 Microcytosis Not Reportable 04/23/21 14:09 Macrocytosis Not Reportable 04/23/21 14:09 Spherocytes Not Reportable 04/23/21 14:09 Pappenheimer Bodies Not Reportable 04/23/21 14:09 Sickle Cells Not Reportable 04/23/21 14:09 Target Cells Not Reportable 04/23/21 14:09 Tear Drop Cells Not Reportable 04/23/21 14:09 Ovalocytes Not Reportable 04/23/21 14:09 Helmet Cells Not Reportable 04/23/21 14:09 [place] Bodies Not Reportable 04/23/21 14:09 [place] Rings Not Reportable 04/23/21 14:09 Reji Cells Not Reportable 04/23/21 14:09 Bite Cells Not Reportable 04/23/21 14:09 Crenated Cell Not Reportable 04/23/21 14:09 Elliptocytes Not Reportable 04/23/21 14:09 Acanthocytes (Spur) Not Reportable 04/23/21 14:09 Rouleaux Not Reportable 04/23/21 14:09 Hemoglobin C Crystals Not Reportable 04/23/21 14:09 Schistocytes Not Reportable 04/23/21 14:09 Malaria parasites Not Reportable 04/23/21 14:09 Jose Bodies Not Reportable 04/23/21 14:09 Hem Pathologist Commnt No 04/23/21 14:09 PT 13.3 Sec. (12.2-14.9) 04/23/21 14:09 INR 0.96 (0.87-1.13) 04/23/21 14:09 APTT 29.0 Sec. (24.2-36.6) 04/23/21 14:09 Sodium 143 mmol/L (137-145) 04/24/21 03:57 Potassium 5.0 mmol/L (3.6-5.0) 04/24/21 03:57 Chloride 99.1 mmol/L (98-107) 04/24/21 03:57 Carbon Dioxide 30 mmol/L (22-30) 04/24/21 03:57 Anion Gap 19 mmol/L 04/24/21 03:57 BUN 57 mg/dL (7-17) H 04/24/21 03:57 Creatinine 11.2 mg/dL (0.6-1.2) H 04/24/21 03:57 Estimated GFR 4 ml/min 04/24/21 03:57 BUN/Creatinine Ratio 5 % 04/24/21 03:57 Glucose 70 mg/dL (65-100) 04/24/21 03:57 POC Glucose 95 mg/dL (70-105) 04/24/21 11:24 Lactic Acid 2.00 mmol/L (0.7-2.0) 04/23/21 17:11 Calcium 8.2 mg/dL (8.4-10.2) L 04/24/21 03:57 Magnesium 1.60 mg/dL (1.7-2.3) L 04/23/21 14:09 Total Bilirubin 0.50 mg/dL (0.1-1.2) 04/24/21 03:57 AST 13 units/L (5-40) 04/24/21 03:57 ALT 10 units/L (7-56) 04/24/21 03:57 Alkaline Phosphatase 113 units/L (35-129) 04/24/21 03:57 Troponin T 0.092 ng/mL (0.00-0.029) H 04/23/21 14:09 Total Protein 5.9 g/dL (6.3-8.2) L 04/24/21 03:57 Albumin 2.9 g/dL (3.9-5) L 04/24/21 03:57 Albumin/Globulin Ratio 1.0 % 04/24/21 03:57 Lipase 9 units/L (13-60) L 04/23/21 14:09 Urine Color Yellow (Yellow) 04/23/21 21:14 Urine Turbidity Cloudy (Clear) 04/23/21 21:14 Urine pH 8.0 (5.0-7.0) H 04/23/21 21:14 Ur Specific [place] 1.012 (1.003-1.030) 04/23/21 21:14 Urine Protein 100 mg/dl mg/dL (Negative) 04/23/21 21:14 Urine Glucose (UA) Neg mg/dL (Negative) 04/23/21 21:14 Urine Ketones Neg mg/dL (Negative) 04/23/21 21:14 Urine Blood Neg (Negative) 04/23/21 21:14 Urine Nitrite Neg (Negative) 04/23/21 21:14 Urine Bilirubin Neg (Negative) 04/23/21 21:14 Urine Urobilinogen < 2.0 mg/dL (<2.0) 04/23/21 21:14 Ur Leukocyte Esterase Neg (Negative) 04/23/21 21:14 Urine WBC (Auto) 3.0 /HPF (0.0-6.0) 04/23/21 21:14 Urine RBC (Auto) 3.0 /HPF (0.0-6.0) 04/23/21 21:14 U Epithel Cells (Auto) 41.0 /HPF (0-13.0) H 04/23/21 21:14 Urine Bacteria (Auto) 4+ /HPF (Negative) 04/23/21 21:14 Urine Mucus Few /HPF 04/23/21 21:14 Fluid Type Peritoneal 04/23/21 Unknown Fluid Color Yellow 04/23/21 Unknown Fluid Appearance Cloudy 04/23/21 Unknown Fluid WBC 3982 /mm3 04/23/21 Unknown Fluid RBC 78 /mm3 04/23/21 Unknown Fluid Seg Neutrophils 99.0 % 04/23/21 Unknown Fluid Lymphocytes 1.0 % 04/23/21 Unknown Fluid Reactive Lymphs 0 % 04/23/21 Unknown Fluid Monocytes 0 % 04/23/21 Unknown Fluid Eosinophils 0 % 04/23/21 Unknown Fluid Basophils 0 % 04/23/21 Unknown Microbiology: Microbiology 04/24/21 08:36 Peripheral/Venous Blood Culture - Preliminary Culture in Progress 04/24/21 08:36 Peripheral/Venous Blood Culture - Preliminary Culture in Progress 04/23/21 21:16 Peritioneal Dialysate Peritoneal Dialysate Culture - Pr eliminary Hernández/IV: Voiding Method Bedpan Active Medications - Current Medications Current Medications: Generic Name Dose Route Start Last Admin Trade Name Freq PRN Reason Stop Dose Admin Acetaminophen 650 mg 04/23/21 21:58 04/24/21 00:51 Acetaminophen 325 Mg Tab PO 650 mg Q4H PRN Administration Pain MILD(1-3)/Fever >100.5/POOLE Famotidine 10 mg 04/23/21 23:00 04/24/21 09:16 Famotidine 20 Mg/2 Ml Inj IV 10 mg BID [facility] Administration Heparin Sodium (Porcine) 5,000 unit 04/23/21 22:15 04/24/21 09:16 Heparin 5,000 Unit/1 Ml Vial SUB-Q 5,000 unit Q12HR [facility] Administration Hydromorphone HCl 0.5 mg 04/23/21 22:04 Hydromorphone 1 Mg/1 Ml Inj IV Q3H PRN Pain , Severe (7-10) Cefepime HCl 1 gm in 100 mls @ 200 mls/hr 04/24/21 17:00 Cefepime/Ns 1 Gm/100 Ml IV Q24H [facility] Protocol Ondansetron HCl 4 mg 04/23/21 21:58 Ondansetron 4 Mg/2 Ml Inj IV Q8H PRN Nausea And Vomiting Oxycodone/Acetaminophen 1 tab 04/23/21 22:04 04/24/21 01:22 Oxycodone /Acetaminophen 5-325mg Tab PO 1 tab Q6H PRN Administration Pain, Moderate (4-6) Peritoneal Dialysis Solution 2,000 ml 04/24/21 12:00 04/24/21 12:54 Dialysate Pd2 2.5% Soln 2000 Ml IP 2,000 ml Q6HR [facility] Administration Sodium Chloride 10 ml 04/23/21 22:00 04/24/21 09:16 Sodium Chloride 0.9% 10 Ml Flush Syringe IV 10 ml BID [facility] Administration Sodium Chloride 10 ml 04/23/21 21:58 Sodium Chloride 0.9% 10 Ml Flush Syringe IV PRN PRN LINE FLUSH
--- NOTE | 2021-04-24 16:08 | Consultation ---
History of Present Illness - Reason for Consult Consult date: 04/24/21 end stage renal disease - History of Present Illness Is a 71-year-old woman with end-stage renal disease on peritoneal dialysis who presented with 3 day history of abdominal pain. She states the pain started after she ate some dairy and coleslaw. She describes the pain as located in the lower abdomen, 10/10 in intensity with associated nausea and vomiting and with no aggravating or alleviating factors. She denies cloudy effluent or discharge from the PD catheter site. Her pain has improved since admission. She denies chest pain, shortness of breath and leg swelling. Medications and Allergies Allergies Allergy/AdvReac Type Severity Reaction Status Date / Time digoxin Allergy Hives Verified 04/23/21 17:56 lisinopril Allergy Swelling Verified 04/23/21 17:57 nitroglycerin AdvReac Rash, Verified 04/23/21 17:57 HEADACHES shellfish derived AdvReac Swelling Verified 04/23/21 17:57 Home Medications Medication Instructions Recorded Confirmed Last Taken Type NIFEdipine XL [Procardia Xl] 60 mg PO HS 05/27/15 02/15/21 07/30/20 History carvediloL [Coreg] 6.25 mg PO BID 05/27/15 02/15/21 07/30/20 History cloNIDine [Catapres] 0.2 mg PO DAILY 09/14/16 02/15/21 07/30/20 History Gentamicin 0.1% Top Oint(Nf) 1 applic TP TID 07/31/20 02/15/21 Unknown History [Gentamicin 0.1% Top Oint (Nf)] Cholecalciferol Vit D3 [Vitamin D3 3,000 unit PO DAILY tablet 08/01/20 02/15/21 Unknown Rx 1,000 UNIT TAB] Cinacalcet [Sensipar] 90 mg PO QDAY 02/15/21 02/15/21 Unknown History Hydralazine HCl 50 mg PO TID 02/15/21 02/15/21 Unknown History Aspirin EC [Halfprin EC] 81 mg PO QDAY #30 tablet.dr 02/23/21 Unknown Rx Lispro Insulin [HumaLOG] 0 unit SUB-Q ACHS units 02/23/21 Unknown Rx Pantoprazole [Protonix TAB] 40 mg PO BIDAC #60 tablet 02/23/21 Unknown Rx Sucralfate [Carafate] 1 gm PO ACHS #30 tablet 02/23/21 Unknown Rx hydrOXYzine HCL [Atarax] 25 mg PO Q6H PRN #20 tablet 02/23/21 Unknown Rx polyethylene glycoL 3350 [Miralax 17 gm PO QDAY #20 powd.pack 02/23/21 Unknown Rx 3350] Active Meds: Active Medications Acetaminophen (Acetaminophen 325 Mg Tab) 650 mg PO Q4H PRN PRN Reason: Pain MILD(1-3)/Fever >100.5/POOLE Last Admin: 04/24/21 00:51 Dose: 650 mg Documented by: Famotidine (Famotidine 20 Mg/2 Ml Inj) 10 mg IV BID [facility] Last Admin: 04/24/21 09:16 Dose: 10 mg Documented by: Heparin Sodium (Porcine) (Heparin 5,000 Unit/1 Ml Vial) 5,000 unit SUB-Q Q12HR [facility] Last Admin: 04/24/21 09:16 Dose: 5,000 unit Documented by: Hydromorphone HCl (Hydromorphone 1 Mg/1 Ml Inj) 0.5 mg IV Q3H PRN PRN Reason: Pain , Severe (7-10) Cefepime HCl (Cefepime/Ns 1 Gm/100 Ml) 1 gm in 100 mls @ 200 mls/hr IV Q24H [facility]; Protocol Ondansetron HCl (Ondansetron 4 Mg/2 Ml Inj) 4 mg IV Q8H PRN PRN Reason: Nausea And Vomiting Oxycodone/Acetaminophen (Oxycodone /Acetaminophen 5-325mg Tab) 1 tab PO Q6H PRN PRN Reason: Pain, Moderate (4-6) Last Admin: 04/24/21 01:22 Dose: 1 tab Documented by: Peritoneal Dialysis Solution (Dialysate Pd2 2.5% Soln 2000 Ml) 2,000 ml IP Q6HR [facility] Last Admin: 04/24/21 12:54 Dose: 2,000 ml Documented by: Sodium Chloride (Sodium Chloride 0.9% 10 Ml Flush Syringe) 10 ml IV BID [facility] Last Admin: 04/24/21 09:16 Dose: 10 ml Documented by: Sodium Chloride (Sodium Chloride 0.9% 10 Ml Flush Syringe) 10 ml IV PRN PRN PRN Reason: LINE FLUSH Review of Systems Constitutional: fever, no weight loss Ears, nose, mouth and throat: no nasal congestion Cardiovascular: no chest pain, no orthopnea Respiratory: no cough, no hemoptysis Gastrointestinal: abdominal pain, nausea, vomiting Musculoskeletal: no muscle weakness, no muscle cramps Integumentary: no rash, no redness Neurological: no weakness, no parathesias Psychiatric: no anxiety, no paranoia Hematologic/Lymphatic: no easy bruising, no easy bleeding Allergic/Immunologic: no urticaria, no wheezing Exam - Vital Signs Vital signs: Vital Signs Temp Pulse Resp BP Pulse Ox 99.6 F 113 H 20 220/135 100 04/23/21 14:02 04/23/21 14:02 04/23/21 14:02 04/23/21 14:02 04/23/21 14:02 - Physical Exam Narrative exam: General: No acute distress HEENT: Oral mucosa moist Neck: Supple, no JVD Chest: Clear to auscultation bilaterally Heart: RRR, S1 and S2, no pericardial rub Abdomen: Soft, nontender, no renal bruit. PD site without erythema or signs of inflammation. No drainage. Extremity: No peripheral cyanosis, edema Neurological: Alert, awake, no asterixis Dermatology: No skin rash Psych: No agitation Musculoskeletal: No joint effusion Results - Lab Results 04/24/21 03:57 04/24/21 03:57 Most recent lab results Calcium 8.2 mg/dL (8.4-10.2) L 04/24/21 03:57 Magnesium 1.60 mg/dL (1.7-2.3) L 04/23/21 14:09 Assessment and Plan End-stage renal disease on peritoneal dialysis Abdominal pain, PD peritonitis? Anemia Essential hypertension Start manual PD Agree with antibiotics Follow-up cultures Epogen weekly once bp is better controlled No indication for TLC Continue antihypertensives, monitor trend and assess need for further titration Renally dose medications Avoid nephrotoxins Renal diet
[2021-04-24] MEDS ORDERED: hydrOXYzine HCL 25 MG TAB PO PRN (16:29)
[2021-04-24] MEDS: ASPIRIN EC 81 MG TAB PO SCH (17:38)
[2021-04-24] MEDS: PANTOPRAZOLE 40 MG TAB PO SCH (17:38)
[2021-04-24] MEDS: SUCRALFATE 1 GM TAB PO SCH ×2 (17:39→21:55)
[2021-04-24] MEDS: CEFEPIME/NS 1 GM/100 ML 1 GM/100 ML BAG IV SCH (17:39)
[2021-04-24] MEDS ORDERED: NON-FORMULARY EACH (Hydralazine Hcl [Hydralazine Hcl] 50 MG Tablet) PO SCH (20:00)
[2021-04-24] MEDS: hydrALAZINE 25 MG TAB PO SCH (21:55)
[2021-04-24] MEDS: carvediloL 6.25 MG TAB PO SCH (21:56)
[2021-04-24] MEDS: NIFEdipine XL 60 MG TAB PO SCH (21:56)
[2021-04-25] MEDS: [UNRECOGNIZED DRUG - OTHER] IP SCH ×4 (00:24→18:57)
[2021-04-25 05:28] LABS: Hemoglobin 8.8 gm/dl (10.1-14.3); Mean Corpuscular HGB Conc 31 % (30-34); Mean Corpuscular Volume 98 fl (79-97); Platelet Count 243 K/mm3 (140-440); Red Blood Count 2.87 M/mm3 (3.65-5.03); Red Cell Distribution Width 19.2 % (13.2-15.2)
[2021-04-25 06:52] LABS: Anisocytosis 1+; Total Cells Counted 100
[2021-04-25 06:53] LABS: Macrocytosis Few; Platelet Estimate Consistent w Auto
[2021-04-25] MEDS: SUCRALFATE 1 GM TAB PO SCH ×4 (08:30→21:55)
[2021-04-25] MEDS: PANTOPRAZOLE 40 MG TAB PO SCH ×2 (08:30→17:04)
[2021-04-25] MEDS: hydrALAZINE 25 MG TAB PO SCH ×3 (08:45→20:45)
[2021-04-25] MEDS: CINACALCET 30 MG TAB PO SCH (09:17)
[2021-04-25] MEDS: ASPIRIN EC 81 MG TAB PO SCH (09:17)
[2021-04-25] MEDS: FAMOTIDINE 20 MG/2 ML INJ IV SCH (09:18)
[2021-04-25] MEDS: CHOLECALCIFEROL (VIT D3) 1000 UNIT (25 mcg) TAB PO SCH (09:18)
[2021-04-25] MEDS: HEPARIN 5,000 UNIT/1 ML VIAL SUB-Q SCH ×2 (09:20→21:56)
[2021-04-25] MEDS: cloNIDine 0.2 MG TAB PO SCH (09:20)
[2021-04-25] MEDS: carvediloL 6.25 MG TAB PO SCH ×2 (09:20→21:55)
--- NOTE | 2021-04-25 10:17 | Electrocardiograph Report ---
[facility] Test Date: 2021-04-24 Test Time: 10:09:27 Pat Name: ADRIANA FINK Department: Room: A462 1 Gender: F Trauma Nurse: ASHLYN : 1950 Requested By: NEETU MARTINEZ Order Number: [id number] Reading MD: Deanna Neri Measurements Intervals [place] Rate: 100 P: 63 ID: [id number] QRS: 15 QRSD: 78 T: 15 QT: 375 QTc: 484 Interpretive Statements Sinus tachycardia Compared to ECG 02/15/2021 11:53:39 No significant change Electronically Signed On 04-25-2021 10:16:43 EDT by Deanna Neri
--- NOTE | 2021-04-25 11:05 | Progress Note ---
Assessment and Plan End-stage renal disease on peritoneal dialysis Abdominal pain, PD peritonitis? Anemia Essential hypertension Continue manual PD Agree with antibiotics Follow-up cultures Epogen weekly once bp is better controlled No indication for TLC Continue antihypertensives, monitor trend and assess need for further titration Renally dose medications Avoid nephrotoxins Renal diet Recommend bowel regimen Subjective Date of service: 04/25/21 Principal diagnosis: Abdominal pain Interval history: Experiencing vomiting but notes resolution of abdominal pain. Objective - Exam Narrative Exam: General: No acute distress HEENT: Oral mucosa moist Neck: Supple, no JVD Chest: Clear to auscultation bilaterally Heart: RRR, S1 and S2, no pericardial rub Abdomen: Soft, nontender, no renal bruit. PD site without erythema or signs of inflammation. No drainage. Extremity: No peripheral cyanosis, edema Neurological: Alert, awake, no asterixis Dermatology: No skin rash Psych: No agitation Musculoskeletal: No joint effusion - Vital Signs Vital signs: Vital Signs - 12hr 04/25/21 04/25/21 04/25/21 03:07 08:45 09:00 Temperature 98.2 F Pulse Rate 99 H 82 Pulse Rate [ 87 From Monitor] Respiratory 18 17 Rate Blood Pressure 124/64 130/99 Blood Pressure [Right] O2 Sat by Pulse 97 96 Oximetry 04/25/21 04/25/21 09:20 09:24 Temperature 97.1 F L Pulse Rate 82 112 H Pulse Rate [ From Monitor] Respiratory 19 Rate Blood Pressure 130/99 Blood Pressure 147/77 [Right] O2 Sat by Pulse 98 Oximetry - Lab 04/25/21 04:36 04/25/21 04:36 Most recent lab results Calcium 8.0 mg/dL (8.4-10.2) L 04/25/21 04:36 Magnesium 1.60 mg/dL (1.7-2.3) L 04/23/21 14:09 Medications & Allergies - Medications Allergies/Adverse Reactions: Allergies digoxin Allergy (Verified 04/23/21 17:56) Hives lisinopril Allergy (Verified 04/23/21 17:57) Swelling nitroglycerin Adverse Reaction (Verified 04/23/21 17:57) Rash, HEADACHES shellfish derived Adverse Reaction (Verified 04/23/21 17:57) Swelling Home Medications: Home Medications Medication Instructions Recorded Confirmed Last Taken Type NIFEdipine XL [Procardia Xl] 60 mg PO HS 05/27/15 02/15/21 07/30/20 History carvediloL [Coreg] 6.25 mg PO BID 05/27/15 02/15/21 07/30/20 History cloNIDine [Catapres] 0.2 mg PO DAILY 09/14/16 02/15/21 07/30/20 History Gentamicin 0.1% Top Oint(Nf) 1 applic TP TID 07/31/20 02/15/21 Unknown History [Gentamicin 0.1% Top Oint (Nf)] Cholecalciferol Vit D3 [Vitamin D3 3,000 unit PO DAILY tablet 08/01/20 02/15/21 Unknown Rx 1,000 UNIT TAB] Cinacalcet [Sensipar] 90 mg PO QDAY 02/15/21 02/15/21 Unknown History Hydralazine HCl 50 mg PO TID 02/15/21 02/15/21 Unknown History Aspirin EC [Halfprin EC] 81 mg PO QDAY #30 tablet. 02/23/21 Unknown Rx Lispro Insulin [HumaLOG] 0 unit SUB-Q ACHS units 02/23/21 Unknown Rx Pantoprazole [Protonix TAB] 40 mg PO BIDAC #60 tablet 02/23/21 Unknown Rx Sucralfate [Carafate] 1 gm PO ACHS #30 tablet 02/23/21 Unknown Rx hydrOXYzine HCL [Atarax] 25 mg PO Q6H PRN #20 tablet 02/23/21 Unknown Rx polyethylene glycoL 3350 [Miralax 17 gm PO QDAY #20 powd.pack 02/23/21 Unknown Rx 3350] Active Medications: Generic Name Dose Route Start Last Admin Trade Name Freq PRN Reason Stop Dose Admin Acetaminophen 650 mg 04/23/21 21:58 04/24/21 00:51 Acetaminophen 325 Mg Tab PO 650 mg Q4H PRN Administration Pain MILD(1-3)/Fever >100.5/POOLE Aspirin 81 mg 04/24/21 17:00 04/25/21 09:17 Aspirin Ec 81 Mg Tab PO 81 mg QDAY [facility] Administration Carvedilol 6.25 mg 04/24/21 22:00 04/25/21 09:20 Carvedilol 6.25 Mg Tab PO 6.25 mg BID [facility] Administration Cholecalciferol 3,000 unit 04/25/21 10:00 04/25/21 09:18 Cholecalciferol (Vit D3) 1000 Unit (25 Mcg) Tab PO 3,000 unit DAILY [facility] Administration Cinacalcet 90 mg 04/25/21 10:00 04/25/21 09:17 Cinacalcet 30 Mg Tab PO 90 mg QDAY [facility] Administration Clonidine HCl 0.2 mg 04/25/21 10:00 04/25/21 09:20 Clonidine 0.2 Mg Tab PO 0.2 mg DAILY [facility] Administration Famotidine 10 mg 04/23/21 23:00 04/25/21 09:18 Famotidine 20 Mg/2 Ml Inj IV 10 mg BID [facility] Administration Heparin Sodium (Porcine) 5,000 unit 04/23/21 22:15 04/25/21 09:20 Heparin 5,000 Unit/1 Ml Vial SUB-Q 5,000 unit Q12HR [facility] Administration Hydralazine HCl 50 mg 04/24/21 20:00 04/25/21 08:45 Hydralazine 25 Mg Tab PO 50 mg TID [facility] Administration Hydromorphone HCl 0.5 mg 04/23/21 22:04 Hydromorphone 1 Mg/1 Ml Inj IV Q3H PRN Pain , Severe (7-10) Hydroxyzine HCl 25 mg 04/24/21 16:29 Hydroxyzine Hcl 25 Mg Tab PO Q6H PRN Itching Cefepime HCl 1 gm in 100 mls @ 200 mls/hr 04/24/21 17:00 04/24/21 17:39 Cefepime/Ns 1 Gm/100 Ml IV 200 mls/hr Q24H [facility] Administration Protocol Nifedipine 60 mg 04/24/21 22:00 04/24/21 21:56 Nifedipine Xl 60 Mg Tab PO 60 mg HS [facility] Administration Ondansetron HCl 4 mg 04/23/21 21:58 Ondansetron 4 Mg/2 Ml Inj IV Q8H PRN Nausea And Vomiting Oxycodone/Acetaminophen 1 tab 04/23/21 22:04 04/24/21 01:22 Oxycodone /Acetaminophen 5-325mg Tab PO 1 tab Q6H PRN Administration Pain, Moderate (4-6) Pantoprazole Sodium 40 mg 04/24/21 16:30 04/25/21 08:30 Pantoprazole 40 Mg Tab PO 40 mg BIDAC [facility] Administration Peritoneal Dialysis Solution 2,000 ml 04/24/21 12:00 04/25/21 06:06 Dialysate Pd2 2.5% Soln 2000 Ml IP 2,000 ml Q6HR [facility] Administration Sodium Chloride 10 ml 04/23/21 22:00 04/25/21 09:20 Sodium Chloride 0.9% 10 Ml Flush Syringe IV 10 ml BID [facility] Administration Sodium Chloride 10 ml 04/23/21 21:58 Sodium Chloride 0.9% 10 Ml Flush Syringe IV PRN PRN LINE FLUSH Sucralfate 1 gm 04/24/21 16:30 04/25/21 08:30 Sucralfate 1 Gm Tab PO 1 gm ACHS [facility] Administration
--- NOTE | 2021-04-25 14:52 | Progress Note ---
Assessment and Plan 71-year-old female with history of ESRD on peritoneal dialysis, diabetes mellitus, hypertension, admitted on 04/24/2021 secondary to 3-day history of acute abdominal pain with some nausea vomiting and diarrhea. On arrival, temperature 99.6, HR 113, RR 20, BP 120/135. Temperature up to 100.2. Initial WBC 21,000. Peritoneal fluid cell count WBC 3982, segs 99%. Blood culture 04/24/2021 no growth today. PD culture 04/23/2021 with many polymorphonuclears and no organisms. CT of the abdomen shows increased ascites. -- Sepsis Patient has a high white count of 21,000, now downtrending Diffuse abdominal pain, diarrhea however no discharge noted. Possibly secondary to peritonitis CT abdomen pelvis showed no bowel obstruction Peritoneal fluid culture showed polymorphonuclear cells but no growth Trend WBC on CBC Antibiotic therapy with IV cefepime and vancomycin --Acute peritonitis Patient has peritoneal dialysis catheter for regular peritoneal dialysis Diffuse abdominal pain and tenderness present. High white count., Now downtrending Consistent with sepsis and peritonitis. Patient initiated on IV cefepime and vancomycin ID consult also requested -- abdominal pain Diffuse abdominal pain, diarrhea, and tenderness present on admission Differential includes peritonitis versus gastroenteritis CTAP: Significant increase in intra-abdominal ascites since February 2021 exam. Obstructive bowel disease unlikely. Official read per radiology report -- End stage renal disease Nephrology consult requested for better dialysis Patient may need hemodialysis for now, no indication for TLC at this time Renally adjust medications Renal diet -- Hypertension Continue antihypertensives as needed labetalol IV -- IDDM (insulin dependent diabetes mellitus) Check hemoglobin A1c and SSI coverage for now --Anemia of chronic disease Epogen q. weekly once BP controlled. --Elevated troponin Secondary to troponin leak -- DVT prophylaxis On heparin and GI prophylaxis Dispo: pending clinical improvement, Full code, Renal diet Daily clinical course: 04/24/21; Patient doing well on encounter. She states that she believes she ate something that "did not agree with my stomach" and subsequently that is why she felt the severe abdominal pain. He states that she feels much better today. Yesterday she states that she was feeling tenderness and had experienced symptoms of diarrhea. The diarrhea is now resolved according patient. She denied any type of complications from her peritoneal dialysis catheter. She denied any discharge or drainage from her PD catheter insertion site. Remainder of ROS negative except for stated above 04/25/21: PD dialysis fluid Cx neg, blood cx neg. Continue cefepime 1 g IV once a day renally adjusted, Continue pulse vancomycin for now. f/u leukocytosis, will remove femoral TLC. follow clinically Subjective Date of service: 04/25/21 Principal diagnosis: Abdominal pain Interval history: Patient seen and examined. Medical records and medication list reviewed. No acute event overnight noted by the RN. Patient denies any chest pain or difficulty breathing. Patient is tolerating diet. She continues to complains of diffuse abdominal pain Discussed plan of care at bedside with patient. Objective - Exam Narrative Exam: GENERAL: well-developed and well-nourished elderly -[place] lying on bed appeared to be in no discomfort. HEENT: Normocephalic. Atraumatic. No conjunctival congestion or icterus. Patient has moist mucous membranes. NECK: Supple. Trachea midline. CHEST/LUNGS: Clear to auscultated bilaterally, breathing nonlabored. No wheezes crackles or rhonchi. HEART/CARDIOVASCULAR: Regular in rate and rhythm. S1 and S2 positive. ABDOMEN: Abdomen is soft, + diffuse tender. Patient has normal bowel sounds. SKIN: There is no rash. Warm and dry. NEURO: No focal motor deficit. Follows command. MUSCULOSKELETAL: No joint effusion or tenderness. EXTRIMITY: No edema, no cyanosis or clubbing. PSYCH: Cooperative. - Constitutional Vitals: Vital Signs - 12hr 04/25/21 04/25/21 04/25/21 03:07 08:45 09:00 Temperature 98.2 F Pulse Rate 99 H 82 Pulse Rate [ 87 From Monitor] Respiratory 18 17 Rate Blood Pressure 124/64 130/99 Blood Pressure [Right] O2 Sat by Pulse 97 96 Oximetry 04/25/21 04/25/21 04/25/21 09:20 09:24 11:10 Temperature 97.1 F L 97.9 F Pulse Rate 82 112 H 112 H Pulse Rate [ From Monitor] Respiratory 19 19 Rate Blood Pressure 130/99 152/80 Blood Pressure 147/77 [Right] O2 Sat by Pulse 98 89 Oximetry 04/25/21 13:07 Temperature Pulse Rate 101 H Pulse Rate [ From Monitor] Respiratory Rate Blood Pressure 148/80 Blood Pressure [Right] O2 Sat by Pulse Oximetry - Labs CBC & Chem 7: 04/27/21 04:49 04/27/21 04:49 Labs: Abnormal lab results 04/24/21 04/25/21 04/25/21 Range/Units 16:48 04:36 04:36 WBC 17.3 H (4.5-11.0) K/mm3 RBC 2.87 L (3.65-5.03) M/mm3 Hgb 8.8 L (10.1-14.3) gm/dl Hct 28.0 L (30.3-42.9) % MCV 98 H (79-97) fl RDW 19.2 H (13.2-15.2) % Seg Neuts % (Manual) 93.0 H (40.0-70.0) % Lymphocytes % (Manual) 2.0 L (13.4-35.0) % Seg Neutrophils # Man 16.1 H (1.8-7.7) K/mm3 Lymphocytes # (Manual) 0.3 L (1.2-5.4) K/mm3 Chloride 95.0 L (98-107) mmol/L BUN 61 H (7-17) mg/dL Creatinine 11.9 H (0.6-1.2) mg/dL POC Glucose 122 H (70-105) mg/dL Calcium 8.0 L (8.4-10.2) mg/dL 04/25/21 04/25/21 Range/Units 08:01 11:10 WBC (4.5-11.0) K/mm3 RBC (3.65-5.03) M/mm3 Hgb (10.1-14.3) gm/dl Hct (30.3-42.9) % MCV (79-97) fl RDW (13.2-15.2) % Seg Neuts % (Manual) (40.0-70.0) % Lymphocytes % (Manual) (13.4-35.0) % Seg Neutrophils # Man (1.8-7.7) K/mm3 Lymphocytes # (Manual) (1.2-5.4) K/mm3 Chloride (98-107) mmol/L BUN (7-17) mg/dL Creatinine (0.6-1.2) mg/dL POC Glucose 160 H 124 H (70-105) mg/dL Calcium (8.4-10.2) mg/dL HEART Score - HEART Score Troponin: Troponin T 0.092 ng/mL (0.00-0.029) H 04/23/21 14:09
--- NOTE | 2021-04-25 16:11 | Progress Note ---
Assessment and Plan Cultures: Blood culture 04/24/2021 no growth today. PD culture 04/23/2021 with many polymorphonuclears and no organisms. Assessment: 71-year-old female with history of ESRD on peritoneal dialysis, diabetes mellitus, CHF, hypertension, admitted on 04/24/2021 secondary to 3-day history of acute abdominal pain, diffuse, 5 out of 10 in intensity associated with nausea vomiting and diarrhea after eating barbecue, ice cream and baked beans the day before admission: #Sepsis: No fever, leukocytosis not better. Secondary to peritonitis. #PD catheter associated peritonitis versus secondary peritonitis (gastro enteritis): Abdominal pain not better. No evidence of exit site or tunnel infe ction. Peritoneal effluent is clear. Her PD catheter was placed 2 years and a half ago. She denies any changes in the color of the peritoneal fluid. She denies any previous PD peritonitis. #End-stage renal disease: PD Recommendations: -If abdominal pain continues please consult surgery -Follow-up dialysate culture -Repeat dialysate cell count and diff in 3-5 days -Continue cefepime 1 g IV once a day renally adjusted -Continue pulse vancomycin for now -f/u leukocytosis -remove femoral TLC Will follow. Amita Warner MD Infectious Diseases [facility] M [phone] O [phone] Subjective Date of service: 04/25/21 Principal diagnosis: Abdominal pain Interval history: Patient does not feel better, she is complaining of abdominal pain 8 out of 10, associated with nausea and vomiting. No fever. No diarrhea. Objective - Exam Narrative Exam: General appearance: Alert in NAD pleasant Eyes: anicteric sclerae, moist conjunctivae; no lid-lag; PERRLA HENT: Normocephalic, Atraumatic; normal external ears, nares open, oropharynx clear with moist mucous membranes and no oral thrush; normal hard and soft palate. Neck: supple, tracheal midline, no JVD Lungs: CTA, with normal respiratory effort and no intercostal retractions CV: RRR no murmur Abdomen: Soft, tenderness palpation diffusely, PD catheter clean no drainage Extremities: no edema, no cyanosis Skin: No rash. Psych: no agitated Neuro: alert and oriented x 3. Moving all extermities - Constitutional Vitals: Vital Signs Temp Pulse Resp BP Pulse Ox 97.9 F 101 H 19 148/80 89 04/25/21 11:10 04/25/21 13:07 04/25/21 11:10 04/25/21 13:07 04/25/21 11:10 Temperature -Last 24 Hours Temperature 97.9 F Temperature 97.1 F Temperature 98.2 F Temperature 98.5 F Temperature 98.3 F Temperature 98.8 F - Labs CBC & Chem 7: 04/25/21 04:36 04/25/21 04:36 Labs: Abnormal lab results 04/24/21 04/25/21 04/25/21 Range/Units 16:48 04:36 04:36 WBC 17.3 H (4.5-11.0) K/mm3 RBC 2.87 L (3.65-5.03) M/mm3 Hgb 8.8 L (10.1-14.3) gm/dl Hct 28.0 L (30.3-42.9) % MCV 98 H (79-97) fl RDW 19.2 H (13.2-15.2) % Seg Neuts % (Manual) 93.0 H (40.0-70.0) % Lymphocytes % (Manual) 2.0 L (13.4-35.0) % Seg Neutrophils # Man 16.1 H (1.8-7.7) K/mm3 Lymphocytes # (Manual) 0.3 L (1.2-5.4) K/mm3 Chloride 95.0 L (98-107) mmol/L BUN 61 H (7-17) mg/dL Creatinine 11.9 H (0.6-1.2) mg/dL POC Glucose 122 H (70-105) mg/dL Calcium 8.0 L (8.4-10.2) mg/dL 04/25/21 04/25/21 Range/Units 08:01 11:10 WBC (4.5-11.0) K/mm3 RBC (3.65-5.03) M/mm3 Hgb (10.1-14.3) gm/dl Hct (30.3-42.9) % MCV (79-97) fl RDW (13.2-15.2) % Seg Neuts % (Manual) (40.0-70.0) % Lymphocytes % (Manual) (13.4-35.0) % Seg Neutrophils # Man (1.8-7.7) K/mm3 Lymphocytes # (Manual) (1.2-5.4) K/mm3 Chloride (98-107) mmol/L BUN (7-17) mg/dL Creatinine (0.6-1.2) mg/dL POC Glucose 160 H 124 H (70-105) mg/dL Calcium (8.4-10.2) mg/dL
[2021-04-25] MEDS: CEFEPIME/NS 1 GM/100 ML 1 GM/100 ML BAG IV SCH (17:03)
[2021-04-25] MEDS: NIFEdipine XL 60 MG TAB PO SCH (21:56)
[2021-04-26] MEDS: [UNRECOGNIZED DRUG - OTHER] IP SCH ×4 (07:31→18:34)
[2021-04-26] MEDS: HEPARIN 5,000 UNIT/1 ML VIAL SUB-Q SCH ×2 (10:09→21:22)
[2021-04-26] MEDS: ASPIRIN EC 81 MG TAB PO SCH (10:10)
[2021-04-26] MEDS: cloNIDine 0.2 MG TAB PO SCH (10:10)
[2021-04-26] MEDS: CINACALCET 30 MG TAB PO SCH (10:10)
[2021-04-26] MEDS: CHOLECALCIFEROL (VIT D3) 1000 UNIT (25 mcg) TAB PO SCH (10:10)
[2021-04-26] MEDS: carvediloL 6.25 MG TAB PO SCH ×2 (10:12→21:21)
[2021-04-26] MEDS: SUCRALFATE 1 GM TAB PO SCH ×4 (10:12→21:20)
[2021-04-26] MEDS: hydrALAZINE 25 MG TAB PO SCH ×3 (10:16→20:16)
[2021-04-26] MEDS: PANTOPRAZOLE 40 MG TAB PO SCH ×2 (10:16→17:35)
--- NOTE | 2021-04-26 14:03 | Progress Note ---
Assessment and Plan 71-year-old female with history of ESRD on peritoneal dialysis, diabetes mellitus, hypertension, admitted on 04/24/2021 secondary to 3-day history of acute abdominal pain with some nausea vomiting and diarrhea. On arrival, temperature 99.6, HR 113, RR 20, BP 120/135. Temperature up to 100.2. Initial WBC 21,000. Peritoneal fluid cell count WBC 3982, segs 99%. Blood culture 04/24/2021 no growth today. PD culture 04/23/2021 with many polymorphonuclears and no organisms. CT of the abdomen shows increased ascites. -- Sepsis Patient has a high white count of 21,000, now downtrending Diffuse abdominal pain, diarrhea however no discharge noted. Possibly secondary to peritonitis CT abdomen pelvis showed no bowel obstruction Peritoneal fluid culture showed polymorphonuclear cells but no growth Trend WBC on CBC Antibiotic therapy with IV cefepime and vancomycin --Acute peritonitis Patient has peritoneal dialysis catheter for regular peritoneal dialysis Diffuse abdominal pain and tenderness present. High white count., Now downtrending Consistent with sepsis and peritonitis. Patient initiated on IV cefepime and vancomycin ID consult also requested -- abdominal pain Diffuse abdominal pain, diarrhea, and tenderness present on admission Differential includes peritonitis versus gastroenteritis CTAP: Significant increase in intra-abdominal ascites since February 2021 exam. Obstructive bowel disease unlikely. Official read per radiology report -- End stage renal disease Nephrology consult requested for better dialysis Patient may need hemodialysis for now, no indication for TLC at this time Renally adjust medications Renal diet -- Hypertension Continue antihypertensives as needed labetalol IV -- IDDM (insulin dependent diabetes mellitus) Check hemoglobin A1c and SSI coverage for now --Anemia of chronic disease Epogen q. weekly once BP controlled. --Elevated troponin Secondary to troponin leak -- DVT prophylaxis On heparin and GI prophylaxis Dispo: pending clinical improvement, Full code, Renal diet Daily clinical course: 04/24/21; Patient doing well on encounter. She states that she believes she ate something that "did not agree with my stomach" and subsequently that is why she felt the severe abdominal pain. He states that she feels much better today. Yesterday she states that she was feeling tenderness and had experienced symptoms of diarrhea. The diarrhea is now resolved according patient. She denied any type of complications from her peritoneal dialysis catheter. She denied any discharge or drainage from her PD catheter insertion site. Remainder of ROS negative except for stated above 04/25/21: PD dialysis fluid Cx neg, blood cx neg. Continue cefepime 1 g IV once a day renally adjusted, Continue pulse vancomycin for now. f/u leukocytosis, will remove femoral TLC. follow clinically. Ordered for repeat peritoneal dialysate culture 04/26/21: still c/o abdominal pain. cont abx, ID recommended surgical evaluation : placed consult. Continue empiric antibiotic for now, follow dialysate culture from yesterday. Subjective Date of service: 04/26/21 Principal diagnosis: Abdominal pain Interval history: Patient seen and examined. Medical records and medication list reviewed. No acute event overnight noted by the RN. Patient denies any chest pain or difficulty breathing. Patient is tolerating diet. She continues to complains of diffuse abdominal pain Discussed plan of care at bedside with patient. Objective - Exam Narrative Exam: GENERAL: well-developed and well-nourished elderly -[place] lying on bed appeared to be in no discomfort. HEENT: Normocephalic. Atraumatic. No conjunctival congestion or icterus. Patient has moist mucous membranes. NECK: Supple. Trachea midline. CHEST/LUNGS: Clear to auscultated bilaterally, breathing nonlabored. No wheezes crackles or rhonchi. HEART/CARDIOVASCULAR: Regular in rate and rhythm. S1 and S2 positive. ABDOMEN: Abdomen is soft, + diffuse tender. Patient has normal bowel sounds. SKIN: There is no rash. Warm and dry. NEURO: No focal motor deficit. Follows command. MUSCULOSKELETAL: No joint effusion or tenderness. EXTRIMITY: No edema, no cyanosis or clubbing. PSYCH: Cooperative. - Constitutional Vitals: Vital Signs - 12hr 04/26/21 04/26/21 04/26/21 05:53 07:39 10:10 Temperature 98.2 F 98.2 F Pulse Rate 100 H 105 H 100 H Respiratory 16 18 Rate Blood Pressure 150/80 126/62 150/80 O2 Sat by Pulse 98 96 Oximetry 04/26/21 04/26/21 04/26/21 10:12 10:16 11:29 Temperature 98.5 F Pulse Rate 100 H 100 H 98 H Respiratory 16 Rate Blood Pressure 150/80 150/80 133/71 O2 Sat by Pulse 90 Oximetry 04/26/21 13:08 Temperature Pulse Rate 98 H Respiratory Rate Blood Pressure 133/71 O2 Sat by Pulse Oximetry - Labs CBC & Chem 7: 04/27/21 04:49 04/27/21 04:49 Labs: Abnormal lab results 04/25/21 04/26/21 Range/Units 16:34 11:25 POC Glucose 112 H 123 H (70-105) mg/dL HEART Score - HEART Score Troponin: Troponin T 0.092 ng/mL (0.00-0.029) H 04/23/21 14:09
--- NOTE | 2021-04-26 16:32 | Progress Note ---
Assessment and Plan Cultures: Blood culture 04/24/2021 no growth today. PD culture 04/23/2021 with many polymorphonuclears and no organisms. Assessment: 71-year-old female with history of ESRD on peritoneal dialysis, diabetes mellitus, CHF, hypertension, admitted on 04/24/2021 secondary to 3-day history of acute abdominal pain, diffuse, 5 out of 10 in intensity associated with nausea vomiting and diarrhea after eating barbecue, ice cream and baked beans the day before admission: #Sepsis: No fever, leukocytosis not better. Secondary to peritonitis. #PD catheter associated peritonitis versus secondary peritonitis (gastro enteritis): Abdominal pain not better, reporting cloudy peritoneal fluid today. No evidence of exit site or tunnel infection. Her PD catheter was placed 2 years and a half ago. She denies any changes in the color of the peritoneal fluid. She denies any previous PD peritonitis. #End-stage renal disease: PD Recommendations: -Consult surgery re: PD eval vs other possibilities of peritonitis -Follow-up dialysate culture which is negative so far -Repeat dialysate cell count and diff in 3-5 days - pending -Continue cefepime 1 g IV once a day renally adjusted -Continue pulse vancomycin for now -f/u leukocytosis Will follow. Amita Warner MD Infectious Diseases [employer] [facility] M [phone] O [phone] Subjective Date of service: 04/26/21 Principal diagnosis: Abdominal pain Interval history: Remains complaining of severe abdominal pain now 9 out of 10. Reports nausea no diarrhea. Reporting cloudy peritoneal effluent Objective - Exam Narrative Exam: General appearance: Alert in NAD pleasant Eyes: anicteric sclerae, moist conjunctivae; no lid-lag; PERRLA HENT: Normocephalic, Atraumatic; normal external ears, nares open, oropharynx clear with moist mucous membranes and no oral thrush; normal hard and soft palate. Neck: supple, tracheal midline, no JVD Lungs: CTA, with normal respiratory effort and no intercostal retractions CV: RRR no murmur Abdomen: Soft, tenderness palpation diffusely, PD catheter clean no drainage Extremities: no edema, no cyanosis Skin: No rash. Psych: no agitated Neuro: alert and oriented x 3. Moving all extermities - Constitutional Vitals: Vital Signs Temp Pulse Resp BP Pulse Ox 98.5 F 98 H 16 133/71 90 04/26/21 11:29 04/26/21 13:08 04/26/21 11:29 04/26/21 13:08 04/26/21 11:29 Temperature -Last 24 Hours Temperature 98.5 F Temperature 98.2 F Temperature 98.2 F Temperature 98.4 F Temperature 97.9 F - Labs CBC & Chem 7: 04/25/21 04:36 04/25/21 04:36 Labs: Abnormal lab results 04/25/21 04/26/21 04/26/21 Range/Units 16:34 11:25 15:50 POC Glucose 112 H 123 H 123 H (70-105) mg/dL
[2021-04-26] MEDS: CEFEPIME/NS 1 GM/100 ML 1 GM/100 ML BAG IV SCH (17:38)
[2021-04-26] MEDS ORDERED: EPOETIN ALFA-EPBX 10,000 UNIT/1 ML VIAL IV PRN (17:49)
--- NOTE | 2021-04-26 17:49 | Progress Note ---
Assessment and Plan End-stage renal disease on peritoneal dialysis Abdominal pain, PD peritonitis? Anemia Essential hypertension Continue manual PD Agree with antibiotics Follow-up cultures Epogen weekly No indication for TLC Continue antihypertensives, monitor trend and assess need for further titration Renally dose medications Avoid nephrotoxins Renal diet Recommend bowel regimen Case discussed with surgery Subjective Date of service: 04/26/21 Principal diagnosis: Abdominal pain Interval history: Denies further episodes of emesis. Objective - Exam Narrative Exam: General: No acute distress HEENT: Oral mucosa moist Neck: Supple, no JVD Chest: Clear to auscultation bilaterally Heart: RRR, S1 and S2, no pericardial rub Abdomen: Soft, nontender, no renal bruit. PD site without erythema or signs of inflammation. No drainage. Extremity: No peripheral cyanosis, edema Neurological: Alert, awake, no asterixis Dermatology: No skin rash Psych: No agitation Musculoskeletal: No joint effusion - Vital Signs Vital signs: Vital Signs - 12hr 04/26/21 04/26/21 04/26/21 05:53 07:39 10:10 Temperature 98.2 F 98.2 F Pulse Rate 100 H 105 H 100 H Respiratory 16 18 Rate Blood Pressure 150/80 126/62 150/80 O2 Sat by Pulse 98 96 Oximetry 04/26/21 04/26/21 04/26/21 10:12 10:16 11:29 Temperature 98.5 F Pulse Rate 100 H 100 H 98 H Respiratory 16 Rate Blood Pressure 150/80 150/80 133/71 O2 Sat by Pulse 90 Oximetry 04/26/21 04/26/21 13:08 15:52 Temperature 98.6 F Pulse Rate 98 H 100 H Respiratory 16 Rate Blood Pressure 133/71 116/65 O2 Sat by Pulse 96 Oximetry - Lab 04/25/21 04:36 04/25/21 04:36 Most recent lab results Calcium 8.0 mg/dL (8.4-10.2) L 04/25/21 04:36 Magnesium 1.60 mg/dL (1.7-2.3) L 04/23/21 14:09 Medications & Allergies - Medications Allergies/Adverse Reactions: Allergies digoxin Allergy (Verified 04/23/21 17:56) Hives lisinopril Allergy (Verified 04/23/21 17:57) Swelling nitroglycerin Adverse Reaction (Verified 04/23/21 17:57) Rash, HEADACHES shellfish derived Adverse Reaction (Verified 04/23/21 17:57) Swelling Home Medications: Home Medications Medication Instructions Recorded Confirmed Last Taken Type NIFEdipine XL [Procardia Xl] 60 mg PO HS 05/27/15 02/15/21 07/30/20 History carvediloL [Coreg] 6.25 mg PO BID 05/27/15 02/15/21 07/30/20 History cloNIDine [Catapres] 0.2 mg PO DAILY 09/14/16 02/15/21 07/30/20 History Gentamicin 0.1% Top Oint(Nf) 1 applic TP TID 07/31/20 02/15/21 Unknown History [Gentamicin 0.1% Top Oint (Nf)] Cholecalciferol Vit D3 [Vitamin D3 3,000 unit PO DAILY tablet 08/01/20 02/15/21 Unknown Rx 1,000 UNIT TAB] Cinacalcet [Sensipar] 90 mg PO QDAY 02/15/21 02/15/21 Unknown History Hydralazine HCl 50 mg PO TID 02/15/21 02/15/21 Unknown History Aspirin EC [Halfprin EC] 81 mg PO QDAY #30 tablet. 02/23/21 Unknown Rx Lispro Insulin [HumaLOG] 0 unit SUB-Q ACHS units 02/23/21 Unknown Rx Pantoprazole [Protonix TAB] 40 mg PO BIDAC #60 tablet 02/23/21 Unknown Rx Sucralfate [Carafate] 1 gm PO ACHS #30 tablet 02/23/21 Unknown Rx hydrOXYzine HCL [Atarax] 25 mg PO Q6H PRN #20 tablet 02/23/21 Unknown Rx polyethylene glycoL 3350 [Miralax 17 gm PO QDAY #20 powd.pack 02/23/21 Unknown Rx 3350] Active Medications: Generic Name Dose Route Start Last Admin Trade Name Freq PRN Reason Stop Dose Admin Acetaminophen 650 mg 04/23/21 21:58 04/24/21 00:51 Acetaminophen 325 Mg Tab PO 650 mg Q4H PRN Administration Pain MILD(1-3)/Fever >100.5/POOLE Aspirin 81 mg 04/24/21 17:00 04/26/21 10:10 Aspirin Ec 81 Mg Tab PO 81 mg QDAY BRAXTON Administration Carvedilol 6.25 mg 04/24/21 22:00 04/26/21 10:12 Carvedilol 6.25 Mg Tab PO 6.25 mg BID BRAXTON Administration Cholecalciferol 3,000 unit 04/25/21 10:00 04/26/21 10:10 Cholecalciferol (Vit D3) 1000 Unit (25 Mcg) Tab PO 3,000 unit DAILY BRAXTON Administration Cinacalcet 90 mg 04/25/21 10:00 04/26/21 10:10 Cinacalcet 30 Mg Tab PO 90 mg QDAY BRAXTON Administration Clonidine HCl 0.2 mg 04/25/21 10:00 04/26/21 10:10 Clonidine 0.2 Mg Tab PO 0.2 mg DAILY BRAXTON Administration Heparin Sodium (Porcine) 5,000 unit 04/23/21 22:15 04/26/21 10:09 Heparin 5,000 Unit/1 Ml Vial SUB-Q 5,000 unit Q12HR BRAXTON Administration Hydralazine HCl 50 mg 04/24/21 20:00 04/26/21 13:08 Hydralazine 25 Mg Tab PO 50 mg TID BRAXTON Administration Hydromorphone HCl 0.5 mg 04/23/21 22:04 Hydromorphone 1 Mg/1 Ml Inj IV Q3H PRN Pain , Severe (7-10) Hydroxyzine HCl 25 mg 04/24/21 16:29 04/26/21 06:10 Hydroxyzine Hcl 25 Mg Tab PO 25 mg Q6H PRN Administration Itching Cefepime HCl 1 gm in 100 mls @ 200 mls/hr 04/24/21 17:00 04/26/21 17:38 Cefepime/Ns 1 Gm/100 Ml IV 200 mls/hr Q24H BRAXTON Administration Protocol Nifedipine 60 mg 04/24/21 22:00 04/25/21 21:56 Nifedipine Xl 60 Mg Tab PO 60 mg HS BRAXTON Administration Ondansetron HCl 4 mg 04/23/21 21:58 Ondansetron 4 Mg/2 Ml Inj IV Q8H PRN Nausea And Vomiting Oxycodone/Acetaminophen 1 tab 04/23/21 22:04 04/24/21 01:22 Oxycodone /Acetaminophen 5-325mg Tab PO 1 tab Q6H PRN Administration Pain, Moderate (4-6) Pantoprazole Sodium 40 mg 04/24/21 16:30 04/26/21 17:35 Pantoprazole 40 Mg Tab PO 40 mg BIDAC BRAXTON Administration Peritoneal Dialysis Solution 2,000 ml 04/24/21 12:00 04/26/21 13:08 Dialysate Pd2 2.5% Soln 2000 Ml IP 2,000 ml Q6HR BRAXTON Administration Sodium Chloride 10 ml 04/23/21 22:00 04/26/21 10:17 Sodium Chloride 0.9% 10 Ml Flush Syringe IV 10 ml BID BRAXTON Administration Sodium Chloride 10 ml 04/23/21 21:58 Sodium Chloride 0.9% 10 Ml Flush Syringe IV PRN PRN LINE FLUSH Sucralfate 1 gm 04/24/21 16:30 04/26/21 17:35 Sucralfate 1 Gm Tab PO 1 gm ACHS BRAXTON Administration
--- NOTE | 2021-04-26 18:14 | Consultation ---
History of Present Illness Consult date: 04/26/21 Reason for consult: abdominal pain - History of present illness History of present illness: 71-year-old female who was admitted to the hospital with abdominal pain nausea and vomiting. Patient says that the nausea and vomiting, diarrhea and abdominal pain started 3 days ago after eating some barbecue. She denies any nausea and vomiting and diarrhea over the last 24 hours however she says she continues to have abdominal pain that she rates 9 out of 10. Patient had a CT scan that showed no acute pathology except for abdominal ascites, and an intact peritoneal dialysis catheter. Patient says that she had a peritoneal dialysis catheter placed 2 years ago and has had no issues. She says that her dialysis fluid has remained clear. Past History Past Medical History: diabetes, hypertension, renal failure, other (Cardiomyopathy) Past Surgical History: Other (PD catheter placement, appendectomy) Medications and Allergies Allergies Allergy/AdvReac Type Severity Reaction Status Date / Time digoxin Allergy Hives Verified 04/23/21 17:56 lisinopril Allergy Swelling Verified 04/23/21 17:57 nitroglycerin AdvReac Rash, Verified 04/23/21 17:57 HEADACHES shellfish derived AdvReac Swelling Verified 04/23/21 17:57 Home Medications Medication Instructions Recorded Confirmed Last Taken Type NIFEdipine XL [Procardia Xl] 60 mg PO HS 05/27/15 02/15/21 07/30/20 History carvediloL [Coreg] 6.25 mg PO BID 05/27/15 02/15/21 07/30/20 History cloNIDine [Catapres] 0.2 mg PO DAILY 09/14/16 02/15/21 07/30/20 History Gentamicin 0.1% Top Oint(Nf) 1 applic TP TID 07/31/20 02/15/21 Unknown History [Gentamicin 0.1% Top Oint (Nf)] Cholecalciferol Vit D3 [Vitamin D3 3,000 unit PO DAILY tablet 08/01/20 02/15/21 Unknown Rx 1,000 UNIT TAB] Cinacalcet [Sensipar] 90 mg PO QDAY 02/15/21 02/15/21 Unknown History Hydralazine HCl 50 mg PO TID 02/15/21 02/15/21 Unknown History Aspirin EC [Halfprin EC] 81 mg PO QDAY #30 tablet. 02/23/21 Unknown Rx Lispro Insulin [HumaLOG] 0 unit SUB-Q ACHS units 02/23/21 Unknown Rx Pantoprazole [Protonix TAB] 40 mg PO BIDAC #60 tablet 02/23/21 Unknown Rx Sucralfate [Carafate] 1 gm PO ACHS #30 tablet 02/23/21 Unknown Rx hydrOXYzine HCL [Atarax] 25 mg PO Q6H PRN #20 tablet 02/23/21 Unknown Rx polyethylene glycoL 3350 [Miralax 17 gm PO QDAY #20 powd.pack 02/23/21 Unknown Rx 3350] Active Meds: Active Medications Acetaminophen (Acetaminophen 325 Mg Tab) 650 mg PO Q4H PRN PRN Reason: Pain MILD(1-3)/Fever >100.5/POOLE Last Admin: 04/24/21 00:51 Dose: 650 mg Documented by: Aspirin (Aspirin Ec 81 Mg Tab) 81 mg PO QDAY ON LICENSE OF [facility] Last Admin: 04/26/21 10:10 Dose: 81 mg Documented by: Carvedilol (Carvedilol 6.25 Mg Tab) 6.25 mg PO BID ON LICENSE OF [facility] Last Admin: 04/26/21 10:12 Dose: 6.25 mg Documented by: Cholecalciferol (Cholecalciferol (Vit D3) 1000 Unit (25 Mcg) Tab) 3,000 unit PO DAILY ON LICENSE OF [facility] Last Admin: 04/26/21 10:10 Dose: 3,000 unit Documented by: Cinacalcet (Cinacalcet 30 Mg Tab) 90 mg PO QDAY ON LICENSE OF [facility] Last Admin: 04/26/21 10:10 Dose: 90 mg Documented by: Clonidine HCl (Clonidine 0.2 Mg Tab) 0.2 mg PO DAILY ON LICENSE OF [facility] Last Admin: 04/26/21 10:10 Dose: 0.2 mg Documented by: Heparin Sodium (Porcine) (Heparin 5,000 Unit/1 Ml Vial) 5,000 unit SUB-Q Q12HR ON LICENSE OF [facility] Last Admin: 04/26/21 10:09 Dose: 5,000 unit Documented by: Hydralazine HCl (Hydralazine 25 Mg Tab) 50 mg PO TID ON LICENSE OF [facility] Last Admin: 04/26/21 13:08 Dose: 50 mg Documented by: Hydromorphone HCl (Hydromorphone 1 Mg/1 Ml Inj) 0.5 mg IV Q3H PRN PRN Reason: Pain , Severe (7-10) Hydroxyzine HCl (Hydroxyzine Hcl 25 Mg Tab) 25 mg PO Q6H PRN PRN Reason: Itching Last Admin: 04/26/21 06:10 Dose: 25 mg Documented by: Cefepime HCl (Cefepime/Ns 1 Gm/100 Ml) 1 gm in 100 mls @ 200 mls/hr IV Q24H ON LICENSE OF [facility]; Protocol Last Admin: 04/26/21 17:38 Dose: 200 mls/hr Documented by: Nifedipine (Nifedipine Xl 60 Mg Tab) 60 mg PO HS ON LICENSE OF [facility] Last Admin: 04/25/21 21:56 Dose: 60 mg Documented by: Ondansetron HCl (Ondansetron 4 Mg/2 Ml Inj) 4 mg IV Q8H PRN PRN Reason: Nausea And Vomiting Oxycodone/Acetaminophen (Oxycodone /Acetaminophen 5-325mg Tab) 1 tab PO Q6H PRN PRN Reason: Pain, Moderate (4-6) Last Admin: 04/24/21 01:22 Dose: 1 tab Documented by: Pantoprazole Sodium (Pantoprazole 40 Mg Tab) 40 mg PO BIDAC ON LICENSE OF [facility] Last Admin: 04/26/21 17:35 Dose: 40 mg Documented by: Peritoneal Dialysis Solution (Dialysate Pd2 2.5% Soln 2000 Ml) 2,000 ml IP Q6HR ON LICENSE OF [facility] Last Admin: 04/26/21 13:08 Dose: 2,000 ml Documented by: Sodium Chloride (Sodium Chloride 0.9% 10 Ml Flush Syringe) 10 ml IV BID ON LICENSE OF [facility] Last Admin: 04/26/21 10:17 Dose: 10 ml Documented by: Sodium Chloride (Sodium Chloride 0.9% 10 Ml Flush Syringe) 10 ml IV PRN PRN PRN Reason: LINE FLUSH Sucralfate (Sucralfate 1 Gm Tab) 1 gm PO ACHS ON LICENSE OF [facility] Last Admin: 04/26/21 17:35 Dose: 1 gm Documented by: Review of Systems All systems: negative - Cardiovascular no chest pain - Respiratory no cough - Gastrointestinal abdominal pain, no nausea, no vomiting, no diarrhea Exam Vital Signs Temp Pulse Resp BP Pulse Ox 99.6 F 113 H 20 220/135 100 04/23/21 14:02 04/23/21 14:02 04/23/21 14:02 04/23/21 14:02 04/23/21 14:02 - General physical appearance Positive: well developed, no distress, no pain - Respiratory Positive: normal expansion, normal respiratory effort - Cardiovascular Heart Sounds: Present: S1 & S2 - Extremities Extremities: no ischemia - Abdomen Abdomen: Present: soft, tender, other (PD catheter exiting left of midline with no signs of surrounding erythema or purulence. Clear PD cath fluid in tubing. Tender to palpation generally.). Absent: distended, guarding, rigid Results - Labs 04/25/21 04:36 04/25/21 04:36 Abnormal lab results 04/26/21 04/26/21 Range/Units 11:25 15:50 POC Glucose 123 H 123 H (70-105) mg/dL - Imaging CT scan - abdomen: report reviewed, image reviewed CT scan - pelvis: report reviewed, image reviewed Assessment and Plan 71-year-old female with acute abdominal pain, history of renal failure on peritoneal dialysis. Abdominal pain of unclear etiology. May be due to bacterial peritonitis (white blood cell count on peritoneal fluid cytology more than 3000)Or residual gastroenteritis. Patient is afebrile and stable. Patient has no focal pathology requiring surgical intervention currently. Would continue antibiotics per infectious disease and renal specialist. No acute surgical intervention indicated at this time. If renal and/or infectious disease believe that patient has unresolving bacterial peritonitis that may improve with removal of PD catheter, can remove PD catheter this admission if requested.
[2021-04-26] MEDS: NIFEdipine XL 60 MG TAB PO SCH (21:20)
[2021-04-27] MEDS: [UNRECOGNIZED DRUG - OTHER] IP SCH ×5 (02:45→17:44)
[2021-04-27 06:10] LABS: Basophils # (Auto) 0.1 K/mm3 (0.0-0.1); Basophils % (Auto) 0.7 % (0.0-1.8); Eosinophils # (Auto) 0.6 K/mm3 (0.0-0.4); Eosinophils % (Auto) 6.7 % (0.0-4.3); Hematocrit 24.6 % (30.3-42.9); Hemoglobin 7.7 gm/dl (10.1-14.3); Lymphocytes # (Auto) 1.2 K/mm3 (1.2-5.4); Lymphocytes % (Auto) 14.9 % (13.4-35.0); Mean Corpuscular HGB Conc 32 % (30-34); Mean Corpuscular Volume 96 fl (79-97); Monocytes # (Auto) 0.7 K/mm3 (0.0-0.8); Monocytes % (Auto) 8.7 % (0.0-7.3); Platelet Count 253 K/mm3 (140-440); Red Blood Count 2.56 M/mm3 (3.65-5.03); Red Cell Distribution Width 19.1 % (13.2-15.2)
[2021-04-27 06:30] LABS: Calcium 6.9 mg/dL (8.4-10.2)
[2021-04-27] MEDS: SUCRALFATE 1 GM TAB PO SCH ×5 (07:35→21:12)
[2021-04-27] MEDS: PANTOPRAZOLE 40 MG TAB PO SCH ×3 (07:35→17:15)
[2021-04-27] MEDS: HEPARIN 5,000 UNIT/1 ML VIAL SUB-Q SCH ×2 (10:07→21:12)
[2021-04-27] MEDS: hydrALAZINE 25 MG TAB PO SCH ×3 (10:07→20:55)
[2021-04-27] MEDS: CHOLECALCIFEROL (VIT D3) 1000 UNIT (25 mcg) TAB PO SCH (10:09)
[2021-04-27] MEDS: cloNIDine 0.2 MG TAB PO SCH (10:10)
[2021-04-27] MEDS: carvediloL 6.25 MG TAB PO SCH ×2 (10:10→21:27)
[2021-04-27] MEDS: ASPIRIN EC 81 MG TAB PO SCH (10:11)
[2021-04-27] MEDS: CINACALCET 30 MG TAB PO SCH (10:11)
--- NOTE | 2021-04-27 11:10 | Progress Note ---
Assessment and Plan End-stage renal disease on peritoneal dialysis Abdominal pain, PD peritonitis? Anemia Essential hypertension Hypocalcemia Continue manual PD Agree with antibiotics Follow-up cultures Epogen weekly No indication for TLC Check ionized calcium Start calcium supplementation Check PTH Continue antihypertensives, monitor trend and assess need for further titration Renally dose medications Avoid nephrotoxins Renal diet Recommend bowel regimen Case discussed with surgery Subjective Date of service: 04/27/21 Principal diagnosis: Abdominal pain Interval history: Denies further episodes of emesis. Notes resolution of abdominal pain. Objective - Exam Narrative Exam: General: No acute distress HEENT: Oral mucosa moist Neck: Supple, no JVD Chest: Clear to auscultation bilaterally Heart: RRR, S1 and S2, no pericardial rub Abdomen: Soft, nontender, no renal bruit. PD site without erythema or signs of inflammation. No drainage. Extremity: No peripheral cyanosis, edema Neurological: Alert, awake, no asterixis Dermatology: No skin rash Psych: No agitation Musculoskeletal: No joint effusion - Vital Signs Vital signs: Vital Signs - 12hr 04/26/21 04/27/21 04/27/21 23:22 02:41 02:44 Temperature 98.0 F Pulse Rate 99 H 98 H Respiratory 18 Rate Blood Pressure 138/77 131/69 Blood Pressure [Right] O2 Sat by Pulse 96 Oximetry 04/27/21 04/27/21 04/27/21 03:18 06:51 07:17 Temperature 98.8 F Pulse Rate 104 H 97 H Respiratory 18 Rate Blood Pressure 147/70 127/70 138/79 Blood Pressure [Right] O2 Sat by Pulse 92 94 Oximetry 04/27/21 04/27/21 04/27/21 07:39 10:07 10:10 Temperature 98.5 F Pulse Rate 94 H 94 H 94 H Respiratory 18 Rate Blood Pressure 138/79 138/79 Blood Pressure 138/79 [Right] O2 Sat by Pulse 97 Oximetry - Lab 04/27/21 04:49 04/27/21 04:49 Most recent lab results Calcium 6.9 mg/dL (8.4-10.2) L 04/27/21 04:49 Magnesium 1.60 mg/dL (1.7-2.3) L 04/23/21 14:09 Medications & Allergies - Medications Allergies/Adverse Reactions: Allergies digoxin Allergy (Verified 04/23/21 17:56) Hives lisinopril Allergy (Verified 04/23/21 17:57) Swelling nitroglycerin Adverse Reaction (Verified 04/23/21 17:57) Rash, HEADACHES shellfish derived Adverse Reaction (Verified 04/23/21 17:57) Swelling Home Medications: Home Medications Medication Instructions Recorded Confirmed Last Taken Type NIFEdipine XL [Procardia Xl] 60 mg PO HS 05/27/15 02/15/21 07/30/20 History carvediloL [Coreg] 6.25 mg PO BID 05/27/15 02/15/21 07/30/20 History cloNIDine [Catapres] 0.2 mg PO DAILY 09/14/16 02/15/21 07/30/20 History Gentamicin 0.1% Top Oint(Nf) 1 applic TP TID 07/31/20 02/15/21 Unknown History [Gentamicin 0.1% Top Oint (Nf)] Cholecalciferol Vit D3 [Vitamin D3 3,000 unit PO DAILY tablet 08/01/20 02/15/21 Unknown Rx 1,000 UNIT TAB] Cinacalcet [Sensipar] 90 mg PO QDAY 02/15/21 02/15/21 Unknown History Hydralazine HCl 50 mg PO TID 02/15/21 02/15/21 Unknown History Aspirin EC [Halfprin EC] 81 mg PO QDAY #30 tablet.dr 02/23/21 Unknown Rx Lispro Insulin [HumaLOG] 0 unit SUB-Q ACHS units 02/23/21 Unknown Rx Pantoprazole [Protonix TAB] 40 mg PO BIDAC #60 tablet 02/23/21 Unknown Rx Sucralfate [Carafate] 1 gm PO ACHS #30 tablet 02/23/21 Unknown Rx hydrOXYzine HCL [Atarax] 25 mg PO Q6H PRN #20 tablet 02/23/21 Unknown Rx polyethylene glycoL 3350 [Miralax 17 gm PO QDAY #20 powd.pack 02/23/21 Unknown Rx 3350] Active Medications: Generic Name Dose Route Start Last Admin Trade Name Freq PRN Reason Stop Dose Admin Acetaminophen 650 mg 04/23/21 21:58 04/24/21 00:51 Acetaminophen 325 Mg Tab PO 650 mg Q4H PRN Administration Pain MILD(1-3)/Fever >100.5/POOLE Aspirin 81 mg 04/24/21 17:00 04/27/21 10:11 Aspirin Ec 81 Mg Tab PO 81 mg QDAY [facility] Administration Carvedilol 6.25 mg 04/24/21 22:00 04/27/21 10:10 Carvedilol 6.25 Mg Tab PO 6.25 mg BID [facility] Administration Cholecalciferol 3,000 unit 04/25/21 10:00 04/27/21 10:09 Cholecalciferol (Vit D3) 1000 Unit (25 Mcg) Tab PO 3,000 unit DAILY [facility] Administration Cinacalcet 90 mg 04/25/21 10:00 04/27/21 10:11 Cinacalcet 30 Mg Tab PO 90 mg QDAY [facility] Administration Clonidine HCl 0.2 mg 04/25/21 10:00 04/27/21 10:10 Clonidine 0.2 Mg Tab PO 0.2 mg DAILY [facility] Administration Heparin Sodium (Porcine) 5,000 unit 04/23/21 22:15 04/27/21 10:07 Heparin 5,000 Unit/1 Ml Vial SUB-Q 5,000 unit Q12HR [facility] Administration Hydralazine HCl 50 mg 04/24/21 20:00 04/27/21 10:07 Hydralazine 25 Mg Tab PO 50 mg TID [facility] Administration Hydromorphone HCl 0.5 mg 04/23/21 22:04 Hydromorphone 1 Mg/1 Ml Inj IV Q3H PRN Pain , Severe (7-10) Hydroxyzine HCl 25 mg 04/24/21 16:29 04/26/21 06:10 Hydroxyzine Hcl 25 Mg Tab PO 25 mg Q6H PRN Administration Itching Cefepime HCl 1 gm in 100 mls @ 200 mls/hr 04/24/21 17:00 04/26/21 17:38 Cefepime/Ns 1 Gm/100 Ml IV 200 mls/hr Q24H [facility] Administration Protocol Multivitamins/Minerals 1 each 04/27/21 12:00 Calcium Carb/Vit D3/Minerals 600 Mg/800 Units Tab PO BID [facility] Nifedipine 60 mg 04/24/21 22:00 04/26/21 21:20 Nifedipine Xl 60 Mg Tab PO 60 mg HS [facility] Administration Ondansetron HCl 4 mg 04/23/21 21:58 Ondansetron 4 Mg/2 Ml Inj IV Q8H PRN Nausea And Vomiting Oxycodone/Acetaminophen 1 tab 04/23/21 22:04 04/24/21 01:22 Oxycodone /Acetaminophen 5-325mg Tab PO 1 tab Q6H PRN Administration Pain, Moderate (4-6) Pantoprazole Sodium 40 mg 04/24/21 16:30 04/27/21 07:35 Pantoprazole 40 Mg Tab PO 40 mg BIDAC [facility] Administration Peritoneal Dialysis Solution 2,000 ml 04/24/21 12:00 04/27/21 06:55 Dialysate Pd2 2.5% Soln 2000 Ml IP 2,000 ml Q6HR [facility] Administration Sodium Chloride 10 ml 04/23/21 22:00 04/27/21 10:12 Sodium Chloride 0.9% 10 Ml Flush Syringe IV 10 ml BID [facility] Administration Sodium Chloride 10 ml 04/23/21 21:58 Sodium Chloride 0.9% 10 Ml Flush Syringe IV PRN PRN LINE FLUSH Sucralfate 1 gm 04/24/21 16:30 04/27/21 07:35 Sucralfate 1 Gm Tab PO 1 gm ACHS [facility] Administration
[2021-04-27] MEDS: CALCIUM CARB/VIT D3/MINERALS 600 MG/800 UNITS TAB PO SCH ×2 (12:44→21:28)
--- NOTE | 2021-04-27 15:30 | Progress Note ---
Assessment and Plan 71-year-old female with history of ESRD on peritoneal dialysis, diabetes mellitus, hypertension, admitted on 04/24/2021 secondary to 3-day history of acute abdominal pain with some nausea vomiting and diarrhea. On arrival, temperature 99.6, HR 113, RR 20, BP 120/135. Temperature up to 100.2. Initial WBC 21,000. Peritoneal fluid cell count WBC 3982, segs 99%. Blood culture 04/24/2021 no growth today. PD culture 04/23/2021 with many polymorphonuclears and no organisms. CT of the abdomen shows increased ascites. -- Sepsis Patient has a high white count of 21,000, now downtrending Diffuse abdominal pain, diarrhea however no discharge noted. Possibly secondary to peritonitis CT abdomen pelvis showed no bowel obstruction Peritoneal fluid culture showed polymorphonuclear cells but no growth Trend WBC on CBC Antibiotic therapy with IV cefepime and vancomycin --Acute peritonitis Patient has peritoneal dialysis catheter for regular peritoneal dialysis Diffuse abdominal pain and tenderness present. High white count., Now downtrending Consistent with sepsis and peritonitis. Patient initiated on IV cefepime and vancomycin ID consult also requested -- abdominal pain Diffuse abdominal pain, diarrhea, and tenderness present on admission Differential includes peritonitis versus gastroenteritis CTAP: Significant increase in intra-abdominal ascites since February 2021 exam. Obstructive bowel disease unlikely. Official read per radiology report -- End stage renal disease Nephrology consult requested for better dialysis Patient may need hemodialysis for now, no indication for TLC at this time Renally adjust medications Renal diet -- Hypertension Continue antihypertensives as needed labetalol IV -- IDDM (insulin dependent diabetes mellitus) Check hemoglobin A1c and SSI coverage for now --Anemia of chronic disease Epogen q. weekly once BP controlled. --Elevated troponin Secondary to troponin leak -- DVT prophylaxis On heparin and GI prophylaxis Dispo: pending clinical improvement, Full code, Renal diet Daily clinical course: 04/24/21; Patient doing well on encounter. She states that she believes she ate something that "did not agree with my stomach" and subsequently that is why she felt the severe abdominal pain. He states that she feels much better today. Yesterday she states that she was feeling tenderness and had experienced symptoms of diarrhea. The diarrhea is now resolved according patient. She denied any type of complications from her peritoneal dialysis catheter. She denied any discharge or drainage from her PD catheter insertion site. Remainder of ROS negative except for stated above 04/25/21: PD dialysis fluid Cx neg, blood cx neg. Continue cefepime 1 g IV once a day renally adjusted, Continue pulse vancomycin for now. f/u leukocytosis, will remove femoral TLC. follow clinically. Ordered for repeat peritoneal dialysate culture 04/26/21: still c/o abdominal pain. cont abx, ID recommended surgical evaluation : placed consult. Continue empiric antibiotic for now, follow dialysate culture from yesterday. 04/27/21: Patient clinically much improved today, WBC count normal, dialysate culture from 04/25/21 showed no growth. Patient declines any abdominal pain today. No surgical intervention needed per general surgery. Discussed with ID and recommended ceftazidime and vancomycin with peritoneal dialysis for total 2 weeks. We will request case management and nephrology service to arrange home antibiotic regimen treatment from dialysis. Subjective Date of service: 04/27/21 Principal diagnosis: Abdominal pain Interval history: Patient seen and examined. Medical records and medication list reviewed. No acute event overnight noted by the RN. Patient denies any chest pain or difficulty breathing. Patient is tolerating diet. She states her abdominal pain has improved Discussed plan of care at bedside with patient. Objective - Exam Narrative Exam: GENERAL: well-developed and well-nourished elderly -[place] lying on bed appeared to be in no discomfort. HEENT: Normocephalic. Atraumatic. No conjunctival congestion or icterus. Patient has moist mucous membranes. NECK: Supple. Trachea midline. CHEST/LUNGS: Clear to auscultated bilaterally, breathing nonlabored. No wheezes crackles or rhonchi. HEART/CARDIOVASCULAR: Regular in rate and rhythm. S1 and S2 positive. ABDOMEN: Abdomen is soft, no tender. Patient has normal bowel sounds. SKIN: There is no rash. Warm and dry. NEURO: No focal motor deficit. Follows command. MUSCULOSKELETAL: No joint effusion or tenderness. EXTRIMITY: No edema, no cyanosis or clubbing. PSYCH: Cooperative. - Constitutional Vitals: Vital Signs - 12hr 04/27/21 04/27/21 04/27/21 06:51 07:17 07:39 Temperature 98.5 F Pulse Rate 97 H 94 H Respiratory 18 Rate Blood Pressure 127/70 138/79 Blood Pressure 138/79 [Right] O2 Sat by Pulse 94 97 Oximetry 04/27/21 04/27/21 04/27/21 10:07 10:10 13:06 Temperature Pulse Rate 94 H 94 H 97 H Respiratory 18 Rate Blood Pressure 138/79 138/79 157/81 Blood Pressure [Right] O2 Sat by Pulse 93 Oximetry 04/27/21 04/27/21 04/27/21 13:07 13:08 13:21 Temperature Pulse Rate 92 H 96 H 101 H Respiratory 18 16 Rate Blood Pressure 170/83 Blood Pressure 157/81 [Right] O2 Sat by Pulse 94 96 93 Oximetry 04/27/21 13:23 Temperature 98.2 F Pulse Rate Respiratory Rate Blood Pressure Blood Pressure [Right] O2 Sat by Pulse Oximetry - Labs CBC & Chem 7: 04/27/21 04:49 04/27/21 04:49 Labs: Abnormal lab results 04/26/21 04/27/21 04/27/21 Range/Units 15:50 04:49 04:49 RBC 2.56 L (3.65-5.03) M/mm3 Hgb 7.7 L (10.1-14.3) gm/dl Hct 24.6 L (30.3-42.9) % RDW 19.1 H (13.2-15.2) % [place] % (Auto) 8.7 H (0.0-7.3) % Eos % (Auto) 6.7 H (0.0-4.3) % Eos # (Auto) 0.6 H (0.0-0.4) K/mm3 Chloride 96.0 L (98-107) mmol/L BUN 62 H (7-17) mg/dL Creatinine 12.5 H (0.6-1.2) mg/dL Glucose 131 H (65-100) mg/dL POC Glucose 123 H (70-105) mg/dL Calcium 6.9 L (8.4-10.2) mg/dL PTH Intact (15-65) pg/mL 04/27/21 04/27/21 Range/Units 07:29 12:15 RBC (3.65-5.03) M/mm3 Hgb (10.1-14.3) gm/dl Hct (30.3-42.9) % RDW (13.2-15.2) % [place] % (Auto) (0.0-7.3) % Eos % (Auto) (0.0-4.3) % Eos # (Auto) (0.0-0.4) K/mm3 Chloride (98-107) mmol/L BUN (7-17) mg/dL Creatinine (0.6-1.2) mg/dL Glucose (65-100) mg/dL POC Glucose 127 H (70-105) mg/dL Calcium (8.4-10.2) mg/dL PTH Intact 681.4 H (15-65) pg/mL HEART Score - HEART Score Troponin: Troponin T 0.092 ng/mL (0.00-0.029) H 04/23/21 14:09
--- NOTE | 2021-04-27 16:29 | Progress Note ---
Assessment and Plan Cultures: Blood culture 04/24/2021 no growth today. PD culture 04/23/2021 with many polymorphonuclears and no organisms. Assessment: 71-year-old female with history of ESRD on peritoneal dialysis, diabetes mellitus, CHF, hypertension, admitted on 04/24/2021 secondary to 3-day history of acute abdominal pain, diffuse, 5 out of 10 in intensity associated with nausea vomiting and diarrhea after eating barbecue, ice cream and baked beans the day before admission: #Sepsis: Leukocytosis resolved. Secondary to peritonitis. #PD catheter associated peritonitis versus secondary peritonitis (gastroenteritis): Abdominal pain better. No evidence of exit site or tunnel infection. Her PD catheter was placed 2 years and a half ago. She denies any changes in the color of the peritoneal fluid. She denies any previous PD peritonitis. Surgery eval no acute interventions. #End-stage renal disease: PD Recommendations: -Okay to discharge home on PD ceftazidime and vancomycin per PD dialysis nurse/renal doctor total 14 days until 05/08/2021 -Needs a repeat peritoneal cell count and differential,repeat fluid on 04/25/2021 only sent for Gram stain and culture -Okay to discharge from ID standpoint patient wants to go home Will follow. Amita Warner MD Infectious Diseases [employer] [facility] ([facility]) M [phone] O [phone] Subjective Date of service: 04/27/21 Principal diagnosis: Abdominal pain Interval history: Patient feels much better, abdominal pain resolved, denies any fever, nausea, vomiting, diarrhea. She wants to go home. Objective - Exam Narrative Exam: General appearance: Alert in NAD pleasant Eyes: anicteric sclerae, moist conjunctivae; no lid-lag; PERRLA HENT: Normocephalic, Atraumatic; normal external ears, nares open, oropharynx clear with moist mucous membranes and no oral thrush; normal hard and soft p alate. Neck: supple, tracheal midline, no JVD Lungs: CTA, with normal respiratory effort and no intercostal retractions CV: RRR no murmur Abdomen: Soft, nontender, PD catheter clean no drainage Extremities: no edema, no cyanosis Skin: No rash. Psych: no agitated Neuro: alert and oriented x 3. Moving all extermities - Constitutional Vitals: Vital Signs Temp Pulse Resp BP Pulse Ox 98.2 F 101 H 16 170/83 93 04/27/21 13:23 04/27/21 13:21 04/27/21 13:21 04/27/21 13:21 04/27/21 13:21 Temperature -Last 24 Hours Temperature 98.2 F Temperature 98.5 F Temperature 98.8 F Temperature 98.0 F Temperature 98.6 F - Labs CBC & Chem 7: 04/27/21 04:49 04/27/21 04:49 Labs: Abnormal lab results 04/27/21 04/27/21 04/27/21 Range/Units 04:49 04:49 07:29 RBC 2.56 L (3.65-5.03) M/mm3 Hgb 7.7 L (10.1-14.3) gm/dl Hct 24.6 L (30.3-42.9) % RDW 19.1 H (13.2-15.2) % [place] % (Auto) 8.7 H (0.0-7.3) % Eos % (Auto) 6.7 H (0.0-4.3) % Eos # (Auto) 0.6 H (0.0-0.4) K/mm3 Chloride 96.0 L (98-107) mmol/L BUN 62 H (7-17) mg/dL Creatinine 12.5 H (0.6-1.2) mg/dL Glucose 131 H (65-100) mg/dL POC Glucose 127 H (70-105) mg/dL Calcium 6.9 L (8.4-10.2) mg/dL PTH Intact (15-65) pg/mL 04/27/21 Range/Units 12:15 RBC (3.65-5.03) M/mm3 Hgb (10.1-14.3) gm/dl Hct (30.3-42.9) % RDW (13.2-15.2) % [place] % (Auto) (0.0-7.3) % Eos % (Auto) (0.0-4.3) % Eos # (Auto) (0.0-0.4) K/mm3 Chloride (98-107) mmol/L BUN (7-17) mg/dL Creatinine (0.6-1.2) mg/dL Glucose (65-100) mg/dL POC Glucose (70-105) mg/dL Calcium (8.4-10.2) mg/dL PTH Intact 681.4 H (15-65) pg/mL
[2021-04-27] MEDS: CEFEPIME/NS 1 GM/100 ML 1 GM/100 ML BAG IV SCH (17:43)
[2021-04-27] MEDS: NIFEdipine XL 60 MG TAB PO SCH (21:12)
[2021-04-28] MEDS: [UNRECOGNIZED DRUG - OTHER] IP SCH ×4 (05:50→17:03)
[2021-04-28] MEDS: SUCRALFATE 1 GM TAB PO SCH ×3 (08:00→17:02)
[2021-04-28] MEDS: hydrALAZINE 25 MG TAB PO SCH ×2 (08:04→13:15)
[2021-04-28] MEDS: PANTOPRAZOLE 40 MG TAB PO SCH ×2 (08:04→17:02)
[2021-04-28] MEDS: ASPIRIN EC 81 MG TAB PO SCH (09:01)
[2021-04-28] MEDS: CINACALCET 30 MG TAB PO SCH (09:01)
[2021-04-28] MEDS: CALCIUM CARB/VIT D3/MINERALS 600 MG/800 UNITS TAB PO SCH (09:02)
[2021-04-28] MEDS: CHOLECALCIFEROL (VIT D3) 1000 UNIT (25 mcg) TAB PO SCH (09:02)
[2021-04-28] MEDS: HEPARIN 5,000 UNIT/1 ML VIAL SUB-Q SCH (09:03)
[2021-04-28] MEDS: cloNIDine 0.2 MG TAB PO SCH (09:03)
[2021-04-28] MEDS: carvediloL 6.25 MG TAB PO SCH (09:03)
[2021-04-28 12:50] VITALS: BP 128/68
--- NOTE | 2021-04-28 14:07 | Progress Note ---
Assessment and Plan 71-year-old female with history of ESRD on peritoneal dialysis, diabetes mellitus, hypertension, admitted on 04/24/2021 secondary to 3-day history of acute abdominal pain with some nausea vomiting and diarrhea. On arrival, temperature 99.6, HR 113, RR 20, BP 120/135. Temperature up to 100.2. Initial WBC 21,000. Peritoneal fluid cell count WBC 3982, segs 99%. Blood culture 04/24/2021 no growth today. PD culture 04/23/2021 with many polymorphonuclears and no organisms. CT of the abdomen shows increased ascites. -- Sepsis Patient has a high white count of 21,000, now downtrending Diffuse abdominal pain, diarrhea however no discharge noted. Possibly secondary to peritonitis CT abdomen pelvis showed no bowel obstruction Peritoneal fluid culture showed polymorphonuclear cells but no growth Trend WBC on CBC Antibiotic therapy with IV cefepime and vancomycin --Acute peritonitis Patient has peritoneal dialysis catheter for regular peritoneal dialysis Diffuse abdominal pain and tenderness present. High white count., Now downtrending Consistent with sepsis and peritonitis. Patient initiated on IV cefepime and vancomycin ID consult also requested -- abdominal pain Diffuse abdominal pain, diarrhea, and tenderness present on admission Differential includes peritonitis versus gastroenteritis CTAP: Significant increase in intra-abdominal ascites since February 2021 exam. Obstructive bowel disease unlikely. Official read per radiology report -- End stage renal disease Nephrology consult requested for better dialysis Patient may need hemodialysis for now, no indication for TLC at this time Renally adjust medications Renal diet -- Hypertension Continue antihypertensives as needed labetalol IV -- IDDM (insulin dependent diabetes mellitus) Check hemoglobin A1c and SSI coverage for now --Anemia of chronic disease Epogen q. weekly once BP controlled. --Elevated troponin Secondary to troponin leak -- DVT prophylaxis On heparin and GI prophylaxis Dispo: pending clinical improvement, Full code, Renal diet Daily clinical course: 04/24/21; Patient doing well on encounter. She states that she believes she ate something that "did not agree with my stomach" and subsequently that is why she felt the severe abdominal pain. He states that she feels much better today. Yesterday she states that she was feeling tenderness and had experienced symptoms of diarrhea. The diarrhea is now resolved according patient. She denied any type of complications from her peritoneal dialysis catheter. She denied any discharge or drainage from her PD catheter insertion site. Remainder of ROS negative except for stated above 04/25/21: PD dialysis fluid Cx neg, blood cx neg. Continue cefepime 1 g IV once a day renally adjusted, Continue pulse vancomycin for now. f/u leukocytosis, will remove femoral TLC. follow clinically. Ordered for repeat peritoneal dialysate culture 04/26/21: still c/o abdominal pain. cont abx, ID recommended surgical evaluation : placed consult. Continue empiric antibiotic for now, follow dialysate culture from yesterday. 04/27/21: Patient clinically much improved today, WBC count normal, dialysate culture from 04/25/21 showed no growth. Patient declines any abdominal pain today. No surgical intervention needed per general surgery. Discussed with ID and recommended ceftazidime and vancomycin with peritoneal dialysis for total 2 weeks. We will request case management and nephrology service to arrange home antibiotic regimen treatment from dialysis. 04/28/21: Pending home antibiotics set up with peritoneal dialysis. Discussed with correctional case manager, nephrology and ID. Continue current management and clear. Patient appears to be clinically stable for discharge. Subjective Date of service: 04/28/21 Principal diagnosis: Abdominal pain Objective - Constitutional Vitals: Vital Signs - 12hr 04/28/21 04/28/21 04/28/21 04:04 05:57 06:35 Temperature 98.0 F Pulse Rate 92 H Respiratory 18 Rate Blood Pressure 130/72 162/84 Blood Pressure [Right] O2 Sat by Pulse 95 Oximetry 04/28/21 04/28/21 04/28/21 06:39 07:25 08:04 Temperature 97.8 F 97.9 F Pulse Rate 94 H 104 H 104 H Respiratory 17 18 Rate Blood Pressure 156/68 158/68 Blood Pressure 168/86 [Right] O2 Sat by Pulse 96 90 Oximetry 04/28/21 04/28/21 04/28/21 09:03 11:55 13:15 Temperature 97.2 F L Pulse Rate 104 H 79 94 H Respiratory 18 Rate Blood Pressure 158/68 128/68 128/68 Blood Pressure [Right] O2 Sat by Pulse 96 Oximetry - Labs CBC & Chem 7: 04/27/21 04:49 04/27/21 04:49 Labs: Abnormal lab results 04/28/21 Range/Units 07:26 POC Glucose 138 H (70-105) mg/dL HEART Score - HEART Score Troponin: Troponin T 0.092 ng/mL (0.00-0.029) H 04/23/21 14:09
--- NOTE | 2021-04-28 16:29 | Discharge Summary ---
Providers - Providers Date of Admission: 04/23/21 21:59 Date of discharge: 04/28/21 Attending physician: MANUELA QUIROGA 04/23/21 18:45 Consult to Physician [CONS] Stat Comment: Consulting Provider: KARTHIK NOBLE Physician Instructions: Reason For Exam: possible peritonitis 04/23/21 22:04 Consult to Physician [CONS] Routine Comment: Consulting Provider: KARTHIK VARGAS Physician Instructions: Reason For Exam: Sepsis/peritonitis 04/26/21 14:03 Consult to Physician [CONS] Routine Comment: Consulting Provider: EDGAR FONTANA Physician Instructions: Reason For Exam: abdominal pain Primary care physician: KATEY JOHNSON Hospitalization Condition: Stable Pertinent studies: Chest abdomen x-ray, abdomen pelvis CT Hospital course: 71-year-old female with history of ESRD on peritoneal dialysis, diabetes mellitus, hypertension, admitted on 04/24/2021 secondary to 3-day history of ac [place] abdominal pain with some nausea vomiting and diarrhea. On arrival, temperature 99.6, HR 113, RR 20, BP 120/135. Temperature up to 100.2. Initial WBC 21,000. Peritoneal fluid cell count WBC 3982, segs 99%. Blood culture 04/24/2021 no growth today. PD culture 04/23/2021 with many polymorphonuclears and no organisms. CT of the abdomen shows increased ascites. Treated for acute peritonitis, Cx work up was negative. Patient was then discharged home with with home abx set with PD per ID recommendation with outpt follow up. Daily clinical course: 04/24/21; Patient doing well on encounter. She states that she believes she ate something that "did not agree with my stomach" and subsequently that is why she felt the severe abdominal pain. He states that she feels much better today. Yesterday she states that she was feeling tenderness and had experienced symptoms of diarrhea. The diarrhea is now resolved according patient. She denied any type of complications from her peritoneal dialysis catheter. She denied any discharge or drainage from her PD catheter insertion site. Remainder of ROS negative except for stated above 04/25/21: PD dialysis fluid Cx neg, blood cx neg. Continue cefepime 1 g IV once a day renally adjusted, Continue pulse vancomycin for now. f/u leukocytosis, will remove femoral TLC. follow clinically. Ordered for repeat peritoneal dialysate culture 04/26/21: still c/o abdominal pain. cont abx, ID recommended surgical evaluation : placed consult. Continue empiric antibiotic for now, follow dialysate culture from yesterday. 04/27/21: Patient clinically much improved today, WBC count normal, dialysate culture from 04/25/21 showed no growth. Patient declines any abdominal pain today. No surgical intervention needed per general surgery. Discussed with ID and recommended ceftazidime and vancomycin with peritoneal dialysis for total 2 weeks. We will request case management and nephrology service to arrange home antibiotic regimen treatment from dialysis. 04/28/21: Pending home antibiotics set up with peritoneal dialysis. Discussed with case liner, nephrology and ID. Continue current management and clear. Patient appears to be clinically stable for discharge. A/P -- Sepsis Patient had a high white count of 21,000, now resolved Possibly secondary to peritonitis CT abdomen pelvis showed no bowel obstruction Peritoneal fluid culture showed polymorphonuclear cells but no growth Placed on Antibiotic therapy with IV cefepime and vancomycin --Acute peritonitis Patient has peritoneal dialysis catheter for regular peritoneal dialysis Diffuse abdominal pain and tenderness present. Consistent with sepsis and peritonitis. Patient initiated on IV cefepime and vancomycin ID consult also requested -- abdominal pain Diffuse abdominal pain, diarrhea, and tenderness present on admission Differential includes peritonitis versus gastroenteritis CTAP: Significant increase in intra-abdominal ascites since February 2021 exam. Obstructive bowel disease unlikely. Official read per radiology report -- End stage renal disease Nephrology consult requested for PD Renally adjust medications Renal diet -- Hypertension Continued antihypertensives and as needed labetalol IV -- IDDM (insulin dependent diabetes mellitus) SSI coverage for now --Anemia of chronic disease Epogen q. weekly once BP controlled. --Elevated troponin Secondary to troponin leak -- DVT prophylaxis On heparin and GI prophylaxis Dispo: Home with Full code, Renal diet Disposition: TO HOME OR SELFCARE Final Discharge Diagnosis (Prints w/discharge instructions): -- Sepsis. --Acute peritonitis. -- abdominal pain due to above. -- End stage renal disease. -- Hypertension. -- IDDM (insulin dependent diabetes mellitus). --Anemia of chronic disease. --Elevated troponin, chronically elevated due to ESRD Time spent for discharge: 40 minutes Core Measure Documentation - Palliative Care Palliative Care/ Comfort Measures: Not Applicable - Core Measures Any of the following diagnoses?: history only Exam - Physical Exam Narrative exam: GENERAL: well-developed and well-nourished elderly -Spanish lying on bed appeared to be in no discomfort. HEENT: Normocephalic. Atraumatic. No conjunctival congestion or icterus. Patient has moist mucous membranes. NECK: Supple. Trachea midline. CHEST/LUNGS: Clear to auscultated bilaterally, breathing nonlabored. No wheezes crackles or rhonchi. HEART/CARDIOVASCULAR: Regular in rate and rhythm. S1 and S2 positive. ABDOMEN: Abdomen is soft, no tender. Patient has normal bowel sounds. SKIN: There is no rash. Warm and dry. NEURO: No focal motor deficit. Follows command. MUSCULOSKELETAL: No joint effusion or tenderness. EXTRIMITY: No edema, no cyanosis or clubbing. PSYCH: Cooperative. - Constitutional Vitals: Temp Pulse Resp BP Pulse Ox 97.2 F L 94 H 18 128/68 96 04/28/21 11:55 04/28/21 13:15 04/28/21 11:55 04/28/21 13:15 04/28/21 11:55 Plan Activity: advance as tolerated Weight Bearing Status: Weight Bear as Tolerated Diet: renal Special Instructions: restrict fluid intake to (1.5l daily), record daily BP diary, record blood sugar diary Additional Instructions: discharge home on PD ceftazidime and vancomycin per PD dialysis nurse/renal doctor total 14 days until 05/08/2021 Follow up with: KATEY JOHNSON MD [Primary Care Provider] - 3-5 Days Forms: Accompanied Note
[2021-04-28] MEDS: CEFEPIME/NS 1 GM/100 ML 1 GM/100 ML BAG IV SCH (17:03)
--- NOTE | 2021-04-28 20:38 | Progress Note ---
Assessment and Plan End-stage renal disease on peritoneal dialysis Abdominal pain, PD peritonitis? Anemia Essential hypertension Hypocalcemia Continue manual PD Agree with antibiotics, communicated outpatient regimen as per ID recommendations to her PD nurse and primary linux administrator [place] weekly No indication for TLC Continue calcium supplementation Continue antihypertensives, monitor trend and assess need for further titration Renally dose medications Avoid nephrotoxins Renal diet Recommend bowel regimen Case discussed with surgery Subjective Date of service: 04/28/21 Principal diagnosis: Abdominal pain Interval history: Feels better. Tolerating diet. Objective - Exam Narrative Exam: General: No acute distress HEENT: Oral mucosa moist Neck: Supple, no JVD Chest: Clear to auscultation bilaterally Heart: RRR, S1 and S2, no pericardial rub Abdomen: Soft, nontender, no renal bruit. PD site without erythema or signs of inflammation. No drainage. Extremity: No peripheral cyanosis, edema Neurological: Alert, awake, no asterixis Dermatology: No skin rash Psych: No agitation Musculoskeletal: No joint effusion - Vital Signs Vital signs: Vital Signs - 12hr 04/28/21 04/28/21 04/28/21 09:03 11:55 13:15 Temperature 97.2 F L Pulse Rate 104 H 79 94 H Respiratory 18 Rate Blood Pressure 158/68 128/68 128/68 O2 Sat by Pulse 96 Oximetry - Lab 04/27/21 04:49 04/27/21 04:49 Most recent lab results Calcium 6.9 mg/dL (8.4-10.2) L 04/27/21 04:49 Magnesium 1.60 mg/dL (1.7-2.3) L 04/23/21 14:09 Medications & Allergies - Medications Allergies/Adverse Reactions: Allergies digoxin Allergy (Verified 04/23/21 17:56) Hives lisinopril Allergy (Verified 04/23/21 17:57) Swelling nitroglycerin Adverse Reaction (Verified 04/23/21 17:57) Rash, HEADACHES shellfish derived Adverse Reaction (Verified 04/23/21 17:57) Swelling Home Medications: Home Medications Medication Instructions Recorded Confirmed Last Taken Type NIFEdipine XL [Procardia Xl] 60 mg PO HS 05/27/15 02/15/21 07/30/20 History carvediloL [Coreg] 6.25 mg PO BID 05/27/15 02/15/21 07/30/20 History cloNIDine [Catapres] 0.2 mg PO DAILY 09/14/16 02/15/21 07/30/20 History Gentamicin 0.1% Top Oint(Nf) 1 applic TP TID 07/31/20 02/15/21 Unknown History [Gentamicin 0.1% Top Oint (Nf)] Cholecalciferol Vit D3 [Vitamin D3 3,000 unit PO DAILY tablet 08/01/20 02/15/21 Unknown Rx 1,000 UNIT TAB] Cinacalcet [Sensipar] 90 mg PO QDAY 02/15/21 02/15/21 Unknown History Hydralazine HCl 50 mg PO TID 02/15/21 02/15/21 Unknown History Aspirin EC [Halfprin EC] 81 mg PO QDAY #30 tablet.dr 02/23/21 Unknown Rx Lispro Insulin [HumaLOG] 0 unit SUB-Q ACHS units 02/23/21 Unknown Rx Pantoprazole [Protonix TAB] 40 mg PO BIDAC #60 tablet 02/23/21 Unknown Rx Sucralfate [Carafate] 1 gm PO ACHS #30 tablet 02/23/21 Unknown Rx hydrOXYzine HCL [Atarax] 25 mg PO Q6H PRN #20 tablet 02/23/21 Unknown Rx polyethylene glycoL 3350 [Miralax 17 gm PO QDAY #20 powd.pack 02/23/21 Unknown Rx 3350]
== END 2021-04-28 18:15 | disposition home or self-care (01) | DRG 871 ==
LOC: ED 13:36 → 3A 18:57 → OBSVTOIN 21:59 → 4A 23:17
PROVIDERS: ADMIT Internal Medicine; ATTEND Internal Medicine
PROC: 06HM33Z Insertion of Infusion Device into Right Femoral Vein, Percutaneous Approach (ICD-10-PCS; principal; 2021-04-23)
PROC: B54BZZA Ultrasonography of Right Lower Extremity Veins, Guidance (ICD-10-PCS; 2021-04-23)
DX: A41.9 Sepsis, unspecified organism (principal); N18.6 End stage renal disease; K65.0 Generalized (acute) peritonitis; I13.2 Hypertensive heart and chronic kidney disease with heart failure and with stage 5 chronic kidney disease, or end stage renal disease; I50.9 Heart failure, unspecified; J45.909 Unspecified asthma, uncomplicated; D63.8 Anemia in other chronic diseases classified elsewhere; E83.51 Hypocalcemia; E11.22 Type 2 diabetes mellitus with diabetic chronic kidney disease; Z88.1 Allergy status to other antibiotic agents; Z88.8 Allergy status to other drugs, medicaments and biological substances; Z91.013 Allergy to seafood; M10.9 Gout, unspecified; Z79.4 Long term (current) use of insulin; Z90.49 Acquired absence of other specified parts of digestive tract
CPT/HCPCS: 36415; 74022; 74176; 80048; 80053; 80202; 81001; 82140; 82330; 82962; 83690; 83735; 83970; 84484; 85007; 85025; 85610; 85730; 87040; 87076; 87116; 87186; 89051; 93005; 96365; G0378; J0360; J0692; J1644; J2270; J2405; J3370; J7050

== ENCOUNTER 2021-11-13 03:55 | Emergency (ER) | payer MEDICARE, OTHER ==
[2021-11-13] MEDS ORDERED: ONDANSETRON 4 MG/2 ML INJ IV ONE (05:06)
[2021-11-13] MEDS ORDERED: MORPHINE 4 MG/1 ML INJ IV ONE ×2 (05:06→06:05)
[2021-11-13 05:39] LABS: Basophils % (Auto) 0.5 % (0.0-1.8); Eosinophils # (Auto) 0.2 K/mm3 (0.0-0.4); Eosinophils % (Auto) 2.4 % (0.0-4.3); Hematocrit 30.2 % (30.3-42.9); Hemoglobin 9.5 gm/dl (10.1-14.3); Lymphocytes # (Auto) 0.5 K/mm3 (1.2-5.4); Lymphocytes % (Auto) 6.5 % (13.4-35.0); Mean Corpuscular HGB Conc 32 % (30-34); Mean Corpuscular Volume 92 fl (79-97); Monocytes # (Auto) 0.4 K/mm3 (0.0-0.8); Monocytes % (Auto) 4.8 % (0.0-7.3); Platelet Count 263 K/mm3 (140-440); Red Blood Count 3.29 M/mm3 (3.65-5.03)
[2021-11-13 05:58] LABS: Alanine Aminotransferase 20 units/L (7-56); Albumin 3.5 g/dL (3.9-5); Blood Urea Nitrogen 70 mg/dL (7-17); Calcium 8.4 mg/dL (8.4-10.2); Hemolysis Index 3
[2021-11-13 06:00] LABS: BUN/Creatinine Ratio 6; Bilirubin,Direct < 0.2 mg/dL (0-0.2)
--- NOTE | 2021-11-13 06:08 | Emergency Department Report ---
ED Abdominal Pain HPI - General Chief Complaint: Abdominal Pain Stated Complaint: ABD PAIN Time Seen by Provider: 11/13/21 05:52 Source: patient Mode of arrival: Ambulatory Limitations: No Limitations - History of Present Illness Initial Comments: Patient presents with a 2 to 3-day history of generalized abdominal pain. The pain that she states was severe. It is in the lower abdomen and centralized. She has had nausea with vomiting. She has been constipated. She has no dysuria or frequency and still does make urine. Patient states that she is on peritoneal dialysis. She has not had problems with dialysis as of this point. There is no fevers or chills. She has no cough or congestion. She does report that she had Covid 2 weeks ago but has tested negative since that time. She has no fevers. There is no chills. She denies trauma. Patient has not eaten anything that tasted bad or unusual. She has not been around anyone else that has been ill. She is never had pain like this before. It is sharp and aching. It does not radiate or migrate. She has not noticed any specific aggravating or alleviating factors. Severity scale (0 -10): 10 - Related Data Home Medications Medication Instructions Recorded Confirmed Last Taken NIFEdipine XL [Procardia Xl] 60 mg PO HS 05/27/15 11/13/21 11/12/21 carvediloL [Coreg] 6.25 mg PO BID 05/27/15 11/13/21 11/12/21 cloNIDine [Catapres] 0.2 mg PO DAILY 09/14/16 11/13/21 11/12/21 Hydralazine HCl 50 mg PO TID 02/15/21 11/13/21 11/12/21 Previous Rx's Medication Instructions Recorded Last Taken Type Doxycycline Monohydrate 100 mg PO BID #20 cap 11/13/21 Unknown Rx [Doxycycline Monohydrate CAP] Allergies Allergy/AdvReac Type Severity Reaction Status Date / Time digoxin Allergy Hives Verified 04/23/21 17:56 lisinopril Allergy Swelling Verified 04/23/21 17:57 nitroglycerin AdvReac Rash, Verified 04/23/21 17:57 HEADACHES shellfish derived AdvReac Swelling Verified 04/23/21 17:57 ED Review of Systems ROS: Stated complaint: ABD PAIN Other details as noted in HPI Comment: All other systems reviewed and negative Constitutional: denies: fever Eyes: denies: vision change ENT: denies: epistaxis Respiratory: denies: cough Cardiovascular: denies: chest pain Endocrine: denies: unexplained weight loss Gastrointestinal: as per HPI Genitourinary: denies: dysuria Musculoskeletal: denies: back pain Skin: denies: rash Neurological: denies: headache Hematological/Lymphatic: denies: easy bruising ED Past Medical Hx - Past Medical History Previous Medical History?: Yes Hx Hypertension: Yes (FOR 10+ YRS, DR. 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) Hx Sickle Cell Disease: No Hx Arthritis: Yes (Gout) Hx Seizures: No Hx Asthma: Yes ( A CHILD) Hx HIV: No Additional medical history: Dilated cardiomyopathy / PERITONEAL DYALISIS - Surgical History Past Surgical History?: Yes Hx Pacemaker: No Hx Appendectomy: Yes (IN 1984) Additional Surgical History: tonsil removed - Family History Family history: hypertension - Social History Smoking Status: Never Smoker Substance Use Type: None - Medications Home Medications: Home Medications Medication Instructions Recorded Confirmed Last Taken Type NIFEdipine XL [Procardia Xl] 60 mg PO HS 05/27/15 11/13/21 11/12/21 History carvediloL [Coreg] 6.25 mg PO BID 05/27/15 11/13/21 11/12/21 History cloNIDine [Catapres] 0.2 mg PO DAILY 09/14/16 11/13/21 11/12/21 History Hydralazine HCl 50 mg PO TID 02/15/21 11/13/21 11/12/21 History Doxycycline Monohydrate 100 mg PO BID #20 cap 11/13/21 Unknown Rx [Doxycycline Monohydrate CAP] ED Physical Exam - General Limitations: No Limitations, Other (Pulse ox noted and normal) General appearance: alert, in no apparent distress, other (Uncomfortable) - Head Head exam: Present: atraumatic, normocephalic - Eye Eye exam: Present: normal appearance, EOMI. Absent: scleral icterus - ENT ENT exam: Present: normal orophraynx, normal external ear exam - Neck Neck exam: Present: normal inspection. Absent: meningismus - Respiratory Respiratory exam: Present: normal lung sounds bilaterally. Absent: respiratory distress - Cardiovascular Cardiovascular Exam: Present: regular rate, normal rhythm - GI/Abdominal GI/Abdominal exam: Present: soft, tenderness (Diffuse). Absent: distended, guarding, rebound, pulsatile mass - Extremities Exam Extremities exam: Present: normal capillary refill - Back Exam Back exam: Absent: CVA tenderness (R), CVA tenderness (L) - Neurological Exam Neurological exam: Present: alert, oriented X3, CN II-XII intact. Absent: motor sensory deficit - Psychiatric Psychiatric exam: Present: normal affect, normal mood - Skin Skin exam: Present: warm, dry ED Course Vital Signs 11/13/21 11/13/21 11/13/21 04:48 05:30 05:33 Temperature 98.6 F Pulse Rate 100 H 100 H 95 H Respiratory 18 20 18 Rate Blood Pressure 188/101 Blood Pressure 202/89 [Left] Blood Pressure 199/103 [Right] O2 Sat by Pulse 97 95 95 Oximetry 11/13/21 11/13/21 11/13/21 05:38 05:47 08:00 Temperature Pulse Rate 106 H Respiratory 21 Rate Blood Pressure 213/103 Blood Pressure [Left] Blood Pressure [Right] O2 Sat by Pulse 96 96 99 Oximetry 11/13/21 08:13 Temperature Pulse Rate 111 H Respiratory Rate Blood Pressure 213/103 Blood Pressure [Left] Blood Pressure [Right] O2 Sat by Pulse Oximetry - Reevaluation(s) Reevaluation #1: 11/13/21 06:[address] was ordered. Further analgesics have been ordered. Old records reviewed. Reevaluation #2: 11/13/21 10:[address] were noted. Patient was discharged. ED Medical Decision Making - Lab Data Result diagrams: 11/13/21 05:24 11/13/21 05:24 - Radiology Data Radiology results: report reviewed (CT was read as probable infectious process right lung base with bilateral lower lobe bronchial wall thickening additionally reflective evidence of bronchitis.) - Medical Decision Making Patient presents with abdominal pain. She does not have any obvious intra- abdominal pathology. She does not really have rebound or guarding suggestive of peritonitis or peritoneal finding. She had had a previous admission for abdominal pain and was not found to have spontaneous bacterial peritonitis. She does have a lower lobe infiltrative process consistent with pneumonia which could be giving her referred abdominal pain. She does not have any distention or tympany that would suggest bowel obstruction and there is no CT evidence of bowel obstruction. Her end-stage renal disease can be managed as an outpatient. She does not require emergent hemodialysis at this time. Critical Care Time: No Critical care attestation.: If time is entered above; I have spent that time in minutes in the direct care of this critically ill patient, excluding procedure time. ED Disposition Clinical Impression: Generalized abdominal pain, ESRD (end stage renal disease) on dialysis RLL pneumonia Qualifiers: Pneumonia type: due to unspecified organism Qualified Code(s): J18.9 - Pneumonia, unspecified organism Disposition: HOME / SELF CARE / HOMELESS Is pt being admited?: No Condition: Stable Instructions: Abdominal Pain (ED), Bacterial Pneumonia (ED), Abdominal Pain, Adult, [id number], Community-Acquired Pneumonia, Adult Additional Instructions: Continue your dialysis. Talk to your motorboat mechanic helper about adjusting the timing and dialysate. Return for problems. Take the antibiotics. Follow-up with your regular doctor for recheck. Prescriptions: Doxycycline Monohydrate [Doxycycline Monohydrate CAP] 100 mg PO BID #20 cap Referrals: KATEY JOHNSON MD [Primary Care Provider] - 3-5 Days
[2021-11-13 06:14] LABS: Red Cell Distribution Width 21.1 % (13.2-15.2)
[2021-11-13] MEDS ORDERED: carvediloL 6.25 MG TAB PO ONE (07:44)
[2021-11-13] MEDS ORDERED: hydrALAZINE 25 MG TAB PO ONE (07:44)
[2021-11-13 11:46] VITALS: BP 164/89
--- NOTE | 2021-11-15 08:19 | Cat Scan Report ---
CT ABDOMEN AND PELVIS WITHOUT CONTRAST INDICATION / CLINICAL INFORMATION: generalized pain. TECHNIQUE: Axial CT images were obtained through the abdomen and pelvis without IV contrast. All CT scans at this location are performed using CT dose reduction for ALARA by means of automated exposure control. COMPARISON: CT abdomen and pelvis 04/23/2021 FINDINGS: LOWER CHEST: Groundglass and airspace attenuation as well as bronchial wall thickening right lower lo be additional bronchial wall thickening left lower lobe. Mild cardiomegaly. Mitral valve calcificatio n and dense three-vessel coronary calcification. LIVER: No significant abnormality. GALLBLADDER: No significant abnormality. BILE DUCTS: No significant abnormality. SPLEEN: No significant abnormality. PANCREAS: No significant abnormality. ADRENALS: No significant abnormality. RIGHT KIDNEY / URETER: Stable appearance of peripherally calcified cyst lower pole right kidney. Mult iple right renal cysts are demonstrated. No obvious solid mass. LEFT KIDNEY / URETER: Nonobstructing nephrolith measuring 3-4 mm upper pole left kidney. Additional s maller mid and lower pole nephroliths not excluded. Multiple left renal cysts. No obvious solid mass. STOMACH / DUODENUM / SMALL BOWEL: No significant abnormality. COLON: Diverticulosis without acute inflammation. Postsurgical changes at cecum appear stable. APPENDIX: Prior appendectomy. PERITONEUM: Small moderate volume ascites at least in part due to peritoneal dialysis. LYMPH NODES: No significant adenopathy. AORTA / ARTERIES: Severe atherosclerotic calcification without acute abnormality. IVC / VEINS: No significant abnormality. URINARY BLADDER: Decompressed REPRODUCTIVE ORGANS: Multiple uterine calcifications. ADDITIONAL ABDOMINAL/PELVIC FINDINGS: None. SKELETAL SYSTEM: No acute osseous findings. Multilevel facet arthropathy mid and lower lumbar spine. IMPRESSION: 1. Possible infectious process right lung base. Bilateral lower lobe bronchial wall thickening thicke loren additionally reflect evidence of bronchitis. 2. No acute findings within abdomen or pelvis, nonacute findings as detailed. Signer Name: Boni Marr II, MD Signed: 11/13/2021 7:35 AM Workstation Name: [id number]
== END 2021-11-13 11:57 | disposition home or self-care (01) ==
LOC: ED 03:55
DX: J18.9 Pneumonia, unspecified organism (principal); R10.84 Generalized abdominal pain; I13.2 Hypertensive heart and chronic kidney disease with heart failure and with stage 5 chronic kidney disease, or end stage renal disease; E11.22 Type 2 diabetes mellitus with diabetic chronic kidney disease; N18.6 End stage renal disease; I50.9 Heart failure, unspecified; Z99.2 Dependence on renal dialysis; M19.90 Unspecified osteoarthritis, unspecified site; Z79.899 Other long term (current) drug therapy; Z98.890 Other specified postprocedural states; Z88.1 Allergy status to other antibiotic agents; Z91.013 Allergy to seafood; Z91.09 Other allergy status, other than to drugs and biological substances
CPT/HCPCS: 36415; 74176; 80048; 80076; 82140; 83690; 85025; 87040; 96374; 96375; 96376; 99284; J2270; J2405

== ENCOUNTER 2022-05-18 12:40 | Inpatient (IN) | payer MEDICARE, OTHER ==
[2022-05-18] MEDS ORDERED: fentaNYL 100 MCG/2 ML INJ IV ONE ×2 (16:04→18:20)
[2022-05-18] MEDS ORDERED: hydrALAZINE 20 MG/1 ML INJ IV ONE (16:12)
--- NOTE | 2022-05-18 16:12 | Emergency Department Report ---
ED General Adult HPI - General Chief complaint: Extremity Injury, Lower Stated complaint: LEFT LEG PAIN Time Seen by Provider: 05/18/22 13:51 Source: patient, EMS ( EMS documentation not available at time of chart dictation ), RN notes reviewed, old records reviewed Mode of arrival: Stretcher Limitations: Physical Limitation - History of Present Illness Initial comments: The patient was evaluated in the emergency department for symptoms described in the history of present illness. He/she was evaluated in the context of the global COVID-19 pandemic, which necessitated consideration that the patient might be at risk for infection with the virus that causes COVID-19. Institutional protocols and algorithms that pertain to the evaluation of patient s at risk for COVID-19 are in a state of rapid change based on information released by regulatory bodies including the CDC and federal and state organizations. These policies and algorithms were followed during the patient's care in the emergency department. Please note that these policies, procedures and recommendations changed on a rapid basis. During the history and physical examination, I am chaperoned by nurse [facility]: Dr. Powell Past medical history: End-stage renal disease on home peritoneal dialysis, diabetes, hypertension. This is a 72-year-old female who presents to the department today with a complaint of nontraumatic left lower extremity pain, numbness, and feeling cool. She currently denies headache, neck pain, chest pain, abdominal pain, and shortness of breath. She denies nausea, vomiting and diarrhea. She denies hematemesis and bright red blood per rectum. Her symptoms started in her left mid thigh, and radiated distally. She thinks the symptoms started at 9:00 AM. -: Sudden, hour(s) Location: left, lower extremity Severity scale (0 -10): 8 Consistency: constant Improves with: cold therapy Worsens with: movement - Related Data Home Medications Medication Instructions Recorded Confirmed Last Taken NIFEdipine XL [Procardia Xl] 60 mg PO HS 05/27/15 11/13/21 11/12/21 carvediloL [Coreg] 6.25 mg PO BID 05/27/15 11/13/21 11/12/21 cloNIDine [Catapres] 0.2 mg PO DAILY 09/14/16 11/13/21 11/12/21 Hydralazine HCl 50 mg PO TID 02/15/21 11/13/21 11/12/21 Previous Rx's Medication Instructions Recorded Last Taken Type Doxycycline Monohydrate 100 mg PO BID #20 cap 11/13/21 Unknown Rx [Doxycycline Monohydrate CAP] Allergies Allergy/AdvReac Type Severity Reaction Status Date / Time digoxin Allergy Hives Verified 05/18/22 17:52 lisinopril Allergy Swelling Verified 05/18/22 17:52 nitroglycerin AdvReac Rash, Verified 05/18/22 17:52 HEADACHES shellfish derived AdvReac Swelling Verified 05/18/22 17:52 ED Review of Systems ROS: Stated complaint: LEFT LEG PAIN Other details as noted in HPI Comment: All other systems reviewed and negative Constitutional: denies: fever Cardiovascular: denies: chest pain Gastrointestinal: denies: abdominal pain, hematemesis, melena, hematochezia Musculoskeletal: myalgia. denies: back pain Neurological: weakness, numbness, paresthesias ED Past Medical Hx - Past Medical History Hx Hypertension: Yes (FOR 10+ YRS, DR. JOHNSON- PCP) Hx Congestive Heart Failure: Yes (IN 2006) Hx Diabetes: Yes Hx Liver Disease: No Hx Renal Disease: Yes (CKD STAGE 5, DR. POWELL- RN NEUROSURGICAL) Hx Sickle Cell Disease: No Hx Arthritis: Yes (Gout) Hx Seizures: No Hx Asthma: Yes ( A CHILD) Hx HIV: No Additional medical history: Dilated cardiomyopathy / PERITONEAL DYALISIS - Surgical History Hx Pacemaker: No Hx Appendectomy: Yes (IN 1984) Additional Surgical History: tonsil removed - Social History Smoking Status: Never Smoker Substance Use Type: None - Medications Home Medications: Home Medications Medication Instructions Recorded Confirmed Last Taken Type NIFEdipine XL [Procardia Xl] 60 mg PO HS 05/27/15 11/13/21 11/12/21 History carvediloL [Coreg] 6.25 mg PO BID 05/27/15 11/13/21 11/12/21 History cloNIDine [Catapres] 0.2 mg PO DAILY 09/14/16 11/13/21 11/12/21 History Hydralazine HCl 50 mg PO TID 02/15/21 11/13/21 11/12/21 History Doxycycline Monohydrate 100 mg PO BID #20 cap 11/13/21 Unknown Rx [Doxycycline Monohydrate CAP] ED Physical Exam - General Limitations: Physical Limitation General appearance: alert, anxious - Head Head exam: Present: atraumatic, normocephalic - Eye Eye exam: Present: normal appearance, EOMI. Absent: nystagmus - ENT ENT exam: Present: normal exam, normal orophraynx, mucous membranes moist, normal external ear exam - Neck Neck exam: Present: normal inspection, full ROM. Absent: tenderness, meningismus - Respiratory Respiratory exam: Present: normal lung sounds bilaterally. Absent: respiratory distress, wheezes, rales, rhonchi, stridor, decreased breath sounds - Cardiovascular Cardiovascular Exam: Present: regular rate, normal rhythm, normal heart sounds. Absent: bradycardia, tachycardia, irregular rhythm, systolic murmur, diastolic murmur, rubs, gallop - GI/Abdominal GI/Abdominal exam: Present: soft, other (There is a left lower quadrant peritoneal dialysis access catheter, without redness, pus or streaking). Absent: distended, tenderness, guarding, pulsatile mass - Extremities Exam Extremities exam: Present: normal inspection, full ROM (Right arm, right leg, left arm), other (2+ radial pulses bilaterally. 2+ femoral pulse on the right.). Absent: calf tenderness - Back Exam Back exam: Present: normal inspection. Absent: tenderness, CVA tenderness (R), CVA tenderness (L), paraspinal tenderness, vertebral tenderness - Neurological Exam Neurological exam: Present: alert, oriented X3, other (There is no facial droop. The tongue is midline. EOMI. 5 out of 5 strength bilateral upper extremities and right lower extremity. Sensation is intact to light touch in the left lower extremity) - Psychiatric Psychiatric exam: Present: anxious - Skin Skin exam: Present: warm, dry, intact, normal color. Absent: rash - Other Other exam information: The left lower extremity is cool. There is a circumferential wounds noted on the left medial distal lower extremity. Unable to appreciate dorsalis pedis pulse in the left lower extremity. Left femoral pulses are thready. There is no pain with passive range of motion of the great toe or feet. 4 out of 5 strength left hip certain extensor, left knee flexor and extensor, left foot dorsi and plantar flexion ED Course Vital Signs 05/18/22 05/18/22 12:54 18:47 Temperature 97.9 F Pulse Rate 88 93 H Respiratory 16 Rate Blood Pressure 214/106 Blood Pressure 210/98 [Left] O2 Sat by Pulse 98 Oximetry - Reevaluation(s) Reevaluation #1: 05/18/22 17:05 Differential diagnosis, including but not limited to: Acute arterial insufficiency, dissection, DVT, neuropathy Assessment and plan: 72-year-old female presenting with left lower extremity pain, numbness, weakness, and feeling cool, with a pulse disparity, and temperature disparity between her lower extremities, concerning for arterial insufficiency. I appreciate that this patient is on dialysis, and have recommended emergent CT angiogram abdomen pelvis, with lower extremity runoff, to evaluate for acute limb ischemia. Patient has consented to this. We are also obtaining lower extremity DVT and arterial duplex to evaluate her anatomy. Contacted covering nephrology, Dr. Hoff. His group will follow in consultation. Currently awaiting laboratory studies, ultrasound, and CT lower extremity. Have instructed team that patient needs to go to CAT scan expediently for acquisition of appropriate diagnostics. 05/18/22 18:34 cta confirms left-sided arterial disease. Dr. Herndon updated, and advises that he has seen the CAT scan. He recommends admission to the medical service, and indicates vascular surgery will follow in consultation. Indicates the patient does not require emergent catheterization lab or vascular surgery procedure at this time 05/18/22 19:01 Dr Patsy Arevalo to admit to IMS Elevated troponin is likely a type II troponin leak. 05/18/22 19:[address] scan findings. She articulates understanding. She is still having persistent pain in her left lower extremity. Additional pain medic ation ordered. - Consultations Consultation #1: 05/18/22 17:42 Discussed the patient's history, physical, ultrasound findings and clinical impression with vascular surgeon Dr. Herndon. He indicates he will be by to evaluate and examine the patient shortly. Recommends heparin drip which has been ordered - EJ/Peripheral Line Arm R Time Out Performed: Yes Indications: multiple IV sites needed Skin Cleansed in Sterile Fashion: Yes Size: 20 Dressing Placed: Tegaderm Patient Tolerated Procedure: well ED Medical Decision Making - Lab Data Result diagrams: 05/18/22 17:52 05/18/22 17:51 Vital Signs 05/18/22 12:54 Temperature 97.9 F Pulse Rate 88 Respiratory 16 Rate Blood Pressure 210/98 [Left] O2 Sat by Pulse 98 Oximetry Lab Results 05/18/22 05/18/22 05/18/22 Range/Units 17:51 17:51 17:52 WBC (4.5-11.0) K/mm3 RBC (3.65-5.03) M/mm3 Hgb (10.1-14.3) gm/dl Hct (30.3-42.9) % MCV (79-97) fl MCH (28-32) pg MCHC (30-34) % RDW (13.2-15.2) % Plt Count (140-440) K/mm3 Lymph % (Auto) (13.4-35.0) % [place] % (Auto) (0.0-7.3) % Eos % (Auto) (0.0-4.3) % Baso % (Auto) (0.0-1.8) % Lymph # (Auto) (1.2-5.4) K/mm3 [place] # (Auto) (0.0-0.8) K/mm3 Eos # (Auto) (0.0-0.4) K/mm3 Baso # (Auto) (0.0-0.1) K/mm3 Seg Neutrophils % (40.0-70.0) % Seg Neutrophils # (1.8-7.7) K/mm3 PT 13.1 (12.2-14.9) Sec. INR 0.90 (0.87-1.13) APTT 29.2 (24.2-36.6) Sec. Sodium 141 (137-145) mmol/L Potassium 3.7 (3.6-5.0) mmol/L Chloride 96.3 L (98-107) mmol/L Carbon Dioxide 25 (22-30) mmol/L Anion Gap 23 mmol/L BUN 48 H (7-17) mg/dL Creatinine 10.1 H (0.6-1.2) mg/dL Estimated GFR 5 ml/min BUN/Creatinine Ratio 5 % Glucose 91 (65-100) mg/dL Lactic Acid 0.80 (0.7-2.0) mmol/L Calcium 8.8 (8.4-10.2) mg/dL Magnesium 1.60 L (1.7-2.3) mg/dL Total Bilirubin 0.40 (0.1-1.2) mg/dL AST 14 (5-40) units/L ALT 13 (7-56) units/L Alkaline Phosphatase 176 H (35-129) units/L Total Creatine Kinase 99 (30-135) units/L Troponin T 0.203 H* (0.00-0.029) ng/mL Total Protein 6.2 L (6.3-8.2) g/dL Albumin 3.4 L (3.9-5) g/dL Albumin/Globulin Ratio 1.2 % 05/18/22 Range/Units 17:52 WBC 8.7 (4.5-11.0) K/mm3 RBC 3.38 L (3.65-5.03) M/mm3 Hgb 10.3 (10.1-14.3) gm/dl Hct 33.5 (30.3-42.9) % MCV 99 H (79-97) fl MCH 31 (28-32) pg MCHC 31 (30-34) % RDW 23.2 H (13.2-15.2) % Plt Count 274 (140-440) K/mm3 Lymph % (Auto) 8.6 L (13.4-35.0) % [place] % (Auto) 5.3 (0.0-7.3) % Eos % (Auto) 4.0 (0.0-4.3) % Baso % (Auto) 2.1 H (0.0-1.8) % Lymph # (Auto) 0.7 L (1.2-5.4) K/mm3 [place] # (Auto) 0.5 (0.0-0.8) K/mm3 Eos # (Auto) 0.3 (0.0-0.4) K/mm3 Baso # (Auto) 0.2 H (0.0-0.1) K/mm3 Seg Neutrophils % 80.0 H (40.0-70.0) % Seg Neutrophils # 7.0 (1.8-7.7) K/mm3 PT (12.2-14.9) Sec. INR (0.87-1.13) APTT (24.2-36.6) Sec. Sodium (137-145) mmol/L Potassium (3.6-5.0) mmol/L Chloride (98-107) mmol/L Carbon Dioxide (22-30) mmol/L Anion Gap mmol/L BUN (7-17) mg/dL Creatinine (0.6-1.2) mg/dL Estimated GFR ml/min BUN/Creatinine Ratio % Glucose (65-100) mg/dL Lactic Acid (0.7-2.0) mmol/L Calcium (8.4-10.2) mg/dL Magnesium (1.7-2.3) mg/dL Total Bilirubin (0.1-1.2) mg/dL AST (5-40) units/L ALT (7-56) units/L Alkaline Phosphatase (35-129) units/L Total Creatine Kinase (30-135) units/L Troponin T (0.00-0.029) ng/mL Total Protein (6.3-8.2) g/dL Albumin (3.9-5) g/dL Albumin/Globulin Ratio % - Radiology Data Radiology results: report reviewed, image reviewed DUPLEX DOPPLER LOWER EXTREMITY ARTERIAL, LEFT INDICATION / CLINICAL IN FORMATION: Left lower extremity arterial insufficiency. TECHNIQUE: Arterial duplex examination of the left lower extremity performed using B-mode, color flow and spectral Doppler assessment. FINDINGS: LEFT: Common Femoral Artery: PSV 66 cm/sec. Monophasic waveform. Proximal SFA: PSV 42 cm/sec. Monophasic waveform. Mid SFA: PSV 14 cm/sec. Monophasic waveform. Distal SFA: PSV No flow identified.. Popliteal Artery: No flow identified. Posterior Tibial Artery: No flow identified. Dorsalis Pedis Artery: No flow identified. . ADDITIONAL FINDINGS: None. LEFT IZZY: Not calculated IMPRESSION: 1. Marked peripheral artery disease of the left extremity with absent flow noted from the distal superficial femoral artery through the lower ankle arteries. This was communicated to Dr. Garcias at 1710. Ankle-Brachial Index (IZZY): - Calcified arteries > 1.4 - Normal = 0.9- 1.4 - Mild PAD = 0.7-0.89 - Moderate PAD = 0.51-0.69 - Severe PAD < 0.5 Doppler Waveform: - Triphasic is normal. - Biphasic is abnormal if clear transition from triphasic signal along vascular tree. - Monophasic is abnormal. Signer Name: Contreras Paniagua DO Signed: 05/18/2022 4:30 PM Workstation Name: [id number] DUPLEX DOPPLER LOWER EXTREMITY VEINS, LEFT INDICATION / CLINICAL INFORMATION: Acute left lower extremity pain.. TECHNIQUE: Duplex doppler imaging was performed through the veins of the left lower extremity using venous compression and other maneuvers. COMPARISON: None available. FINDINGS: LEFT COMMON FEMO RAL VEIN: Negative. LEFT FEMORAL VEIN: Negative. LEFT POPLITEAL VEIN: Negative. LEFT CALF VEINS: Negative. ADDITIONAL FINDINGS: None. IMPRESSION: 1. No sonographic evidence for DVT in the left lower extremity. Signer Name: Gael Lee MD Signed: 05/18/2022 4:23 PM Workstation Name: [id number] CTA ABDOMEN, PELVIS, AND LOWER EXTREMITIES WITH CONTRAST INDICATION / CLINICAL INFORMATION: Acute left leg pain, weakness, arterial insufficie 100ml of [id number]. TECHNIQUE: Axial CT images were obtained through the abdomen, pelvis and lower extremities after injection of 100 cc Omnipaque 350 IV contrast. 3 plane MIP / 3D reconstructions were produced. All CT scans at this location are performed using CT dose reduction for ALARA by means of automated exposure control. COMPARISON: 11/13/2021 FINDINGS: CTA ABDOMEN: Abdominal Aorta: Moderate atherosclerosis Celiac Artery: No significant abnormality. Superior Mesenteric Artery: No significant abnormality. Right Renal Artery: Mild atherosclerosis Left Renal Artery: Moderate to severe atherosclerosis Inferior Mesenteric Artery: No significant abnormality. CTA PELVIS: RIGHT: - Common Iliac Artery: Moderate atherosclerosis - Internal Iliac Artery: Moderate atherosclerosis - External Iliac Artery: Mild atherosclerosis LEFT: - Common Iliac Artery: Moderate atherosclerosis - Internal Iliac Artery: Moderate atherosclerosis - External Iliac Artery: Mild atherosclerosis CTA LOWER EXTREMITIES: RIGHT LOWER EXTREMITY: - Common Femoral Artery: Moderate atherosclerosis - Superficial Femoral Artery: Moderate to severe atherosclerosis - Profunda Femoral Artery: Distal portion is not opacified. - Popliteal Artery: Mild athero sclerosis - Anterior Tibial Artery: Distal two thirds is not opacified. - Tibioperoneal Trunk: Mild atherosclerosis - Posterior Tibial Artery: Mild atherosclerosis - Peroneal Artery: Minimal portion is poorly opacified. - Ankle runoff: 2 vessel. LEFT LOWER EXTREMITY: - Common Femoral Artery: Distal portion is not opacified. - Superficial Femoral Artery: Proximal portion is not opacified. There is moderate atherosclerotic disease. - Profunda Femoral Artery: Mild atherosclerosis. - Popliteal Artery: Not opacified - Anterior Tibial Artery: Not opacified - Tibioperoneal Trunk: Not opacified - Posterior Tibial Artery: Not opacified - Peroneal Artery: Not opacified - Ankle runoff: 0 vessel. NONTARGET STRUCTURES: ABDOMEN/PELVIS:Post surgical change to the proximal colon. Peritoneal catheter terminates within the pelvis. Small amount of intra- abdominal and pelvic ascites. Hypoattenuating lesion within the spleen, likely small splenic cyst. Multiple renal cysts. Atrophic appearing kidneys. LOWER EXTREMITIES:No significant abnormality. SKELETAL: Findings of renal osteodystrophy. There is degeneration of the bilateral hips. There is also degeneration of the pubic symphysis. The right superior pubic ramus appears destroyed, which may also be secondary to renal osteodystrophy. ADDITIONAL FINDINGS: None. IMPRESSION: 1. The left lower extremity arteries are not opacified from the distal SFA to the ankle. Additional atherosclerotic disease and poor opacification as detailed above. 2. Additional findings above. Signer Name: Contreras Paniagua DO Signed: 05/18/2022 5:22 PM Workstation Name: [id number] Critical Care Time: Yes Critical care time in (mins) excluding proc time.: 45 Critical care attestation.: If time is entered above; I have spent that time in minutes in the direct care of this critically ill patient, excluding procedure time. ED Disposition Clinical Impression: Acute pain of left lower extremity, Acute occlusion of artery of lower extremity, End stage renal disease, Hypertension, Hypomagnesemia Disposition: 09 ADMITTED INPATIENT Is pt being admited?: Yes Does the pt Need Aspirin: No Condition: Serious Instructions: Hypertension (ED) Referrals: PRIMARY CARE, [Primary Care Provider] - 3-5 Days
[2022-05-18] MEDS ORDERED: diphenhydrAMINE 50 MG/ML VIAL IV ONE (16:24)
[2022-05-18] MEDS ORDERED: methylPREDNISolone Sod Succinate 125 MG/2 ML INJ IV ONE (16:24)
[2022-05-18] MEDS ORDERED: FAMOTIDINE 20 MG/2 ML INJ IV ONE (16:24)
--- NOTE | 2022-05-18 17:27 | Vascular Lab Report ---
DUPLEX DOPPLER LOWER EXTREMITY VEINS, LEFT INDICATION / CLINICAL INFORMATION: Acute left lower extremity pain.. TECHNIQUE: Duplex doppler imaging was performed through the veins of the left lower extremity using v enous compression and other maneuvers. COMPARISON: None available. FINDINGS: LEFT COMMON FEMORAL VEIN: Negative. LEFT FEMORAL VEIN: Negative. LEFT POPLITEAL VEIN: Negative. LEFT CALF VEINS: Negative. ADDITIONAL FINDINGS: None. IMPRESSION: 1. No sonographic evidence for DVT in the left lower extremity. Signer Name: Gael Lee MD Signed: 05/18/2022 5:23 PM Workstation Name: [id number]
--- NOTE | 2022-05-18 17:34 | Vascular Lab Report ---
DUPLEX DOPPLER LOWER EXTREMITY ARTERIAL, LEFT INDICATION / CLINICAL INFORMATION: Left lower extremity arterial insufficiency. TECHNIQUE: Arterial duplex examination of the left lower extremity performed using B-mode, color flow and spectral Doppler assessment. FINDINGS: LEFT: Common Femoral Artery: PSV 66 cm/sec. Monophasic waveform. Proximal SFA: PSV 42 cm/sec. Monophasic waveform. Mid SFA: PSV 14 cm/sec. Monophasic waveform. Distal SFA: PSV No flow identified.. Popliteal Artery: No flow identified. Posterior Tibial Artery: No flow identified. Dorsalis Pedis Artery: No flow identified. . ADDITIONAL FINDINGS: None. LEFT IZZY: Not calculated IMPRESSION: 1. Marked peripheral artery disease of the left extremity with absent flow noted from the distal supe rficial femoral artery through the lower ankle arteries. This was communicated to Dr. Garcias at 171 0. Ankle-Brachial Index (IZZY): - Calcified arteries > 1.4 - Normal = 0.9-1.4 - Mild PAD = 0.7-0.89 - Moderate PAD = 0.51-0.69 - Severe PAD < 0.5 Doppler Waveform: - Triphasic is normal. - Biphasic is abnormal if clear transition from triphasic signal along vascular tree. - Monophasic is abnormal. Signer Name: Contreras Paniagua DO Signed: 05/18/2022 5:30 PM Workstation Name: [id number]
[2022-05-18] MEDS ORDERED: HEPARIN 10,000 UNITS/10 ML VIAL IV PRN (17:37)
[2022-05-18] MEDS ORDERED: HEPARIN 10,000 UNITS/10 ML VIAL IV ONE (17:37)
[2022-05-18 18:01] LABS: Basophils # (Auto) 0.2 K/mm3 (0.0-0.1); Basophils % (Auto) 2.1 % (0.0-1.8); Eosinophils # (Auto) 0.3 K/mm3 (0.0-0.4); Hematocrit 33.5 % (30.3-42.9); Hemoglobin 10.3 gm/dl (10.1-14.3); Lymphocytes # (Auto) 0.7 K/mm3 (1.2-5.4); Lymphocytes % (Auto) 8.6 % (13.4-35.0); Mean Corpuscular HGB Conc 31 % (30-34); Mean Corpuscular Volume 99 fl (79-97); Monocytes # (Auto) 0.5 K/mm3 (0.0-0.8); Monocytes % (Auto) 5.3 % (0.0-7.3); Platelet Count 274 K/mm3 (140-440); Red Blood Count 3.38 M/mm3 (3.65-5.03)
[2022-05-18 18:11] LABS: INR 0.9 (0.87-1.13)
[2022-05-18 18:12] LABS: Red Cell Distribution Width 23.2 % (13.2-15.2)
[2022-05-18 18:12] LABS: Partial Thromboplastin Time 29.2 Sec. (24.2-36.6)
--- NOTE | 2022-05-18 18:26 | Cat Scan Report ---
CTA ABDOMEN, PELVIS, AND LOWER EXTREMITIES WITH CONTRAST INDICATION / CLINICAL INFORMATION: Acute left leg pain, weakness, arterial insufficie 100ml of [id number] 0. TECHNIQUE: Axial CT images were obtained through the abdomen, pelvis and lower extremities after inje ction of 100 cc Omnipaque 350 IV contrast. 3 plane MIP / 3D reconstructions were produced. All CT sca ns at this location are performed using CT dose reduction for ALARA by means of automated exposure co ntrol. COMPARISON: 11/13/2021 FINDINGS: CTA ABDOMEN: Abdominal Aorta: Moderate atherosclerosis Celiac Artery: No significant abnormality. Superior Mesenteric Artery: No significant abnormality. Right Renal Artery: Mild atherosclerosis Left Renal Artery: Moderate to severe atherosclerosis Inferior Mesenteric Artery: No significant abnormality. CTA PELVIS: RIGHT: - Common Iliac Artery: Moderate atherosclerosis - Internal Iliac Artery: Moderate atherosclerosis - External Iliac Artery: Mild atherosclerosis LEFT: - Common Iliac Artery: Moderate atherosclerosis - Internal Iliac Artery: Moderate atherosclerosis - External Iliac Artery: Mild atherosclerosis CTA LOWER EXTREMITIES: RIGHT LOWER EXTREMITY: - Common Femoral Artery: Moderate atherosclerosis - Superficial Femoral Artery: Moderate to severe atherosclerosis - Profunda Femoral Artery: Distal portion is not opacified. - Popliteal Artery: Mild atherosclerosis - Anterior Tibial Artery: Distal two thirds is not opacified. - Tibioperoneal Trunk: Mild atherosclerosis - Posterior Tibial Artery: Mild atherosclerosis - Peroneal Artery: Minimal portion is poorly opacified. - Ankle runoff: 2 vessel. LEFT LOWER EXTREMITY: - Common Femoral Artery: Distal portion is not opacified. - Superficial Femoral Artery: Proximal portion is not opacified. There is moderate atherosclerotic di sease. - Profunda Femoral Artery: Mild atherosclerosis. - Popliteal Artery: Not opacified - Anterior Tibial Artery: Not opacified - Tibioperoneal Trunk: Not opacified - Posterior Tibial Artery: Not opacified - Peroneal Artery: Not opacified - Ankle runoff: 0 vessel. NONTARGET STRUCTURES: ABDOMEN/PELVIS:Post surgical change to the proximal colon. Peritoneal catheter terminates within the pelvis. Small amount of intra-abdominal and pelvic ascites. Hypoattenuating lesion within the spleen, likely small splenic cyst. Multiple renal cysts. Atrophic appearing kidneys. LOWER EXTREMITIES:No significant abnormality. SKELETAL: Findings of renal osteodystrophy. There is degeneration of the bilateral hips. There is als o degeneration of the pubic symphysis. The right superior pubic ramus appears destroyed, which may al so be secondary to renal osteodystrophy. ADDITIONAL FINDINGS: None. IMPRESSION: 1. The left lower extremity arteries are not opacified from the distal SFA to the ankle. Additional a therosclerotic disease and poor opacification as detailed above. 2. Additional findings above. Signer Name: Contrears Paniagua DO Signed: 05/18/2022 6:22 PM Workstation Name: [id number]
[2022-05-18 18:29] LABS: Albumin 3.4 g/dL (3.9-5); Calcium 8.8 mg/dL (8.4-10.2)
[2022-05-18] MEDS: HEPARIN/ 0.45% NACL DRIP 25,000 UNIT/500 ML BAG IV SCH (18:35)
[2022-05-18] MEDS ORDERED: hydrALAZINE 20 MG/1 ML INJ ONE (18:36)
[2022-05-18] MEDS ORDERED: MAGNESIUM OXIDE 400 MG TAB PO STA (19:01)
[2022-05-18] MEDS ORDERED: ONDANSETRON 4 MG/2 ML INJ IV PRN ×2 (19:02→21:55)
[2022-05-18] MEDS ORDERED: MORPHINE 4 MG/1 ML INJ IV PRN (19:02)
[2022-05-18] MEDS ORDERED: MORPHINE 2 MG/1 ML INJ IV PRN ×2 (19:02→21:55)
[2022-05-18] MEDS ORDERED: ACETAMINOPHEN 325 MG TAB PO PRN ×2 (19:02→21:55)
[2022-05-18] MEDS ORDERED: LIDOCAINE (1%) 10 MG/1 ML VIAL 20 ML MDV ONE (19:08)
[2022-05-18] MEDS ORDERED: HYDROmorphone 0.5 MG/0.5 ML INJ IV ONE (19:08)
[2022-05-18] MEDS ORDERED: HEPARIN/NS 5000 UNIT/500ML 1,000 ML IR ONE (19:08)
[2022-05-18] MEDS: fentaNYL 100 MCG/2 ML INJ ONE ×3 (19:10→19:59)
[2022-05-18] MEDS: MIDAZOLAM 2 MG/2 ML INJ ONE ×3 (19:10→20:03)
[2022-05-18] MEDS: HEPARIN 10,000 UNITS/10 ML VIAL ONE ×2 (19:11→20:03)
[2022-05-18] MEDS ORDERED: SODIUM CHLORIDE 0.9% 1000 ML 1,000 ML ONE (19:36)
--- NOTE | 2022-05-18 19:36 | Consultation ---
History of Present Illness - Reason for Consult Consult date: 05/18/22 Left Lower Extremity Ischemia Requesting physician: ALEXANDREA BENÍTEZ - History of Present Illness Is a 72-year-old female with a history of end-stage renal disease who is on hemodialysis through a peritoneal dialysis catheter. She presented to the emergency department with complaints of acute left lower extremity pain that she says started at approximately 9 AM this morning. She denies having any pain in her right lower extremity. She states that the pain progressively worsened which prompted her to present to the emergency department. The patient is work- up included an arterial duplex which demonstrated monophasic flow throughout the left lower extremity as well as monophasic flow in the right dorsalis pedis artery. She eventually underwent a CTA that demonstrated emboli in bilateral lower extremities with a short segment occlusion in the right popliteal artery as well as thrombus noted within the mid peroneal artery and anterior tibial artery. The posterior tibial artery appeared to be patent. The left lower extremity demonstrated thrombus within the common femoral artery as well as the popliteal artery and multiple tibial vessels. She complains of severe left leg pain throughout the left leg however she states that her left foot is numb. Prior to admission she states she ambulated without difficulty. She has no additional complaints at this time. Past History Past Medical History: diabetes, dialysis (peritoneal), ESRD, heart failure, hypertension, hyperlipidemia Past Surgical History: Other (Peritoneal dialysis catheter, resection of left renal tumor) Social history: no significant social history Family history: no significant family history Medications and Allergies Allergies Allergy/AdvReac Type Severity Reaction Status Date / Time digoxin Allergy Hives Verified 05/18/22 17:52 lisinopril Allergy Swelling Verified 05/18/22 17:52 nitroglycerin AdvReac Rash, Verified 05/18/22 17:52 HEADACHES shellfish derived AdvReac Swelling Verified 05/18/22 17:52 Home Medications Medication Instructions Recorded Confirmed Last Taken Type NIFEdipine XL [Procardia Xl] 60 mg PO HS 05/27/15 11/13/21 11/12/21 History carvediloL [Coreg] 6.25 mg PO BID 05/27/15 11/13/21 11/12/21 History cloNIDine [Catapres] 0.2 mg PO DAILY 09/14/16 11/13/21 11/12/21 History Hydralazine HCl 50 mg PO TID 02/15/21 11/13/2122 History Doxycycline Monohydrate 100 mg PO BID #20 cap 11/13/21 Unknown Rx [Doxycycline Monohydrate CAP] Active Meds: Active Medications Acetaminophen (Acetaminophen 325 Mg Tab) 650 mg PO Q4H PRN PRN Reason: Pain MILD(1-3)/Fever >100.5/POOLE Heparin Sodium (Porcine) (Heparin 10,000 Units/10 Ml Vial) 2,400 unit 40 unit/kg (2400 unit) IV Q6H PRN PRN Reason: Anti-Xa Assay < 0.1 units/ml Heparin Sodium/Sodium Chloride (Heparin/ 0.45% Nacl-25,000 Unit/500 Ml) 25,000 unit in 500 mls @ 16 mls/hr IV TITR BRAXTON; Protocol Last Admin: 05/18/22 18:35 Dose: 800 units/hr, 16 mls/hr Ondansetron HCl (Ondansetron 4 Mg/2 Ml Inj) 4 mg IV Q8H PRN PRN Reason: Nausea And Vomiting Sodium Chloride (Sodium Chloride 0.9% 10 Ml Flush Syringe) 10 ml IV BID BRAXTON Sodium Chloride (Sodium Chloride 0.9% 10 Ml Flush Syringe) 10 ml IV PRN PRN PRN Reason: LINE FLUSH Review of Systems All systems: negative Exam - Constitutional Vitals: Temp Pulse Resp BP Pulse Ox 97.9 F 105 H 34 H 220/102 98 05/18/22 12:54 05/18/22 19:15 05/18/22 19:15 05/18/22 19:15 05/18/22 19:15 General appearance: Present: no acute distress, other (complaining of severe lef t leg pain) - Respiratory Respiratory effort: normal - Cardiovascular Rhythm: regular - Extremities Extremity abnormal: cold (Foot is cool), pulses diminished (Nonpalpable pedal pulses bilaterally, palpable right femoral pulse, nonpalpable left femoral pulse) - Abdominal General gastrointestinal: Present: soft, other (Peritoneal dialysis catheter in place) - Rectal Rectal Exam: deferred - Neurologic Neurologic: other (No sensation to left foot, diminished motor to left foot, right foot has intact motor and sensation) Results - Labs CBC & Chem 7: 05/18/22 17:52 05/18/22 17:51 Labs: Abnormal lab results 08/12/22 08/12/22 Range/Units 17:51 17:52 RBC 3.38 L (3.65-5.03) M/mm3 MCV 99 H (79-97) fl RDW 23.2 H (13.2-15.2) % Lymph % (Auto) 8.6 L (13.4-35.0) % Baso % (Auto) 2.1 H (0.0-1.8) % Lymph # (Auto) 0.7 L (1.2-5.4) K/mm3 Baso # (Auto) 0.2 H (0.0-0.1) K/mm3 Seg Neutrophils % 80.0 H (40.0-70.0) % Chloride 96.3 L (98-107) mmol/L BUN 48 H (7-17) mg/dL Creatinine 10.1 H (0.6-1.2) mg/dL Magnesium 1.60 L (1.7-2.3) mg/dL Alkaline Phosphatase 176 H (35-129) units/L Troponin T 0.203 H* (0.00-0.029) ng/mL Total Protein 6.2 L (6.3-8.2) g/dL Albumin 3.4 L (3.9-5) g/dL - Imaging and Cardiology CT scan - abdomen: image reviewed CT scan - pelvis: image reviewed Assessment and Plan The patient is a 72-year-old female who presented with left leg pain who states that when she initially arrived at the emergency department she was able to move her foot. She now continues to have pain with no motor or sensation. The CTA with runoff demonstrates thrombus within multiple segments of the left lower extremity as well as the right lower extremity. She has no evidence of right leg ischemia. She has [place] 3 ischemia involving the left lower extremity. I am taking her emergently to the [facility] for percutaneous mechanical thrombectomy of the left leg. I also discussed with her the need for possible 4 compartment fasciotomy of the left lower extremity. The patient has expressed understanding of the plan and agrees.
[2022-05-18] MEDS ORDERED: VERAPAMIL 5 MG/2 ML INJ ONE (20:22)
[2022-05-18] MEDS ORDERED: HEPARIN/NS 5000 UNIT/500ML 500 ML IR ONE (20:25)
[2022-05-18] MEDS ORDERED: ALTEPLASE 2 MG INJ ONE (20:28)
[2022-05-18] MEDS ORDERED: WATER FOR INJ Sterile (PF) 10 ML ONE (20:28)
[2022-05-18] MEDS ORDERED: HEPARIN/ 0.45% NACL DRIP 25,000 UNIT/500 ML BAG ONE (20:59)
[2022-05-18] MEDS ORDERED: HYDROcodone/ACETAMINOPHEN 5-325 MG TAB PO PRN (21:02)
--- NOTE | 2022-05-18 21:02 | Operative Report ---
Operative Report Operative Report: Date of Procedure: 05/18/2022 Pre-operative Diagnosis: Acute Left Lower Extremity Ischemia Post-operative Diagnosis: Same Procedure(s): 1. Ultrasound-Guided Access Right Common Femoral Artery 2. Diagnostic Aortogram (No Previous Films for Comparison) 3. Diagnostic Left Lower Extremity Angiogram (No Previous Films for Comparison) 4. Percutaneous Mechanical Thrombectomy of Left Common Femoral Artery and Popliteal Artery with Penumbra Indigo Lightening CAT 7 Aspiration Catheter 5. Angioplasty and Stent of Left Popliteal Artery with 6 x 80 Peter Balloon and 7 x 60 Gudelia Drug-Eluting Stent 6. Percutaneous Pharmacomechanical Thrombectomy of Left Posterior Tibial Artery with 6 mg of tPA and Aspiration through a Navicross Catheter 7. Closure of Right Femoral Arteriotomy with Perclose ProStyle Closure Device 8. Radiologic Supervision with Interpretation 9. Monitored Moderate Sedation (Total Anesthesia Time: 65 Minutes) Surgeon: Naeem Herndon M.D. Sales Representative Leather Goods: None Anesthesia: Local/Monitored Moderate Sedation Total Anesthesia Time: 65 Minutes EBL: Minimal Counts: Correct Complications: None Condition: Stable Specimen: None Indication: The patient is a 72-year-old female with a history of end-stage renal disease was on hemodialysis to peritoneal dialysis catheter. She presented to the emergency department with complaints of left lower extremity pain and numbness. A CTA revealed thrombus within the left lower extremity. She is in need of a diagnostic angiogram with possible intervention. She was given the risk, benefits, and alternative procedures and consented to the procedure. Angiographic Findings: The diagnostic aortogram revealed that the aorta was patent without aneurysmal dilatation, thrombus, or flow-limiting stenosis. The common iliac artery, hypogastric artery, and external iliac artery were patent without evidence of thrombus or flow-limiting stenosis. There was occlusive thrombus within the common femoral artery. There was evidence of thrombus in the distal profunda artery however the proximal segments and branches were patent. There was occlusive thrombus within the popliteal artery extending from above the knee to below the knee. The posterior tibial artery was occluded however there appeared to be some retrograde flow into the distal artery through the peroneal artery. The peroneal artery was patent until the distal segment where there was evidence of thrombus within the artery. The anterior tibial artery had multiple segments of thrombus within the mid artery and then occluded and was thrombosed throughout the remainder of the artery. After intervention, femoral artery was patent without evidence of flow-limiting stenosis or significant residual thrombus. The popliteal artery was patent with no significant thrombus remaining in less than 20% residual stenosis. The posterior tibial artery was patent throughout its course without significant residual thrombus and patent into the foot. The patient regained motor and sensation after the completion of the case. Her calf remains soft and without tenderness or additional signs of compartment syndrome. We will continue to monitor the patient for evidence of compartment syndrome. Description of Procedure: The patient was brought to the [facility] and laid in supine position. After timeout was performed she was sedated and her right groin was prepped and draped in normal sterile fashion. Ultrasound was used to identify the right common femoral artery and confirm patency. Once patency was confirmed the overlying skin soft tissue was anesthetized with lidocaine. An 11 blade was used to make a small stab incision and then a curved hemostat was used with ultrasound guidance to bluntly dissect down to the anterior surface of the right common femoral artery. A 21-gauge micropuncture needle was used with ultrasound guidance into the right common femoral artery and a 0.018 micropuncture wire was advanced to the artery. The needle was removed and a micropuncture sheath was placed by Seldinger technique. The dilator and wire were removed and a 0.035 Bentson wire was advanced into the artery. The micropuncture sheath was then removed and a 5 [place]e sheath was placed by Seldinger technique. An Omni Flush catheter was advanced over the Bentson wire and into the infrarenal aorta and a diagnostic aortogram was performed with the previously described findings. The Omni Flush catheter and a 0.025 glide advantage wire were advanced up and over the bifurcation and the remainder of the left lower extremity angiogram was performed to previous described findings. The advantage wire was advanced into the distal SFA and the 5 [place]e sheath was exchanged for a 7 [place]e 45 cm destination sheath by Seldinger technique. At this point the patient was systemically heparinized with 4000 units of heparin IV. A Navicross catheter and a 0.018 V 18 wire were used to cannulate the peroneal artery which was confirmed by angiogram. I then advanced the Penumbra Indigo Lightening CAT 7 Aspiration Catheter into the common femoral artery and perform percutaneous mechanical thrombectomy which resulted in a patent common femoral artery with minimal residual stenosis. I advanced the catheter down into the popliteal artery and perform percutaneous mechanical thrombectomy with the catheter as well as the separator which resulted in no significant residual thrombus however there was approximately 85% stenosis in a short segment of the above-knee popli teal artery. This also revealed that the proximal segment of the posterior tibial artery was now patent however the remainder was occluded with thrombus. I advanced the Navicross catheter and V 18 wire into the distal posterior tibial artery was demonstrated some thrombus at the ankle however the medial and lateral plantar arteries were patent. I injected 6 mg of tPA into the artery as well as 5 mg of verapamil to break any spasm. I then used the catheter to aspirate thrombus from the distal portion of the artery and the follow-up angiogram revealed a patent artery with minimal residual stenosis and flow into the foot. I then advanced a 7 mm 0.014 Spider Filter Wire into the below-knee popliteal artery and performed angioplasty of the area of stenosis, within the above-knee popliteal artery, with a 6 x 80 Peter Balloon. This resulted in approximately 50% residual stenosis. I advanced a 7 x 60 Gudelia Drug-Eluting Stent across the area of stenosis and deployed it. I postdilated it with the 6 x 80 Peter Balloon resulted in less than 20% residual stenosis and brisk flow of contrast throughout the left lower extremity and into the posterior tibial artery. At this point I recaptured the spider wire using the Navicross catheter. I pulled the sheath back into the right external iliac artery and performed an angiogram revealing that the sheath was well above the bifurcation. This also revealed thrombus within the distal profunda artery. I advanced a Bentson wire to the aorta and after removing the sheath used a Perclose ProStyle Closure Device to close the right femoral arteriotomy. The patient tolerated the procedure well and was transported to the [facility] in stable condition.
[2022-05-18] MEDS ORDERED: CLOPIDOGREL 300 MG TAB PO ONE (21:05)
--- NOTE | 2022-05-18 21:40 | Event Note ---
Date: 05/18/22 Patient with return of motor and sensation to the left foot although she still feels some numbness. Her left calf was soft and nontender without any evidence to suggest compartment syndrome. Elected not to perform prophylactic left leg 4 compartment fasciotomy. We will continue to monitor and if she develops any evidence of compartment syndrome she will be taken to the operating room for a 4 compartment fasciotomy.
[2022-05-18] MEDS ORDERED: METOCLOPRAMIDE 10 MG/2 ML INJ IV PRN ×2 (21:55→22:05)
[2022-05-18] MEDS ORDERED: oxyCODONE /ACETAMINOPHEN 5-325MG TAB PO PRN (21:55)
[2022-05-18] MEDS ORDERED: HEPARIN/ 0.45% NACL DRIP 25,000 UNIT/500 ML BAG IV SCH (22:00)
[2022-05-18] MEDS: carvediloL 6.25 MG TAB PO SCH (22:59)
[2022-05-18] MEDS: NIFEdipine XL 60 MG TAB PO SCH (22:59)
[2022-05-19] MEDS: MORPHINE 4 MG/1 ML INJ IV PRN ×2 (01:58→06:27)
[2022-05-19] MEDS ORDERED: diphenhydrAMINE 25 MG CAP PO ONE (02:32)
[2022-05-19 03:15] LABS: Chol/HDL Ratio 3.27 %
[2022-05-19] MEDS: DIALYSATE PD2 1.5% SOLN 2000 ML IP SCH ×4 (06:38→18:05)
--- NOTE | 2022-05-19 06:58 | History and Physical Report ---
History of Present Illness Date of examination: 05/18/22 Date of admission: 05/18/22 19:02 Chief complaint: Left lower extremity severe pain and unable to walk History of present illness: 72-year-old female with history of end-stage renal disease on peritoneal dialys is, hypertension presents with left lower extremity pain numbness and significant difficulty in walking. Her symptoms are confined to the left mid thigh and call and left foot. Patient says that her symptoms started around 9 AM. Emergent arterial duplex scan revealed---Marked peripheral artery disease of the left extremity with absent flow noted from the distal superficial femoral artery through the lower ankle arthritis. Vascular surgery Was Informed and the Patient Was Taken to the [facility] for immediate intervention. - Past Medical History --Hypertension: Yes (FOR 10+ YRS, DR. 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 [employer]) --Arthritis: Yes (Gout) --Asthma: Yes ( A CHILD) --Additional medical history: Dilated cardiomyopathy / PERITONEAL DYALISIS - Surgical History --Appendectomy: Yes (IN 1984) --Additional Surgical History: tonsil removed - Social History --Smoking Status: Never Smoker --Substance Use Type: None - Medications Home Medications: Home Medications Medication Instructions Recorded Confirmed Last Taken Type NIFEdipine XL [Procardia Xl] 60 mg PO HS 05/27/15 11/13/21 11/12/21 History carvediloL [Coreg] 6.25 mg PO BID 05/27/15 11/13/21 11/12/21 History cloNIDine [Catapres] 0.2 mg PO DAILY 09/14/16 11/13/21 11/12/21 History Hydralazine HCl 50 mg PO TID 02/15/21 11/13/21 11/12/21 History Doxycycline Monohydrate 100 mg PO BID #20 cap 11/13/21 Unknown Rx [Doxycycline Monohydrate CAP] Review of Systems ROS: Stated complaint: LEFT LEG PAIN Other details as noted in HPI Comment: All other systems reviewed and negative Constitutional: denies: fever Cardiovascular: denies: chest pain Gastrointestinal: denies: abdominal pain, hematemesis, melena, hematochezia Musculoskeletal: myalgia. denies: back pain Neurological: weakness, numbness, paresthesias Past History Past Medical History: diabetes, dialysis (peritoneal), ESRD, heart failure, hypertension, hyperlipidemia Past Surgical History: Other (Peritoneal dialysis catheter, resection of left renal tumor) Social history: no significant social history Family history: no significant family history Medications and Allergies Allergies Allergy/AdvReac Type Severity Reaction Status Date / Time digoxin Allergy Hives Verified 05/18/22 17:52 lisinopril Allergy Swelling Verified 05/18/22 17:52 nitroglycerin AdvReac Rash, Verified 05/18/22 17:52 HEADACHES shellfish derived AdvReac Swelling Verified 05/18/22 17:52 Home Medications Medication Instructions Recorded Confirmed Last Taken Type NIFEdipine XL [Procardia Xl] 60 mg PO HS 05/27/15 11/13/21 11/12/21 History carvediloL [Coreg] 6.25 mg PO BID 05/27/15 11/13/21 11/12/21 History cloNIDine [Catapres] 0.2 mg PO DAILY 09/14/16 11/13/21 11/12/21 History Hydralazine HCl 50 mg PO TID 02/15/21 11/13/21 11/12/21 History Doxycycline Monohydrate 100 mg PO BID #20 cap 11/13/21 Unknown Rx [Doxycycline Monohydrate CAP] Active Meds: Active Medications Acetaminophen (Acetaminophen 325 Mg Tab) 650 mg PO Q4H PRN PRN Reason: Pain MILD(1-3)/Fever >100.5/POOLE Hydrocodone Bitart/Acetaminophen (Hydrocodone/Acetaminophen 5-325 Mg Tab) 1 each PO Q4H PRN PRN Reason: Pain, Moderate (4-6) Carvedilol (Carvedilol 6.25 Mg Tab) 6.25 mg PO BID [facility] Last Admin: 05/18/22 22:59 Dose: 6.25 mg Clonidine HCl (Clonidine 0.2 Mg Tab) 0.2 mg PO DAILY [facility] Clopidogrel Bisulfate (Clopidogrel 75 Mg Tab) 75 mg PO QDAY [facility] Heparin Sodium (Porcine) (Heparin 10,000 Units/10 Ml Vial) 2,400 unit 40 unit/kg (2400 unit) IV Q6H PRN PRN Reason: Anti-Xa Assay < 0.1 units/ml Hydralazine HCl (Hydralazine 25 Mg Tab) 50 mg PO TID [facility] Heparin Sodium/Sodium Chloride (Heparin/ 0.45% Nacl-25,000 Unit/500 Ml) 25,000 unit in 500 mls @ 16 mls/hr IV TITR [facility]; Protocol Last Titration: 05/19/22 03:37 Dose: 800 units/hr, 16 mls/hr Metoclopramide HCl (Metoclopramide 10 Mg/2 Ml Inj) 2.5 mg IV Q6H PRN PRN Reason: Nausea And Vomiting Morphine Sulfate (Morphine 2 Mg/1 Ml Inj) 2 mg IV Q4H PRN PRN Reason: Pain, Moderate (4-6) Morphine Sulfate (Morphine 4 Mg/1 Ml Inj) 4 mg IV Q4H PRN PRN Reason: Pain , Severe (7-10) Last Admin: 05/19/22 06:27 Dose: 4 mg Nifedipine (Nifedipine Xl 60 Mg Tab) 60 mg PO HS [facility] Last Admin: 05/18/22 22:59 Dose: 60 mg Ondansetron HCl (Ondansetron 4 Mg/2 Ml Inj) 4 mg IV Q8H PRN PRN Reason: Nausea And Vomiting Oxycodone/Acetaminophen (Oxycodone /Acetaminophen 5-325mg Tab) 1 tab PO Q6H PRN PRN Reason: Pain, Moderate (4-6) Peritoneal Dialysis Solution (Dialysate Pd2 1.5% Soln 2000 Ml) 2,000 ml IP Q6HR [facility] Last Admin: 05/19/22 06:55 Dose: Not Given Sodium Chloride (Sodium Chloride 0.9% 10 Ml Flush Syringe) 10 ml IV BID [facility] Last Admin: 05/18/22 22:59 Dose: 10 ml Sodium Chloride (Sodium Chloride 0.9% 10 Ml Flush Syringe) 10 ml IV PRN PRN PRN Reason: LINE FLUSH Last Admin: 05/19/22 06:29 Dose: 10 ml Exam - Constitutional Vitals: Temp Pulse Resp BP Pulse Ox 98.3 F 73 21 163/65 96 05/19/22 00:00 05/19/22 04:00 05/19/22 06:27 05/19/22 04:00 05/19/22 04:00 General appearance: Present: no acute distress, well-nourished - EENT Eyes: Present: PERRL ENT: hearing intact, clear oral mucosa - Neck Neck: Present: supple, normal ROM - Respiratory Respiratory effort: normal Respiratory: bilateral: CTA - Cardiovascular Heart rate: 78 Rhythm: regular Heart Sounds: Present: S1 & S2. Absent: rub, click - Extremities Extremities: No edema, abnormal (Left lower extremity cold to touch, but no gangrenous changes) Extremity abnormal: pulses diminished, other (Same as overall) Peripheral Pulses: within normal limits - Abdominal General gastrointestinal: Present: soft, non-tender, non-distended, normal bowel sounds Female genitourinary: Present: normal - Integumentary Integumentary: Present: clear, warm, dry - Musculoskeletal Musculoskeletal: gait normal, strength equal bilaterally - Psychiatric Psychiatric: appropriate mood/affect, intact judgment & insight - Neurologic Neurologic: CNII-XII intact, moves all extremities HEART Score - HEART Score History: Moderately suspicious Age: > 65 Risk factors: > 3 risk factors or hx of atherosclerotic disease Troponin: Troponin T 0.203 ng/mL (0.00-0.029) H* 05/18/22 17:51 Troponin: < normal limit - Critical Actions Critical Actions: 4-6 pts:12-16.6% risk of adverse cardiac event. Should be admitted Results - Labs CBC & Chem 7: 05/18/22 17:52 05/18/22 17:51 Labs: Laboratory Last Values WBC 8.7 K/mm3 (4.5-11.0) 05/18/22 17:52 RBC 3.38 M/mm3 (3.65-5.03) L 05/18/22 17:52 Hgb 10.3 gm/dl (10.1-14.3) 05/18/22 17:52 Hct 33.5 % (30.3-42.9) 05/18/22 17:52 MCV 99 fl (79-97) H 05/18/22 17:52 MCH 31 pg (28-32) 05/18/22 17:52 MCHC 31 % (30-34) 05/18/22 17:52 RDW 23.2 % (13.2-15.2) H 05/18/22 17:52 Plt Count 274 K/mm3 (140-440) 05/18/22 17:52 Lymph % (Auto) 8.6 % (13.4-35.0) L 05/18/22 17:52 [place] % (Auto) 5.3 % (0.0-7.3) 05/18/22 17:52 Eos % (Auto) 4.0 % (0.0-4.3) 05/18/22 17:52 Baso % (Auto) 2.1 % (0.0-1.8) H 05/18/22 17:52 Lymph # (Auto) 0.7 K/mm3 (1.2-5.4) L 05/18/22 17:52 [place] # (Auto) 0.5 K/mm3 (0.0-0.8) 05/18/22 17:52 Eos # (Auto) 0.3 K/mm3 (0.0-0.4) 05/18/22 17:52 Baso # (Auto) 0.2 K/mm3 (0.0-0.1) H 05/18/22 17:52 Seg Neutrophils % 80.0 % (40.0-70.0) H 05/18/22 17:52 Seg Neutrophils # 7.0 K/mm3 (1.8-7.7) 05/18/22 17:52 PT 13.1 Sec. (12.2-14.9) 05/18/22 17:51 INR 0.90 (0.87-1.13) 05/18/22 17:51 APTT 29.2 Sec. (24.2-36.6) 05/18/22 17:51 Heparin Anti-Xa Level 0.62 U.I./ml (0.3-0.7) 05/19/22 05:12 Sodium 141 mmol/L (137-145) 05/18/22 17:51 Potassium 3.7 mmol/L (3.6-5.0) 05/18/22 17:51 Chloride 96.3 mmol/L (98-107) L 05/18/22 17:51 Carbon Dioxide 25 mmol/L (22-30) 05/18/22 17:51 Anion Gap 23 mmol/L 05/18/22 17:51 BUN 48 mg/dL (7-17) H 05/18/22 17:51 Creatinine 10.1 mg/dL (0.6-1.2) H 05/18/22 17:51 Estimated GFR 5 ml/min 05/18/22 17:51 BUN/Creatinine Ratio 5 % 05/18/22 17:51 Glucose 91 mg/dL (65-100) 05/18/22 17:51 Lactic Acid 0.80 mmol/L (0.7-2.0) 05/18/22 17:52 Calcium 8.8 mg/dL (8.4-10.2) 05/18/22 17:51 Magnesium 1.60 mg/dL (1.7-2.3) L 05/18/22 17:51 Total Bilirubin 0.40 mg/dL (0.1-1.2) 05/18/22 17:51 AST 14 units/L (5-40) 05/18/22 17:51 ALT 13 units/L (7-56) 05/18/22 17:51 Alkaline Phosphatase 176 units/L (35-129) H 05/18/22 17:51 Total Creatine Kinase 99 units/L (30-135) 05/18/22 17:51 Troponin T 0.203 ng/mL (0.00-0.029) H* 05/18/22 17:51 Total Protein 6.2 g/dL (6.3-8.2) L 05/18/22 17:51 Albumin 3.4 g/dL (3.9-5) L 05/18/22 17:51 Albumin/Globulin Ratio 1.2 % 05/18/22 17:51 Triglycerides 154 mg/dL (2-149) H 05/18/22 17:51 Cholesterol 131 mg/dL (50-199) 05/18/22 17:51 LDL Cholesterol Direct 59 mg/dL (50-130) 05/18/22 17:51 HDL Cholesterol 40 mg/dL (40-59) 05/18/22 17:51 Cholesterol/HDL Ratio 3.27 % 05/18/22 17:51 Short CBC 05/18/22 Range/Units 17:52 WBC 8.7 (4.5-11.0) K/mm3 Hgb 10.3 (10.1-14.3) gm/dl Hct 33.5 (30.3-42.9) % Plt Count 274 (140-440) K/mm3 BMP 05/18/22 17:51 Sodium 141 Potassium 3.7 Chloride 96.3 L Carbon Dioxide 25 BUN 48 H Creatinine 10.1 H Glucose 91 Calcium 8.8 Cardiac Enzymes 05/18/22 Range/Units 17:51 Total Creatine Kinase 99 (30-135) units/L Troponin T 0.203 H* (0.00-0.029) ng/mL Liver Function 05/18/22 Range/Units 17:51 Total Bilirubin 0.40 (0.1-1.2) mg/dL AST 14 (5-40) units/L ALT 13 (7-56) units/L Alkaline Phosphatase 176 H (35-129) units/L Albumin 3.4 L (3.9-5) g/dL - Imaging and Cardiology Imaging and Cardiology: Abdominal CTA Left lower extremity arteries are not opacified from the distal SFA to the ankle area similar to respiratory disease and poor opacification of the left ankle. Duplex scan left lower extremity. Mild peripheral artery disease of the left extremity with absent flow noted from the distal superficial femoral artery through the lower ankle arteries Venous duplex scan No DVT Assessment and Plan Assessment and plan: Critical care statement The high probability OF a clinically significant sudden or life-threatening deterioration of the cardiorespiratory system and endocrine system required my full and direct attention, intervention and postoperative management. The aggregate critical care time was 40 minutes. The time is in addition to time spent performing reported procedures but includes the followin: Data review and interpretation 2: Patient assessment and monitoring of vital signs 3: Documentation 4:: Medication orders and management Advance Directives: Yes - Patient Problems (1) Acute occlusion of artery of lower extremity Current Visit: Yes Status: Acute Plan to address problem: Patient taken to the [facility] for intervention and possible stent placement Patient was started on IV heparin Admitted to [facility] (2) Acute pain of left lower extremity Current Visit: Yes Status: Acute Plan to address problem: Emergent vascular surgery intervention (3) End stage renal disease Current Visit: Yes Status: Chronic Plan to address problem: Nephrology consulted Dialysis as per schedule (4) Hypertension Current Visit: Yes Status: Chronic Qualifiers: Hypertension type: primary hypertension Plan to address problem: Continue antihypertensives (5) Dilated cardiomyopathy Current Visit: Yes Status: Chronic Plan to address problem: Increase ultrafiltration to prevent volume overload (6) DVT prophylaxis Current Visit: Yes Status: Acute Plan to address problem: Patient on IV heparin and GI prophylaxis (7) Advance care planning Current Visit: Yes Status: Acute Plan to address problem: Disease education conducted, care plan discussed, below diagnosis discussed and prognosis discussed. Patient acknowledged understanding with care plan. +30 minutes.
[2022-05-19] MEDS ORDERED: NON-FORMULARY EACH (Hydralazine Hcl [Hydralazine Hcl] 50 MG Tablet) PO SCH (08:00)
[2022-05-19] MEDS: cloNIDine 0.2 MG TAB PO SCH (09:07)
[2022-05-19] MEDS: carvediloL 6.25 MG TAB PO SCH ×2 (09:07→22:09)
[2022-05-19] MEDS: hydrALAZINE 25 MG TAB PO SCH ×3 (09:07→20:20)
[2022-05-19] MEDS: CLOPIDOGREL 75 MG TAB PO SCH (09:07)
[2022-05-19 09:44] LABS: Basophils # (Auto) 0.1 K/mm3 (0.0-0.1); Basophils % (Auto) 1.2 % (0.0-1.8); Eosinophils # (Auto) 0.5 K/mm3 (0.0-0.4); Eosinophils % (Auto) 6.9 % (0.0-4.3); Hematocrit 28.1 % (30.3-42.9); Hemoglobin 8.7 gm/dl (10.1-14.3); Lymphocytes # (Auto) 1.1 K/mm3 (1.2-5.4); Lymphocytes % (Auto) 14.9 % (13.4-35.0); Mean Corpuscular HGB Conc 31 % (30-34); Mean Corpuscular Volume 98 fl (79-97); Monocytes # (Auto) 0.7 K/mm3 (0.0-0.8); Monocytes % (Auto) 9.6 % (0.0-7.3); Platelet Count 226 K/mm3 (140-440); Red Blood Count 2.87 M/mm3 (3.65-5.03)
[2022-05-19 09:46] LABS: Red Cell Distribution Width 23.8 % (13.2-15.2)
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
--- NOTE | 2022-05-19 14:33 | Consultation ---
History of Present Illness - Reason for Consult Consult date: 05/19/22 end stage renal disease - History of Present Illness This is a 72 year-old woman with ESRD who presents for left pain of thigh, foot. Underwent stat procedure per vascular for absent flow from distal superficial femoral artery through the lower ankle. Feeling much better this AM. Patient usually dialyzes at home, follows with Dr. Silva for PD. Denies any recent issues with PD including dizziness, lightheadedness, cramping, chest pain. No drain pains. Currently, patient denies any issues including dyspnea, edema, access issues, nausea, vomiting, headaches. Past History Past Medical History: diabetes, dialysis (peritoneal), ESRD, heart failure, hypertension, hyperlipidemia Past Surgical History: Other (Peritoneal dialysis catheter, resection of left renal tumor) Social history: no significant social history Family history: no significant family history Medications and Allergies Allergies Allergy/AdvReac Type Severity Reaction Status Date / Time digoxin Allergy Hives Verified 05/18/22 17:52 lisinopril Allergy Swelling Verified 05/18/22 17:52 nitroglycerin AdvReac Rash, Verified 05/18/22 17:52 HEADACHES shellfish derived AdvReac Swelling Verified 05/18/22 17:52 Home Medications Medication Instructions Recorded Confirmed Last Taken Type NIFEdipine XL [Procardia Xl] 60 mg PO HS 05/27/15 11/13/21 11/12/21 History carvediloL [Coreg] 6.25 mg PO BID 05/27/15 11/13/21 11/12/21 History cloNIDine [Catapres] 0.2 mg PO DAILY 09/14/16 11/13/21 11/12/21 History Hydralazine HCl 50 mg PO TID 02/15/21 11/13/21 11/12/21 History Doxycycline Monohydrate 100 mg PO BID #20 cap 11/13/21 Unknown Rx [Doxycycline Monohydrate CAP] Active Meds: Active Medications Acetaminophen (Acetaminophen 325 Mg Tab) 650 mg PO Q4H PRN PRN Reason: Pain MILD(1-3)/Fever >100.5/POOLE Hydrocodone Bitart/Acetaminophen (Hydrocodone/Acetaminophen 5-325 Mg Tab) 1 each PO Q4H PRN PRN Reason: Pain, Moderate (4-6) Carvedilol (Carvedilol 6.25 Mg Tab) 6.25 mg PO BID [facility] Last Admin: 05/19/22 09:07 Dose: 6.25 mg Clonidine HCl (Clonidine 0.2 Mg Tab) 0.2 mg PO DAILY [facility] Last Admin: 05/19/22 09:07 Dose: 0.2 mg Clopidogrel Bisulfate (Clopidogrel 75 Mg Tab) 75 mg PO QDAY [facility] Last Admin: 05/19/22 09:07 Dose: 75 mg Heparin Sodium (Porcine) (Heparin 10,000 Units/10 Ml Vial) 2,400 unit 40 unit/kg (2400 unit) IV Q6H PRN PRN Reason: Anti-Xa Assay < 0.1 units/ml Hydralazine HCl (Hydralazine 25 Mg Tab) 50 mg PO TID [facility] Last Admin: 05/19/22 14:16 Dose: Not Given Heparin Sodium/Sodium Chloride (Heparin/ 0.45% Nacl-25,000 Unit/500 Ml) 25,000 unit in 500 mls @ 16 mls/hr IV TITR [facility]; Protocol Last Titration: 05/19/22 07:08 Dose: 800 units/hr, 16 mls/hr Metoclopramide HCl (Metoclopramide 10 Mg/2 Ml Inj) 2.5 mg IV Q6H PRN PRN Reason: Nausea And Vomiting Morphine Sulfate (Morphine 2 Mg/1 Ml Inj) 2 mg IV Q4H PRN PRN Reason: Pain, Moderate (4-6) Morphine Sulfate (Morphine 4 Mg/1 Ml Inj) 4 mg IV Q4H PRN PRN Reason: Pain , Severe (7-10) Last Admin: 05/19/22 06:27 Dose: 4 mg Nifedipine (Nifedipine Xl 60 Mg Tab) 60 mg PO HS [facility] Last Admin: 05/18/22 22:59 Dose: 60 mg Ondansetron HCl (Ondansetron 4 Mg/2 Ml Inj) 4 mg IV Q8H PRN PRN Reason: Nausea And Vomiting Oxycodone/Acetaminophen (Oxycodone /Acetaminophen 5-325mg Tab) 1 tab PO Q6H PRN PRN Reason: Pain, Moderate (4-6) Peritoneal Dialysis Solution (Dialysate Pd2 1.5% Soln 2000 Ml) 2,000 ml IP Q6HR [facility] Last Admin: 05/19/22 12:07 Dose: 2,000 ml Sodium Chloride (Sodium Chloride 0.9% 10 Ml Flush Syringe) 10 ml IV BID [facility] Last Admin: 05/19/22 09:06 Dose: 10 ml Sodium Chloride (Sodium Chloride 0.9% 10 Ml Flush Syringe) 10 ml IV PRN PRN PRN Reason: LINE FLUSH Last Admin: 05/19/22 06:29 Dose: 10 ml Review of Systems All systems: negative (as per HPI) Exam - Vital Signs Vital signs: Vital Signs Temp Pulse Resp BP Pulse Ox 97.9 F 88 16 210/98 98 05/18/22 12:54 05/18/22 12:54 05/18/22 12:54 05/18/22 12:54 05/18/22 12:54 - Physical Exam Narrative exam: Constitutional: no acute distress Head: NC/AT Neck: supple Lungs: clear to auscultation CV: RRR, no M/R/G Abdomen: soft, non-tender, bowel sounds present Back: nontender Extremities: no edema, pulses WNL Skin: intact Neuro: no focal deficits, alert and oriented x4 Results - Lab Results 05/19/22 08:45 05/18/22 17:51 Most recent lab results Calcium 8.8 mg/dL (8.4-10.2) 05/18/22 17:51 Magnesium 1.60 mg/dL (1.7-2.3) L 05/18/22 17:51 Assessment and Plan This is a 72 year old woman who presents with # ESRD: if having home PD machine, can continue [employer] per home settings. Otherwise, CAPD 2L fills q6 hours, can increase to 2.5% dextrose if needed - daily labs - renally dose meds - avoid nephrotoxins - renal diet - verbal consent obtained for HD # Anemia: last hemoglobin 10.3->8.7; will restart ESAs once weekly # HTN: Adjust dextrose prn. BP stable # Secondary Hyperparathyroidism: continue home binders as needed, vitamin D analogs prn # Acute occlusion of artery of lower extremity: appreciate vascular
--- NOTE | 2022-05-19 14:55 | Progress Note ---
Assessment and Plan Post procedure day #1 status post percutaneous mechanical thrombectomy of the left lower extremity as well as angioplasty and stenting of the popliteal artery. The patient is doing well and her foot is well-perfused without evidence of compartment syndrome. The patient has evidence of emboli in bilateral lower extremities which is cons istent with a proximal source of emboli. The patient will need a CTA of her chest to rule out a source of thrombus within the proximal aorta. She will also need an echocardiogram to rule out the heart as a source of emboli. She should remain on a heparin drip until the source of her thrombus is i dentified at which time the type and duration of anticoagulation can be determined. Subjective Date of service: 05/19/22 Principal diagnosis: Acute Left Lower Extremity Ischemia Interval history: The patient complains of some numbness to the plantar surface of the left foot however she has no numbness in the remainder of the foot. She denies having any pain at this time. She has no additional complaints at this time. Objective - Constitutional Vitals: Vital Signs - 12hr 05/19/22 05/19/22 05/19/22 03:01 03:55 04:00 Temperature Pulse Rate 81 70 73 Pulse Rate [ 73 From Monitor] Respiratory 20 18 Rate Respiratory Rate [Left Leg] Blood Pressure 177/57 163/65 O2 Sat by Pulse 97 96 Oximetry 05/19/22 05/19/22 05/19/22 05:01 06:01 06:27 Temperature Pulse Rate 78 73 Pulse Rate [ From Monitor] Respiratory 18 17 21 Rate Respiratory Rate [Left Leg] Blood Pressure 171/67 153/66 O2 Sat by Pulse 97 96 Oximetry 05/19/22 05/19/22 05/19/22 06:57 07:01 08:00 Temperature 97.9 F Pulse Rate 69 83 Pulse Rate [ 83 From Monitor] Respiratory 12 17 18 Rate Respiratory Rate [Left Leg] Blood Pressure 156/62 O2 Sat by Pulse 91 97 Oximetry 05/19/22 05/19/22 05/19/22 08:01 09:01 09:07 Temperature Pulse Rate 91 H 63 74 Pulse Rate [ From Monitor] Respiratory 15 14 Rate Respiratory Rate [Left Leg] Blood Pressure 153/66 153/60 153/60 O2 Sat by Pulse 93 93 Oximetry 05/19/22 05/19/22 05/19/22 10:01 11:01 12:00 Temperature 99.4 F Pulse Rate 62 65 71 Pulse Rate [ 71 From Monitor] Respiratory 15 18 17 Rate Respiratory Rate [Left Leg] Blood Pressure 98/32 106/54 O2 Sat by Pulse 96 90 95 Oximetry 05/19/22 05/19/22 05/19/22 12:01 13:00 14:00 Temperature Pulse Rate 67 65 66 Pulse Rate [ From Monitor] Respiratory 18 21 19 Rate Respiratory 14 Rate [Left Leg] Blood Pressure 135/56 118/51 115/56 O2 Sat by Pulse 94 96 95 Oximetry General appearance: Present: no acute distress - Respiratory Respiratory effort: normal - Breasts Breasts: deferred - Cardiovascular Rhythm: regular Extremities: pulses intact (Doppler signals in bilateral pedal arteries), normal temperature (Bilateral feet are warm and well-perfused), abnormal (Right groin access site is soft and without evidence of hematoma) Extremity abnormal: ulceration (Ulceration with scabbing over the left Achilles (patient believes it is secondary to a spider bite)), tenderness (The patient's calf is soft and without any signs or symptoms consistent with compartment syndrome. She has some tenderness in the posterior calf around an area of ulceration however the remainder of the calf this nontender) - Gastrointestinal General gastrointestinal: Present: soft, non-tender - Labs CBC & Chem 7: 05/19/22 08:45 05/18/22 17:51 Labs: Abnormal lab results 05/18/22 05/18/22 05/19/22 Range/Units 17:51 17:52 08:45 RBC 3.38 L 2.87 L (3.65-5.03) M/mm3 Hgb 8.7 L (10.1-14.3) gm/dl Hct 28.1 L (30.3-42.9) % MCV 99 H 98 H (79-97) fl RDW 23.2 H 23.8 H (13.2-15.2) % Lymph % (Auto) 8.6 L (13.4-35.0) % [place] % (Auto) 9.6 H (0.0-7.3) % Eos % (Auto) 6.9 H (0.0-4.3) % Baso % (Auto) 2.1 H (0.0-1.8) % Lymph # (Auto) 0.7 L 1.1 L (1.2-5.4) K/mm3 Eos # (Auto) 0.5 H (0.0-0.4) K/mm3 Baso # (Auto) 0.2 H (0.0-0.1) K/mm3 Seg Neutrophils % 80.0 H (40.0-70.0) % Chloride 96.3 L (98-107) mmol/L BUN 48 H (7-17) mg/dL Creatinine 10.1 H (0.6-1.2) mg/dL Magnesium 1.60 L (1.7-2.3) mg/dL Alkaline Phosphatase 176 H (35-129) units/L Troponin T 0.203 H* (0.00-0.029) ng/mL Total Protein 6.2 L (6.3-8.2) g/dL Albumin 3.4 L (3.9-5) g/dL Triglycerides 154 H (2-149) mg/dL Medications & Allergies - Medications Allergies/Adverse Reactions: Allergies digoxin Allergy (Verified 05/18/22 17:52) Hives lisinopril Allergy (Verified 05/18/22 17:52) Swelling nitroglycerin Adverse Reaction (Verified 05/18/22 17:52) Rash, HEADACHES shellfish derived Adverse Reaction (Verified 05/18/22 17:52) Swelling Home Medications: Home Medications Medication Instructions Recorded Confirmed Last Taken Type NIFEdipine XL [Procardia Xl] 60 mg PO HS 05/27/15 11/13/21 11/12/21 History carvediloL [Coreg] 6.25 mg PO BID 05/27/15 11/13/21 11/12/21 History cloNIDine [Catapres] 0.2 mg PO DAILY 09/14/16 11/13/21 11/12/21 History Hydralazine HCl 50 mg PO TID 02/15/21 11/13/21 11/12/21 History Doxycycline Monohydrate 100 mg PO BID #20 cap 11/13/21 Unknown Rx [Doxycycline Monohydrate CAP] Active Medications: Generic Name Dose Route Start Last Admin Trade Name Freq PRN Reason Stop Dose Admin Acetaminophen 650 mg 05/18/22 21:55 Acetaminophen 325 Mg Tab PO Q4H PRN Pain MILD(1-3)/Fever >100.5/POOLE Hydrocodone Bitart/Acetaminophen 1 each 05/18/22 21:02 Hydrocodone/Acetaminophen 5-325 Mg Tab PO Q4H PRN Pain, Moderate (4-6) Carvedilol 6.25 mg 05/18/22 22:00 05/19/22 09:07 Carvedilol 6.25 Mg Tab PO 6.25 mg BID [facility] Administration Clonidine HCl 0.2 mg 05/19/22 10:00 05/19/22 09:07 Clonidine 0.2 Mg Tab PO 0.2 mg DAILY [facility] Administration Clopidogrel Bisulfate 75 mg 05/19/22 10:00 05/19/22 09:07 Clopidogrel 75 Mg Tab PO 75 mg QDAY [facility] Administration Heparin Sodium (Porcine) 2,400 unit 05/18/22 17:37 Heparin 10,000 Units/10 Ml Vial 40 unit/kg (2400 unit) IV Q6H PRN Anti-Xa Assay < 0.1 units/ml Hydralazine HCl 50 mg 05/19/22 08:00 05/19/22 14:16 Hydralazine 25 Mg Tab PO Not Given TID [facility] Heparin Sodium/Sodium Chloride 25,000 unit in 500 mls @ 16 mls/hr 05/18/22 18:00 05/19/22 07:08 Heparin/ 0.45% Nacl-25,000 Unit/500 Ml IV 800 units/hr TITR [facility] 16 mls/hr Titration Protocol 800 UNITS/HR Metoclopramide HCl 2.5 mg 05/18/22 22:05 Metoclopramide 10 Mg/2 Ml Inj IV Q6H PRN Nausea And Vomiting Morphine Sulfate 2 mg 05/18/22 21:55 Morphine 2 Mg/1 Ml Inj IV Q4H PRN Pain, Moderate (4-6) Morphine Sulfate 4 mg 05/18/22 21:55 05/19/22 06:27 Morphine 4 Mg/1 Ml Inj IV 4 mg Q4H PRN Administration Pain , Severe (7-10) Nifedipine 60 mg 05/18/22 22:00 05/18/22 22:59 Nifedipine Xl 60 Mg Tab PO 60 mg HS [facility] Administration Ondansetron HCl 4 mg 05/18/22 21:55 Ondansetron 4 Mg/2 Ml Inj IV Q8H PRN Nausea And Vomiting Oxycodone/Acetaminophen 1 tab 05/18/22 21:55 Oxycodone /Acetaminophen 5-325mg Tab PO Q6H PRN Pain, Moderate (4-6) Peritoneal Dialysis Solution 2,000 ml 05/19/22 00:00 05/19/22 12:07 Dialysate Pd2 1.5% Soln 2000 Ml IP 2,000 ml Q6HR [facility] Administration Sodium Chloride 10 ml 05/18/22 22:00 05/19/22 09:06 Sodium Chloride 0.9% 10 Ml Flush Syringe IV 10 ml BID [facility] Administration Sodium Chloride 10 ml 05/18/22 21:55 05/19/22 06:29 Sodium Chloride 0.9% 10 Ml Flush Syringe IV 10 ml PRN PRN Administration LINE FLUSH HEART Score - HEART Score Age: > 65 Risk factors: > 3 risk factors or hx of atherosclerotic disease Troponin: Troponin T 0.203 ng/mL (0.00-0.029) H* 05/18/22 17:51 Troponin: < normal limit - Critical Actions Critical Actions: 4-6 pts:12-16.6% risk of adverse cardiac event. Should be admitted
--- NOTE | 2022-05-19 16:25 | Cat Scan Report ---
CTA CHEST WITH CONTRAST INDICATION / CLINICAL INFORMATION: R/O aortic thrombus. Peripheral vascular disease TECHNIQUE: Axial CT images were obtained through the chest after injection of 100 cc Omnipaque 350 IV contrast. 3 plane MIP and/or 3D reconstructions were produced. All CT scans at this location are per formed using CT dose reduction for ALARA by means of automated exposure control. COMPARISON: CTA of the abdomen and pelvis dated 05/18/2022 FINDINGS: PULMONARY ARTERIES: No pulmonary emboli. THORACIC AORTA: Mild atherosclerotic calcification without acute abnormality.No unstable aortic throm bus is identified. HEART: No significant abnormality. CORONARY ARTERY CALCIFICATION: Moderate. MEDIASTINUM / MARGO: No significant abnormality. PLEURA: No pleural effusion. No pneumothorax. LUNGS: No acute air space or interstitial disease. ADDITIONAL FINDINGS: None. UPPER ABDOMEN: Intra-abdominal ascites. Atrophic appearing kidneys with multiple renal cysts. SKELETAL STRUCTURES: No significant osseous abnormality. IMPRESSION: 1. No CT evidence for pulmonary embolism. 2. No CT evidence for unstable aortic thrombus. There is mild atherosclerotic disease of the aorta. Signer Name: Contreras Paniagua DO Signed: 05/19/2022 4:20 PM Workstation Name: [id number]
[2022-05-19] MEDS: NIFEdipine XL 60 MG TAB PO SCH (22:09)
[2022-05-20] MEDS: DIALYSATE PD2 1.5% SOLN 2000 ML IP SCH (00:40)
[2022-05-20] MEDS: HEPARIN/ 0.45% NACL DRIP 25,000 UNIT/500 ML BAG IV SCH (05:18)
[2022-05-20] MEDS: cloNIDine 0.2 MG TAB PO SCH (09:27)
[2022-05-20] MEDS: hydrALAZINE 25 MG TAB PO SCH ×3 (09:27→21:08)
[2022-05-20] MEDS: carvediloL 6.25 MG TAB PO SCH ×2 (09:27→21:08)
[2022-05-20] MEDS: CLOPIDOGREL 75 MG TAB PO SCH (09:27)
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
--- NOTE | 2022-05-20 14:39 | Electrocardiograph Report ---
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
[2022-05-20] MEDS: APIXABAN 5 MG TAB PO SCH ×2 (15:23→21:08)
--- NOTE | 2022-05-20 15:37 | Progress Note ---
Assessment and Plan This is a 72 year old woman who presents with lower extremity pain # ESRD: has been undergoing CAPD, now has home machine, will continue CCPD per home settings. - daily labs - renally dose meds - avoid nephrotoxins - renal diet - verbal consent obtained for HD # Anemia: last hemoglobin 10.3->8.7; will restart ESAs once weekly # HTN: Adjust dextrose prn, mix 1.5% and 2.5%. BP stable # Secondary Hyperparathyroidism: continue home binders as needed, vitamin D analogs prn # Acute occlusion of artery of lower extremity: appreciate vascular Subjective Date of service: 05/20/22 Principal diagnosis: Acute Left Lower Extremity Ischemia Interval history: Resting in bed this afternoon, has home PD machine now. Objective - Exam Narrative Exam: Constitutional: no acute distress Head: NC/AT Neck: supple Lungs: clear to auscultation CV: RRR, no M/R/G Abdomen: soft, non-tender, bowel sounds present Back: nontender Extremities: no edema, pulses WNL Skin: intact Neuro: no focal deficits, alert and oriented x4 - Vital Signs Vital signs: Vital Signs - 12hr 05/20/22 05/20/22 05/20/22 04:00 05:00 06:00 Temperature 98.7 F Pulse Rate 84 83 66 Pulse Rate [ 84 From Monitor] Respiratory 18 18 29 H Rate Blood Pressure 123/56 161/65 142/59 O2 Sat by Pulse 99 97 100 Oximetry 05/20/22 05/20/22 05/20/22 07:36 09:27 12:53 Temperature 98.0 F 97.6 F Pulse Rate 71 Pulse Rate [ From Monitor] Respiratory Rate Blood Pressure 191/76 O2 Sat by Pulse Oximetry 05/20/22 15:23 Temperature Pulse Rate 71 Pulse Rate [ From Monitor] Respiratory Rate Blood Pressure 147/57 O2 Sat by Pulse Oximetry - Lab 05/19/22 08:45 05/18/22 17:51 Most recent lab results Calcium 8.8 mg/dL (8.4-10.2) 05/18/22 17:51 Magnesium 1.60 mg/dL (1.7-2.3) L 05/18/22 17:51 Medications & Allergies - Medications Allergies/Adverse Reactions: Allergies digoxin Allergy (Verified 05/18/22 17:52) Hives lisinopril Allergy (Verified 05/18/22 17:52) Swelling nitroglycerin Adverse Reaction (Verified 05/18/22 17:52) Rash, HEADACHES shellfish derived Adverse Reaction (Verified 05/18/22 17:52) Swelling Home Medications: Home Medications Medication Instructions Recorded Confirmed Last Taken Type NIFEdipine XL [Procardia Xl] 60 mg PO HS 05/27/15 05/19/22 11/12/21 History carvediloL [Coreg] 6.25 mg PO BID 05/27/15 05/19/22 11/12/21 History cloNIDine [Catapres] 0.2 mg PO BID 09/14/16 05/19/22 11/12/21 History Hydralazine HCl 50 mg PO TID 02/15/21 05/19/22 11/12/21 History Doxycycline Monohydrate 100 mg PO BID #20 cap 11/13/21 05/19/22 Unknown Rx [Doxycycline Monohydrate CAP] Active Medications: Generic Name Dose Route Start Last Admin Trade Name Freq PRN Reason Stop Dose Admin Acetaminophen 650 mg 05/18/22 21:55 Acetaminophen 325 Mg Tab PO Q4H PRN Pain MILD(1-3)/Fever >100.5/POOLE Hydrocodone Bitart/Acetaminophen 1 each 05/18/22 21:02 Hydrocodone/Acetaminophen 5-325 Mg Tab PO Q4H PRN Pain, Moderate (4-6) Apixaban 5 mg 05/20/22 15:00 05/20/22 15:23 Apixaban 5 Mg Tab PO 5 mg Q12HR [facility] Administration Protocol Carvedilol 6.25 mg 05/18/22 22:00 05/20/22 09:27 Carvedilol 6.25 Mg Tab PO 6.25 mg BID [facility] Administration Clonidine HCl 0.2 mg 05/19/22 10:00 05/20/22 09:27 Clonidine 0.2 Mg Tab PO 0.2 mg DAILY [facility] Administration Clopidogrel Bisulfate 75 mg 05/19/22 10:00 05/20/22 09:27 Clopidogrel 75 Mg Tab PO 75 mg QDAY [facility] Administration Hydralazine HCl 50 mg 05/19/22 08:00 05/20/22 15:23 Hydralazine 25 Mg Tab PO 50 mg TID [facility] Administration Metoclopramide HCl 2.5 mg 05/18/22 22:05 Metoclopramide 10 Mg/2 Ml Inj IV Q6H PRN Nausea And Vomiting Morphine Sulfate 2 mg 05/18/22 21:55 Morphine 2 Mg/1 Ml Inj IV Q4H PRN Pain, Moderate (4-6) Morphine Sulfate 4 mg 05/18/22 21:55 05/19/22 06:27 Morphine 4 Mg/1 Ml Inj IV 4 mg Q4H PRN Administration Pain , Severe (7-10) Nifedipine 60 mg 05/18/22 22:00 05/19/22 22:09 Nifedipine Xl 60 Mg Tab PO Not Given HS [facility] Ondansetron HCl 4 mg 05/18/22 21:55 Ondansetron 4 Mg/2 Ml Inj IV Q8H PRN Nausea And Vomiting Oxycodone/Acetaminophen 1 tab 05/18/22 21:55 05/19/22 17:30 Oxycodone /Acetaminophen 5-325mg Tab PO 1 tab Q6H PRN Administration Pain, Moderate (4-6) Peritoneal Dialysis Solution 2,000 ml 05/19/22 00:00 05/20/22 00:40 Dialysate Pd2 1.5% Soln 2000 Ml IP 2,000 ml Q6HR [facility] Administration Sodium Chloride 10 ml 05/18/22 22:00 05/20/22 09:27 Sodium Chloride 0.9% 10 Ml Flush Syringe IV 10 ml BID [facility] Administration Sodium Chloride 10 ml 05/18/22 21:55 05/19/22 06:29 Sodium Chloride 0.9% 10 Ml Flush Syringe IV 10 ml PRN PRN Administration LINE FLUSH
[2022-05-20] MEDS: NIFEdipine XL 60 MG TAB PO SCH (21:08)
[2022-05-20] MEDS ORDERED: DIALYSATE LO CAL 1.5% SOLN 2000 ML IP SCH (22:00)
[2022-05-20] MEDS ORDERED: DIALYSATE LO CAL 2.5% SOLN 2000 ML IP SCH (22:00)
--- NOTE | 2022-05-21 08:22 | Progress Note ---
Assessment and Plan Physical therapy consulted. Patient lives at home with her . She can be transferred from the [facility] to the floor. Patient was transitioned to [facility] which she will continue on on discharge. Patient will follow-up with 2 weeks following discharge. 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 Patient is done very well since her procedure. Regained motor and sensation. Patient complains only of minimal amount of "numbness" that is improving daily. Objective - Constitutional Vitals: Vital Signs - 12hr 05/20/22 05/20/22 05/20/22 21:00 22:00 23:00 Temperature Pulse Rate 71 72 79 Respiratory 22 21 21 Rate Blood Pressure 158/65 144/75 182/89 O2 Sat by Pulse 98 97 94 Oximetry 05/20/22 05/21/22 05/21/22 23:54 00:00 00:02 Temperature 99.1 F Pulse Rate 73 69 Respiratory 18 20 Rate Blood Pressure 162/91 162/91 O2 Sat by Pulse 90 88 Oximetry 05/21/22 05/21/22 05/21/22 01:00 02:00 03:00 Temperature Pulse Rate 77 69 72 Respiratory 21 18 15 Rate Blood Pressure 162/91 146/58 165/63 O2 Sat by Pulse 94 93 92 Oximetry 05/21/22 05/21/22 05/21/22 03:48 04:00 05:00 Temperature 98.1 F Pulse Rate 78 81 Respiratory 19 22 Rate Blood Pressure 169/76 165/42 O2 Sat by Pulse 85 99 Oximetry 05/21/22 05/21/22 05/21/22 06:00 07:00 07:30 Temperature 98.3 F Pulse Rate 71 73 Respiratory 18 18 Rate Blood Pressure 158/67 156/64 O2 Sat by Pulse 99 98 Oximetry 05/21/22 08:00 Temperature Pulse Rate 79 Respiratory 18 Rate Blood Pressure 157/54 O2 Sat by Pulse 95 Oximetry General appearance: Present: no acute distress - EENT Eyes: EOM intact ENT: hearing intact - Neck Neck: supple, normal ROM - Respiratory Respiratory effort: normal - Breasts Breasts: deferred Extremities: abnormal (Left foot warm and well-perfused, nontender) - Gastrointestinal General gastrointestinal: Present: deferred Rectal Exam: deferred - Genitourinary Female genitourinary: deferred - Psychiatric Psychiatric: appropriate mood/affect, cooperative - Labs CBC & Chem 7: 05/19/22 08:45 05/18/22 17:51 Labs: Abnormal lab results 05/20/22 Range/Units 07:28 Heparin Anti-Xa Level 0.28 L (0.3-0.7) U.I./ml Medications & Allergies - Medications Allergies/Adverse Reactions: Allergies digoxin Allergy (Verified 05/18/22 17:52) Hives lisinopril Allergy (Verified 05/18/22 17:52) Swelling nitroglycerin Adverse Reaction (Verified 05/18/22 17:52) Rash, HEADACHES shellfish derived Adverse Reaction (Verified 05/18/22 17:52) Swelling Home Medications: Home Medications Medication Instructions Recorded Confirmed Last Taken Type NIFEdipine XL [Procardia Xl] 60 mg PO HS 05/27/15 05/19/22 11/12/21 History carvediloL [Coreg] 6.25 mg PO BID 05/27/15 05/19/22 11/12/21 History cloNIDine [Catapres] 0.2 mg PO BID 09/14/16 05/19/22 11/12/21 History Hydralazine HCl 50 mg PO TID 02/15/21 05/19/22 11/12/21 History Doxycycline Monohydrate 100 mg PO BID #20 cap 11/13/21 05/19/22 Unknown Rx [Doxycycline Monohydrate CAP] Active Medications: Generic Name Dose Route Start Last Admin Trade Name Danielq PRN Reason Stop Dose Admin Acetaminophen 650 mg 05/18/22 21:55 Acetaminophen 325 Mg Tab PO Q4H PRN Pain MILD(1-3)/Fever >100.5/POOLE Hydrocodone Bitart/Acetaminophen 1 each 05/18/22 21:02 05/20/22 21:34 Hydrocodone/Acetaminophen 5-325 Mg Tab PO 1 each Q4H PRN Administration Pain, Moderate (4-6) Apixaban 5 mg 05/20/22 15:00 05/20/22 21:08 Apixaban 5 Mg Tab PO Not Given Q12HR BRAXTON Protocol Carvedilol 6.25 mg 05/18/22 22:00 05/20/22 21:08 Carvedilol 6.25 Mg Tab PO 6.25 mg BID BRAXTON Administration Clonidine HCl 0.2 mg 05/19/22 10:00 05/20/22 09:27 Clonidine 0.2 Mg Tab PO 0.2 mg DAILY BRAXTON Administration Clopidogrel Bisulfate 75 mg 05/19/22 10:00 05/20/22 09:27 Clopidogrel 75 Mg Tab PO 75 mg QDAY BRAXTON Administration Hydralazine HCl 50 mg 05/19/22 08:00 05/20/22 21:08 Hydralazine 25 Mg Tab PO 50 mg TID BRAXTON Administration Metoclopramide HCl 2.5 mg 05/18/22 22:05 Metoclopramide 10 Mg/2 Ml Inj IV Q6H PRN Nausea And Vomiting Morphine Sulfate 2 mg 05/18/22 21:55 Morphine 2 Mg/1 Ml Inj IV Q4H PRN Pain, Moderate (4-6) Morphine Sulfate 4 mg 05/18/22 21:55 05/19/22 06:27 Morphine 4 Mg/1 Ml Inj IV 4 mg Q4H PRN Administration Pain , Severe (7-10) Nifedipine 60 mg 05/18/22 22:00 05/20/22 21:08 Nifedipine Xl 60 Mg Tab PO 60 mg HS BRAXTON Administration Ondansetron HCl 4 mg 05/18/22 21:55 Ondansetron 4 Mg/2 Ml Inj IV Q8H PRN Nausea And Vomiting Oxycodone/Acetaminophen 1 tab 05/18/22 21:55 05/19/22 17:30 Oxycodone /Acetaminophen 5-325mg Tab PO 1 tab Q6H PRN Administration Pain, Moderate (4-6) Peritoneal Dialysis Solution 6,000 ml 05/20/22 22:00 Dialysate [place]ega 1.5% Soln 2000 Ml IP QHS BRAXTON Peritoneal Dialysis Solution 6,000 ml 05/20/22 22:00 Dialysate Lo Vega 2.5% Soln 2000 Ml IP QHS BRAXTON Sodium Chloride 10 ml 05/18/22 22:00 05/20/22 21:09 Sodium Chloride 0.9% 10 Ml Flush Syringe IV 10 ml BID BRAXTON Administration Sodium Chloride 10 ml 05/18/22 21:55 05/19/22 06:29 Sodium Chloride 0.9% 10 Ml Flush Syringe IV 10 ml PRN PRN Administration LINE FLUSH HEART Score - HEART Score Age: > 65 Risk factors: > 3 risk factors or hx of atherosclerotic disease Troponin: Troponin T 0.203 ng/mL (0.00-0.029) H* 05/18/22 17:51 Troponin: < normal limit - Critical Actions Critical Actions: 4-6 pts:12-16.6% risk of adverse cardiac event. Should be admitted
--- NOTE | 2022-05-21 08:29 | Progress Note ---
Assessment and Plan Assessment and plan: History of present illness: 72-year-old female with history of end-stage renal disease on peritoneal dialysis, hypertension presents with left lower extremity pain numbness and significant difficulty in walking. Her symptoms are confined to the left mid thigh and call and left foot. Patient says that her symptoms started around 9 AM. Emergent arterial duplex scan revealed---Marked peripheral artery disease of the left extremity with absent flow noted from the distal superficial femoral artery through the lower ankle arthritis. Vascular surgery Was Informed and the Patient Was Taken to the Service Support Representative for immediate intervention. Hospital Course: 05/19: No acute complaints this AM. States that LLE symptomology significantly improved, no pain/numbness/paresthesias reported today. good dp and pt pulses appreciated. 05/20: Vascular recommends ECHO and CTA chest to r/o intracardiac thrombus. CTA chest negative for thrombus. ECHO pending. Continue heparin gtt. 05/21: Vascular d/c heparin, start eliquis. Awaiting PT assessment. Transfer to [facility] floor bed. Assessment and Plan: (1) Acute occlusion of artery of lower extremity Current Visit: Yes Status: Acute Plan to address problem: Patient taken to the Service Support Representative for intervention and possible stent placement Patient was started on IV heparin Admitted to [facility] (2) Acute pain of left lower extremity Current Visit: Yes Status: Acute Plan to address problem: Emergent vascular surgery intervention (3) End stage renal disease Current Visit: Yes Status: Chronic Plan to address problem: Nephrology consulted Dialysis as per schedule (4) Hypertension Current Visit: Yes Status: Chronic Qualifiers: Hypertension type: primary hypertension Plan to address problem: Continue antihypertensives (5) Dilated cardiomyopathy Current Visit: Yes Status: Chronic Plan to address problem: Increase ultrafiltration to prevent volume overload (6) DVT prophylaxis Current Visit: Yes Status: Acute Plan to address problem: Patient on IV heparin and GI prophylaxis (7) Advance care planning Current Visit: Yes Status: Acute Plan to address problem: Disease education conducted, care plan discussed, below diagnosis discussed and prognosis discussed. Patient acknowledged understanding with care plan. +30 minutes. Critical care statement The high probability OF a clinically significant sudden or life-threatening deterioration of the cardiorespiratory system and endocrine system required my full and direct attention, intervention and postoperative management. The aggregate critical care time was 40 minutes. The time is in addition to time spent performing reported procedures but includes the followin: Data review and interpretation 2: Patient assessment and monitoring of vital signs 3: Documentation 4:: Medication orders and management Advance Directives: Yes Hospitalist Physical - Physical exam Narrative exam: General appearance: Present: no acute distress, well-nourished - EENT Eyes: Present: PERRL ENT: hearing intact, clear oral mucosa - Neck Neck: Present: supple, normal ROM - Respiratory Respiratory effort: normal Respiratory: bilateral: CTA - Cardiovascular Heart rate: 78 Rhythm: regular Heart Sounds: Present: S1 & S2. Absent: rub, click - Extremities Extremities: No edema, abnormal (Left lower extremity cold to touch, but no gangrenous changes)--> improved now warm to touch Extremity abnormal: pulses palpable in DP and PT other (Same as overall) Peripheral Pulses: within normal limits - Abdominal General gastrointestinal: Present: soft, non-tender, non-distended, normal bowel sounds Female genitourinary: Present: normal - Integumentary Integumentary: Present: clear, warm, dry - Musculoskeletal Musculoskeletal: gait normal, strength equal bilaterally - Psychiatric Psychiatric: appropriate mood/affect, intact judgment & insight - Neurologic Neurologic: CNII-XII intact, moves all extremities - Constitutional Vitals: Temp Pulse Resp BP Pulse Ox 98.3 F 79 18 157/54 95 05/21/22 07:30 05/21/22 08:00 05/21/22 08:00 05/21/22 08:00 05/21/22 08:00 General appearance: Present: no acute distress HEART Score - HEART Score Age: > 65 Risk factors: > 3 risk factors or hx of atherosclerotic disease Troponin: Troponin T 0.203 ng/mL (0.00-0.029) H* 05/18/22 17:51 Troponin: < normal limit - Critical Actions Critical Actions: 4-6 pts:12-16.6% risk of adverse cardiac event. Should be admitted Results - Labs CBC & Chem 7: 05/19/22 08:45 05/18/22 17:51 Labs: Laboratory Last Values WBC 7.7 K/mm3 (4.5-11.0) 05/19/22 08:45 RBC 2.87 M/mm3 (3.65-5.03) L 05/19/22 08:45 Hgb 8.7 gm/dl (10.1-14.3) L 05/19/22 08:45 Hct 28.1 % (30.3-42.9) L 05/19/22 08:45 MCV 98 fl (79-97) H 05/19/22 08:45 MCH 30 pg (28-32) 05/19/22 08:45 MCHC 31 % (30-34) 05/19/22 08:45 RDW 23.8 % (13.2-15.2) H 05/19/22 08:45 Plt Count 226 K/mm3 (140-440) 05/19/22 08:45 Lymph % (Auto) 14.9 % (13.4-35.0) 05/19/22 08:45 [place] % (Auto) 9.6 % (0.0-7.3) H 05/19/22 08:45 Eos % (Auto) 6.9 % (0.0-4.3) H 05/19/22 08:45 Baso % (Auto) 1.2 % (0.0-1.8) 05/19/22 08:45 Lymph # (Auto) 1.1 K/mm3 (1.2-5.4) L 05/19/22 08:45 [place] # (Auto) 0.7 K/mm3 (0.0-0.8) 05/19/22 08:45 Eos # (Auto) 0.5 K/mm3 (0.0-0.4) H 05/19/22 08:45 Baso # (Auto) 0.1 K/mm3 (0.0-0.1) 05/19/22 08:45 Seg Neutrophils % 67.4 % (40.0-70.0) 05/19/22 08:45 Seg Neutrophils # 5.2 K/mm3 (1.8-7.7) 05/19/22 08:45 PT 13.1 Sec. (12.2-14.9) 05/18/22 17:51 INR 0.90 (0.87-1.13) 05/18/22 17:51 APTT 29.2 Sec. (24.2-36.6) 05/18/22 17:51 Heparin Anti-Xa Level 0.28 U.I./ml (0.3-0.7) L 05/20/22 07:28 Sodium 141 mmol/L (137-145) 05/18/22 17:51 Potassium 3.7 mmol/L (3.6-5.0) 05/18/22 17:51 Chloride 96.3 mmol/L (98-107) L 05/18/22 17:51 Carbon Dioxide 25 mmol/L (22-30) 05/18/22 17:51 Anion Gap 23 mmol/L 05/18/22 17:51 BUN 48 mg/dL (7-17) H 05/18/22 17:51 Creatinine 10.1 mg/dL (0.6-1.2) H 05/18/22 17:51 Estimated GFR 5 ml/min 05/18/22 17:51 BUN/Creatinine Ratio 5 % 05/18/22 17:51 Glucose 91 mg/dL (65-100) 05/18/22 17:51 Lactic Acid 0.80 mmol/L (0.7-2.0) 05/18/22 17:52 Calcium 8.8 mg/dL (8.4-10.2) 05/18/22 17:51 Magnesium 1.60 mg/dL (1.7-2.3) L 05/18/22 17:51 Total Bilirubin 0.40 mg/dL (0.1-1.2) 05/18/22 17:51 AST 14 units/L (5-40) 05/18/22 17:51 ALT 13 units/L (7-56) 05/18/22 17:51 Alkaline Phosphatase 176 units/L (35-129) H 05/18/22 17:51 Total Creatine Kinase 99 units/L (30-135) 05/18/22 17:51 Troponin T 0.203 ng/mL (0.00-0.029) H* 05/18/22 17:51 Total Protein 6.2 g/dL (6.3-8.2) L 05/18/22 17:51 Albumin 3.4 g/dL (3.9-5) L 05/18/22 17:51 Albumin/Globulin Ratio 1.2 % 05/18/22 17:51 Triglycerides 154 mg/dL (2-149) H 05/18/22 17:51 Cholesterol 131 mg/dL (50-199) 05/18/22 17:51 LDL Cholesterol Direct 59 mg/dL (50-130) 05/18/22 17:51 HDL Cholesterol 40 mg/dL (40-59) 05/18/22 17:51 Cholesterol/HDL Ratio 3.27 % 05/18/22 17:51 Nasal Screen MRSA (PCR) Negative (Negative) 05/19/22 Unknown Active Medications - Current Medications Current Medications: Generic Name Dose Route Start Last Admin Trade Name Freq PRN Reason Stop Dose Admin Acetaminophen 650 mg 05/18/22 21:55 Acetaminophen 325 Mg Tab PO Q4H PRN Pain MILD(1-3)/Fever >100.5/POOLE Hydrocodone Bitart/Acetaminophen 1 each 05/18/22 21:02 05/20/22 21:34 Hydrocodone/Acetaminophen 5-325 Mg Tab PO 1 each Q4H PRN Administration Pain, Moderate (4-6) Apixaban 5 mg 05/20/22 15:00 05/20/22 21:08 Apixaban 5 Mg Tab PO Not Given Q12HR BRAXTON Protocol Carvedilol 6.25 mg 05/18/22 22:00 05/20/22 21:08 Carvedilol 6.25 Mg Tab PO 6.25 mg BID BRAXTON Administration Clonidine HCl 0.2 mg 05/19/22 10:00 05/20/22 09:27 Clonidine 0.2 Mg Tab PO 0.2 mg DAILY BRAXTON Administration Clopidogrel Bisulfate 75 mg 05/19/22 10:00 05/20/22 09:27 Clopidogrel 75 Mg Tab PO 75 mg QDAY BRAXTON Administration Hydralazine HCl 50 mg 05/19/22 08:00 05/20/22 21:08 Hydralazine 25 Mg Tab PO 50 mg TID BRAXTON Administration Metoclopramide HCl 2.5 mg 05/18/22 22:05 Metoclopramide 10 Mg/2 Ml Inj IV Q6H PRN Nausea And Vomiting Morphine Sulfate 2 mg 05/18/22 21:55 Morphine 2 Mg/1 Ml Inj IV Q4H PRN Pain, Moderate (4-6) Morphine Sulfate 4 mg 05/18/22 21:55 05/19/22 06:27 Morphine 4 Mg/1 Ml Inj IV 4 mg Q4H PRN Administration Pain , Severe (7-10) Nifedipine 60 mg 05/18/22 22:00 05/20/22 21:08 Nifedipine Xl 60 Mg Tab PO 60 mg HS BRAXTON Administration Ondansetron HCl 4 mg 05/18/22 21:55 Ondansetron 4 Mg/2 Ml Inj IV Q8H PRN Nausea And Vomiting Oxycodone/Acetaminophen 1 tab 05/18/22 21:55 05/19/22 17:30 Oxycodone /Acetaminophen 5-325mg Tab PO 1 tab Q6H PRN Administration Pain, Moderate (4-6) Peritoneal Dialysis Solution 6,000 ml 05/20/22 22:00 Dialysate Lo Vega 1.5% Soln 2000 Ml IP QHS BRAXTON Peritoneal Dialysis Solution 6,000 ml 05/20/22 22:00 Dialysate Lo Vega 2.5% Soln 2000 Ml IP QHS BRAXTON Sodium Chloride 10 ml 05/18/22 22:00 05/20/22 21:09 Sodium Chloride 0.9% 10 Ml Flush Syringe IV 10 ml BID BRAXTON Administration Sodium Chloride 10 ml 05/18/22 21:55 05/19/22 06:29 Sodium Chloride 0.9% 10 Ml Flush Syringe IV 10 ml PRN PRN Administration LINE FLUSH Nutrition/Malnutrition Assess - Dietary Evaluation Nutrition/Malnutrition Findings: Nutrition Notes Start: 05/19/22 10:07 Freq: Status: Active Protocol: Document 05/19/22 10:07 [facility] (Rec: 05/19/22 10:23 [facility] [id number]) Nutrition Notes Need for Assessment generated from: MD Order,iron cutter,MST Initial or Follow up Assessment Current Diagnosis CKD (stage V CKD),Hypertension ,Heart Failure Other Pertinent Diagnosis LLE pain s/p thrombectomy of ( L) leg Current Diet Renal Labs/Tests Reviewed Pertinent Medications Heparin gtt Height 5 ft 7 in Weight 58.967 kg [place] Body Weight (kg) 61.36 BMI 20.3 Weight Status Underweight Subjective/Other Information RD consulted for ONS; pt also screened for malnutrition risk . Pt reported significant difficulty in walking upon admission. Arterial duplex scan revealed marked peripheral artery disease of LLE with absent flow noted from distal femoral artery through the lower ankle arteries. Pt having PD this am. Burn Absent Trauma Absent Skin Integrity/Comment "Spider bite" wound to (L) calf Minimum of two criteria No #1 Nutrition Diagnosis Underweight Etiology advanced age, medical dx, poor oral intake As Evidenced by Signs and Symptoms MD requests ONS; pt reports wt loss upon admission Is patient on ventilator? No Is Patient Ambulatory and/or Out of Bed No REE-([place]. Jeor-confined to bed) 1370.868 Kcal/Kg value to use for calculation 30 Approximate Energy Requirements Using 1769 kcal/Kg Calculation Used for Recommendations Kcal/kg Additional Notes Pro needs 1.2-1.3g/k-77g/ day Fluid needs 1-1.5L Nutrition Intervention Change Diet Order: Continue current diet order Add Supplement/Snack (indicate name/kcal Nepro once daily /protein ) Provides kCal: 425 Provides Protein (gm) 19 Goal #1 PO intake of meals plus ONS to meet at least 75% energy and pro needs Goal #2 Wt maintenance and/or gain Anticipated Discharge Needs: Renal diet Follow-Up By: 05/22/22 Additional Comments F/U: intakes (meals/ONS), wt assessment
[2022-05-21] MEDS: hydrALAZINE 25 MG TAB PO SCH ×2 (08:46→13:34)
[2022-05-21] MEDS: APIXABAN 5 MG TAB PO SCH (09:23)
[2022-05-21] MEDS: cloNIDine 0.2 MG TAB PO SCH (09:23)
[2022-05-21] MEDS: carvediloL 6.25 MG TAB PO SCH (09:23)
[2022-05-21] MEDS: CLOPIDOGREL 75 MG TAB PO SCH (09:24)
--- NOTE | 2022-05-21 10:49 | Progress Note ---
Assessment and Plan This is a 72 year old woman who presents with lower extremity pain # ESRD: has been undergoing CAPD, now has home machine, will continue CCPD per home settings. - daily labs - renally dose meds - avoid nephrotoxins - renal diet - verbal consent obtained for HD # Anemia: last hemoglobin 10.3->8.7; will restart ESAs once weekly # HTN: Adjust dextrose prn, mix 1.5% and 2.5%. BP stable # Secondary Hyperparathyroidism: continue home binders as needed, vitamin D analogs prn # Acute occlusion of artery of lower extremity: appreciate vascular Subjective Principal diagnosis: Acute Left Lower Extremity Ischemia Objective - Exam Narrative Exam: Constitutional: no acute distress Head: NC/AT Neck: supple Lungs: clear to auscultation CV: RRR, no M/R/G Abdomen: soft, non-tender, bowel sounds present Back: nontender Extremities: no edema, pulses WNL Skin: intact Neuro: no focal deficits, alert and oriented x4 - Vital Signs Vital signs: Vital Signs - 12hr 05/20/22 05/20/22 05/21/22 23:00 23:54 00:00 Temperature 99.1 F Pulse Rate 79 73 Respiratory 21 18 Rate Blood Pressure 182/89 162/91 O2 Sat by Pulse 94 90 Oximetry 05/21/22 05/21/22 05/21/22 00:02 01:00 02:00 Temperature Pulse Rate 69 77 69 Respiratory 20 21 18 Rate Blood Pressure 162/91 162/91 146/58 O2 Sat by Pulse 88 94 93 Oximetry 05/21/22 05/21/22 05/21/22 03:00 03:48 04:00 Temperature 98.1 F Pulse Rate 72 78 Respiratory 15 19 Rate Blood Pressure 165/63 169/76 O2 Sat by Pulse 92 85 Oximetry 05/21/22 05/21/22 05/21/22 05:00 06:00 07:00 Temperature Pulse Rate 81 71 73 Respiratory 22 18 18 Rate Blood Pressure 165/42 158/67 156/64 O2 Sat by Pulse 99 99 98 Oximetry 05/21/22 05/21/22 05/21/22 07:30 08:00 08:46 Temperature 98.3 F Pulse Rate 79 79 Respiratory 18 Rate Blood Pressure 157/54 157/54 O2 Sat by Pulse 95 Oximetry 05/21/22 09:23 Temperature Pulse Rate 91 H Respiratory Rate Blood Pressure 146/75 O2 Sat by Pulse Oximetry - Lab 05/19/22 08:45 05/18/22 17:51 Most recent lab results Calcium 8.8 mg/dL (8.4-10.2) 05/18/22 17:51 Magnesium 1.60 mg/dL (1.7-2.3) L 05/18/22 17:51 Medications & Allergies - Medications Allergies/Adverse Reactions: Allergies digoxin Allergy (Verified 05/18/22 17:52) Hives lisinopril Allergy (Verified 05/18/22 17:52) Swelling nitroglycerin Adverse Reaction (Verified 05/18/22 17:52) Rash, HEADACHES shellfish derived Adverse Reaction (Verified 05/18/22 17:52) Swelling Home Medications: Home Medications Medication Instructions Recorded Confirmed Last Taken Type NIFEdipine XL [Procardia Xl] 60 mg PO HS 05/27/15 05/19/22 11/12/21 History carvediloL [Coreg] 6.25 mg PO BID 05/27/15 05/19/22 11/12/21 History cloNIDine [Catapres] 0.2 mg PO BID 09/14/16 05/19/22 11/12/21 History Hydralazine HCl 50 mg PO TID 02/15/21 05/19/22 11/12/21 History Doxycycline Monohydrate 100 mg PO BID #20 cap 11/13/21 05/19/22 Unknown Rx [Doxycycline Monohydrate CAP] Active Medications: Generic Name Dose Route Start Last Admin Trade Name Freq PRN Reason Stop Dose Admin Acetaminophen 650 mg 05/18/22 21:55 Acetaminophen 325 Mg Tab PO Q4H PRN Pain MILD(1-3)/Fever >100.5/POOLE Hydrocodone Bitart/Acetaminophen 1 each 05/18/22 21:02 05/20/22 21:34 Hydrocodone/Acetaminophen 5-325 Mg Tab PO 1 each Q4H PRN Administration Pain, Moderate (4-6) Apixaban 5 mg 05/20/22 15:00 05/21/22 09:23 Apixaban 5 Mg Tab PO 5 mg Q12HR BRAXTON Administration Protocol Carvedilol 6.25 mg 05/18/22 22:00 05/21/22 09:23 Carvedilol 6.25 Mg Tab PO 6.25 mg BID BRAXTON Administration Clonidine HCl 0.2 mg 05/19/22 10:00 05/21/22 09:23 Clonidine 0.2 Mg Tab PO 0.2 mg DAILY BRAXTON Administration Clopidogrel Bisulfate 75 mg 05/19/22 10:00 05/21/22 09:24 Clopidogrel 75 Mg Tab PO 75 mg QDAY BRAXTON Administration Hydralazine HCl 50 mg 05/19/22 08:00 05/21/22 08:46 Hydralazine 25 Mg Tab PO 50 mg TID BRAXTON Administration Metoclopramide HCl 2.5 mg 05/18/22 22:05 Metoclopramide 10 Mg/2 Ml Inj IV Q6H PRN Nausea And Vomiting Morphine Sulfate 2 mg 05/18/22 21:55 Morphine 2 Mg/1 Ml Inj IV Q4H PRN Pain, Moderate (4-6) Morphine Sulfate 4 mg 05/18/22 21:55 05/19/22 06:27 Morphine 4 Mg/1 Ml Inj IV 4 mg Q4H PRN Administration Pain , Severe (7-10) Nifedipine 60 mg 05/18/22 22:00 05/20/22 21:08 Nifedipine Xl 60 Mg Tab PO 60 mg HS BRAXTON Administration Ondansetron HCl 4 mg 05/18/22 21:55 Ondansetron 4 Mg/2 Ml Inj IV Q8H PRN Nausea And Vomiting Oxycodone/Acetaminophen 1 tab 05/18/22 21:55 05/19/22 17:30 Oxycodone /Acetaminophen 5-325mg Tab PO 1 tab Q6H PRN Administration Pain, Moderate (4-6) Peritoneal Dialysis Solution 6,000 ml 05/20/22 22:00 Dialysate [place]ega 1.5% Soln 2000 Ml IP QHS BRAXTON Peritoneal Dialysis Solution 6,000 ml 05/20/22 22:00 Dialysate Lo Vega 2.5% Soln 2000 Ml IP QHS BRAXTON Sodium Chloride 10 ml 05/18/22 22:00 05/21/22 09:24 Sodium Chloride 0.9% 10 Ml Flush Syringe IV 10 ml BID BRAXTON Administration Sodium Chloride 10 ml 05/18/22 21:55 05/19/22 06:29 Sodium Chloride 0.9% 10 Ml Flush Syringe IV 10 ml PRN PRN Administration LINE FLUSH
--- NOTE | 2022-05-21 13:29 | Discharge Summary ---
Providers - Providers Date of Admission: 05/18/22 19:02 Date of discharge: 05/21/22 Attending physician: VIRGILIO MULLIGAN MD 05/18/22 16:06 Consult to Physician [CONS] Urgent Comment: Consulting Provider: MARICHUY GOLDEN Physician Instructions: Reason For Exam: End-stage renal disease 05/18/22 17:27 Consult to Physician [CONS] Urgent Comment: Consulting Provider: DESTINY MCLEOD Physician Instructions: Reason For Exam: Acute arterial occlusion 05/18/22 23:27 Consult to Dietitian/Nutrition [CONS] Routine Physician Instructions: Reason For Exam: Reason for Consult: Pt needs oral supplement 05/21/22 08:18 Physical Therapy Evaluation and Treat [CONS] Routine Comment: Reason For Exam: Left leg arterial occlusion/revasc Primary care physician: ELECT[employer]SM[employer]ION ENGINEER Hospitalization Reason for admission: left leg pain and numbness Condition: Serious Hospital course: History of present illness: 72-year-old female with history of end-stage renal disease on peritoneal dialysis, hypertension presents with left lower extremity pain numbness and significant difficulty in walking. Her symptoms are confined to the left mid thigh and call and left foot. Patient says that her symptoms started around 9 AM. Emergent arterial duplex scan revealed---Marked peripheral artery disease of the left extremity with absent flow noted from the distal superficial femoral artery through the lower ankle arthritis. Vascular surgery Was Informed and the Patient Was Taken to the Product Scientist for immediate intervention. Hospital Course: 05/19: No acute complaints this AM. States that LLE symptomology significantly improved, no pain/numbness/paresthesias reported today. good dp and pt pulses appreciated. 05/20: Vascular recommends ECHO and CTA chest to r/o intracardiac thrombus. CTA chest negative for thrombus. ECHO pending. Continue heparin gtt. 05/21: Vascular d/c heparin, start eliquis. PT assessment states that patient can be d/c home with home health care Pt and rolling walker. clonidine, coreg, apixaban, hydralazine, plavix, nifedipine e-rx to pharmacy. Assessment and Plan: (1) Acute occlusion of artery of lower extremity Current Visit: Yes Status: Acute Plan to address problem: Patient taken to the Product Scientist for intervention and possible stent placement Patient was started on IV heparin Admitted to [facility] (2) Acute pain of left lower extremity Current Visit: Yes Status: Acute Plan to address problem: Emergent vascular surgery intervention (3) End stage renal disease Current Visit: Yes Status: Chronic Plan to address problem: Nephrology consulted Dialysis as per schedule (4) Hypertension Current Visit: Yes Status: Chronic Qualifiers: Hypertension type: primary hypertension Plan to address problem: Continue antihypertensives (5) Dilated cardiomyopathy Current Visit: Yes Status: Chronic Plan to address problem: Increase ultrafiltration to prevent volume overload (6) DVT prophylaxis Current Visit: Yes Status: Acute Plan to address problem: Patient on IV heparin and GI prophylaxis (7) Advance care planning Current Visit: Yes Status: Acute Plan to address problem: Disease education conducted, care plan discussed, below diagnosis discussed and prognosis discussed. Patient acknowledged understanding with care plan. +30 minutes. Disposition: HOME HEALTH CARE SERVICE Final Discharge Diagnosis (Prints w/discharge instructions): Acute occlusion of artery of left lower extremity, ESRD on HD, HTN, Dilated CMP Time spent for discharge: 35 Core Measure Documentation - Palliative Care Palliative Care/ Comfort Measures: Not Applicable - Core Measures Any of the following diagnoses?: none Exam - Physical Exam Narrative exam: General appearance: Present: no acute distress, well-nourished - EENT Eyes: Present: PERRL ENT: hearing intact, clear oral mucosa - Neck Neck: Present: supple, normal ROM - Respiratory Respiratory effort: normal Respiratory: bilateral: CTA - Cardiovascular Heart rate: 78 Rhythm: regular Heart Sounds: Present: S1 & S2. Absent: rub, click - Extremities Extremities: No edema, abnormal (Left lower extremity cold to touch, but no gangrenous changes)--> improved now warm to touch Extremity abnormal: pulses palpable in DP and PT other (Same as overall) Peripheral Pulses: within normal limits - Abdominal General gastrointestinal: Present: soft, non-tender, non-distended, normal bowel sounds Female genitourinary: Present: normal - Integumentary Integumentary: Present: clear, warm, dry - Musculoskeletal Musculoskeletal: gait normal, strength equal bilaterally - Psychiatric Psychiatric: appropriate mood/affect, intact judgment & insight - Neurologic Neurologic: CNII-XII intact, moves all extremities - Constitutional Vitals: Temp Pulse Resp BP Pulse Ox 97.7 F 91 H 22 137/55 95 05/21/22 11:48 05/21/22 09:23 05/21/22 09:00 05/21/22 11:05/21/22 11:02 Plan Follow up with: PRIMARY CARE, [Primary Care Provider] - 3-5 Days Prescriptions: cloNIDine [Catapres] 0.2 mg PO BID 30 Days #60 tab carvediloL [Coreg] 6.25 mg PO BID 30 Days #60 tab Apixaban [Eliquis] 5 mg PO Q12HR 30 Days #60 tablet Hydralazine HCl 50 mg PO TID 30 Days #90 tab Clopidogrel [Plavix] 75 mg PO QDAY 30 Days #60 tablet NIFEdipine XL [Procardia Xl] 60 mg PO HS 90 Days #90 tablet
[2022-05-21 16:12] VITALS: BP 157/67
== END 2022-05-21 17:10 | disposition home health service (06) | DRG 270 ==
LOC: ED 12:40 → 4A 19:02 → IMCU 21:12
PROVIDERS: ADMIT Internal Medicine; ATTEND Internal Medicine
PROC: 04CL3ZZ Extirpation of Matter from Left Femoral Artery, Percutaneous Approach (ICD-10-PCS; principal; 2022-05-18)
PROC: 04CN3ZZ Extirpation of Matter from Left Popliteal Artery, Percutaneous Approach (ICD-10-PCS; 2022-05-18)
PROC: 04CS3ZZ Extirpation of Matter from Left Posterior Tibial Artery, Percutaneous Approach (ICD-10-PCS; 2022-05-18)
PROC: 047N34Z Dilation of Left Popliteal Artery with Drug-eluting Intraluminal Device, Percutaneous Approach (ICD-10-PCS; 2022-05-18)
PROC: 3E05317 Introduction of Other Thrombolytic into Peripheral Artery, Percutaneous Approach (ICD-10-PCS; 2022-05-18)
PROC: B44FZZ3 Ultrasonography of Right Lower Extremity Arteries, Intravascular (ICD-10-PCS; 2022-05-18)
PROC: 3E1M39Z Irrigation of Peritoneal Cavity using Dialysate, Percutaneous Approach (ICD-10-PCS; 2022-05-19)
PROC: 3E1M39Z Irrigation of Peritoneal Cavity using Dialysate, Percutaneous Approach (ICD-10-PCS; 2022-05-20)
DX: I70.222 Atherosclerosis of native arteries of extremities with rest pain, left leg (principal); N18.6 End stage renal disease; I42.0 Dilated cardiomyopathy; I13.2 Hypertensive heart and chronic kidney disease with heart failure and with stage 5 chronic kidney disease, or end stage renal disease; I50.9 Heart failure, unspecified; E11.22 Type 2 diabetes mellitus with diabetic chronic kidney disease; E83.42 Hypomagnesemia; I77.1 Stricture of artery; Z88.8 Allergy status to other drugs, medicaments and biological substances; D64.9 Anemia, unspecified
CPT/HCPCS: 36415; 37184; 37185; 37226; 71275; 75625; 75635; 75710; 76937; 80053; 80061; 82140; 82550; 83735; 84484; 85025; 85520; 85610; 85730; 93005; 93306; G0378; J3490; C1725; C1757; C1760; C1769; C1874; C1884; C1887; C8929; J0360; J1200; J1644; J2250; J2270; J2930; J2997; J3010; J7030; Q9967